=== PATIENT | female | born 2005 | race Hispanic/Latino ===

== ENCOUNTER 2024-10-02 15:42 | Inpatient (IN) | payer MEDICAID ==
[~2024-10-02] VITALS: Ht 129.5 cm; Wt 38.2 kg
[~2024-10-02 15:42] MED LIST: ATEN5POW3 MC; AUD IH; CARB15DR OP; CETI5TAB12 PO; DEXT1DRO OP; ESOM20CA51 PEG; FLUT12AE IH; IPRNEB IH; POLY17PO52 PO; [UNRECOGNIZED DRUG - CODE] IH; [UNRECOGNIZED DRUG - CODE] OD
--- NOTE | 2024-10-02 15:42 | NUR ---
VENT SETTINGS - SIMV, TV-250, PEEP-6, R- 22,
[2024-10-02] MEDS ORDERED: cefTRIAXone 1G VIAL 1 GM in 0.9%NACL 50ML 50 ML IV ONE (16:00)
[2024-10-02] MEDS: cefTRIAXone 1G VIAL IVPB ONE (16:30)
--- NOTE | 2024-10-02 17:35 | NUR ---
pt presents to er 1 WK AGO BLOODY DRAINAGE TO LEFT EAR HOWEVER PARENT REPORTS DATK COFFEE GROUNG RESIDUAL FROM PEG AND TARRY STOOLS STARTING ONE WEEK PT HAS 4.[address] AND VENTED PARENT REPORTS HX OFSPINAL MUSCULAR ATROPHY TYPE 1 VENT SETTINGS ARE RR-22, SIMV VOLUME CONTROL TIDLE VOL 250, PEEP 6, PRESSURE 4-10
[2024-10-02 17:42] LABS: BASOPHILS # (AUTO) 0.08 K/uL (0.00-0.20); BASOPHILS % (AUTO) 0.5 % (0.0-5.0); EOSINOPHILS # (AUTO) 0.21 K/uL (0.00-0.70); EOSINOPHILS % (AUTO) 1.2 % (0.0-8.0); IMMATURE GRANULOCYTE ABSOLUTE 0.07 K/uL (0-1); LYMPHOCYTES # (AUTO) 5.5 K/uL (1.0-4.8); LYMPHOCYTES % (AUTO) 31.4 % (21.0-51.0); MEAN CORPUSCULAR HGB CONC 32.4 g/dL (32.0-36.0); MEAN CORPUSCULAR VOLUME 92.4 fL (80-100); MONOCYTES # (AUTO) 0.8 K/uL (0.1-1.0); MONOCYTES % (AUTO) 4.7 % (3.0-13.0); NEUTROPHILS # (AUTO) 10.8 K/uL (1.8-7.7); NEUTROPHILS % (AUTO) 61.8 % (40.0-77.0); PLATELET COUNT (AUTO) 344 K/uL (130-400); RED BLOOD CELL COUNT(AUTO) 3.57 MIL/uL (4.00-5.50); RED CELL DISTRIBUTION WIDTH 16.6 % (11.0-15.5); WHITE BLOOD COUNT (AUTO) 17.5 K/uL (4.8-10.8)
--- NOTE | 2024-10-02 17:51 | NUR ---
PARENT REPORTD PT ON CONTINUIOUS FEEDING FROM 9AM TO 11 PM VITAL PEPTIDE 1.5 MOTHER TO PROVIDE RATE
[2024-10-02 17:54] LABS: INR 1.05 (0.85-1.15); PROTHROMBIN TIME 11.7 SEC (9.6-11.6)
[2024-10-02 17:56] LABS: PARTIAL THROMBOPLASTIN TIME 28.8 SEC (26.3-35.5)
[2024-10-02 18:16] LABS: CREATININE 0.2 mg/dL (0.5-1.0); POTASSIUM 3.5 mmol/L (3.5-5.1)
--- NOTE | 2024-10-02 18:20 | NUR ---
FEEDING 55 ML PER HR ON THE PUMP
[2024-10-02 18:21] LABS: BAND NEUTROPHILS % (MANUAL) 3 % (0-2); EOSINOPHILS % (MANUAL) 1 % (1-6); LYMPHOCYTES % (MANUAL) 25 % (22-44); MAN.DIFF COMMENT-IMPRESSION MANUAL DIFFERENTIAL; MONOCYTES % (MANUAL) 4 % (2-9); REACTIVE LYMPHOCYTES 9 % (0-0); SEGMENTED NEUTROPHILS % 58 % (40-70); TOTAL CELLS COUNTED 100
[2024-10-02 18:23] LABS: ALBUMIN 3.6 g/dL (3.5-5.0); BILIRUBIN,DIRECT 0.1 mg/dL (0.0-0.3); BILIRUBIN,TOTAL 0.3 mg/dL (0.2-1.0)
--- NOTE | 2024-10-02 18:30 | ERN ---
General Chief Complaint: Bloody Stool Stated Complaint: BLOOD IN STOOL, ABN LABS Time Seen by MD: 15:58 History of Present Illness Initial Comments 18-year-old female, history of spinal muscular dysplasia type 1, vent dependent on tracheostomy, GJ dependent, brought in by mother for elevated white blood cell count. One week ago patient had some drainage from the left ear. She went to the PCP was diagnosed with an ear infection. At that time she had a white blood cell count of 20.4 K. She took Augmentin for a week. Yesterday on re- evaluation at the prescription [facility] the patient had a white blood cell count of 24 four K. mother also reports that the residuals from the GJ tube looked coffee colored and she has had some dark stools. No fevers. No more cough than usual. No other real symptoms. Patient does not communicate. Allergies: Coded Allergies: vancomycin (Unverified Allergy, Unknown, 02/02/22) Home Meds Reported Medications Albuterol Sulfate (Ventolin Hfa) 90 Mcg Hfa.aer.ad, 2 PUFF IH BID for 30 Days, #18 GM 0 Refills 10/03/24 Amoxicillin/Potassium Clav (Augmentin 500-125 Tablet) 500 Mg-125 Mg Tablet, 1 TAB PO BID for 10 Days, #20 TAB 0 Refills 10/03/24 Midazolam (Nayzilam) 5 Mg/Dale (0.1 Ml) Dale, 5 MG NS AD PRN for OTHER [SEE ORDER COMMENTS], SPRAY 10/03/24 Midazolam (Nayzilam) 5 Mg/Dale (0.1 Ml) Dale, 5 MG NS BID PRN for CONSTIPATION, SPRAY 10/03/24 Acetaminophen (Acetaminophen) 160 Mg/5 Ml Liquid, 480 MG GT Q6HPRN PRN for PAIN/FEVER 10/03/24 Propranolol HCl (Propranolol HCl) 20 Mg Tablet, 1 TAB PO BID PRN for OTHER [SEE ORDER COMMENTS] for 30 Days, #60 TAB 0 Refills 10/03/24 Ergocalciferol (Vitamin D2) (Ergocalciferol) 200 Mcg/Ml (8000 Unit/Ml) Drops, 1 ML PO QWEEK for 28 Days, #20 ML 0 Refills 10/03/24 Sodium Chloride For Inhalation (Sodium Chloride) 7 % Vial.neb, 4 ML IH BID, INH 10/03/24 Polyethylene Glycol 3350 (Polyethylene Glycol 3350) 17 Gm Powd.pack, 17 GM PO QODAY 09/08/22 Dextran 70/Hypromellose (Artificial Tears) 1 Each Droperette, 1 EACH OP TID, DROP 09/08/22 Fluticasone/Salmeterol (Advair Hfa 45-21 Mcg Inhaler) 12 Gm Hfa.aer.ad, 2 INH IH BID, INHALER 09/08/22 Cetirizine HCl (Cetirizine HCl) 5 Mg Tablet, 5 MG PO HS, TAB 02/02/22 Albuterol Sulfate (Albuterol Sulfate) 2.5 Mg/0.5 Ml Vial.neb, 2.5 MG IH Q4HPRN PRN for BRONCHOSPASM, INH 02/02/22 Discontinued Reported Medications Albuterol Sulfate (Ventolin Hfa) 90 Mcg Hfa.aer.ad, 2 PUFF IH BID for 30 Days, #18 GM 0 Refills 10/03/24 Carboxymethylcellulose Sodium (Refresh Tears) 15 Ml Drops, 1 ML OP HS, DROP 09/08/22 Esomeprazole Magnesium (Esomeprazole Magnesium) 20 Mg Capsule.dr, 20 MG PEG DAILY, CAP 09/08/22 Sodium Chloride (Sodium Chloride 3% Neb Soln) 15 Ml Soln, 4 ML IH BID, ML 02/02/22 Petrolat,Wht/Min Oil/Sod Chl (Refresh P.m. Ointment P-F) 3.5 Gm Oint...g., 1 GM OD HS 02/02/22 Atenolol (Atenolol) 5 Gm Powder, 2 GM MC [id number] PRN for OTHER [SEE ORDER COMMENTS], APPL 02/02/22 Discontinued Scripts Ipratropium Willow (Atrovent Neb Soln) 0.5 Mg/2.5 Ml Soln, 0.5 MG IH [id number] for 15 Days, #60 AMP 1 Refill Prov:LAURA GAXIOLA Jr., MD 02/08/22 Past Medical History Past Medical History: Other Medical History Other: SMA-1 Past Surgical History: Other, Unknown Surgical History Other: TRACH, VENT, J TUBE Social History Social History: Lives with family ROS Dictation Patient does not communicate, unable to perform review of systems Physical Exam Physical Exam Dictation VITAL SIGNS: Reviewed. GENERAL APPEARANCE: No distress, baseline, does not respond, vent dependent HEAD AND FACE: Non-traumatic. EYES: Mild conjunctival injection bilateral EARS: Pinnas intact and no signs of trauma or erythema. Ear canals clear and no discharge. TMs no erythema. NOSE: No discharge, no bleeding. OROPHARYNX: Mouth normal, teeth no caries, tongue pink. Pharynx clear, no erythema. Tonsils no exudates, no abscesses noted. Mucous membrane moist. NECK: Supple, non-tender, no thyromegaly, no masses, no JVD, no bruits. CHEST: No tenderness, no crepitus, no paradoxical movement, no retractions. LUNGS: Mildly coarse lungs, vent dependent HEART: Regular rate, regular rhythm, no murmur, no gallops. VASCULAR: No peripheral edema. ABDOMEN: Soft, positive bowel sounds, nondistended, no guarding, nontender, no rebound, no masses no hepatomegaly, no splenomegaly, no Goetz's sign, no hernias. RECTAL: Deferred. GENITAL: Deferred. NEUROLOGICAL: At baseline MUSCULOSKELETAL: Baseline EXTREMITIES: Baseline SKIN: Color pink, dry, no turgor, no rash, no lacerations, no abrasions, no contusions. LYMPHATICS: Deferred. Results Laboratory and Microbiology Lab and Micro Result Labs Reviewed?: Yes EKG/XRAY/US/CT/MRI X-RAY Comment PATIENT: KYLE PATEL MR#: [id number] : 2005 SEX: F AGE: 18 LOCATION: [facility] ORDER 00 STATUS: [facility] REPORT#: [id number] SERVICE 1700 REASON: cough ORDERING PHYSICIAN: RUBIO CLOUD DO PROCEDURE: CXR1VW - CHEST 1VW PORTABLE CHEST RADIOGRAPH INDICATION: cough COMPARISON: 09/10/2022 FINDINGS: Heart size is normal. The pulmonary vascularity and jaya appear normal. Right lung is clear. Suspect left lower lung opacities. No significant pleural effusion noted. No pneumothorax detected. Significant scoliotic deformity of the thoracolumbar spine. IMPRESSION: Suspect left lower lung opacities. Follow-up chest radiograph is advised in order to ensure resolution. DICTATED BY: TEGAN LEMON MD DATE: 10/02/24 3448 ELECTRONICALLY SIGNED BY: TEGAN LEMON MD DATE: 10/02/24 185 MDM MDM: Differential diagnosis: Sepsis likely from pneumonia, GI bleed could be gastritis, peptic ulcer disease Rationale: Tests considered and ordered secondary to shared decision making include: labs, ECG and radiology Previous outside records reviewed: Old ER visits. Risk of complication and/or morbidity or mortality of patient management: None Medications-Per medication reconciliation Need for hospitalization: Patient does meet criteria for hospitalization. Need for emergency major/minor surgery: No There are no social concerns with this patient. Prescription drug management Prescriptions will include symptomatic care Patient's prior external medical records from other ER visits were reviewed by me as indicated. Prior testing and results from previous visits were reviewed. Prior tests were taken into account with medical decision making and resource utilization, independent historian/historians were used to obtain complete medical history. I independently interpreted the test that were performed, results were reviewed by me and considered findings on radiology if ordered. Medical management and examination interpretation discussions were had by me with other qualified healthcare professionals as indicated for the patient's care. ED Course 7:00 p.m. patient was signed out to me by a.m. physician. This is a 18-year-old chronically debilitated ill, chronic trach with ventilator dependence secondary to muscular dystrophy was recently seen by her PCP and thought to have otitis media. She was treated with Augmentin for a week and during follow up noted to have worsening leukocytosis and family also reported blood in the stool. They also informed about bloody J-tube secretions. Tachycardic at presentation with heart rates of 118 afebrile Labs reviewed CBC showed a white count of 17.5 hemoglobin 10.7-do not have baseline hemoglobin to compare. BNP 7 shows a sodium of 150 chloride 115 BUN and creatinine are 22 and 0.2 Chest x-ray shows a very rotated film with the opacification of the left lung base suggestive of a probable pneumonia. I have recommended admission to the hospital for treatment of pneumonia and pursue workup for GI bleed. Patient has received a dose of Rocephin and fluids as well as a PPI I updated patient's mother at bedside on available information test results and concern for sepsis likely related to lung and also a GI bleed. She is agreeable Patient accepted by [facility], mid-level provider for the hospitalist group to be admitted to Dr. Loki Faust Problem List Problem Lists: (1) Chronic respiratory failure requiring continuous mechanical ventilation through tracheostomy (2) Pneumonia involving left lung (3) Muscular dystrophy (4) Anemia (5) Leukocytosis (6) GI bleed DX & DISP Disposition: Inpatient Decision to Admit Time: 19:27 Departure Impression: Primary Impression: GI bleed Additional Impressions: Anemia, Leukocytosis, Pneumonia involving left lung, Chronic respiratory failure requiring continuous mechanical ventilation through tracheostomy, Muscular dystrophy Condition: Stable Additional Instructions: Patient was informed of all the diagnostic labs and procedures conducted in the emergency room today and demonstrated understanding of the results. I personally reviewed and interpreted all the diagnostic exams performed in the ER today. The patient will be admitted to the hospital for further treatment and evaluation. Disposition-admit to facility Condition-stable/guarded Course-uncertain at this time Pain status-decreased Assessment-exam unchanged Admission Certification- I certify that the patients status is appropriate and is based on my best clinical judgment and the patient's condition as documented in the medical records Referrals: SALMA RUTH (PCP) RUBIO CLOUD DO Oct 02, 2024 18:30 JOVITA OLIVO MD Oct 02, 2024 19:34
[2024-10-02] MEDS: PANTOPrazole 40 MG/VIAL IVP ONE (18:33)
[2024-10-02] MEDS: LACTATED RINGERS 1000ML 1,000 ML IV ONE (18:33)
--- NOTE | 2024-10-02 18:52 | HMCIMG ---
ABDOMEN SINGLE VIEW INDICATION: Pain COMPARISON: None FINDINGS: Supine view only No abnormal bowel dilation noted. Gastrojejunostomy or other enteric tube is in place. No abnormal calcifications identified. No gross free air detected. Significant deformity of the skeletal structures. IMPRESSION: No evidence for bowel obstruction.
--- NOTE | 2024-10-02 18:52 | HMCIMG ---
PORTABLE CHEST RADIOGRAPH INDICATION: cough COMPARISON: 09/10/2022 FINDINGS: Heart size is normal. The pulmonary vascularity and jaya appear normal. Right lung is clear. Suspect left lower lung opacities. No significant pleural effusion noted. No pneumothorax detected. Significant scoliotic deformity of the thoracolumbar spine. IMPRESSION: Suspect left lower lung opacities. Follow-up chest radiograph is advised in order to ensure resolution.
[2024-10-02] MEDS ORDERED: ondanSETRON 4MG INJ IV PRN (20:30)
[2024-10-02 20:57] LABS: APPEARANCE,URINE CLEAR (CLEAR); BILIRUBIN,URINE NEGATIVE (NEGATIVE); COLOR,URINE YELLOW (YELLOW); GLUCOSE, URINE (UA) NEGATIVE (NEGATIVE); KETONES,URINE NEGATIVE (NEGATIVE); LEUKOCYTE ESTERASE ,URINE NEGATIVE Leu/uL (NEGATIVE); NITRATE,URINE NEGATIVE (NEGATIVE); OCCULT BLOOD,URINE NEGATIVE (NEGATIVE); PROTEIN,URINE 20 mg/dL (NEGATIVE); UROBILINOGEN,URINE 0.2 mg/dL (0.2-1.0)
[2024-10-02] MEDS: DEXTROSE 5%-WATER 1,000 ML IV SCH (21:01)
[2024-10-02] MEDS: ZOSYN 3.375GM +NS 50ML IVPB SCH (21:01)
[2024-10-02 21:02] LABS: ADD UA MICROSCOPIC YES
[2024-10-02 21:03] LABS: MUCUS,URINE RARE LPF (None Seen)
--- NOTE | 2024-10-02 21:04 | HP ---
[facility] HISTORY AND PHYSICAL Date of Service: Oct 02, 2024 Time of Service: 20:11 PCP: Estrellita Ferrell HISTORY OF PRESENT ILLNESS: This is a 18-year-old female with past medical history of spinal muscular dystrophy, chronic respiratory failure vent dependent via trach, severe gastroesophageal reflux with PEG tube placement,severe thoracic scoliosis and functional quadriplegia who presents to the ED for elevated WBC.As per mother patient was having left ear infection with drainage 1 week ago and was started on Augmentin bid x 14days and today is day #7 and so far as per mother left ear drainage was resolved and yesterday patient went to her accessibility lift technician and a lab work was done and today as per mother she received a call from the clinic instructing her to bring patient to the ED due to elevated WBC. As per mother ,patient has coffee ground residuals from peg tube and has also been having dark watery stool everyday x 3 days.Patient had also dark stool last week daily x 3 days but had stopped and came back again since Monday this week.As per mother patient didnt have fever,chills,no abdominal pain reported. Latest vital signs temperature 98.2, heart rate 118, respiration 22, blood pressure 104/62, saturation 97% on vent FiO2 60%. Labs: WBC 17.5, hemoglobin 10.7, hematocrit 33, platelet count 344. Sodium 150, chloride 115, BUN 22, creatinine 0.2, total CK nine, total protein nine procalcitonin 0.09. Chest x-ray result revealed suspected left lower lung opacities. Follow-up chest radiograph is advised in order to ensure resolution. Chest x-ray result revealed no evidence for bowel obstruction. While in the ER patient received Rocephin 1 g IV, Protonix 40 mg IV, LR bolus 1 L. We will admit patient for further medical management. REVIEW OF SYSTEMS:Unable to perform patient is vented and lethargic PAST MEDICAL HISTORY: [ Severe thoracic scoliosis Spinal muscular atrophy, ventilator dependent chronic respiratory failure, severe gastroesophageal reflux at 4-month-old &functional quadriplegia ] PAST SURGICAL HISTORY: [ status post tracheostomy &s/p fundoplication surgery at 4-month-old PEG tube placement 09/2021] PAST SOCIAL HISTORY: [Patient lives with mother. ] FAMILY HISTORY: [ Noncontributory ] Coded Allergies: vancomycin (Unverified Allergy, Unknown, 02/02/22) PHYSICAL EXAM GENERAL APPEARANCE: The patient is lethargic but arousable.Patient appears comfortable NEUROLOGICAL: Patient is non verbal ,open eyes. HEENT: Face is symmetric. Pupils are equal and reactive. Extraocular movements are intact. NECK: Patient has vent via trache CHEST: Normal chest expansion. +Telemetry. LUNGS: scattered rhonchi on bilateral lower bases per auscultation CARDIOVASCULAR: Regular. S1 and S2 normal. No appreciable rubs, murmurs or gallops. ABDOMEN: + Pegtube-clamped Soft, nontender, and nondistended. There is no rebound, voluntary guarding, or rigidity. : Deferred. No Aleman. EXTREMITIES: + pedal pulses. Good capillary refill. SKIN: No skin breakdown. Vital Sign (Last 24 Hours) 10/02/24 10/02/24 17:17 18:09 Temp 98.2 Pulse 118 Resp 22 B/P (MAP) 104/62 Pulse Ox 97 O2 Delivery Room Air* Trach Collar+ O2 Flow Rate 0 FiO2 N/A LABS: Laboratory: Test 10/02/24 17:32 10/02/24 17:25 Range/Units White Blood Count 17.5 H 4.8-10.8 K/uL Red Blood Count 3.57 L 4.00-5.50 MIL/uL Hemoglobin 10.7 L 12.0-16.0 g/dL Hematocrit 33.0 L 36-48 % Mean Corpuscular Volume 92.4 80-100 fL Mean Corpuscular Hemoglobin 30.0 27.0-33.0 pg Mean Corpuscular Hemoglobin Concent 32.4 32.0-36.0 g/dL Red Cell Distribution Width 16.6 H 11.0-15.5 % Platelet Count 344 130-400 K/uL Mean Platelet Volume 10.9 H 7.5-10.5 fL Immature Granulocyte % (Auto) 0.4 0-1 % Neutrophils (%) (Auto) 61.8 40.0-77.0 % Lymphocytes (%) (Auto) 31.4 21.0-51.0 % Monocytes (%) (Auto) 4.7 3.0-13.0 % Eosinophils (%) (Auto) 1.2 0.0-8.0 % Basophils (%) (Auto) 0.5 0.0-5.0 % Neutrophils # (Auto) 10.8 H 1.8-7.7 K/uL Lymphocytes # (Auto) 5.5 H 1.0-4.8 K/uL Monocytes # (Auto) 0.8 0.1-1.0 K/uL Eosinophils # (Auto) 0.21 0.00-0.70 K/uL Basophils # (Auto) 0.08 0.00-0.20 K/uL Absolute Immature Granulocyte (auto 0.07 0-1 K/uL Segmented Neutrophils % 58 40-70 % Band Neutrophils % 3 H 0-2 % Lymphocytes % (Manual) 25 22-44 % Monocytes % (Manual) 4 2-9 % Eosinophils % (Manual) 1 1-6 % Nucleated Red Blood Cells 0.0 0.0-0.19 % Differential Comment MANUAL DIFFERENTIAL Reactive Lymphocytes 9 H 0-0 % White Cell Morphology Comment Platelet Morphology Comment Red Blood Cell Morphology See comments Prothrombin Time 11.7 H 9.6-11.6 SEC Prothromb Time International Ratio 1.05 0.85-1.15 Activated Partial Thromboplast Time 28.8 26.3-35.5 SEC Sodium Level 150 H 136-145 mmol/L Potassium Level 3.5 3.5-5.1 mmol/L Chloride Level 115 H 101-111 mmol/L Carbon Dioxide Level 23 21-32 mmol/L Blood Urea Nitrogen 22 H 7-18 mg/dL Creatinine 0.2 L 0.5-1.0 mg/dL Glomerular Filtration Rate Calc 172 >90 mL/min Random Glucose 95 70-105 mg/dL Lactic Acid Level 1.3 0.8-2.5 mmol/L Total Calcium 9.4 8.5-10.1 mg/dL Total Bilirubin 0.3 0.2-1.0 mg/dL Direct Bilirubin 0.1 0.0-0.3 mg/dL Aspartate Amino Transf (AST/SGOT) 26 10-37 U/L Alanine Aminotransferase (ALT/SGPT) 36 12-78 U/L Alkaline Phosphatase 117 50-136 U/L Total Creatine Kinase 9 L 21-232 U/L Troponin I High Sensitivity < 4 L 4-50 ng/L Total Protein 9.0 H 6.0-8.3 g/dL Albumin 3.6 3.5-5.0 g/dL Lipase 52 16-77 U/L Procalcitonin 0.09 0.05-0.5 ng/mL DIAGNOSTICS / RADIOLOGY: [ ] ASSESSMENT: Suspected Left lung pneumonia POA Suspected GI bleed POA Normocytic normochromic anemia POA Acute Leukocytosis POA Hypernatremia POA Chronic respiratory failure ventilator dependent POA Functional quadriplegia POA Peg tube status POA Recent Left ear infection POA Spinal Muscular dystrophy POA Severe thoracic scoliosis POA PLAN: We will admit patient in ICU We will keep patient nothing by mouth We will start D5 at 50 mL/hour We will start patient on Zosyn IV q.12 We will start on Protonix 40 mg IV daily We will replace electrolytes as needed per protocol We will add prn medication for fever,pain,cough ,nausea and vomiting We will reconcile home meds once medlist available We will follow up urinalysis result, we will cultures and fecal occult blood We will request labs in am We will request H&H p.r.n. bleeding We will seek critical Care consultation Further orders to follow depending on above results Case discussed with attending physician and came up with above treatment and plan of care. ADVANCED CARE PLANNING 1. Which of the following were discussed? Hospice Care - No Therapeutic options - Yes Advance Directives - No Other discussions - 2. Discussed with who? Mother 3. Voluntary nature of this service was explained to the patient? Yes 4. Amount of time spent - _29 5. Reviewed by Physician? (if this service was performed by NPP) Yes Patient seen and examined by me. Agree with note by LOG WASHER SEE ADDITIONAL ORDERS PER CHART DISCUSSED WITH NURSING STAFF GIO KELLY Oct 02, 2024 21:04
[2024-10-02 23:37] VITALS: PULSE 99; RESP 22; O2SAT 97
[2024-10-02 23:46] VITALS: PULSE 99; O2SAT 100
[2024-10-03] VITALS (41 sets, daily range): BP systolic 91–110; BP diastolic 51–76; PULSE 61–131; RESP 22; TEMP 97.4–98.6; O2SAT 98–100
[2024-10-03] MEDS: NOREPINEPHRIN 4MG/NS 250ML 250 ML IV PRN (04:55)
[2024-10-03 07:11] LABS: BASOPHILS # (AUTO) 0.04 K/uL (0.00-0.20); BASOPHILS % (AUTO) 0.3 % (0.0-5.0); EOSINOPHILS # (AUTO) 0.26 K/uL (0.00-0.70); EOSINOPHILS % (AUTO) 2.2 % (0.0-8.0); HEMATOCRIT 25.1 % (36-48); IMMATURE GRANULOCYTE ABSOLUTE 0.07 K/uL (0-1); LYMPHOCYTES # (AUTO) 5.7 K/uL (1.0-4.8); MEAN CORPUSCULAR HEMOGLOBIN 30.3 pg (27.0-33.0); MEAN CORPUSCULAR HGB CONC 31.5 g/dL (32.0-36.0); MEAN CORPUSCULAR VOLUME 96.2 fL (80-100); MONOCYTES # (AUTO) 0.7 K/uL (0.1-1.0); MONOCYTES % (AUTO) 5.4 % (3.0-13.0); NEUTROPHILS # (AUTO) 5.2 K/uL (1.8-7.7); NEUTROPHILS % (AUTO) 43.5 % (40.0-77.0); PLATELET COUNT (AUTO) 197 K/uL (130-400); RED BLOOD CELL COUNT(AUTO) 2.61 MIL/uL (4.00-5.50); RED CELL DISTRIBUTION WIDTH 16.9 % (11.0-15.5)
--- NOTE | 2024-10-03 07:20 | NUR ---
REPORT RECEIVED FROM CONNIE STEPHENS
--- NOTE | 2024-10-03 07:25 | NUR ---
ASSESSMENT: PT FOUND IN SUPINE POSITION. MOTHER AT BEDSIDE. PT IS ON A VENTILATOR VIA TRACH CARIO/PULMONARY: NO ACUTE RESPIRATORY DISTRESS AT THIS TIME. OXYGEN SATS >95% ON CURRENT VENTILATOR SETTINGS. NO CYANOSIS NOTED TO NAIL BEDS ON HANDS. NO USE OF ACCESSORY MUSCLES NOR STERNAL RETRACTIONS. PT HAS A SIZE 7 TRACH. LUNG SOUNDS DIMINISHED BILATERALLY TO BASES AND CLEAR TO UPPER LOBES. PT DOES HAVE THIN ORAL SECRETIONS. PULSE OXIMETER ON L FOOT/TOE. SR ON SYSTEM SOFTWARE PROGRAMMER. S1S2 AUSCULTATED APICALLY. CAP REFILL LESS THAN 3 SECONDS. 1+PULSES TO BILATERAL RADIAL/DORSALIS PEDAL SITES. PT HAS A 20G TO L POSTERIOR WRIST AND L THUMB 20G. PT HAS NOREPINEPHRINE 0.1MCG/KG/MIN ALONG W/D5W GI/: PER MOTHER, PT HAS HAD BLACK STOOLS THE LAST FEW DAYS. HOMER STEPHENS CHANGED PT AT 0700HRS W/BLACK/DARK MEZA STOOLS. PT IS STOOL AND URINE INCONTINENT AND USES BRIEFS. PT HAS A J TUBE BUT PT CURRENTLY NPO STATUS. MOTHER DENIES NAUSEA. +BS X 4 QUADRANTS.SOFT TO PALPATION. NEURO: PT EYES ARE OPEN, BUT IS NON VERBAL AND UNABLE TO COMMUNICATE W/HER HANDS. UNABLE TO COMPLETLY ASSESS NEUROLOGICAL STATUS. UNABLE TO FOLLOW COMMANDS. MUSCULOSKELETAL/INTEGUMENTARY: PT HAS DEFORMITIES TO HER UPPER AND LOWER EXTREMITIES. PT HAS BILATERAL FOOT DROP. PT UNABLE TO MOVE W/OUT ASSIST. NO SKIN BREAKDOWN NOTED AT THIS TIME. PER MOM, NO SKIN BREAKDOWN TO THE PHYLICIA AREA EITHER. VENT SETTINGS: SIMV MODE TV 250 PEEP 5 PS 10 FIO2 21%
[2024-10-03 07:39] LABS: % IRON SATURATION 15.6 % (22-44)
--- NOTE | 2024-10-03 07:45 | NUR ---
RUTH CALLED IN THAT THE STOOL WILL NOT BE RESULTED FOR C DIFF D/T IT NOT BEING LOOSE ENOUGH. MOTHER WAS INFORMED.
--- NOTE | 2024-10-03 07:54 | NUR ---
LAB WAS RECOLLECTED D/T QUESTION ON ITS RESULTED VALUE.
--- NOTE | 2024-10-03 08:16 | CONS ---
[facility] CONSULTATION NOTE Date Patient Seen: Oct 03, 2024 Time of Visit: 08:15 Supervising Physician: Peng Gomez MD Reason for Consultation: Critiical Care management. Primary Care Physician: Mariaelena Alvarez Outpatient Specialists: Inpatient Consults: BIS, PROBLEM LIST: Septic shock, POA requiring Levophed Acute on chronic hypoxic respiratory failure, POA Ventilator dependent since Tracheostomy size Left side pneumoniae, POA Compensated metabolic acidosis, POA Acute on chronic anemia from blood loss, POA (Melena) Leukocytosis, POA Hypernatremia POA Chronic respiratory failure ventilator dependent POA Functional quadriplegia POA Bernardo tube gastrostomy, POA Recent Left ear infection POA Hypokalemia Hx of seizures History of spinal muscular dysplasia hx of Severe thoracic scoliosis HPI: This is a chronically ill 18-year-old female with a past medical history of spinal muscular dysplasia, gastrostomy tube, functional quadriplegia, bed-bound, vent dependent breaths, tracheostomy, and aphasia who presented to the emergency department for evaluation of elevated white count from PCP. On arrival to the emergency department patient arrived with a temperature of 98.2 heart rate of 118 respiratory rate of 22 on her home ventilator SIMV mode, TV 250, RR 22, fio2 of 21% and peep 5, with pressure support of 10. Home vent settings as follows: SIMV mode, TV 250, RR 22, fio2 of 21% and peep 5, with pressure support of 10. She initially arrived with a white count of 17.5 H&H of 10.7/33 platelet count of 344 K with normal neutrophils. Chemistry patient has a sodium of 148, potassium is 3.3 chloride 114 carbon dioxide 20 creatinine of 0.2 GFR 172 CRP of 18 albumin is 3.1 TSH of 4.29. Abdominal x-ray showed no evidence of bowel obstruction. Chest x-ray shows suspected left lower lung opacities. Patient was admitted to the ICU on a Levophed drip by the catalyst team and we are consulted for critical care management. On assessment patient is awake aphasic vented via trach. Appears to be in no apparent distress, she is completely bed-bound and requires total care. Her primary caregivers for mother. As per mom patient had recently been diagnosed with left ear infection with drainage one week ago and was started on Augmentin twice a day for 14 days today is day 7. So she followed up with patient's outreach specialist and lab work was done with revealed elevated white count and one sent to the ED for further evaluation. Patient on Levophed at0.03mcg/kg/min. She has poor veins for peripheral IV access and PICC line was ordered. On behalf of [facility] thank you for given us the opportunity to participate in the care of this patient. PAST MEDICAL HX: Severe thoracic scoliosis Spinal muscular dysplasia Ventilator dependent Chronic hypoxic respiratory failure Severe GERD Functional Quadriplegia PAST SURGICAL HX: Tracheostomy Fundoplication surgery Bernardo gastrostomy tube SOCIAL HISTORY: No tobacco, ETOH, or illicit drug use Coded Allergies: vancomycin (Unverified Allergy, Unknown, 02/02/22) REVIEW OF SYSTEMS: Unable to perform due to patient's cognitive status. PHYSICAL EXAM: GENERAL: Patient is awake alert aphasic. HEENT: Sclera non icteric, moist mucosa NECK: Short no JVD, tracheostomy LUNGS: Clear breath sounds bilaterally. No wheezes HEART: Regular rate and rhythm. Normal S1 and S2, without murmurs ABD: Abdomen soft, nontender. Bowel sounds present EXT: No clubbing cyanosis or edema NEURO: Alert and oriented to person, follows commands Vital Signs (last 8hr) Date Time Temp Pulse Resp B/P (MAP) Pulse Ox O2 Delivery O2 Flow Rate FiO2 10/03/24 07:05 128 22 124/79 98 Room Air* 0 21 Trach Collar+ 10/03/24 06:55 131 21 10/03/24 05:40 77 22 98/61 99 Room Air* 0 21 Trach Collar+ 10/03/24 05:19 66 22 90/47 98 Room Air* 0 N/A Trach Collar+ 10/03/24 05:07 75 22 93/51 99 Nasal Cannula* 1 24 10/03/24 04:55 80/43 10/03/24 04:33 91 22 80/42 99 Room Air* 0 N/A Trach Collar+ 10/03/24 03:12 98.4 90 22 86/54 99 Room Air* 0 N/A Trach Collar+ 10/03/24 02:42 97 21 10/03/24 00:25 100 99 Trach Collar+ 15 40 LABS: Hematology Labs: Test 10/03/24 06:46 10/02/24 17:32 Range/Units White Blood Count 12.0 #H 4.8-10.8 K/uL Red Blood Count 2.61 #L 4.00-5.50 MIL/uL Hemoglobin 7.9 #L 12.0-16.0 g/dL Hematocrit 25.1 #L 36-48 % Mean Corpuscular Volume 96.2 80-100 fL Mean Corpuscular Hemoglobin 30.3 27.0-33.0 pg Mean Corpuscular Hemoglobin Concent 31.5 L 32.0-36.0 g/dL Red Cell Distribution Width 16.9 H 11.0-15.5 % Platelet Count 197 # 130-400 K/uL Mean Platelet Volume 11.5 H 7.5-10.5 fL Immature Granulocyte % (Auto) 0.6 0-1 % Neutrophils (%) (Auto) 43.5 40.0-77.0 % Lymphocytes (%) (Auto) 48.0 21.0-51.0 % Monocytes (%) (Auto) 5.4 3.0-13.0 % Eosinophils (%) (Auto) 2.2 0.0-8.0 % Basophils (%) (Auto) 0.3 0.0-5.0 % Neutrophils # (Auto) 5.2 1.8-7.7 K/uL Lymphocytes # (Auto) 5.7 H 1.0-4.8 K/uL Monocytes # (Auto) 0.7 0.1-1.0 K/uL Eosinophils # (Auto) 0.26 0.00-0.70 K/uL Basophils # (Auto) 0.04 0.00-0.20 K/uL Absolute Immature Granulocyte (auto 0.07 0-1 K/uL Nucleated Red Blood Cells 0.0 0.0-0.19 % Segmented Neutrophils % 58 40-70 % Band Neutrophils % 3 H 0-2 % Lymphocytes % (Manual) 25 22-44 % Monocytes % (Manual) 4 2-9 % Eosinophils % (Manual) 1 1-6 % Differential Comment MANUAL DIFFERENTIAL Reactive Lymphocytes 9 H 0-0 % Platelet Morphology Comment Red Blood Cell Morphology See comments Chemistry Labs: Test 10/03/24 06:46 10/02/24 17:25 Range/Units Iron Level 38 L 50-170 mcg/dL Total Iron Binding Capacity 243 L 250-450 mcg/dL Percent Iron Saturation 15.6 L 22-44 % Procalcitonin < 0.05 L 0.05-0.5 ng/mL Sodium Level 150 H 136-145 mmol/L Potassium Level 3.5 3.5-5.1 mmol/L Chloride Level 115 H 101-111 mmol/L Carbon Dioxide Level 23 21-32 mmol/L Blood Urea Nitrogen 22 H 7-18 mg/dL Creatinine 0.2 L 0.5-1.0 mg/dL Glomerular Filtration Rate Calc 172 >90 mL/min Random Glucose 95 70-105 mg/dL Lactic Acid Level 1.3 0.8-2.5 mmol/L Total Calcium 9.4 8.5-10.1 mg/dL Total Bilirubin 0.3 0.2-1.0 mg/dL Direct Bilirubin 0.1 0.0-0.3 mg/dL Aspartate Amino Transf (AST/SGOT) 26 10-37 U/L Alanine Aminotransferase (ALT/SGPT) 36 12-78 U/L Alkaline Phosphatase 117 50-136 U/L Total Creatine Kinase 9 L 21-232 U/L Troponin I High Sensitivity < 4 L 4-50 ng/L Total Protein 9.0 H 6.0-8.3 g/dL Albumin 3.6 3.5-5.0 g/dL Lipase 52 16-77 U/L Coagulation Labs: Test 10/02/24 17:25 Range/Units Prothrombin Time 11.7 H 9.6-11.6 SEC Prothromb Time International Ratio 1.05 0.85-1.15 Activated Partial Thromboplast Time 28.8 26.3-35.5 SEC DIAGNOSTICS / RADIOLOGY RESULTS: [ ] PLAN Follow for critical care management in the ICU Treat empirically for suspected Pseudomonas pneumoniae with Zosyn Empiric coverage for community-acquired pneumonia with doxycycline Atrovent q.4 hours Mucomyst q.[address] of the chest without contrast Monitor electrolytes and cover accordingly IV fluids with D5 LR with 20 mEq of potassium at 50 mL/hour Blood cultures, urine cultures, respiratory culture MRSA swab Levophed to maintain map above 65 and wean as possible Resume home medications as possible NEURO: Minimize central acting medications as possible. Fall Precautions. Well lighted room through the day and minimize interruptions through the night to prevent acute delirium. Seizure precautions Ativan PRN IV seizure Resume home seizure medication PULMONARY: Supplemental 02 as needed Titrate Fio2 to keep Spo2 > or = 90% DuoNebs and CPT as needed IS hourly while awake for pulmonary hygiene Out of bed to chair as tolerated VAP Bundle Vent/BIPAP Settings: SIMV mode, TV 250, RR 22, fio2 of 21% and peep 5, with pressure support of 10. CARDIOVASCULAR: Follow hemodynamics. Titrate vasopressor to keep MAP >65 or systolic blood pressure >95mmHg Drips: Levophed LINES: PIV PICC GI & NUTRITION: Continue nutritional support Aspirations precautions Prokinetic agents and laxatives as needed NPO for now KIDNEYS & ELECTROLYTES: Strict monitoring of intake and output Daily weights Avoid nephrotoxic agents Monitor electrolytes and replace as needed Goal urine output of 30mL/hr or 0.5mL/kg/hr Urine output: [ ] Fluid Balance: [ ] ENDOCRINE: Maintain blood glucose between 100-180 at all times. Insulin sliding scale for blood glucose management TSH INFECTIOUS DISEASE: Trend temperature. Herrera-culture if febrile. Micro: [ ] Blood culture Urine culture Respiratory culture Antibiotics: Zosyn and doxycycline HEMATOLOGY & COAGULATION: Monitor H&H. Keep Hgb > 7 Transfuse 1 unit of PRBC for Hgb < 7 Transfuse 1 pack of platelets of platelets < 20, 000 Watch for any signs and symptoms of bleeding SKIN: Pressure ulcer prevention per facility protocol Rehab: PT/OT Prophylaxis: GI: Protonix 40 mg IV push b.i.d. DVT: SCDs Code Status: Full Resuscitation Disposition: ICU Other: Total patient care time exceeds 35 minutes excluding all procedures. Case was discussed and seen with my supervising physician. The above plan was formulated and agreed upon. GATTIO MARTIN Oct 03, 2024 08:15
--- NOTE | 2024-10-03 08:25 | NUR ---
CRITICAL CARE CONSULT: ANA GANT AT BEDSIDE ASSESSING THE PT.
--- NOTE | 2024-10-03 08:40 | NUR ---
FLU/COVID/STREP/MRSA SWABS SENT TO LAB-LABELED
[2024-10-03 08:45] LABS: HEMATOCRIT 28.7 % (36-48)
[2024-10-03 08:51] LABS: ALBUMIN 3.1 g/dL (3.5-5.0); BILIRUBIN,TOTAL 0.3 mg/dL (0.2-1.0); CREATININE 0.2 mg/dL (0.5-1.0); POTASSIUM 3.3 mmol/L (3.5-5.1); THYROID STIMULATING HORMONE 4.29 uIU/mL (0.36-3.74); TOTAL PROTEIN, SERUM 7.6 g/dL (6.0-8.3)
--- NOTE | 2024-10-03 08:57 | NUR ---
CONSENT OBTAINED FOR PICC LINE
[2024-10-03] MEDS ORDERED: PANTOPrazole 40 MG/VIAL IVP SCH (09:00)
[2024-10-03 09:02] LABS: ABG OXYGEN SATURATION 92.7 % (94.0-98.0); BASE EXCESS,VENOUS BLOOD GAS -6.9 (-2.0-3.0); DEVICE COMMENT JESSE RN V; HCO3,VENOUS BLOOD GAS 16.2 (22.0-29.0); PCO2,VENOUS BLOOD GAS 25 (38-54); PH,VENOUS BLOOD GAS 7.423 (7.320-7.430); PO2,VENOUS BLOOD GAS 66.9 mmHg (23.0-48.0); VENT MODE, BG HOME VENT (ROOM AIR)
--- NOTE | 2024-10-03 09:21 | NUR ---
PT TAKEN TO CT SCAN W/VENT AND IVP W/LEVO
--- NOTE | 2024-10-03 09:31 | NUR ---
PT JUST RETURNED FROM CT SCAN
[2024-10-03] MEDS: DOXYCYCLINE 100MG+NS 250ML 250 ML IV SCH (09:37)
[2024-10-03] MEDS: PANTOPrazole 40 MG/VIAL IVP SCH (09:37)
[2024-10-03] MEDS: CHLORHEXIDINE GLUCONATE 15 ML MOUTHWASH MM SCH (09:37)
[2024-10-03] MEDS: ARTIFICAL TEARS SOL 15 ML OU SCH (09:37)
[2024-10-03] MEDS: IpraTROPium 0.5 MG/2.5 ML INH IH SCH (09:49)
[2024-10-03] MEDS: acetylCYSTeine 20% 200MG/ML 4ML VIAL IH SCH (09:49)
[2024-10-03 09:52] LABS: RAPID GROUP A STREP negative (NEGATIVE)
[2024-10-03 10:03] LABS: INFLUENZA TYPE A Negative For Type A (NEGATIVE); INFLUENZA TYPE B Negative For Type B (NEGATIVE)
[2024-10-03 10:04] LABS: COVID19 (SARS ANTIGEN RAPID) PRESUMPTIVE NEGATIVE (NEGATIVE)
--- NOTE | 2024-10-03 10:13 | HMCIMG ---
CT CHEST W/O CONTRAST HISTORY: Chronic respiratory failure COMPARISON: 02/02/2022 TECHNIQUE: Multiple sequential axial images of the chest were obtained from the thoracic inlet through upper abdomen. Patient was not given contrast through intravenous route. FINDINGS: There is scoliosis. There is left lung subsegmental atelectasis. Tracheostomy tube is seen. The study is limited due to patient's underlying status with deformity. Bilateral pulmonary infiltrates are seen. No pleural effusion or pericardial effusion is seen. There is no evidence of pneumothorax. There are normal size mediastinal and hilar lymph nodes. The heart is not enlarged. Degenerative changes of the thoracolumbar spine are present. There is no evidence of adrenal nodule. IMPRESSION: 1. Minimal bilateral pulmonary infiltrates with left lower lung subsegmental atelectasis and bronchiectasis. CT was performed with one or more following dose reduction techniques: automated exposure control, adjustment of the mA and kv according to patient's size, or use of a iterative reconstruction technique.
--- NOTE | 2024-10-03 10:23 | PN ---
[facility] PROGRESS NOTE Date of Service: Oct 03, 2024 Time of Service: 10:21 SUBJECTIVE: This is a 18-year-old female with past medical history of spinal muscular dystrophy, chronic respiratory failure vent dependent via trach, severe gastroesophageal reflux with PEG tube placement,severe thoracic scoliosis and functional quadriplegia who presents to the ED for elevated WBC.As per mother patient was having left ear infection with drainage 1 week ago and was started on Augmentin bid x 14days and today is day #7 and so far as per mother left ear drainage was resolved and yesterday patient went to her senior systems programmer and a lab work was done and today as per mother she received a call from the clinic instructing her to bring patient to the ED due to elevated WBC. As per mother ,patient has coffee ground residuals from peg tube and has also been having dark watery stool everyday x 3 days.Patient had also dark stool last week daily x 3 days but had stopped and came back again since Monday this week.As per mother patient didnt have fever,chills,no abdominal pain reported. Latest vital signs temperature 98.2, heart rate 118, respiration 22, blood pressure 104/62, saturation 97% on vent FiO2 60%. Labs: WBC 17.5, hemoglobin 10.7, hematocrit 33, platelet count 344. Sodium 150, chloride 115, BUN 22, creatinine 0.2, total CK nine, total protein nine procalcitonin 0.09. Chest x-ray result revealed dominique spected left lower lung opacities. Follow-up chest radiograph is advised in order to ensure resolution. Chest x-ray result revealed no evidence for bowel obstruction. While in the ER patient received Rocephin 1 g IV, Protonix 40 mg IV, LR bolus 1 L. We will admit patient for further medical management. 10/03/24 On bedside examination in the ER the patient was being ventilated via tracheostomy tube and she has PEG tube in place and she ask functional quadriplegia. Spoke to her mom she describes that this is her usual functional status. A WBC count remains elevated. She is currently on 7 days of Augmentin treatment for her left ear infection with drainage. Her fecal occult blood test is positive for blood her abdominal x-ray reveals no evidence of bowel obstruction. Recent chest x-ray revealed suspected left lower lung opacities and follow-up imaging is recommended. And a recent chest CT scan revealed minimal bilateral pulmonary infiltrates, left lower lung subsegmental atelectasis and bronchiectasis. While in the ER the patient received Rocephin1 g IV, Protonix 40 mg and lactated Ringer's 1 L bolus. Given the elevated WBC count, suspected left lung pneumonia and GI bleeding consent she is being admitted for further manage the her blood pressure is124 x 79 with a pulse of 90. Arterial blood oxygen saturation is 92.7, venous blood pCO2 is that is slow and venous blood PO2 is 66.9, venous blood HC03 is 16.2, bedside lactic acid blood gas is 0.85 high her hemoglobin is 9.2 low and hematocrit is 28.7 low and fibrinogen is381 high sodium level is148 high potassium level is 3.3 low her BUN level is 13 and creatinine level is 0.2 low C-reactive protein is elevated with18 and TSH is high which is 4.29 WBC count is elevated with 12.0 high. Her serum iron levels are low at 38 and TIBC is low at 243 and percentage saturation is 15.6 low and her urine protein is high with 20 and RBCs 2-5 high and WBCs 2-5 high. She is being currently admitted for further management of care REVIEW OF SYSTEMS:Unable to perform patient is vented and lethargic PHYSICAL EXAM GENERAL APPEARANCE: The patient is lethargic but arousable.Patient appears comfortable NEUROLOGICAL: Patient is non verbal ,open eyes. HEENT: Face is symmetric. Pupils are equal and reactive. Extraocular movements are intact. NECK: Patient has vent via trache CHEST: Normal chest expansion. +Telemetry. LUNGS: scattered rhonchi on bilateral lower bases per auscultation CARDIOVASCULAR: Regular. S1 and S2 normal. No appreciable rubs, murmurs or ga llops. ABDOMEN: + Pegtube-clamped Soft, nontender, and nondistended. There is no rebound, voluntary guarding, or rigidity. : Deferred. No Aleman. EXTREMITIES: + pedal pulses. Good capillary refill. SKIN: No skin breakdown. Vital Signs (last 8hr) Date Time Temp Pulse Resp B/P (MAP) Pulse Ox O2 Delivery O2 Flow Rate FiO2 10/03/24 09:54 80 21 10/03/24 09:52 90 22 10/03/24 07:05 128 22 124/79 98 Room Air* 0 21 Trach Collar+ 10/03/24 06:55 131 21 10/03/24 05:40 77 22 98/61 99 Room Air* 0 21 Trach Collar+ 10/03/24 05:19 66 22 90/47 98 Room Air* 0 N/A Trach Collar+ 10/03/24 05:07 75 22 93/51 99 Nasal Cannula* 1 24 10/03/24 04:55 80/43 10/03/24 04:33 91 22 80/42 99 Room Air* 0 N/A Trach Collar+ 10/03/24 03:12 98.4 90 22 86/54 99 Room Air* 0 N/A Trach Collar+ 10/03/24 02:42 97 21 LABS: Laboratory: Test 10/03/24 08:59 10/03/24 08:58 10/03/24 07:52 10/03/24 06:54 Range/Units Blood Gas Specimen Type Venous Arterial Blood Oxygen Saturation 92.7 L 94.0-98.0 % Venous Blood pH 7.423 7.320-7.430 Venous Blood pCO2 at Patient Temp 25 L 38-54 Venous Blood pO2 at Patient Temp 66.9 H 23.0-48.0 mmHg Venous Blood HCO3 16.2 L 22.0-29.0 Venous Blood Base Excess -6.9 L -2.0-3.0 Venous Blood Total Hemoglobin 10.5 L 12.0-16.0 Sodium (Blood Gas) 144 136-145 MMOL/L Bedside Potassium (Blood Gas) 3.4 3.4-4.5 MMOL/L Bedside Chloride (Blood Gas) 114 H 98-107 MMOL/L Bedside Glucose (Blood Gas) 117 H 65-95 MG/DL Bedside Ionized Calcium (Blood Gas) 1.20 1.15-1.33 MMOL/L Bedside Lactic Acid (Blood Gas) 0.85 H 0.36-0.75 MMOL/L Blood Gas Temperature 37.0 35.5-37.0 CELSIUS Blood Gas Respiration Rate 22.0 min. Blood Gas Vent Mode HOME VENT ROOM AIR FiO2 21.0 % Blood Gas Tidal Volume 250 ml Blood Gas PEEP 6 cm H2O Blood Gas Specimen Comment LUDIN RN V Lactic Acid Level 0.9 0.8-2.5 mmol/L Hemoglobin 9.2 L 12.0-16.0 g/dL Hematocrit 28.7 L 36-48 % Fibrinogen 381 H 180-350 mg/dL Sodium Level 148 H 136-145 mmol/L Potassium Level 3.3 L 3.5-5.1 mmol/L Chloride Level 114 H 101-111 mmol/L Carbon Dioxide Level 20 L 21-32 mmol/L Blood Urea Nitrogen 13 7-18 mg/dL Creatinine 0.2 L 0.5-1.0 mg/dL Glomerular Filtration Rate Calc 172 >90 mL/min Random Glucose 114 H 70-105 mg/dL Total Calcium 8.5 8.5-10.1 mg/dL Magnesium Level 2.00 1.80-2.40 mg/dL Total Bilirubin 0.3 0.2-1.0 mg/dL Aspartate Amino Transf (AST/SGOT) 19 10-37 U/L Alanine Aminotransferase (ALT/SGPT) 29 12-78 U/L Alkaline Phosphatase 99 50-136 U/L C-Reactive Protein, Quantitative 18.00 H 0.5-3.0 mg/L Total Protein 7.6 6.0-8.3 g/dL Albumin 3.1 L 3.5-5.0 g/dL Thyroid Stimulating Hormone (TSH) 4.29 #H 0.36-3.74 uIU/mL Stool Occult Blood POSITIVE H NEGATIVE Test 10/03/24 06:46 10/02/24 20:25 10/02/24 17:32 10/02/24 17:25 Range/Units White Blood Count 12.0 #H 4.8-10.8 K/uL Red Blood Count 2.61 #L 4.00-5.50 MIL/uL Mean Corpuscular Volume 96.2 80-100 fL Mean Corpuscular Hemoglobin 30.3 27.0-33.0 pg Mean Corpuscular Hemoglobin Concent 31.5 L 32.0-36.0 g/dL Red Cell Distribution Width 16.9 H 11.0-15.5 % Platelet Count 197 # 130-400 K/uL Mean Platelet Volume 11.5 H 7.5-10.5 fL Immature Granulocyte % (Auto) 0.6 0-1 % Neutrophils (%) (Auto) 43.5 40.0-77.0 % Lymphocytes (%) (Auto) 48.0 21.0-51.0 % Monocytes (%) (Auto) 5.4 3.0-13.0 % Eosinophils (%) (Auto) 2.2 0.0-8.0 % Basophils (%) (Auto) 0.3 0.0-5.0 % Neutrophils # (Auto) 5.2 1.8-7.7 K/uL Lymphocytes # (Auto) 5.7 H 1.0-4.8 K/uL Monocytes # (Auto) 0.7 0.1-1.0 K/uL Eosinophils # (Auto) 0.26 0.00-0.70 K/uL Basophils # (Auto) 0.04 0.00-0.20 K/uL Absolute Immature Granulocyte (auto 0.07 0-1 K/uL Nucleated Red Blood Cells 0.0 0.0-0.19 % White Cell Morphology Comment See comments Iron Level 38 L 50-170 mcg/dL Total Iron Binding Capacity 243 L 250-450 mcg/dL Percent Iron Saturation 15.6 L 22-44 % Procalcitonin < 0.05 L 0.05-0.5 ng/mL Urine Color YELLOW YELLOW Urine Appearance CLEAR CLEAR Urine pH 7.0 5.0-8.0 Urine Specific [place] 1.027 1.001-1.031 Urine Protein 20 H NEGATIVE mg/dL Urine Glucose (UA) NEGATIVE NEGATIVE mg/dL Urine Ketones NEGATIVE NEGATIVE mg/dL Urine Occult Blood NEGATIVE NEGATIVE Urine Nitrate NEGATIVE NEGATIVE Urine Bilirubin NEGATIVE NEGATIVE mg/dL Urine Urobilinogen 0.2 0.2-1.0 mg/dL Urine Leukocyte Esterase NEGATIVE NEGATIVE Janeth/uL Urine RBC 2-5 H 0-1 /HPF Urine WBC 2-5 H 0-1 /HPF Urine Bacteria None None Seen /HPF Segmented Neutrophils % 58 40-70 % Band Neutrophils % 3 H 0-2 % Lymphocytes % (Manual) 25 22-44 % Monocytes % (Manual) 4 2-9 % Eosinophils % (Manual) 1 1-6 % Differential Comment MANUAL DIFFERENTIAL Reactive Lymphocytes 9 H 0-0 % Platelet Morphology Comment Red Blood Cell Morphology See comments Prothrombin Time 11.7 H 9.6-11.6 SEC Prothromb Time International Ratio 1.05 0.85-1.15 Activated Partial Thromboplast Time 28.8 26.3-35.5 SEC Direct Bilirubin 0.1 0.0-0.3 mg/dL Total Creatine Kinase 9 L 21-232 U/L Troponin I High Sensitivity < 4 L 4-50 ng/L Lipase 52 16-77 U/L Current Medications Medications (Trade) Dose Ordered Sig/[place]ent[place] Route PRN Reason Start Time Stop Time Status Last Admin Dose Admin Acetylcysteine (MUComyst 20% 4ML) 400mg = 2ml [id number] 10/03/24 10:00 11/02/24 09:59 10/03/24 09:49 400 MG Artificial Tears (Artificial Tears) 1 DROP OR AD Q8H OU 10/03/24 08:30 11/02/24 08:29 10/03/24 09:37 2 DROP Chlorhexidine Gluconate (Peridex) 15 ml Q8H MM 10/03/24 08:30 10/17/24 08:29 10/03/24 09:37 15 ML Dextrose 1,000 ml @ 50 mls/hr Q20H IV 10/02/24 20:30 11/01/24 20:29 10/02/24 21:01 50 MLS/HR Doxycycline Hyclate 250 ml @ 125 mls/hr Q12H IV 10/03/24 08:30 10/13/24 08:29 10/03/24 09:37 125 MLS/HR Ipratropium [place] (AtrovENT UD) 0.5 MG [id number] 10/03/24 10:00 11/02/24 09:59 10/03/24 09:49 0.5 MG Norepinephrine 250 ml @ 14.288 mls/ hr PROTOCOL PRN IV HYPOTENSION MAP LESS THAN 65 10/03/24 04:00 11/02/24 03:59 10/03/24 04:55 14.288 MLS/HR Ondansetron HCl (zoFRAN 4MG INJ) 4 mg Q6H PRN IV NAUSEA/VOMITING 10/02/24 20:30 11/01/24 20:29 Pantoprazole Sodium (PROTonix 40MG INJ) 40 mg BID IVP 10/03/24 09:00 11/02/24 08:59 10/03/24 09:37 40 MG Pantoprazole Sodium (PROTonix 40MG INJ) 40 mg DAILY IVP 10/03/24 09:00 10/03/24 08:09 DC Piperacillin Sod/ Tazobactam Sod (Zosyn 3.375gm+NS 50ml) 3.375 gm Q12H IVPB 10/02/24 20:30 10/12/24 20:29 10/03/24 09:37 3.375 GM PATIENT: KYLE PATEL MR#: [id number] : 2005 SEX: F AGE: 18 LOCATION: [facility] ORDER 0814 STATUS: ADM IN REPORT#: [id number] SERVICE 0812 REASON: hypoxic resp failure acute on chronic ORDERING PHYSICIAN: GATITO MARTIN PROCEDURE: CHEST WO - CT CHEST W/O CONTRAST CT CHEST W/O CONTRAST HISTORY: Chronic respiratory failure COMPARISON: 02/02/2022 TECHNIQUE: Multiple sequential axial images of the chest were obtained from the thoracic inlet through upper abdomen. Patient was not given contrast through intravenous route. FINDINGS: There is scoliosis. There is left lung subsegmental atelectasis. Tracheostomy tube is seen. The study is limited due to patient's underlying status with deformity. Bilateral pulmonary infiltrates are seen. No pleural effusion or pericardial effusion is seen. There is no evidence of pneumothorax. There are normal size mediastinal and hilar lymph nodes. The heart is not enlarged. Degenerative changes of the thoracolumbar spine are present. There is no evidence of adrenal nodule. IMPRESSION: 1. Minimal bilateral pulmonary infiltrates with left lower lung subsegmental atelectasis and bronchiectasis. CT was performed with one or more following dose reduction techniques: automated exposure control, adjustment of the mA and kv according to patient's size, or use of a iterative reconstruction technique. PATIENT: KYLE PATEL MR#: [id number] : 2005 SEX: F AGE: 18 LOCATION: [facility] ORDER 170 STATUS: REG ER REPORT#: [id number] SERVICE 1700 REASON: cough ORDERING PHYSICIAN: RUBIO CLOUD DO PROCEDURE: CXR1VW - CHEST 1VW PORTABLE CHEST RADIOGRAPH INDICATION: cough COMPARISON: 09/10/2022 FINDINGS: Heart size is normal. The pulmonary vascularity and jaya appear normal. Right lung is clear. Suspect left lower lung opacities. No significant pleural effusion noted. No pneumothorax detected. Significant scoliotic deformity of the thoracolumbar spine. IMPRESSION: Suspect left lower lung opacities. Follow-up chest radiograph is advised in order to ensure resolution. DIAGNOSTICS / RADIOLOGY: [ ] PATIENT: KYLE PATEL MR#: [id number] : 2005 SEX: F AGE: 18 LOCATION: [facility] ORDER 00 STATUS: REG ER [facility] REPORT#: [id number] SERVICE 99 REASON: cough ORDERING PHYSICIAN: RUBIO CLOUD DO PROCEDURE: ABD 1VW - ABD 1VW ABDOMEN SINGLE VIEW INDICATION: Pain COMPARISON: None FINDINGS: Supine view only No abnormal bowel dilation noted. Gastrojejunostomy or other enteric tube is in place. No abnormal calcifications identified. No gross free air detected. Significant deformity of the skeletal structures. IMPRESSION: No evidence for bowel obstruction. ASSESSMENT: Suspected Left lung pneumonia POA Suspected GI bleed POA Normocytic normochromic anemia POA Acute Leukocytosis POA Hypernatremia POA Chronic respiratory failure ventilator dependent POA Functional quadriplegia POA Peg tube status POA Recent Left ear infection POA Spinal Muscular dystrophy POA Severe thoracic scoliosis POA PLAN: We will admit patient in ICU We will keep patient nothing by mouth We will start D5 at 50 mL/hour We will start patient on Zosyn IV q.12 We will start on Protonix 40 mg IV daily We will replace electrolytes as needed per protocol We will add prn medication for fever,pain,cough ,nausea and vomiting We will reconcile home meds once medlist available Respiratory consult has been placed and chest physiotherapy and suctioning has been ordered as needed. Maintain ventilator settings and monitor ABGs. Trinh function test has been ordered. Follow-up chest x-ray to monitor resolution. Oxygen support via ventilator as needed. Gastro consult has been placed and check hemoglobin every 8-12 hours. Her stool occult has been positive for blood. Continue IV Rocephin until culture results return. Monitor WBC trend, inflammatory markers CRP procalcitonin. Monitor hemoglobin and hematocrit trends. Iron replacement has been ordered. Blood transfusion if hemoglobin drops below 7. Speech therapy consult has been placed for aspiration risk. Repeating TSH T3-T4 for further evaluation of her elevated TSH. Electrolytes will be replaced according to the facility protocol. We will follow up urinalysis result, we will cultures and fecal occult blood We will request labs in am We will request H&H p.r.n. bleeding We will seek critical Care consultation Further orders to follow depending on above results Case discussed with attending physician and came up with above treatment and plan of care. ATTESTATION BY PHYSICIAN I have seen and examined the patient. I reviewed the documentation, medical decision making, and treatment plan as noted by the mid-level provider above. I agree with the findings and plan of care. Killian Caro MD, RAGHAVA R MD Oct 03, 2024 10:23
--- NOTE | 2024-10-03 12:00 | NUR ---
PICC LINE: [facility] PICC JOSR GANT JUST ARRIVED TO SET UP FOR PICC INSERTION.
--- NOTE | 2024-10-03 12:42 | NUR ---
SEIZURE ACTIVITY: PT HAD A WITNESSED FOCAL TYPE SEIZURE. MOTHER STATES SHE GETS THEM AGOUT ONCE A MONTH AND IS SEEN BY HER NEUROLOGIST IN [place] DR GREGG.
--- NOTE | 2024-10-03 13:24 | HMCIMG ---
CHEST 1VW HISTORY: Post PICC line insertion COMPARISON: None FINDINGS: A frontal projection of the chest was obtained. Bilateral pulmonary infiltrates are seen. There is scoliosis with wrist deformity. Evaluation for PICC line is limited due to patient's body habitus. Therefore clinical correlation is recommended. Distal tip may be at the level of the superior vena cava. The heart is borderline enlarged. All the lines and tubes are again seen in place. No evidence of aortic calcification is seen. IMPRESSION: 1. Findings as described above.
[2024-10-03 14:45] LABS: HEMATOCRIT 26.7 % (36-48)
[2024-10-03 15:01] LABS: POTASSIUM 3.3 mmol/L (3.5-5.1)
--- NOTE | 2024-10-03 15:20 | NUR ---
THE MOTHER JUST CHANGED PT BRIEF POST STOOL INCONTINENCE. IT IS DARK/BLACK/DARK MEZA IN COLOR. SHE ALSO STATES SHE HAS SOME BLOOD CLOT, BUT PT IS ON HER MENSTRUAL CYCLE CURRENTLY.
--- NOTE | 2024-10-03 15:21 | NUR ---
ANA GANT TO SPEAK W/DR MARIN IN REFERENCE TO PICC LINE AND IF WE ARE ABLE TO START USING IT AFTER THEY REVIEW THE CXR
--- NOTE | 2024-10-03 15:22 | NUR ---
DCP:HOME WITH CURRENT SERVICES Sw met with pt's mother Gabrielle Franz [phone], who is primary caregiver for pt who is bed bound and total care. Pt has nurse daily from 7 to 7 to assist with ADLS, feedings, vent care. Pt has hospital bed, vent, suction, heater, CPT, feed pump. PCP is Nakita Haro and uses [facility] for rx. [place] Addendum: 10/03/24 at 1526 by CHANNING ALVARADO SS Amended: Links added.
--- NOTE | 2024-10-03 15:27 | NUR ---
BED ASSIGNMENT: ICU BED 206 JUST ASSIGNED TO PT BY HARRISON GREGG RN
[2024-10-03 15:42] LABS: CREATININE 0.1 mg/dL (0.5-1.0)
[2024-10-03] MEDS ORDERED: MAGNESIUM 2GM PREMIX 50ML 50 ML IV PRN (16:30)
--- NOTE | 2024-10-03 16:30 | NUR ---
ADMISSION Received to room 206 from ER. Pt's mom at bedside. Pt assessment completed/recorded. Pt vent dependent - trach insitu. Pt remains nothing via GJ tube until evaluated by GI.
--- NOTE | 2024-10-03 17:00 | NUR ---
CONSULT Spoke to CHIQUITA Cook, via phone - made aware of consult.
[2024-10-03 18:08] LABS: BASOPHILS # (AUTO) 0.05 K/uL (0.00-0.20); BASOPHILS % (AUTO) 0.4 % (0.0-5.0); EOSINOPHILS # (AUTO) 0.13 K/uL (0.00-0.70); HEMATOCRIT 23.9 % (36-48); IMMATURE GRANULOCYTE ABSOLUTE 0.07 K/uL (0-1); LYMPHOCYTES # (AUTO) 5.2 K/uL (1.0-4.8); LYMPHOCYTES % (AUTO) 38.4 % (21.0-51.0); MEAN CORPUSCULAR HGB CONC 31.8 g/dL (32.0-36.0); MEAN CORPUSCULAR VOLUME 94.5 fL (80-100); MONOCYTES # (AUTO) 0.9 K/uL (0.1-1.0); MONOCYTES % (AUTO) 6.5 % (3.0-13.0); NEUTROPHILS # (AUTO) 7.3 K/uL (1.8-7.7); NEUTROPHILS % (AUTO) 53.2 % (40.0-77.0); PLATELET COUNT (AUTO) 300 K/uL (130-400); RED BLOOD CELL COUNT(AUTO) 2.53 MIL/uL (4.00-5.50); WHITE BLOOD COUNT (AUTO) 13.6 K/uL (4.8-10.8)
[2024-10-03 18:24] LABS: ALBUMIN 2.8 g/dL (3.5-5.0); BILIRUBIN,TOTAL 0.3 mg/dL (0.2-1.0); TOTAL PROTEIN, SERUM 6.8 g/dL (6.0-8.3)
[2024-10-03 18:36] LABS: T4 (THYROXINE) 9.4 ug/dL (4.7-13.3)
[2024-10-03 18:39] LABS: CREATININE 0.1 mg/dL (0.5-1.0)
--- NOTE | 2024-10-03 19:03 | CONS ---
GASTROENTEROLOGY CONSULTATION NOTE Date of Consultation: Oct 03, 2024 Time of Consultation: 19:02 History of Present Illness: This is a 18-year-old female who is familiar to services with past medical history of spinal muscular dystrophy, chronic respiratory failure who is vent dependent via trach, severe gastroesophageal reflux, gastrostomy status, severe thoracic scoliosis and functional quadriplegia who presented due to elevated WBC. Patient had a left ear infection with drainage 1 week ago for which she was started on antibiotic therapy by shear assembler. She received a call from PCP to report to the ER due to persistent leukocytosis. She also reported coffee-ground residuals from PEG tube and dark watery stools. Hemoglobin trended down to 7.6 with a platelet count of 300 FOBT was positive. She is in ICU on pressor support. Patient had EGD August 2022 which was normal. Review of Systems: CONSTITUTIONAL: No malaise or change in sensation of wellbeing. ENMT: No rhinorrhea, otorrhea, sinus pain, ear ache. CARDIOVASCULAR: No angina, palpitations, orthopnea or paroxysmal dyspnea. RESPIRATORY: No SOB. GASTROINTESTINAL: No abdominal pain, nausea, vomiting, diarrhea, hematemesis, melena or change in the patient's habitual bowel movements consistency/number. GENITOURINARY: No dysuria, hematuria or change in bladder continence. MUSCULOSKELETAL: No new muscle pain or decrease in muscular strength. No new joint swelling, redness or tenderness. SKIN: No new rash. Past Medical History: PAST MEDICAL HISTORY: [ Severe thoracic scoliosis Spinal muscular atrophy, ventilator dependent chronic respiratory failure, severe gastroesophageal reflux at 4-month-old &functional quadriplegia ] PAST SURGICAL HISTORY: [ status post tracheostomy &s/p fundoplication surgery at 4-month-old PEG tube placement 09/2021] PAST SOCIAL HISTORY: [Patient lives with mother. ] FAMILY HISTORY: [ Noncontributory ] Coded Allergies: vancomycin (Unverified Allergy, Unknown, 02/02/22) Coded Allergies: vancomycin (Unverified Allergy, Unknown, 02/02/22) Physical Exam: GEN: Awake, alert, oriented in person, time and place, and in no acute distress. HEENT: No sinus tenderness. Tympanic membranes were not examined. No rhinorrhea. Oral pharyngeal mucosa is pink, moist and within normal limits. Neck is supple with no cervical lymphadenopathy, thyromegaly or JVD. CHEST: Inspection, palpation and percussion of the chest were unremarkable. Lung auscultation revealed normal breath sounds bilaterally. CARDIAC: PMI is within normal limits. Heart sounds are regular. Normal S1, S2. No gallop or murmur. ABD: Soft, non-tender and not distended. No peritoneal signs on palpation. No organomegaly. Normal bowel sounds. EXT: No cyanosis or clubbing. No edema. SKIN: Intact. No rashes. JOINTS: No evidence of synovitis or acute arthritis. NEURO: Alert and oriented to name, place and person. Cranial nerve examination is unremarkable. No focal motor deficits. Normal speech. Gait is normal. Strength is normal. Vital Sign (Last 24 Hours) 10/03/24 10/03/24 15:00 15:03 Temp 97.5 Pulse 67 Resp 22 B/P (MAP) 106/68 Pulse Ox 99 O2 Delivery Ventilator+ Trach Collar+ O2 Flow Rate 0 FiO2 21 Laboratory: [ ] Laboratory: Test 10/03/24 17:59 10/03/24 08:59 10/03/24 08:58 10/03/24 08:14 Range/Units White Blood Count 13.6 H 4.8-10.8 K/uL Red Blood Count 2.53 L 4.00-5.50 MIL/uL Hemoglobin 7.6 L 12.0-16.0 g/dL Hematocrit 23.9 L 36-48 % Mean Corpuscular Volume 94.5 80-100 fL Mean Corpuscular Hemoglobin 30.0 27.0-33.0 pg Mean Corpuscular Hemoglobin Concent 31.8 L 32.0-36.0 g/dL Red Cell Distribution Width 16.0 H 11.0-15.5 % Platelet Count 300 # 130-400 K/uL Mean Platelet Volume 10.7 H 7.5-10.5 fL Immature Granulocyte % (Auto) 0.5 0-1 % Neutrophils (%) (Auto) 53.2 40.0-77.0 % Lymphocytes (%) (Auto) 38.4 21.0-51.0 % Monocytes (%) (Auto) 6.5 3.0-13.0 % Eosinophils (%) (Auto) 1.0 0.0-8.0 % Basophils (%) (Auto) 0.4 0.0-5.0 % Neutrophils # (Auto) 7.3 1.8-7.7 K/uL Lymphocytes # (Auto) 5.2 H 1.0-4.8 K/uL Monocytes # (Auto) 0.9 0.1-1.0 K/uL Eosinophils # (Auto) 0.13 0.00-0.70 K/uL Basophils # (Auto) 0.05 0.00-0.20 K/uL Absolute Immature Granulocyte (auto 0.07 0-1 K/uL Nucleated Red Blood Cells 0.0 0.0-0.19 % Sodium Level 147 H 136-145 mmol/L Potassium Level 3.0 *L 3.5-5.1 mmol/L Chloride Level 116 H 101-111 mmol/L Carbon Dioxide Level 20 L 21-32 mmol/L Blood Urea Nitrogen 8 7-18 mg/dL Creatinine 0.1 L 0.5-1.0 mg/dL Glomerular Filtration Rate Calc 203 >90 mL/min Random Glucose 114 H 70-105 mg/dL Total Calcium 8.1 L 8.5-10.1 mg/dL Total Bilirubin 0.3 0.2-1.0 mg/dL Aspartate Amino Transf (AST/SGOT) 20 10-37 U/L Alanine Aminotransferase (ALT/SGPT) 22 # 12-78 U/L Alkaline Phosphatase 92 50-136 U/L Total Protein 6.8 6.0-8.3 g/dL Albumin 2.8 L 3.5-5.0 g/dL Free Thyroxine (T4) Direct 1.29 0.78-1.34 ng/dL Thyroxine (T4) 9.4 4.7-13.3 ug/dL Free Triiodothyronine (T3) pg/mL 3.26 2.91-4.70 pg/mL Blood Gas Specimen Type Venous Arterial Blood Oxygen Saturation 92.7 L 94.0-98.0 % Venous Blood pH 7.423 7.320-7.430 Venous Blood pCO2 at Patient Temp 25 L 38-54 Venous Blood pO2 at Patient Temp 66.9 H 23.0-48.0 mmHg Venous Blood HCO3 16.2 L 22.0-29.0 Venous Blood Base Excess -6.9 L -2.0-3.0 Venous Blood Total Hemoglobin 10.5 L 12.0-16.0 Sodium (Blood Gas) 144 136-145 MMOL/L Bedside Potassium (Blood Gas) 3.4 3.4-4.5 MMOL/L Bedside Chloride (Blood Gas) 114 H 98-107 MMOL/L Bedside Glucose (Blood Gas) 117 H 65-95 MG/DL Bedside Ionized Calcium (Blood Gas) 1.20 1.15-1.33 MMOL/L Bedside Lactic Acid (Blood Gas) 0.85 H 0.36-0.75 MMOL/L Blood Gas Temperature 37.0 35.5-37.0 CELSIUS Blood Gas Respiration Rate 22.0 min. Blood Gas Vent Mode HOME VENT ROOM AIR FiO2 21.0 % Blood Gas Tidal Volume 250 ml Blood Gas PEEP 6 cm H2O Blood Gas Specimen Comment LUDIN RN V Lactic Acid Level 0.9 0.8-2.5 mmol/L Influenza Type A Antigen Negative For Type A NEGATIVE Influenza Type B Antigen Negative For Type B NEGATIVE SARS-CoV-2 Antigen (Rapid) PRESUMPTIVE NEGATIVE NEGATIVE Group A Streptococcus Rapid negative NEGATIVE Test 10/03/24 07:52 10/03/24 06:54 10/03/24 06:46 10/02/24 20:25 Range/Units Fibrinogen 381 H 180-350 mg/dL Magnesium Level 2.00 1.80-2.40 mg/dL C-Reactive Protein, Quantitative 18.00 H 0.5-3.0 mg/L Thyroid Stimulating Hormone (TSH) 4.29 #H 0.36-3.74 uIU/mL Stool Occult Blood POSITIVE H NEGATIVE White Cell Morphology Comment See comments Iron Level 38 L 50-170 mcg/dL Total Iron Binding Capacity 243 L 250-450 mcg/dL Percent Iron Saturation 15.6 L 22-44 % Procalcitonin < 0.05 L 0.05-0.5 ng/mL Urine Color YELLOW YELLOW Urine Appearance CLEAR CLEAR Urine pH 7.0 5.0-8.0 Urine Specific [place] 1.027 1.001-1.031 Urine Protein 20 H NEGATIVE mg/dL Urine Glucose (UA) NEGATIVE NEGATIVE mg/dL Urine Ketones NEGATIVE NEGATIVE mg/dL Urine Occult Blood NEGATIVE NEGATIVE Urine Nitrate NEGATIVE NEGATIVE Urine Bilirubin NEGATIVE NEGATIVE mg/dL Urine Urobilinogen 0.2 0.2-1.0 mg/dL Urine Leukocyte Esterase NEGATIVE NEGATIVE Janeth/uL Urine RBC 2-5 H 0-1 /HPF Urine WBC 2-5 H 0-1 /HPF Urine Bacteria None None Seen /HPF Test 10/02/24 17:32 10/02/24 17:25 Range/Units Segmented Neutrophils % 58 40-70 % Band Neutrophils % 3 H 0-2 % Lymphocytes % (Manual) 25 22-44 % Monocytes % (Manual) 4 2-9 % Eosinophils % (Manual) 1 1-6 % Differential Comment MANUAL DIFFERENTIAL Reactive Lymphocytes 9 H 0-0 % Platelet Morphology Comment Red Blood Cell Morphology See comments Prothrombin Time 11.7 H 9.6-11.6 SEC Prothromb Time International Ratio 1.05 0.85-1.15 Activated Partial Thromboplast Time 28.8 26.3-35.5 SEC Direct Bilirubin 0.1 0.0-0.3 mg/dL Total Creatine Kinase 9 L 21-232 U/L Troponin I High Sensitivity < 4 L 4-50 ng/L Lipase 52 16-77 U/L Current Medications Medications (Trade) Dose Ordered Sig/Valentina Route PRN Reason Start Time Stop Time Status Last Admin Dose Admin Acetylcysteine (MUComyst 20% 4ML) 400mg = 2ml [id number] IH 10/03/24 10:00 11/02/24 09:59 10/03/24 13:59 400 MG Artificial Tears (Artificial Tears) 1 DROP OR AD Q8H OU 10/03/24 08:30 11/02/24 08:29 10/03/24 09:37 2 DROP Chlorhexidine Gluconate (Peridex) 15 ml Q8H MM 10/03/24 08:30 10/17/24 08:29 10/03/24 09:37 15 ML Dextrose 1,000 ml @ 50 mls/hr Q20H IV 10/02/24 20:30 11/01/24 20:29 10/02/24 21:01 50 MLS/HR Doxycycline Hyclate 250 ml @ 125 mls/hr Q12H IV 10/03/24 08:30 10/13/24 08:29 10/03/24 09:37 125 MLS/HR Home Med (Home Medication) CLOBAZAM 20MG DAILY AT 1700... DAILY17 PO 10/03/24 17:00 11/02/24 16:59 Ipratropium Lamont (AtrovENT UD) 0.5 MG [id number] IH 10/03/24 10:00 11/02/24 09:59 10/03/24 13:59 0.5 MG Magnesium Sulfate 50 ml @ 0 mls/hr PROTOCOL PRN IV Electrolyte abnormality 10/03/24 16:30 11/02/24 16:29 Norepinephrine 250 ml @ 14.288 mls/ hr PROTOCOL PRN IV HYPOTENSION MAP LESS THAN 65 10/03/24 04:00 11/02/24 03:59 10/03/24 04:55 14.288 MLS/HR Ondansetron HCl (zoFRAN 4MG INJ) 4 mg Q6H PRN IV NAUSEA/VOMITING 10/02/24 20:30 11/01/24 20:29 Pantoprazole Sodium (PROTonix 40MG INJ) 40 mg BID IVP 10/03/24 09:00 11/02/24 08:59 10/03/24 09:37 40 MG Pantoprazole Sodium (PROTonix 40MG INJ) 40 mg DAILY IVP 10/03/24 09:00 10/03/24 08:09 DC Piperacillin Sod/ Tazobactam Sod (Zosyn 3.375gm+NS 50ml) 3.375 gm Q12H IVPB 10/02/24 20:30 10/12/24 20:29 10/03/24 09:37 3.375 GM Potassium Chloride 100 ml @ 50 mls/hr AD PRN IV POTASSIUM PROTOCOL 10/03/24 16:30 11/02/24 16:29 Diagnostics / Radiology: [COPY/PASTE HERE IF NO REPORTS PLEASE DELETE SECTION] Assessment: Upper GI bleed Acute blood loss anemia Gastrostomy status Respiratory failure Plan: Tentative plan for EGD in am pending hemodynamic stability Continue GI prophylaxis Avoid NSAIDs Antireflux measures Monitor H&H and transfuse as needed Call with questions, concerns or change in clinical status Patient to follow-up at clinic post discharge Thank you for this consult CHINEDU AMOR Oct 03, 2024 19:02
[2024-10-03] MEDS: PoTASSium chloRIDE 20MEQ/100ML 100 ML IV PRN (19:06)
[2024-10-03] MEDS: CLOBAZAM 20 MG PO SCH (19:06)
[2024-10-03] MEDS: IRON sUCROse COMPLEX 100 MG/5 ML VIAL IV ONE ×2 (19:44→20:04)
--- NOTE | 2024-10-03 20:08 | NUR ---
CANCEL SPEECH ORDER ORDERS TO EVALUATE PATIENT'S SWALLOWING RECEIVED WHEN PATIENT WAS IN ED. PATIENT ADMITTED TO ICU ROOM 206. SECURITIES CONSULTANT COORDINATED WITH NURSE BORIS Willis. SPEECH ORDER NOT WARRANTED AT THIS TIME PATIENT IS PEG TUBE DEPENDENT. RECOMMEND CANCEL SPEECH ORDER AND CONSULT MACHINE [facility] DEPARTMENT FOR TUBE FEEDING ORDERS. ALL QUESTIONS ANSWERED. Addendum: 10/03/[address] [facility] Amended: Links added.
[2024-10-03] MEDS: D5LR-20 MEQ KCL 1000ML BAG IV SCH (20:49)
[2024-10-03] MEDS ORDERED: LORazepam 2 MG/ML 1 ML VIAL IVP PRN (21:00)
[2024-10-03 22:00] LABS: BASOPHILS # (AUTO) 0.07 K/uL (0.00-0.20); BASOPHILS % (AUTO) 0.4 % (0.0-5.0); EOSINOPHILS # (AUTO) 0.17 K/uL (0.00-0.70); EOSINOPHILS % (AUTO) 0.9 % (0.0-8.0); HEMATOCRIT 23.8 % (36-48); IMMATURE GRANULOCYTE ABSOLUTE 0.08 K/uL (0-1); LYMPHOCYTES # (AUTO) 6.5 K/uL (1.0-4.8); LYMPHOCYTES % (AUTO) 35.5 % (21.0-51.0); MEAN CORPUSCULAR HEMOGLOBIN 29.8 pg (27.0-33.0); MEAN CORPUSCULAR HGB CONC 31.1 g/dL (32.0-36.0); MONOCYTES # (AUTO) 0.9 K/uL (0.1-1.0); MONOCYTES % (AUTO) 5.1 % (3.0-13.0); NEUTROPHILS # (AUTO) 10.5 K/uL (1.8-7.7); NEUTROPHILS % (AUTO) 57.7 % (40.0-77.0); PLATELET COUNT (AUTO) 276 K/uL (130-400); RED BLOOD CELL COUNT(AUTO) 2.48 MIL/uL (4.00-5.50); RED CELL DISTRIBUTION WIDTH 16.3 % (11.0-15.5); WHITE BLOOD COUNT (AUTO) 18.2 K/uL (4.8-10.8)
[2024-10-03] MEDS ORDERED: ACET160L45 GT (22:00)
[2024-10-03] MEDS ORDERED: ERGO800010 PO (22:00)
[2024-10-03] MEDS ORDERED: PROP20TA7 PO (22:00)
[2024-10-03] MEDS ORDERED: SODI4VIA33 IH (22:00)
[2024-10-03] MEDS ORDERED: MIDA5SPR NS ×2 (22:00)
[2024-10-03] MEDS ORDERED: ALBU18HF7 IH ×2 (22:04)
[2024-10-03] MEDS ORDERED: AMOX-426 PO (22:04)
[2024-10-03 22:15] LABS: ALBUMIN 2.6 g/dL (3.5-5.0); BILIRUBIN,TOTAL 0.5 mg/dL (0.2-1.0); POTASSIUM 4.5 mmol/L (3.5-5.1); TOTAL PROTEIN, SERUM 6.7 g/dL (6.0-8.3)
[2024-10-03 22:25] LABS: CREATININE 0.1 mg/dL (0.5-1.0)
[2024-10-03 22:50] LABS: BASOPHILS % (MANUAL) 1 % (0-2); EOSINOPHILS % (MANUAL) 1 % (1-6); LYMPHOCYTES % (MANUAL) 32 % (22-44); MAN.DIFF COMMENT-IMPRESSION MANUAL DIF; MONOCYTES % (MANUAL) 2 % (2-9); SEGMENTED NEUTROPHILS % 64 % (40-70); TOTAL CELLS COUNTED 100; WBC MORPHOLOGY NORMAL
[2024-10-03 22:51] LABS: PLATELET MORPHOLOGY COMMENT ADEQUATE
[2024-10-04] VITALS (102 sets, daily range): BP systolic 84–133; BP diastolic 41–83; PULSE 48–121; RESP 22–26; TEMP 97.9–99.5; O2SAT 99–100
[2024-10-04 04:16] LABS: BASOPHILS # (AUTO) 0.06 K/uL (0.00-0.20); BASOPHILS % (AUTO) 0.3 % (0.0-5.0); EOSINOPHILS # (AUTO) 0.22 K/uL (0.00-0.70); EOSINOPHILS % (AUTO) 1.2 % (0.0-8.0); HEMATOCRIT 23.9 % (36-48); LYMPHOCYTES # (AUTO) 5.4 K/uL (1.0-4.8); LYMPHOCYTES % (AUTO) 29.5 % (21.0-51.0); MEAN CORPUSCULAR HEMOGLOBIN 30.9 pg (27.0-33.0); MEAN CORPUSCULAR HGB CONC 31.4 g/dL (32.0-36.0); MEAN CORPUSCULAR VOLUME 98.4 fL (80-100); MONOCYTES # (AUTO) 1.3 K/uL (0.1-1.0); MONOCYTES % (AUTO) 6.9 % (3.0-13.0); NEUTROPHILS # (AUTO) 11.2 K/uL (1.8-7.7); NEUTROPHILS % (AUTO) 61.5 % (40.0-77.0); PLATELET COUNT (AUTO) 284 K/uL (130-400); RED BLOOD CELL COUNT(AUTO) 2.43 MIL/uL (4.00-5.50); RED CELL DISTRIBUTION WIDTH 16.6 % (11.0-15.5); WHITE BLOOD COUNT (AUTO) 18.1 K/uL (4.8-10.8)
[2024-10-04 04:44] LABS: ALBUMIN 2.7 g/dL (3.5-5.0); BILIRUBIN,TOTAL 0.4 mg/dL (0.2-1.0); CREATININE 0.1 mg/dL (0.5-1.0); POTASSIUM 3.5 mmol/L (3.5-5.1); TOTAL PROTEIN, SERUM 6.8 g/dL (6.0-8.3)
[2024-10-04 05:41] LABS: ERYTHROCYTE SEDIMENTATION RATE 54 MM/HR (0-20)
[2024-10-04 09:13] LABS: HEMATOCRIT 24.2 % (36-48)
[2024-10-04 09:48] LABS: ABG BASE EXCESS -7.1 mmol/L (-2.0-3.0); ABG HCO3 16.3 mmol/L (21.0-28.0); ABG OXYGEN SATURATION 97.3 % (94.0-98.0); ABG PCO2 28 mmHg (32-45); ABG PH 7.383 (7.350-7.450); PO2, ARTERIAL BG 94.8 mmHg (83.0-108.0); VENT MODE, BG SIMV PS 10 (ROOM AIR)
--- NOTE | 2024-10-04 10:11 | PN ---
[facility] PROGRESS NOTE Date Patient Seen: Oct 04, 2024 Time of Visit: 10:10 Supervising Physician: Zoraida Bautista MD Primary Care Physician: Mariaelena Alvarez Outpatient Specialists: Inpatient Consults: BIS, PROBLEM LIST: Septic shock, POA requiring Levophed Acute on chronic hypoxic respiratory failure, POA Ventilator dependent since Tracheostomy size Left side pneumoniae, POA Compensated metabolic acidosis, POA Acute on chronic anemia from blood loss, POA (Melena) s/p EGD 10/04/24 Leukocytosis, POA Hypernatremia POA Chronic respiratory failure ventilator dependent POA Functional quadriplegia POA Bernardo tube gastrostomy, POA Recent Left ear infection POA Hypokalemia Hx of seizures History of spinal muscular dysplasia hx of Severe thoracic scoliosis INTERVAL HISTORY: Patient is awake alert vent dependent. Continues on vasopressor support with Levophed at 0.02 micrograms/kilogram per minute. Blood pressure 113/73 with a heart rate in the 90s respiratory rate of 22 saturating 100% on ventilator with a T-max of 98.8 and a T low of 97.3. No accurate I&Os due to patient's urinary incontinence but we will order daily weights. On laboratory WBCs 18.1 trending down H&H of 7.5/23.9 plt 284 K. on laboratory sodium 144 potassium of 3.5 chloride 113 carbon dioxide 19 BUN of three creatinine of 0.1 GFR of 203. ABGs with the improvement a pH of 7.38 pCO2 of 28 PO2 of 94.8 and bicarb of 16.3 one amp of sodium bicarb given. Respiratory culture growing few Gram-positive cocci and 2+ Gram-negative rods. On chest x-ray mild bilateral pulmonary infiltrates with left more than right pneumoniae. Patient has EGD planned for this morning. REVIEW OF SYSTEMS: Unable to perform due to patient's cognitive status. PHYSICAL EXAM: GENERAL: Patient is awake alert aphasic. functional quadriplegia HEENT: Sclera non icteric, moist mucosa NECK: Short no JVD, tracheostomy LUNGS: ronchi breath sounds bilaterally. No wheezes HEART: Regular rate and rhythm. Normal S1 and S2, without murmurs ABD: Abdomen soft, nontender. Bowel sounds present EXT: No clubbing cyanosis or edema NEURO: functional quadriplegia, bed bound Vital Signs (last 8hr) Date Time Temp Pulse Resp B/P (MAP) Pulse Ox O2 Delivery O2 Flow Rate FiO2 10/04/24 07:22 86 22 10/04/24 07:21 89 22 10/04/24 07:18 87 21 10/04/24 06:00 84 22 133/78 (96) 100 21 10/04/24 05:45 72 22 105/80 (88) 100 10/04/24 05:30 49 22 105/62 (76) 100 10/04/24 05:15 50 23 100/59 (73) 100 10/04/24 05:00 49 22 100/60 (73) 100 21 10/04/24 04:45 58 22 91/57 (68) 100 10/04/24 04:30 50 22 105/64 (78) 100 10/04/24 04:26 100 Ventilator+ 21 10/04/24 04:15 51 22 94/59 (71) 100 10/04/24 04:00 98.1 54 22 102/65 (77) 100 21 10/04/24 04:00 21 10/04/24 03:45 48 23 100/60 (73) 100 10/04/24 03:30 48 23 101/60 (74) 100 10/04/24 03:15 54 22 90/52 (65) 99 10/04/24 03:00 60 22 86/45 (59) 99 10/04/24 02:53 62 22 10/04/24 02:45 64 22 93/49 (64) 99 10/04/24 02:40 61 21 10/04/24 02:40 63 22 10/04/24 02:30 67 22 95/45 (62) 100 10/04/24 02:15 70 22 91/54 (66) 99 LABS: Hematology Labs: Test 10/04/24 09:00 10/04/24 04:05 10/03/24 21:56 10/02/24 17:32 Range/Units Hemoglobin 7.7 L 12.0-16.0 g/dL Hematocrit 24.2 L 36-48 % White Blood Count 18.1 H 4.8-10.8 K/uL Red Blood Count 2.43 L 4.00-5.50 MIL/uL Mean Corpuscular Volume 98.4 80-100 fL Mean Corpuscular Hemoglobin 30.9 27.0-33.0 pg Mean Corpuscular Hemoglobin Concent 31.4 L 32.0-36.0 g/dL Red Cell Distribution Width 16.6 H 11.0-15.5 % Platelet Count 284 130-400 K/uL Mean Platelet Volume 10.6 H 7.5-10.5 fL Immature Granulocyte % (Auto) 0.6 0-1 % Neutrophils (%) (Auto) 61.5 40.0-77.0 % Lymphocytes (%) (Auto) 29.5 21.0-51.0 % Monocytes (%) (Auto) 6.9 3.0-13.0 % Eosinophils (%) (Auto) 1.2 0.0-8.0 % Basophils (%) (Auto) 0.3 0.0-5.0 % Neutrophils # (Auto) 11.2 H 1.8-7.7 K/uL Lymphocytes # (Auto) 5.4 H 1.0-4.8 K/uL Monocytes # (Auto) 1.3 H 0.1-1.0 K/uL Eosinophils # (Auto) 0.22 0.00-0.70 K/uL Basophils # (Auto) 0.06 0.00-0.20 K/uL Absolute Immature Granulocyte (auto 0.10 0-1 K/uL Nucleated Red Blood Cells 0.0 0.0-0.19 % White Cell Morphology Comment See comments Erythrocyte Sedimentation Rate 54 H 0-20 MM/HR Segmented Neutrophils % 64 40-70 % Lymphocytes % (Manual) 32 22-44 % Monocytes % (Manual) 2 2-9 % Eosinophils % (Manual) 1 1-6 % Basophils % (Manual) 1 0-2 % Differential Comment MANUAL DIF Platelet Morphology Comment ADEQUATE Red Blood Cell Morphology See comments Band Neutrophils % 3 H 0-2 % Reactive Lymphocytes 9 H 0-0 % Chemistry Labs: Test 10/04/24 04:05 10/03/24 17:59 10/03/24 08:58 10/03/24 07:52 Range/Units Sodium Level 144 136-145 mmol/L Potassium Level 3.5 3.5-5.1 mmol/L Chloride Level 113 H 101-111 mmol/L Carbon Dioxide Level 19 L 21-32 mmol/L Blood Urea Nitrogen 3 L 7-18 mg/dL Creatinine 0.1 L 0.5-1.0 mg/dL Glomerular Filtration Rate Calc 203 >90 mL/min Random Glucose 104 70-105 mg/dL Total Calcium 8.5 8.5-10.1 mg/dL Total Bilirubin 0.4 0.2-1.0 mg/dL Aspartate Amino Transf (AST/SGOT) 21 10-37 U/L Alanine Aminotransferase (ALT/SGPT) 22 12-78 U/L Alkaline Phosphatase 89 50-136 U/L C-Reactive Protein, Quantitative 11.50 H 0.5-3.0 mg/L Total Protein 6.8 6.0-8.3 g/dL Albumin 2.7 L 3.5-5.0 g/dL Free Thyroxine (T4) Direct 1.29 0.78-1.34 ng/dL Thyroxine (T4) 9.4 4.7-13.3 ug/dL Free Triiodothyronine (T3) pg/mL 3.26 2.91-4.70 pg/mL Lactic Acid Level 0.9 0.8-2.5 mmol/L Magnesium Level 2.00 1.80-2.40 mg/dL Thyroid Stimulating Hormone (TSH) 4.29 #H 0.36-3.74 uIU/mL Test 10/03/24 06:46 10/02/24 17:25 Range/Units Iron Level 38 L 50-170 mcg/dL Total Iron Binding Capacity 243 L 250-450 mcg/dL Percent Iron Saturation 15.6 L 22-44 % Procalcitonin < 0.05 L 0.05-0.5 ng/mL Direct Bilirubin 0.1 0.0-0.3 mg/dL Total Creatine Kinase 9 L 21-232 U/L Troponin I High Sensitivity < 4 L 4-50 ng/L Lipase 52 16-77 U/L Coagulation Labs: Test 10/03/24 07:52 10/02/24 17:25 Range/Units Fibrinogen 381 H 180-350 mg/dL Prothrombin Time 11.7 H 9.6-11.6 SEC Prothromb Time International Ratio 1.05 0.85-1.15 Activated Partial Thromboplast Time 28.8 26.3-35.5 SEC DIAGNOSTICS / RADIOLOGY RESULTS: [ ] Signed PATIENT: KYLE PATEL MR#: [id number] : 2005 SEX: F AGE: 18 LOCATION: [facility] ORDER 2300 STATUS: ADM IN REPORT#: [id number] SERVICE 0900 REASON: pneumonia ORDERING PHYSICIAN: NEGRA VALENTE MD PROCEDURE: CXR1VW - CHEST 1VW CHEST 1VW HISTORY: Pneumonia COMPARISON: 10/03/2024 FINDINGS: A frontal projection of the chest was obtained. Mild bilateral pulmonary infiltrates are seen with left more than right. The heart is borderline enlarged. All the lines and tubes are again seen in place. No evidence of aortic calcification is seen. IMPRESSION: 1. Mild bilateral pulmonary infiltrates with left more than right. DICTATED BY: ARMAAN VALENCIA MD DATE: 10/04/24 125 ELECTRONICALLY SIGNED BY: ARMAAN VALENCIA MD DATE: 10/04/24 125 PLAN Follow for critical care management in the ICU Treat empirically for suspected Pseudomonas pneumoniae with Zosyn Empiric coverage for community-acquired pneumonia with doxycycline Atrovent q.4 hours Mucomyst q.[address] of the chest without contrast Monitor electrolytes and cover accordingly hold IV fluids Blood cultures, urine cultures, respiratory culture MRSA swab Levophed to maintain map above 65 and wean as possible start midodrine Resume home medications as possible NEURO: Minimize central acting medications as possible. Fall Precautions. Well lighted room through the day and minimize interruptions through the night to prevent acute delirium. Seizure precautions Ativan PRN IV seizure Resume home seizure medication PULMONARY: Supplemental 02 as needed Titrate Fio2 to keep Spo2 > or = 90% DuoNebs and CPT as needed IS hourly while awake for pulmonary hygiene Out of bed to chair as tolerated VAP Bundle Vent/BIPAP Settings: SIMV mode, TV 250, RR 22, fio2 of 21% and peep 5, with pressure support of 10. CARDIOVASCULAR: Follow hemodynamics. Titrate vasopressor to keep MAP >65 or systolic blood pressure >95mmHg Drips: Levophed LINES: PIV PICC GI & NUTRITION: Continue nutritional support Aspirations precautions Prokinetic agents and laxatives as needed NPO for now KIDNEYS & ELECTROLYTES: Strict monitoring of intake and output Daily weights Avoid nephrotoxic agents Monitor electrolytes and replace as needed Goal urine output of 30mL/hr or 0.5mL/kg/hr Urine output: [ ] Fluid Balance: [ ] ENDOCRINE: Maintain blood glucose between 100-180 at all times. Insulin sliding scale for blood glucose management TSH INFECTIOUS DISEASE: Trend temperature. Herrera-culture if febrile. Micro: [ ] Blood culture Urine culture Respiratory culture Antibiotics: Zosyn and doxycycline HEMATOLOGY & COAGULATION: Monitor H&H. Keep Hgb > 7 Transfuse 1 unit of PRBC for Hgb < 7 Transfuse 1 pack of platelets of platelets < 20, 000 Watch for any signs and symptoms of bleeding SKIN: Pressure ulcer prevention per facility protocol Rehab: PT/OT Prophylaxis: GI: Protonix 40 mg IV push b.i.d. DVT: SCDs Code Status: Full Resuscitation Disposition: ICU Other: Total patient care time exceeds 35 minutes excluding all procedures. Case was discussed and seen with my supervising physician. The above plan was formulated and agreed upon. GATITO MARTIN Oct 04, 2024 10:11
[2024-10-04] MEDS ORDERED: ketaMINE 50MG/ML SYRINGE 50 MG/ML DISP.SYRIN ONE (10:17)
[2024-10-04] MEDS: SODIUM BICARB 50MEQ 50ML VIAL IV ONE (10:17)
--- NOTE | 2024-10-04 10:28 | NUR ---
PT CARE EGD in progress at bedside. performing.
[2024-10-04 10:29] LABS: CREATININE 0.1 mg/dL (0.5-1.0); MAGNESIUM 1.9 mg/dL (1.80-2.40); POTASSIUM 4.5 mmol/L (3.5-5.1)
[2024-10-04] MEDS: miDODRine HCL 5 MG TABLET PO SCH (12:11)
--- NOTE | 2024-10-04 12:55 | HMCIMG ---
CHEST 1VW HISTORY: Pneumonia COMPARISON: 10/03/2024 FINDINGS: A frontal projection of the chest was obtained. Mild bilateral pulmonary infiltrates are seen with left more than right. The heart is borderline enlarged. All the lines and tubes are again seen in place. No evidence of aortic calcification is seen. IMPRESSION: 1. Mild bilateral pulmonary infiltrates with left more than right.
[2024-10-04] MEDS ORDERED: ALBUTEROL 0.083% 2.5 MG/3 ML INH IH PRN (15:00)
[2024-10-04] MEDS ORDERED: MIDAZOLAM 5 MG NASAL PRN (15:00)
[2024-10-04] MEDS ORDERED: COMPOUND PO NARCOTIC 1 EACH PO SCH (15:30)
[2024-10-04 17:28] LABS: CREATININE 0.1 mg/dL (0.5-1.0); POTASSIUM 3.1 mmol/L (3.5-5.1)
[2024-10-04] MEDS: ARTIFICAL TEARS SOL 15 ML OP SCH (18:30)
[2024-10-04] MEDS: furoSEMIDE 20MG VIAL IV ONE (18:30)
[2024-10-04] MEDS: LANSOPRAZOLE 15 MG SOLU TAB PEG SCH (20:16)
[2024-10-04] MEDS: SODIUM BICARBONATE 650 MG TAB GT SCH (20:16)
[2024-10-04] MEDS ORDERED: LANSOPRAZOLE 15 MG SOLU TAB PEG SCH (21:00)
[2024-10-04] MEDS: FLUTICASONE PROPIONATE IH SCH (21:00)
[2024-10-04] MEDS: ALBUTEROL INHALER 90MCG/INH IH SCH (21:00)
[2024-10-04] MEDS: SALMETEROL IH SCH (21:00)
--- NOTE | 2024-10-04 22:38 | PN ---
[facility] PROGRESS NOTE Date of Service: Oct 04, 2024 Time of Service: 22:38 SUBJECTIVE: This is a 18-year-old female with past medical history of spinal muscular dystrophy, chronic respiratory failure vent dependent via trach, severe gastroesophageal reflux with PEG tube placement,severe thoracic scoliosis and functional quadriplegia who presents to the ED for elevated WBC.As per mother patient was having left ear infection with drainage 1 week ago and was started on Augmentin bid x 14days and today is day #7 and so far as per mother left ear drainage was resolved and yesterday patient went to her farm equipment technician and a lab work was done and today as per mother she received a call from the clinic instructing her to bring patient to the ED due to elevated WBC. As per mother ,patient has coffee ground residuals from peg tube and has also been having dark watery stool everyday x 3 days.Patient had also dark stool last week daily x 3 days but had stopped and came back again since Monday this week.As per mother patient didnt have fever,chills,no abdominal pain reported. Latest vital signs temperature 98.2, heart rate 118, respiration 22, blood pressure 104/62, saturation 97% on vent FiO2 60%. Labs: WBC 17.5, hemoglobin 10.7, hematocrit 33, platelet count 344. Sodium 150, chloride 115, BUN 22, creatinine 0.2, total CK nine, total protein nine procalcitonin 0.09. Chest x-ray result revealed dominique spected left lower lung opacities. Follow-up chest radiograph is advised in order to ensure resolution. Chest x-ray result revealed no evidence for bowel obstruction. While in the ER patient received Rocephin 1 g IV, Protonix 40 mg IV, LR bolus 1 L. We will admit patient for further medical management. 10/03/24 On bedside examination in the ER the patient was being ventilated via tracheostomy tube and she has PEG tube in place and she ask functional quadriplegia. Spoke to her mom she describes that this is her usual functional status. A WBC count remains elevated. She is currently on 7 days of Augmentin treatment for her left ear infection with drainage. Her fecal occult blood test is positive for blood her abdominal x-ray reveals no evidence of bowel obstruction. Recent chest x-ray revealed suspected left lower lung opacities and follow-up imaging is recommended. And a recent chest CT scan revealed minimal bilateral pulmonary infiltrates, left lower lung subsegmental atelectasis and bronchiectasis. While in the ER the patient received Rocephin1 g IV, Protonix 40 mg and lactated Ringer's 1 L bolus. Given the elevated WBC count, suspected left lung pneumonia and GI bleeding consent she is being admitted for further manage the her blood pressure is124 x 79 with a pulse of 90. Arterial blood oxygen saturation is 92.7, venous blood pCO2 is that is slow and venous blood PO2 is 66.9, venous blood HC03 is 16.2, bedside lactic acid blood gas is 0.85 high her hemoglobin is 9.2 low and hematocrit is 28.7 low and fibrinogen is381 high sodium level is148 high potassium level is 3.3 low her BUN level is 13 and creatinine level is 0.2 low C-reactive protein is elevated with18 and TSH is high which is 4.29 WBC count is elevated with 12.0 high. Her serum iron levels are low at 38 and TIBC is low at 243 and percentage saturation is 15.6 low and her urine protein is high with 20 and RBCs 2-5 high and WBCs 2-5 high. She is being currently admitted for further management of care 10/04/2024 this patient was previously evaluated in the ED yesterday for elevated WBC 13.6 and which has worsened to 18.1 today, worsening anemia hemoglobin level of 7.7, hypernatremia sodium 152, hypokalemia 3.1 and ABG 7.3 pCO2 28, HC03 of 16.3 and base excess of -7.1. GI and Pulmonary consults have been placed, and an EGD and colonoscopy are planned once patient is hemodynamically stable. The Infectious Disease team is involved due to concerns for sepsis, given her elevated ESR and leukocytosis, high fibrinogen blood, positive urine proteins, hematuria, increased WBC in urine. Fluids have been adjusted to correct hypernatremia and hypokalemia, and a stricter ICU monitoring is in place.A pulse of 1 not 8, respiratory rate 22, blood pressure is stable oxygen saturation adequate on vent ilation. COVID-19 influenza group a strep tests are negative. REVIEW OF SYSTEMS:Unable to perform patient is vented and lethargic PHYSICAL EXAM GENERAL APPEARANCE: The patient is lethargic but arousable.Patient appears comfortable NEUROLOGICAL: Patient is non verbal ,open eyes. HEENT: Face is symmetric. Pupils are equal and reactive. Extraocular movements are intact. NECK: Patient has vent via trache CHEST: Normal chest expansion. +Telemetry. LUNGS: scattered rhonchi on bilateral lower bases per auscultation CARDIOVASCULAR: Regular. S1 and S2 normal. No appreciable rubs, murmurs or gallops. ABDOMEN: + Pegtube-clamped Soft, nontender, and nondistended. There is no rebound, voluntary guarding, or rigidity. : Deferred. No Aleman. EXTREMITIES: + pedal pulses. Good capillary refill. SKIN: No skin breakdown. Vital Signs (last 8hr) Date Time Temp Pulse Resp B/P (MAP) Pulse Ox O2 Delivery O2 Flow Rate FiO2 10/04/24 21:47 108 22 10/04/24 21:45 91 21 10/04/24 21:39 21 10/04/24 20:00 99.5 Ventilator 21 10/04/24 19:27 117 22 10/04/24 19:25 121 21 10/04/24 19:00 118 22 119/72 (88) 97 21 10/04/24 18:00 108 22 96/57 (70) 99 21 10/04/24 17:45 113 22 104/65 (78) 99 10/04/24 17:30 110 22 98/58 (71) 100 10/04/24 17:15 93 22 108/67 (81) 100 10/04/24 17:00 81 22 84/41 (55) 99 21 10/04/24 17:00 81 22 84/41 (55) 99 10/04/24 16:00 102 22 89/46 (60) 97 21 10/04/24 15:58 99 22 91/47 (62) 97 10/04/24 15:23 100 Ventilator+ 21 10/04/24 15:21 98.8 10/04/24 15:00 105 22 98/55 (69) 100 21 10/04/24 14:51 110 21 10/04/24 14:47 104 22 10/04/24 14:45 107 22 98/51 (67) 100 LABS: Laboratory: Test 10/04/24 17:00 10/04/24 09:46 10/04/24 09:00 10/04/24 04:05 Range/Units Sodium Level 152 H 136-145 mmol/L Potassium Level 3.1 L 3.5-5.1 mmol/L Chloride Level 117 H 101-111 mmol/L Carbon Dioxide Level 26 21-32 mmol/L Blood Urea Nitrogen 3 L 7-18 mg/dL Creatinine 0.1 L 0.5-1.0 mg/dL Glomerular Filtration Rate Calc 203 >90 mL/min Random Glucose 107 H 70-105 mg/dL Total Calcium 8.1 L 8.5-10.1 mg/dL Blood Gas Specimen Type Arterial Arterial Blood pH 7.383 7.350-7.450 Arterial Blood Partial Pressure CO2 28 L 32-45 mmHg Arterial Blood Partial Pressure O2 94.8 83.0-108.0 mmHg Arterial Blood HCO3 16.3 L 21.0-28.0 mmol/L Arterial Blood Oxygen Saturation 97.3 94.0-98.0 % Arterial Blood Base Excess -7.1 L -2.0-3.0 mmol/L Blood Gas Temperature 37.0 35.5-37.0 CELSIUS Blood Gas Respiration Rate 22.0 min. Blood Gas Vent Mode SIMV PS 10 ROOM AIR FiO2 21.0 % Blood Gas Tidal Volume 250 ml Blood Gas PEEP 5 cm H2O Blood Gas Specimen Comment LR BORIS, RN Hemoglobin 7.7 L 12.0-16.0 g/dL Hematocrit 24.2 L 36-48 % Magnesium Level 1.90 1.80-2.40 mg/dL White Blood Count 18.1 H 4.8-10.8 K/uL Red Blood Count 2.43 L 4.00-5.50 MIL/uL Mean Corpuscular Volume 98.4 80-100 fL Mean Corpuscular Hemoglobin 30.9 27.0-33.0 pg Mean Corpuscular Hemoglobin Concent 31.4 L 32.0-36.0 g/dL Red Cell Distribution Width 16.6 H 11.0-15.5 % Platelet Count 284 130-400 K/uL Mean Platelet Volume 10.6 H 7.5-10.5 fL Immature Granulocyte % (Auto) 0.6 0-1 % Neutrophils (%) (Auto) 61.5 40.0-77.0 % Lymphocytes (%) (Auto) 29.5 21.0-51.0 % Monocytes (%) (Auto) 6.9 3.0-13.0 % Eosinophils (%) (Auto) 1.2 0.0-8.0 % Basophils (%) (Auto) 0.3 0.0-5.0 % Neutrophils # (Auto) 11.2 H 1.8-7.7 K/uL Lymphocytes # (Auto) 5.4 H 1.0-4.8 K/uL Monocytes # (Auto) 1.3 H 0.1-1.0 K/uL Eosinophils # (Auto) 0.22 0.00-0.70 K/uL Basophils # (Auto) 0.06 0.00-0.20 K/uL Absolute Immature Granulocyte (auto 0.10 0-1 K/uL Nucleated Red Blood Cells 0.0 0.0-0.19 % White Cell Morphology Comment See comments Erythrocyte Sedimentation Rate 54 H 0-20 MM/HR Total Bilirubin 0.4 0.2-1.0 mg/dL Aspartate Amino Transf (AST/SGOT) 21 10-37 U/L Alanine Aminotransferase (ALT/SGPT) 22 12-78 U/L Alkaline Phosphatase 89 50-136 U/L C-Reactive Protein, Quantitative 11.50 H 0.5-3.0 mg/L Total Protein 6.8 6.0-8.3 g/dL Albumin 2.7 L 3.5-5.0 g/dL Test 10/03/24 21:56 10/03/24 17:59 10/03/24 08:59 10/03/24 08:58 Range/Units Segmented Neutrophils % 64 40-70 % Lymphocytes % (Manual) 32 22-44 % Monocytes % (Manual) 2 2-9 % Eosinophils % (Manual) 1 1-6 % Basophils % (Manual) 1 0-2 % Differential Comment MANUAL DIF Platelet Morphology Comment ADEQUATE Red Blood Cell Morphology See comments Free Thyroxine (T4) Direct 1.29 0.78-1.34 ng/dL Thyroxine (T4) 9.4 4.7-13.3 ug/dL Free Triiodothyronine (T3) pg/mL 3.26 2.91-4.70 pg/mL Venous Blood pH 7.423 7.320-7.430 Venous Blood pCO2 at Patient Temp 25 L 38-54 Venous Blood pO2 at Patient Temp 66.9 H 23.0-48.0 mmHg Venous Blood HCO3 16.2 L 22.0-29.0 Venous Blood Base Excess -6.9 L -2.0-3.0 Venous Blood Total Hemoglobin 10.5 L 12.0-16.0 Sodium (Blood Gas) 144 136-145 MMOL/L Bedside Potassium (Blood Gas) 3.4 3.4-4.5 MMOL/L Bedside Chloride (Blood Gas) 114 H 98-107 MMOL/L Bedside Glucose (Blood Gas) 117 H 65-95 MG/DL Bedside Ionized Calcium (Blood Gas) 1.20 1.15-1.33 MMOL/L Bedside Lactic Acid (Blood Gas) 0.85 H 0.36-0.75 MMOL/L Lactic Acid Level 0.9 0.8-2.5 mmol/L Test 10/03/24 08:14 10/03/24 07:52 10/03/24 06:54 10/03/24 06:46 Range/Units Influenza Type A Antigen Negative For Type A NEGATIVE Influenza Type B Antigen Negative For Type B NEGATIVE SARS-CoV-2 Antigen (Rapid) PRESUMPTIVE NEGATIVE NEGATIVE Group A Streptococcus Rapid negative NEGATIVE Fibrinogen 381 H 180-350 mg/dL Thyroid Stimulating Hormone (TSH) 4.29 #H 0.36-3.74 uIU/mL Stool Occult Blood POSITIVE H NEGATIVE Iron Level 38 L 50-170 mcg/dL Total Iron Binding Capacity 243 L 250-450 mcg/dL Percent Iron Saturation 15.6 L 22-44 % Procalcitonin < 0.05 L 0.05-0.5 ng/mL Current Medications Medications (Trade) Dose Ordered Sig/Valentina Route PRN Reason Start Time Stop Time Status Last Admin Dose Admin Acetylcysteine (MUComyst 20% 4ML) 400mg = 2ml [id number] IH 10/03/24 10:00 11/02/24 09:59 10/04/24 21:47 800 MG Albuterol Sulfate (Proventil 0.083% 2.5mg/3ml) 2.5 mg Q4HPRN PRN IH BRONCHOSPASM 10/04/24 15:00 11/03/24 14:59 Albuterol Sulfate (Ventolin Hfa) 2 inh BID IH 10/04/24 21:00 11/03/24 20:59 Artificial Tears (Artificial Tears) 1 DROP OR AD Q8H OU 10/03/24 08:30 11/02/24 08:29 10/04/24 08:20 2 DROP Artificial Tears (Artificial Tears) 1 drop TID OP 10/04/24 21:00 11/03/24 20:59 10/04/24 18:30 1 DROP Chlorhexidine Gluconate (Peridex) 15 ml Q8H MM 10/03/24 08:30 10/17/24 08:29 10/04/24 18:36 15 ML Dextrose 1,000 ml @ 50 mls/hr Q20H IV 10/02/24 20:30 10/03/24 20:38 DC 10/03/24 19:06 50 MLS/HR Doxycycline Hyclate 250 ml @ 125 mls/hr Q12H IV 10/03/24 08:30 10/13/24 08:29 10/04/24 20:16 125 MLS/HR Home Med (Compound Po Narcotic) UD AD PO 10/04/24 15:30 11/03/24 15:29 Home Med (Home Medication) (Ergocalciferol (Vitamin D2) (Ergocalcifer... QWEEK PO 10/11/24 09:00 11/10/24 08:59 Home Med (Home Medication) (Midazolam (Nayzilam) 5 MG) BID PRN NASAL CONSTIPATION 10/04/24 15:00 11/03/24 14:59 Home Med (Home Medication) 2 PUFFS (Advair Hfa 45... BID IH 10/04/24 21:00 11/03/24 20:59 Home Med (Home Medication) CLOBAZAM 20MG DAILY AT 1700... DAILY17 PO 10/03/24 17:00 11/02/24 16:59 10/04/24 19:35 1 EACH Ipratropium [place] (AtrovENT UD) 0.5 MG [id number] IH 10/03/24 10:00 11/02/24 09:59 10/04/24 21:47 0.5 MG Lansoprazole (Prevacid Solu Tab) 15 mg BID PEG 10/04/24 21:00 10/04/24 11:47 DC Lansoprazole (Prevacid Solu Tab) 30 mg BID PEG 10/04/24 21:00 11/03/24 20:59 10/04/24 20:16 30 MG Lorazepam (AtiVAN) 1 mg AD PRN IVP SEIZURES 10/03/24 21:00 11/02/24 20:59 Magnesium Sulfate 50 ml @ 0 mls/hr PROTOCOL PRN IV Electrolyte abnormality 10/03/24 16:30 11/02/24 16:29 Midodrine (PROAMatine 5 MG TABLET) 5 mg TID PO 10/04/24 11:30 11/03/24 11:29 10/04/24 20:16 5 MG Norepinephrine 250 ml @ 14.288 mls/ hr PROTOCOL PRN IV HYPOTENSION MAP LESS THAN 65 10/03/24 04:00 11/02/24 03:59 10/03/24 22:07 5.715 MLS/HR Ondansetron HCl (zoFRAN 4MG INJ) 4 mg Q6H PRN IV NAUSEA/VOMITING 10/02/24 20:30 11/01/24 20:29 Pantoprazole Sodium (PROTonix 40MG INJ) 40 mg BID IVP 10/03/24 09:00 10/04/24 11:08 DC 10/04/24 08:19 40 MG Pantoprazole Sodium (PROTonix 40MG INJ) 40 mg DAILY IVP 10/03/24 09:00 10/03/24 08:09 DC Piperacillin Sod/ Tazobactam Sod (Zosyn 3.375gm+NS 50ml) 3.375 gm Q12H IVPB 10/02/24 20:30 10/12/24 20:29 10/04/24 20:16 3.375 GM Potassium Chloride 100 ml @ 50 mls/hr AD PRN IV POTASSIUM PROTOCOL 10/03/24 16:30 11/02/24 16:29 10/04/24 05:36 50 MLS/HR Potassium Cl/ Dextrose/Lact Ringer's (L7vc-34 Meq KCl 1000 ml) 20 meq AD IV 10/03/24 21:00 10/05/24 20:59 10/03/24 20:49 20 MEQ Propranolol HCl (Inderal) 20 mg BID PRN PO PRN FOR ELEVATED HR 10/04/24 15:00 11/03/24 14:59 Sodium Bicarbonate (Sodium Bicarbonate) 650 mg BID GT 10/04/24 21:00 10/04/24 21:16 DC 10/04/24 20:16 650 MG DIAGNOSTICS / RADIOLOGY: [ ] PATIENT: KYLE PATEL MR#: [id number] : 2005 SEX: F AGE: 18 LOCATION: 2BH ORDER 2300 STATUS: ADM IN REPORT#: [id number] SERVICE 0900 REASON: pneumonia ORDERING PHYSICIAN: NEGRA VALENTE MD PROCEDURE: CXR1VW - CHEST 1VW CHEST 1VW HISTORY: Pneumonia COMPARISON: 10/03/2024 FINDINGS: A frontal projection of the chest was obtained. Mild bilateral pulmonary infiltrates are seen with left more than right. The heart is borderline enlarged. All the lines and tubes are again seen in place. No evidence of aortic calcification is seen. IMPRESSION: 1. Mild bilateral pulmonary infiltrates with left more than right. ASSESSMENT: Suspected Left lung pneumonia POA Suspected GI bleed POA Normocytic normochromic anemia POA Acute Leukocytosis POA Hypernatremia POA Hypokalemia POA Chronic respiratory failure ventilator dependent POA Functional quadriplegia POA GERD with PEG tube placement. POA Peg tube status POA Recent Left ear infection POA Spinal Muscular dystrophy POA Severe thoracic scoliosis POA PLAN: We will admit patient in ICU We will keep patient nothing by mouth We will start D5 at 75 mL/hour We will start patient on Zosyn IV q.12 We will start on Protonix 40 mg IV daily We will replace electrolytes as needed per protocol We will add prn medication for fever,pain,cough ,nausea and vomiting We will reconcile home meds once medlist available Respiratory consult has been placed and chest physiotherapy and suctioning has been ordered as needed. Maintain ventilator settings and monitor ABGs. continue ventilator support and adjust as per respiratory consult. EGD and colonoscopy once hemodynamically stabilized. Hypernatremia correction with D5W IV to 75 mL/hour. Monitor serum sodium every 4 hours. Hypokalemia protocol as per facility. Magnesium supplementation as per protocol of the facility. Adjust PEG tube feeds per dietary recommendation. pulmonary function test has been ordered. Follow-up chest x-ray to monitor resolution. Oxygen support via ventilator as needed. Gastro consult has been placed and check hemoglobin every 8-12 hours. Her stool occult has been positive for blood. Continue IV Rocephin until culture results return. Monitor WBC trend, inflammatory markers CRP procalcitonin. Monitor hemoglobin and hematocrit trends. Iron replacement has been ordered. Blood transfusion if hemoglobin drops below 7. Speech therapy consult has been placed for aspiration risk. Repeating TSH T3-T4 for further evaluation of her elevated TSH. Electrolytes will be replaced according to the facility protocol. We will follow up urinalysis result, we will cultures and fecal occult blood We will request labs in am We will request H&H p.r.n. bleeding We will seek critical Care consultation Further orders to follow depending on above results Case discussed with attending physician and came up with above treatment and plan of care. ATTESTATION BY PHYSICIAN I have seen and examined the patient. I reviewed the documentation, medical decision making, and treatment plan as noted by the mid-level provider above. I agree with the findings and plan of care. Killian Caro MD, RAGHAVA R MD Oct 04, 2024 22:38
[2024-10-04] MEDS ORDERED: GLUCAGON 1MG KIT 1 MG ML IM PRN (23:30)
[2024-10-04] MEDS ORDERED: PoTASSium chloRIDE 20MEQ/100ML 100 ML IV PRN (23:30)
[2024-10-04] MEDS ORDERED: DEXTROSE 50%-WATER 50 ML DISP.SYRIN IV PRN (23:30)
[2024-10-04] MEDS ORDERED: MAGNESIUM 2GM PREMIX 50ML 50 ML IV PRN (23:30)
[2024-10-05] VITALS (109 sets, daily range): BP systolic 71–166; BP diastolic 37–110; PULSE 48–128; RESP 20–38; TEMP 97.9–98.7; O2SAT 97–100
[2024-10-05] MEDS: INSULIN humuLIN R 100 UNIT/ML 3ML SQ SCH
[2024-10-05 00:22] LABS: CREATININE 0.2 mg/dL (0.5-1.0); POTASSIUM 3.1 mmol/L (3.5-5.1)
[2024-10-05 04:16] LABS: BASOPHILS # (AUTO) 0.06 K/uL (0.00-0.20); BASOPHILS % (AUTO) 0.4 % (0.0-5.0); EOSINOPHILS # (AUTO) 0.29 K/uL (0.00-0.70); EOSINOPHILS % (AUTO) 1.7 % (0.0-8.0); HEMATOCRIT 27.4 % (36-48); IMMATURE GRANULOCYTE ABSOLUTE 0.07 K/uL (0-1); LYMPHOCYTES # (AUTO) 5.8 K/uL (1.0-4.8); LYMPHOCYTES % (AUTO) 34.2 % (21.0-51.0); MEAN CORPUSCULAR HEMOGLOBIN 30.5 pg (27.0-33.0); MEAN CORPUSCULAR HGB CONC 31.8 g/dL (32.0-36.0); MEAN CORPUSCULAR VOLUME 96.1 fL (80-100); MONOCYTES # (AUTO) 0.9 K/uL (0.1-1.0); MONOCYTES % (AUTO) 5.2 % (3.0-13.0); NEUTROPHILS # (AUTO) 9.7 K/uL (1.8-7.7); NEUTROPHILS % (AUTO) 58.1 % (40.0-77.0); PLATELET COUNT (AUTO) 318 K/uL (130-400); RED BLOOD CELL COUNT(AUTO) 2.85 MIL/uL (4.00-5.50); RED CELL DISTRIBUTION WIDTH 17.5 % (11.0-15.5); WHITE BLOOD COUNT (AUTO) 16.8 K/uL (4.8-10.8)
[2024-10-05 04:50] LABS: EOSINOPHILS % (MANUAL) 5 % (1-6); LYMPHOCYTES % (MANUAL) 25 % (22-44); MAN.DIFF COMMENT-IMPRESSION MANUAL DIFFERENTIAL; MONOCYTES % (MANUAL) 6 % (2-9); SEGMENTED NEUTROPHILS % 64 % (40-70); TOTAL CELLS COUNTED 100
[2024-10-05 04:52] LABS: PLATELET MORPHOLOGY COMMENT ADEQUATE; WBC MORPHOLOGY NORMAL
[2024-10-05 04:54] LABS: CARBON DIOXIDE 23 mmol/L (21-32); CHLORIDE 114 mmol/L (101-111); GLUCOSE,RANDOM 86 mg/dL (70-105); POTASSIUM 5.7 mmol/L (3.5-5.1); SODIUM SERUM 147 mmol/L (136-145); UREA NITROGEN, BLOOD 7 mg/dL (7-18)
[2024-10-05 05:06] LABS: CREATININE < 0.2 mg/dL (0.5-1.0); GLOMERULAR FILTR. RATE CALC 172 mL/min (>90)
[2024-10-05 07:13] LABS: C DIFFICILE TOXIN A/B Not Detected (Not Detected); ENTEROAGGREGATIVE ECOLI Not Detected (Not Detected); GIARDIA LAMBLIA Not Detected (Not Detected); PLESIOMONAS SHIGELOIDES Not Detected (Not Detected); SAPOVIRUS Not Detected (Not Detected); SHIGELLA/ENTEROINVASIVE E COLI Not Detected (Not Detected); VIBRIO Not Detected (Not Detected); VIBRIO CHOLERAE Not Detected (Not Detected)
[2024-10-05] MEDS: ARTIFICAL TEARS SOL 15 ML OP SCH (09:11)
--- NOTE | 2024-10-05 10:03 | PN ---
[facility] PROGRESS NOTE Date Patient Seen: Oct 05, 2024 Time of Visit: 10:03 Supervising Physician: Dr. John Bautista Primary Care Physician: Mariaelena Alvarez Outpatient Specialists: Inpatient Consults: BIS, PROBLEM LIST: Septic shock, POA requiring Levophed Acute on chronic hypoxic respiratory failure, POA Ventilator dependent since Tracheostomy size Left side pneumoniae, POA Compensated metabolic acidosis, POA Acute on chronic anemia from blood loss, POA (Melena) s/p EGD 10/04/24 Leukocytosis, POA Hypernatremia POA Chronic respiratory failure ventilator dependent POA Functional quadriplegia POA Bernardo tube gastrostomy, POA Recent Left ear infection POA Hypokalemia resolved Hx of seizures History of spinal muscular dysplasia Hx of Severe thoracic scoliosis INTERVAL HISTORY: Patient is awake alert vent dependent. Continues on vasopressor support with Levophed at 0.02 micrograms/kilogram per minute. Blood pressure 113/73 with a heart rate in the 90s respiratory rate of 22 saturating 100% on ventilator with a T-max of 98.8 and a T low of 97.3. No accurate I&Os due to patient's urinary incontinence but we will order daily weights. On laboratory WBCs 18.1 trending down H&H of 7.5/23.9 plt 284 K. on laboratory sodium 144 potassium of 3.5 chloride 113 carbon dioxide 19 BUN of three creatinine of 0.1 GFR of 203. ABGs with the improvement a pH of 7.38 pCO2 of 28 PO2 of 94.8 and bicarb of 16.3 one amp of sodium bicarb given. Respiratory culture growing few Gram-positive cocci and 2+ Gram-negative rods. On chest x-ray mild bilateral pulmonary infiltrates with left more than right pneumoniae. Patient has EGD planned for this morning. 10/05/2024: At the time of my evaluation, the patient was lying in bed. She is spontaneously open and closes her eyes, but is not verbally interactive due to her underlying condition. The staff nurse reports no acute events overnight. The patient remains connected to her home vent with SIMV mode , SpO2 100%. Chest x-ray today showed opacification of the left chest with possible pleural effusion. The patient continues on Levophed drip at 0.07 with systolic blood pressure in the 80s, map of 64. She remains on tube feeding with Vital peptide at 55 mL/hour. Chemistry panel showed a sodium of 147, potassium of 4.2, chloride of 114, CO2 of 23, BUN 7, creatinine of less than 0.2. Due to incontinent voids, I's and O's would be an accurate. The patient continues on IV fluids with D5 LR plus K at 75 cc/hour. No bleeding reported. CBC showed a WBC of 16.8, hemoglobin of 8.7, hematocrit of 27.4 and a platelet count of 318. There was no coagulation panel drawn today. The patient continues on antibiotic therapy with IV Zosyn and doxy, sputum culture positive for Proteus mirabilis and Serratia marcescens, blood and urine cultures were negative. No other complaint. REVIEW OF SYSTEMS: Unable to perform due to patient's cognitive status. PHYSICAL EXAM: GENERAL: Patient is awake alert aphasic. functional quadriplegia HEENT: Sclera non icteric, moist mucosa NECK: Short no JVD, tracheostomy LUNGS: ronchi breath sounds bilaterally. No wheezes HEART: Regular rate and rhythm. Normal S1 and S2, without murmurs ABD: Abdomen soft, nontender. Bowel sounds present EXT: No clubbing cyanosis or edema NEURO: functional quadriplegia, bed bound Vital Signs (last 8hr) Date Time Temp Pulse Resp B/P (MAP) Pulse Ox O2 Delivery O2 Flow Rate FiO2 10/05/24 09:34 65 10/05/24 07:35 69 22 10/05/24 07:33 69 10/05/24 07:33 69 10/05/24 07:00 62 22 89/52 (64) 100 10/05/24 06:45 75 22 75/38 (50) 100 10/05/24 06:30 68 22 77/42 (54) 99 10/05/24 06:15 84 22 85/49 (61) 94 10/05/24 06:00 87 22 90/60 (70) 99 10/05/24 05:45 88 22 99/47 (64) 100 10/05/24 05:30 98 97 10/05/24 05:15 94 23 92/58 (69) 98 10/05/24 05:00 21 10/05/24 05:00 81 22 98/81 (87) 99 10/05/24 04:45 74 22 95/54 (68) 99 21 10/05/24 04:30 112 22 148/101 (117) 99 21 10/05/24 04:15 85 22 117/86 (96) 98 21 10/05/24 04:00 98.2 Ventilator 21 10/05/24 04:00 100 Ventilator+ 21 10/05/24 04:00 98.2 117 22 159/110 (126) 98 21 10/05/24 03:45 111 22 154/109 (124) 98 21 10/05/24 03:30 89 22 166/92 (116) 100 21 10/05/24 03:30 93 22 10/05/24 03:15 92 22 141/97 (112) 98 21 10/05/24 03:00 82 22 109/64 (79) 98 21 10/05/24 02:45 80 22 106/61 (76) 100 21 10/05/24 02:30 85 22 93/61 (72) 99 21 10/05/24 02:15 85 22 101/59 (73) 99 21 LABS: Hematology Labs: Test 10/05/24 03:46 10/04/24 04:05 10/03/24 21:56 Range/Units White Blood Count 16.8 H 4.8-10.8 K/uL Red Blood Count 2.85 L 4.00-5.50 MIL/uL Hemoglobin 8.7 L 12.0-16.0 g/dL Hematocrit 27.4 L 36-48 % Mean Corpuscular Volume 96.1 80-100 fL Mean Corpuscular Hemoglobin 30.5 27.0-33.0 pg Mean Corpuscular Hemoglobin Concent 31.8 L 32.0-36.0 g/dL Red Cell Distribution Width 17.5 H 11.0-15.5 % Platelet Count 318 130-400 K/uL Mean Platelet Volume 10.8 H 7.5-10.5 fL Immature Granulocyte % (Auto) 0.4 0-1 % Neutrophils (%) (Auto) 58.1 40.0-77.0 % Lymphocytes (%) (Auto) 34.2 21.0-51.0 % Monocytes (%) (Auto) 5.2 3.0-13.0 % Eosinophils (%) (Auto) 1.7 0.0-8.0 % Basophils (%) (Auto) 0.4 0.0-5.0 % Neutrophils # (Auto) 9.7 H 1.8-7.7 K/uL Lymphocytes # (Auto) 5.8 H 1.0-4.8 K/uL Monocytes # (Auto) 0.9 0.1-1.0 K/uL Eosinophils # (Auto) 0.29 0.00-0.70 K/uL Basophils # (Auto) 0.06 0.00-0.20 K/uL Absolute Immature Granulocyte (auto 0.07 0-1 K/uL Segmented Neutrophils % 64 40-70 % Lymphocytes % (Manual) 25 22-44 % Monocytes % (Manual) 6 2-9 % Eosinophils % (Manual) 5 1-6 % Nucleated Red Blood Cells 0.0 0.0-0.19 % Differential Comment MANUAL DIFFERENTIAL White Cell Morphology Comment NORMAL Platelet Morphology Comment ADEQUATE Red Blood Cell Morphology See comments Erythrocyte Sedimentation Rate 54 H 0-20 MM/HR Basophils % (Manual) 1 0-2 % Chemistry Labs: Test 10/05/24 07:30 10/05/24 03:46 10/05/24 00:09 10/04/24 09:00 Range/Units Potassium Level 4.2 3.5-5.1 mmol/L Sodium Level 147 H 136-145 mmol/L Chloride Level 114 H 101-111 mmol/L Carbon Dioxide Level 23 21-32 mmol/L Blood Urea Nitrogen 7 7-18 mg/dL Creatinine < 0.2 L 0.5-1.0 mg/dL Glomerular Filtration Rate Calc 172 >90 mL/min Random Glucose 86 70-105 mg/dL Total Calcium 8.5 8.5-10.1 mg/dL Whole Blood Glucose 86 70-110 MG/DL Magnesium Level 1.90 1.80-2.40 mg/dL Test 10/04/24 04:05 10/03/24 17:59 Range/Units Total Bilirubin 0.4 0.2-1.0 mg/dL Aspartate Amino Transf (AST/SGOT) 21 10-37 U/L Alanine Aminotransferase (ALT/SGPT) 22 12-78 U/L Alkaline Phosphatase 89 50-136 U/L C-Reactive Protein, Quantitative 11.50 H 0.5-3.0 mg/L Total Protein 6.8 6.0-8.3 g/dL Albumin 2.7 L 3.5-5.0 g/dL Free Thyroxine (T4) Direct 1.29 0.78-1.34 ng/dL Thyroxine (T4) 9.4 4.7-13.3 ug/dL Free Triiodothyronine (T3) pg/mL 3.26 2.91-4.70 pg/mL Total Triiodothyronine 158 71-180 ng/dL DIAGNOSTICS / RADIOLOGY RESULTS: [ ] PLAN Follow for critical care management in the ICU Treat empirically for suspected Pseudomonas pneumoniae with Zosyn Empiric coverage for community-acquired pneumonia with doxycycline Atrovent q.4 hours Mucomyst q.[address] of the chest without contrast Monitor electrolytes and cover accordingly hold IV fluids Blood cultures, urine cultures, respiratory culture MRSA swab Levophed to maintain map above 65 and wean as possible start midodrine Resume home medications as possible 10/05/2024: For now, going to continue current management for the patient. Her mental status remains at baseline. She will remain on vent support as she is dependent on this, SIMV mode. We will adjust as necessary. Currently the patient will remain on the Levophed drip and we will continue trying to wean the patient off. She currently continues on midodrine, I am going to increase to 10 t.i.d. in efforts of weaning off the Levophed. I am going to discontinue the IV fluids as the patient is receiving feedings with water flushes through the M ickey tube with Vital peptide at 55 cc/hour. Patient is voiding but with incontinent voids. She is status post EGD with findings of a bleed and clipping. We will monitor the H and H trend with subsequent labs. We will monitor the WBC trend. The patient will continue on Zosyn and doxy as ordered. Appreciate the input of the treating specialist. We will continue to provide general supportive care, GI and DVT prophylaxis. Further orders per attending MD and hospital course. NEURO: Minimize central acting medications as possible. Fall Precautions. Well lighted room through the day and minimize interruptions through the night to prevent acute delirium. Seizure precautions Ativan PRN IV seizure Resume home seizure medication PULMONARY: Supplemental 02 as needed Titrate Fio2 to keep Spo2 > or = 90% DuoNebs and CPT as needed IS hourly while awake for pulmonary hygiene Out of bed to chair as tolerated VAP Bundle Vent/BIPAP Settings: SIMV mode, TV 250, RR 22, fio2 of 21% and peep 5, with pressure support of 10. CARDIOVASCULAR: Follow hemodynamics. Titrate vasopressor to keep MAP >65 or systolic blood pressure >95mmHg Drips: Levophed LINES: PIV PICC GI & NUTRITION: Continue nutritional support Aspirations precautions Prokinetic agents and laxatives as needed NPO for now KIDNEYS & ELECTROLYTES: Strict monitoring of intake and output Daily weights Avoid nephrotoxic agents Monitor electrolytes and replace as needed Goal urine output of 30mL/hr or 0.5mL/kg/hr Urine output: [ ] Fluid Balance: [ ] ENDOCRINE: Maintain blood glucose between 100-180 at all times. Insulin sliding scale for blood glucose management INFECTIOUS DISEASE: Trend temperature. Herrera-culture if febrile. Micro: [ ] Blood culture Urine culture Respiratory culture Antibiotics: Zosyn and doxycycline HEMATOLOGY & COAGULATION: Monitor H&H. Keep Hgb > 7 Transfuse 1 unit of PRBC for Hgb < 7 Transfuse 1 pack of platelets of platelets < 20, 000 Watch for any signs and symptoms of bleeding SKIN: Pressure ulcer prevention per facility protocol Rehab: PT/OT Prophylaxis: GI: Protonix 40 mg IV push b.i.d. DVT: SCDs Code Status: Full Resuscitation Disposition: ICU Other: Total patient care time exceeds 35 minutes excluding all procedures. Case was discussed and seen with my supervising physician. The above plan was formulated and agreed upon. LORAINE DIEZ NP Oct 05, 2024 10:03
--- NOTE | 2024-10-05 10:16 | HMCIMG ---
Exam Type: CHEST 1VW Clinical Information: pneumonia Comparison: None Findings: Pulmonary pattern is as before. No worrisome interval changes have taken place. Impression: Stable exam.
[2024-10-05] MEDS ORDERED: PHARMACY COMMUNICATION MISC SCH (14:00)
[2024-10-05] MEDS: MEROPENEM 1GM 1 GM VIAL IV SCH (15:06)
--- NOTE | 2024-10-05 15:47 | PN ---
[facility] PROGRESS NOTE Date of Service: Oct 05, 2024 Time of Service: 15:45 SUBJECTIVE: This is a 18-year-old female with past medical history of spinal muscular dystrophy, chronic respiratory failure vent dependent via trach, severe gastroesophageal reflux with PEG tube placement,severe thoracic scoliosis and functional quadriplegia who presents to the ED for elevated WBC.As per mother patient was having left ear infection with drainage 1 week ago and was started on Augmentin bid x 14days and today is day #7 and so far as per mother left ear drainage was resolved and yesterday patient went to her clinical trial assistant and a lab work was done and today as per mother she received a call from the clinic instructing her to bring patient to the ED due to elevated WBC. As per mother ,patient has coffee ground residuals from peg tube and has also been having dark watery stool everyday x 3 days.Patient had also dark stool last week daily x 3 days but had stopped and came back again since Monday this week.As per mother patient didnt have fever,chills,no abdominal pain reported. Latest vital signs temperature 98.2, heart rate 118, respiration 22, blood pressure 104/62, saturation 97% on vent FiO2 60%. Labs: WBC 17.5, hemoglobin 10.7, hematocrit 33, platelet count 344. Sodium 150, chloride 115, BUN 22, creatinine 0.2, total CK nine, total protein nine procalcitonin 0.09. Chest x-ray result revealed dominique spected left lower lung opacities. Follow-up chest radiograph is advised in order to ensure resolution. Chest x-ray result revealed no evidence for bowel obstruction. While in the ER patient received Rocephin 1 g IV, Protonix 40 mg IV, LR bolus 1 L. We will admit patient for further medical management. 10/03/24 On bedside examination in the ER the patient was being ventilated via tracheostomy tube and she has PEG tube in place and she ask functional quadriplegia. Spoke to her mom she describes that this is her usual functional status. A WBC count remains elevated. She is currently on 7 days of Augmentin treatment for her left ear infection with drainage. Her fecal occult blood test is positive for blood her abdominal x-ray reveals no evidence of bowel obstruction. Recent chest x-ray revealed suspected left lower lung opacities and follow-up imaging is recommended. And a recent chest CT scan revealed minimal bilateral pulmonary infiltrates, left lower lung subsegmental atelectasis and bronchiectasis. While in the ER the patient received Rocephin1 g IV, Protonix 40 mg and lactated Ringer's 1 L bolus. Given the elevated WBC count, suspected left lung pneumonia and GI bleeding consent she is being admitted for further manage the her blood pressure is124 x 79 with a pulse of 90. Arterial blood oxygen saturation is 92.7, venous blood pCO2 is that is slow and venous blood PO2 is 66.9, venous blood HC03 is 16.2, bedside lactic acid blood gas is 0.85 high her hemoglobin is 9.2 low and hematocrit is 28.7 low and fibrinogen is381 high sodium level is148 high potassium level is 3.3 low her BUN level is 13 and creatinine level is 0.2 low C-reactive protein is elevated with18 and TSH is high which is 4.29 WBC count is elevated with 12.0 high. Her serum iron levels are low at 38 and TIBC is low at 243 and percentage saturation is 15.6 low and her urine protein is high with 20 and RBCs 2-5 high and WBCs 2-5 high. She is being currently admitted for further management of care 10/04/2024 this patient was previously evaluated in the ED yesterday for elevated WBC 13.6 and which has worsened to 18.1 today, worsening anemia hemoglobin level of 7.7, hypernatremia sodium 152, hypokalemia 3.1 and ABG 7.3 pCO2 28, HC03 of 16.3 and base excess of -7.1. GI and Pulmonary consults have been placed, and an EGD and colonoscopy are planned once patient is hemodynamically stable. The Infectious Disease team is involved due to concerns for sepsis, given her elevated ESR and leukocytosis, high fibrinogen blood, positive urine proteins, hematuria, increased WBC in urine. Fluids have been adjusted to correct hypernatremia and hypokalemia, and a stricter ICU monitoring is in place.A pulse of 1 not 8, respiratory rate 22, blood pressure is stable oxygen saturation adequate on vent ilation. COVID-19 influenza group a strep tests are negative. 10/05/24 patient was seen and examined case discussed with RN. Appreciate GI and pulmonology evaluation. Continue broad-spectrum antibiotics. Monitor labs REVIEW OF SYSTEMS:Unable to perform patient is vented and lethargic PHYSICAL EXAM GENERAL APPEARANCE: The patient is lethargic but arousable.Patient appears comfortable NEUROLOGICAL: Patient is non verbal ,open eyes. HEENT: Face is symmetric. Pupils are equal and reactive. Extraocular movements are intact. NECK: Patient has vent via trache CHEST: Normal chest expansion. +Telemetry. LUNGS: scattered rhonchi on bilateral lower bases per auscultation CARDIOVASCULAR: Regular. S1 and S2 normal. No appreciable rubs, murmurs or gallops. ABDOMEN: + Pegtube-clamped Soft, nontender, and nondistended. There is no r ebound, voluntary guarding, or rigidity. : Deferred. No Aleman. EXTREMITIES: + pedal pulses. Good capillary refill. SKIN: No skin breakdown. Vital Signs (last 8hr) Date Time Temp Pulse Resp B/P (MAP) Pulse Ox O2 Delivery O2 Flow Rate FiO2 10/05/24 15:23 73 21 10/05/24 14:31 62 22 10/05/24 14:14 21 10/05/24 14:00 71 22 106/70 (82) 99 10/05/24 13:45 54 22 134/81 (98) 99 10/05/24 13:30 51 22 111/72 (85) 99 10/05/24 13:15 64 22 97/72 (80) 99 10/05/24 13:00 55 22 94/53 (67) 99 10/05/24 12:45 54 22 96/62 (73) 99 10/05/24 12:30 51 22 92/52 (65) 100 10/05/24 12:21 98.2 Ventilator 21 10/05/24 12:19 69 21 10/05/24 12:15 53 22 91/55 (67) 100 10/05/24 12:00 98.2 49 23 88/55 (66) 100 10/05/24 12:00 100 Ventilator+ 21 10/05/24 11:45 48 22 87/52 (64) 100 10/05/24 11:36 63 22 10/05/24 11:30 51 26 86/47 (60) 100 10/05/24 11:15 58 22 77/42 (54) 99 10/05/24 11:00 73 22 80/40 (53) 99 10/05/24 10:45 82 22 83/39 (54) 100 10/05/24 10:30 101 22 115/64 (81) 100 10/05/24 10:19 21 10/05/24 10:15 105 22 115/67 (83) 99 10/05/24 10:00 85 22 133/88 (103) 99 10/05/24 09:45 63 22 145/77 (99) 100 10/05/24 09:34 65 21 10/05/24 09:30 59 22 122/72 (89) 100 10/05/24 09:15 55 23 81/43 (56) 100 10/05/24 09:00 51 22 83/47 (59) 100 10/05/24 08:45 64 22 79/39 (52) 99 10/05/24 08:30 76 22 71/37 (48) 100 10/05/24 08:15 56 23 79/44 (56) 100 10/05/24 08:00 100 Ventilator+ 21 10/05/24 08:00 98.8 60 22 77/48 (58) 100 10/05/24 08:00 98.1 Ventilator 21 LABS: Laboratory: Test 10/05/24 10:44 10/05/24 07:30 10/05/24 03:46 10/04/24 09:46 Range/Units Whole Blood Glucose 122 H 70-110 MG/DL Potassium Level 4.2 3.5-5.1 mmol/L White Blood Count 16.8 H 4.8-10.8 K/uL Red Blood Count 2.85 L 4.00-5.50 MIL/uL Hemoglobin 8.7 L 12.0-16.0 g/dL Hematocrit 27.4 L 36-48 % Mean Corpuscular Volume 96.1 80-100 fL Mean Corpuscular Hemoglobin 30.5 27.0-33.0 pg Mean Corpuscular Hemoglobin Concent 31.8 L 32.0-36.0 g/dL Red Cell Distribution Width 17.5 H 11.0-15.5 % Platelet Count 318 130-400 K/uL Mean Platelet Volume 10.8 H 7.5-10.5 fL Immature Granulocyte % (Auto) 0.4 0-1 % Neutrophils (%) (Auto) 58.1 40.0-77.0 % Lymphocytes (%) (Auto) 34.2 21.0-51.0 % Monocytes (%) (Auto) 5.2 3.0-13.0 % Eosinophils (%) (Auto) 1.7 0.0-8.0 % Basophils (%) (Auto) 0.4 0.0-5.0 % Neutrophils # (Auto) 9.7 H 1.8-7.7 K/uL Lymphocytes # (Auto) 5.8 H 1.0-4.8 K/uL Monocytes # (Auto) 0.9 0.1-1.0 K/uL Eosinophils # (Auto) 0.29 0.00-0.70 K/uL Basophils # (Auto) 0.06 0.00-0.20 K/uL Absolute Immature Granulocyte (auto 0.07 0-1 K/uL Segmented Neutrophils % 64 40-70 % Lymphocytes % (Manual) 25 22-44 % Monocytes % (Manual) 6 2-9 % Eosinophils % (Manual) 5 1-6 % Nucleated Red Blood Cells 0.0 0.0-0.19 % Differential Comment MANUAL DIFFERENTIAL White Cell Morphology Comment NORMAL Platelet Morphology Comment ADEQUATE Red Blood Cell Morphology See comments Sodium Level 147 H 136-145 mmol/L Chloride Level 114 H 101-111 mmol/L Carbon Dioxide Level 23 21-32 mmol/L Blood Urea Nitrogen 7 7-18 mg/dL Creatinine < 0.2 L 0.5-1.0 mg/dL Glomerular Filtration Rate Calc 172 >90 mL/min Random Glucose 86 70-105 mg/dL Total Calcium 8.5 8.5-10.1 mg/dL Blood Gas Specimen Type Arterial Arterial Blood pH 7.383 7.350-7.450 Arterial Blood Partial Pressure CO2 28 L 32-45 mmHg Arterial Blood Partial Pressure O2 94.8 83.0-108.0 mmHg Arterial Blood HCO3 16.3 L 21.0-28.0 mmol/L Arterial Blood Oxygen Saturation 97.3 94.0-98.0 % Arterial Blood Base Excess -7.1 L -2.0-3.0 mmol/L Blood Gas Temperature 37.0 35.5-37.0 CELSIUS Blood Gas Respiration Rate 22.0 min. Blood Gas Vent Mode SIMV PS 10 ROOM AIR FiO2 21.0 % Blood Gas Tidal Volume 250 ml Blood Gas PEEP 5 cm H2O Blood Gas Specimen Comment DHEERAJ ESCALANTE RN Test 10/04/24 09:00 10/04/24 04:05 10/03/24 21:56 10/03/24 17:59 Range/Units Magnesium Level 1.90 1.80-2.40 mg/dL Erythrocyte Sedimentation Rate 54 H 0-20 MM/HR Total Bilirubin 0.4 0.2-1.0 mg/dL Aspartate Amino Transf (AST/SGOT) 21 10-37 U/L Alanine Aminotransferase (ALT/SGPT) 22 12-78 U/L Alkaline Phosphatase 89 50-136 U/L C-Reactive Protein, Quantitative 11.50 H 0.5-3.0 mg/L Total Protein 6.8 6.0-8.3 g/dL Albumin 2.7 L 3.5-5.0 g/dL Basophils % (Manual) 1 0-2 % Free Thyroxine (T4) Direct 1.29 0.78-1.34 ng/dL Thyroxine (T4) 9.4 4.7-13.3 ug/dL Free Triiodothyronine (T3) pg/mL 3.26 2.91-4.70 pg/mL Total Triiodothyronine 158 71-180 ng/dL Current Medications Medications (Trade) Dose Ordered Sig/Valentina Route PRN Reason Start Time Stop Time Status Last Admin Dose Admin Acetylcysteine (MUComyst 20% 4ML) 400mg = 2ml [id number] IH 10/03/24 10:00 11/02/24 09:59 10/05/24 14:31 800 MG Albuterol Sulfate (Proventil 0.083% 2.5mg/3ml) 2.5 mg Q4HPRN PRN IH BRONCHOSPASM 10/04/24 15:00 11/03/24 14:59 Albuterol Sulfate (Ventolin Hfa) 2 inh BID IH 10/04/24 21:00 11/03/24 20:59 Artificial Tears (Artificial Tears) 1 DROP OP TID TID OP 10/05/24 09:00 11/03/24 20:59 10/05/24 13:30 1 DROP Artificial Tears (Artificial Tears) 1 DROP OR AD Q8H OU 10/03/24 08:30 10/05/24 08:27 DC 10/05/24 00:31 1 DROP Artificial Tears (Artificial Tears) 1 drop TID OP 10/04/24 21:00 10/05/24 08:29 DC 10/04/24 18:30 1 DROP Chlorhexidine Gluconate (Peridex) 15 ml Q8H MM 10/03/24 08:30 10/17/24 08:29 10/05/24 09:08 15 ML Dextrose 1,000 ml @ 50 mls/hr Q20H IV 10/02/24 20:30 10/03/24 20:38 DC 10/03/24 19:06 50 MLS/HR Dextrose (D50w) 50 ml AD PRN IV HYPOGLYCEMIA PROTOCOL 10/04/24 23:30 11/03/24 23:29 Doxycycline Hyclate 250 ml @ 125 mls/hr Q12H IV 10/03/24 08:30 10/05/24 10:04 DC 10/05/24 09:00 125 MLS/HR Glucagon (Glucagon 1mg Kit) 1 mg AD PRN IM HYPOGLYCEMIA PROTOCOL 10/04/24 23:30 11/03/24 23:29 Home Med (Compound Po Narcotic) UD AD PO 10/04/24 15:30 11/03/24 15:29 Home Med (Home Medication) (Ergocalciferol (Vitamin D2) (Ergocalcifer... QWEEK PO 10/11/24 09:00 11/10/24 08:59 Home Med (Home Medication) (Midazolam (Nayzilam) 5 MG) BID PRN NASAL CONSTIPATION 10/04/24 15:00 11/03/24 14:59 Home Med (Home Medication) 2 PUFFS (Advair Hfa 45... BID IH 10/04/24 21:00 11/03/24 20:59 Home Med (Home Medication) CLOBAZAM 20MG DAILY AT 1700... DAILY17 PO 10/03/24 17:00 11/02/24 16:59 10/04/24 19:35 1 EACH Insulin Human Regular (humuLIN R 100 UNIT/ML 3ML) INSULIN SLIDING SCAL... Q6H6 SQ 10/05/24 00:00 11/04/24 00:00 Ipratropium [place] (AtrovENT UD) 0.5 MG O2AZBBP IH 10/03/24 10:00 11/02/24 09:59 10/05/24 14:31 0.5 MG Lansoprazole (Prevacid Solu Tab) 15 mg BID PEG 10/04/24 21:00 10/04/24 11:47 DC Lansoprazole (Prevacid Solu Tab) 30 mg BID PEG 10/04/24 21:00 11/03/24 20:59 10/05/24 09:09 30 MG Lorazepam (AtiVAN) 1 mg AD PRN IVP SEIZURES 10/03/24 21:00 11/02/24 20:59 Magnesium Sulfate 50 ml @ 0 mls/hr PROTOCOL PRN IV Electrolyte abnormality 10/03/24 16:30 11/02/24 16:29 Magnesium Sulfate 50 ml @ 0 mls/hr PROTOCOL PRN IV DEHYDRATION 10/04/24 23:30 10/04/24 23:40 DC Meropenem (Merrem 1gm) 1 gm Q8H IV 10/05/24 14:00 10/15/24 13:59 10/05/24 15:06 1 GM Midodrine (PROAMatine 5 MG TABLET) 5 mg TID PO 10/04/24 11:30 11/03/24 11:29 10/05/24 13:30 5 MG Norepinephrine 250 ml @ 14.288 mls/ hr PROTOCOL PRN IV HYPOTENSION MAP LESS THAN 65 10/03/24 04:00 11/02/24 03:59 10/03/24 22:07 5.715 MLS/HR Ondansetron HCl (zoFRAN 4MG INJ) 4 mg Q6H PRN IV NAUSEA/VOMITING 10/02/24 20:30 11/01/24 20:29 Pantoprazole Sodium (PROTonix 40MG INJ) 40 mg BID IVP 10/03/24 09:00 10/04/24 11:08 DC 10/04/24 08:19 40 MG Pantoprazole Sodium (PROTonix 40MG INJ) 40 mg DAILY IVP 10/03/24 09:00 10/03/24 08:09 DC Pharmacy Profile Note (Pharmacy Communication) Q8H Q8H MISC 10/05/24 14:00 10/05/24 13:51 DC Piperacillin Sod/ Tazobactam Sod (Zosyn 3.375gm+NS 50ml) 3.375 gm Q12H IVPB 10/02/24 20:30 10/05/24 10:04 DC 10/05/24 09:08 3.375 GM Potassium Chloride 100 ml @ 50 mls/hr AD PRN IV POTASSIUM PROTOCOL 10/03/24 16:30 11/02/24 16:29 10/05/24 03:01 50 MLS/HR Potassium Chloride 100 ml @ 50 mls/hr AD PRN IV POTASSIUM PROTOCOL 10/04/24 23:30 10/04/24 23:40 DC Potassium Cl/ Dextrose/Lact Ringer's (R2ew-36 Meq KCl 1000 ml) 20 meq AD IV 10/03/24 21:00 10/05/24 20:59 10/05/24 00:00 20 MEQ Propranolol HCl (Inderal) 20 mg BID PRN PO PRN FOR ELEVATED HR 10/04/24 15:00 11/03/24 14:59 Sodium Bicarbonate (Sodium Bicarbonate) 650 mg BID GT 10/04/24 21:00 10/04/24 21:16 DC 10/04/24 20:16 650 MG DIAGNOSTICS / RADIOLOGY: [ ] ASSESSMENT: Suspected Left lung pneumonia POA Suspected GI bleed POA Normocytic normochromic anemia POA Acute Leukocytosis POA Hypernatremia POA Hypokalemia POA Chronic respiratory failure ventilator dependent POA Functional quadriplegia POA GERD with PEG tube placement. POA Peg tube status POA Recent Left ear infection POA Spinal Muscular dystrophy POA Severe thoracic scoliosis POA PLAN: We will admit patient in ICU We will keep patient nothing by mouth We will start D5 at 75 mL/hour We will start patient on Zosyn IV q.12 We will start on Protonix 40 mg IV daily We will replace electrolytes as needed per protocol We will add prn medication for fever,pain,cough ,nausea and vomiting We will reconcile home meds once medlist available Respiratory consult has been placed and chest physiotherapy and suctioning has been ordered as needed. Maintain ventilator settings and monitor ABGs. continue ventilator support and adjust as per respiratory consult. EGD and colonoscopy once hemodynamically stabilized. Hypernatremia correction with D5W IV to 75 mL/hour. Monitor serum sodium every 4 hours. Hypokalemia protocol as per facility. Magnesium supplementation as per protocol of the facility. Adjust PEG tube feeds per dietary recommendation. pulmonary function test has been ordered. Follow-up chest x-ray to monitor resolution. Oxygen support via ventilator as needed. Gastro consult has been placed and check hemoglobin every 8-12 hours. Her stool occult has been positive for blood. Continue IV Rocephin until culture results return. Monitor WBC trend, inflammatory markers CRP procalcitonin. Monitor hemoglobin and hematocrit trends. Iron replacement has been ordered. Blood transfusion if hemoglobin drops below 7. Speech therapy consult has been placed for aspiration risk. Repeating TSH T3-T4 for further evaluation of her elevated TSH. Electrolytes will be replaced according to the facility protocol. We will follow up urinalysis result, we will cultures and fecal occult blood We will request labs in am We will request H&H p.r.n. bleeding We will seek critical Care consultation Further orders to follow depending on above results Case discussed with attending physician and came up with above treatment and plan of care. MARIA LUISA CHOU MD Oct 05, 2024 15:47
[2024-10-05] MEDS: D5 NS WITH 20 mEq KCl 1000ML IV SCH (22:09)
[2024-10-05 23:54] LABS: CREATININE 0.2 mg/dL (0.5-1.0)
[2024-10-06] VITALS (108 sets, daily range): BP systolic 84–145; BP diastolic 40–100; PULSE 48–118; RESP 12–23; TEMP 97.8–98.8; O2SAT 96–100
[2024-10-06 04:48] LABS: BASOPHILS # (AUTO) 0.08 K/uL (0.00-0.20); BASOPHILS % (AUTO) 0.4 % (0.0-5.0); EOSINOPHILS # (AUTO) 0.54 K/uL (0.00-0.70); EOSINOPHILS % (AUTO) 2.9 % (0.0-8.0); HEMATOCRIT 26.2 % (36-48); IMMATURE GRANULOCYTE ABSOLUTE 0.11 K/uL (0-1); LYMPHOCYTES # (AUTO) 6.4 K/uL (1.0-4.8); LYMPHOCYTES % (AUTO) 34.1 % (21.0-51.0); MEAN CORPUSCULAR HEMOGLOBIN 30.6 pg (27.0-33.0); MEAN CORPUSCULAR HGB CONC 31.3 g/dL (32.0-36.0); MEAN CORPUSCULAR VOLUME 97.8 fL (80-100); MONOCYTES # (AUTO) 0.9 K/uL (0.1-1.0); NEUTROPHILS # (AUTO) 10.6 K/uL (1.8-7.7); PLATELET COUNT (AUTO) 330 K/uL (130-400); RED BLOOD CELL COUNT(AUTO) 2.68 MIL/uL (4.00-5.50); RED CELL DISTRIBUTION WIDTH 17.5 % (11.0-15.5); WHITE BLOOD COUNT (AUTO) 18.7 K/uL (4.8-10.8)
[2024-10-06 05:05] LABS: CREATININE 0.2 mg/dL (0.5-1.0); POTASSIUM 4.3 mmol/L (3.5-5.1)
[2024-10-06 05:38] LABS: EOSINOPHILS % (MANUAL) 3 % (1-6); LYMPHOCYTES % (MANUAL) 45 % (22-44); MAN.DIFF COMMENT-IMPRESSION MANUAL DIFFERENTIAL; MONOCYTES % (MANUAL) 2 % (2-9); OTHER CELLS,MANUAL % 1 (0-0); REACTIVE LYMPHOCYTES 2 % (0-0); SEGMENTED NEUTROPHILS % 47 % (40-70); TOTAL CELLS COUNTED 100
[2024-10-06 05:39] LABS: WBC MORPHOLOGY SMUDGE CELLS 1+
--- NOTE | 2024-10-06 08:44 | PN ---
INFECTIOUS DISEASE PROGRESS NOTE Date of Service: Oct 06, 2024 SUBJECTIVE: This is a 18-year-old female patient who was seen and examined at bedside in the ICU room 206. Patient is tracheostomy dependent. Crackles to bilateral lobes on auscultation. The final sputum culture results came back positive for Proteus mirabilis and Serratia marcescens and patient has been started on Meropenem IV. WBC remains elevated at 18.7. No fever, temperature is 97.9. We will continue to monitor patient's care. PHYSICAL EXAM EYES: Anicteric. Pupils equal and reactive. HENT: No oral thrush seen, moist Oral mucosa. NECK: Supple, no JVD or thyromegaly. LUNGS: Good air entry. Rales bilaterally. Chronic respiratory failure on ventilator dependent. CARDIOVASCULAR: S1, S2 regular. No murmur heard. ABDOMEN: Soft, non tender, bowel sounds present, no organomegaly. PEG tube. CENTRAL NERVOUS SYSTEM: Tracheostomy status. SKIN: No rashes, no swelling. LYMPHATICS: No peripheral lymphadenopathy. MUSCULOSKELETAL: No joint swelling, erythema or tenderness. EXTREMITIES: No cyanosis or clubbing BACK: No deformity, no pressure ulcer. GENITOURINARY: No dysuria or hematuria. Incontinence. Vital Sign (Last 12 Hours) 10/05/24 10/05/24 10/05/24 10/05/24 20:45 21:00 21:15 21:30 Pulse 54 53 48 64 Resp 22 23 22 22 B/P (MAP) 126/82 (97) 116/68 (84) 119/77 (91) 98/61 (73) Pulse Ox 99 98 98 98 FiO2 21 10/05/24 10/05/24 10/05/24 10/05/24 21:42 21:45 22:00 22:06 Pulse 68 81 51 68 Resp 22 22 20 B/P (MAP) 90/46 (61) 102/69 (80) Pulse Ox 97 100 FiO2 21 21 10/05/24 10/05/24 10/05/24 10/05/24 22:15 22:30 22:45 23:00 Pulse 55 59 72 63 Resp 22 22 22 22 B/P (MAP) 103/61 (75) 98/55 (69) 101/49 (66) 93/50 (64) Pulse Ox 100 98 97 97 FiO2 21 2/10/05/24 10/05/24 10/06/24 23:15 23:30 23:45 00:00 Temp 98.4 Pulse 59 69 59 62 Resp 22 22 22 22 B/P (MAP) 89/55 (66) 110/81 (91) 107/64 (78) 100/67 (78) Pulse Ox 98 99 99 99 FiO2 21 10/06/24 10/06/24 10/06/24 10/06/24 00:00 00:00 00:15 00:30 Pulse 57 57 Resp 22 22 B/P (MAP) 96/59 (71) 99/58 (72) Pulse Ox 99 99 100 O2 Delivery Ventilator+ FiO2 21 10/06/24 10/06/24 10/06/24 10/06/24 00:34 00:45 01:00 01:15 Pulse 59 55 54 53 Resp 22 23 B/P (MAP) 95/56 (69) 97/58 (71) 97/63 (74) Pulse Ox 99 100 99 FiO2 21 10/06/24 10/06/24 10/06/24 10/06/24 01:30 01:45 02:00 02:15 Pulse 48 67 75 69 Resp 22 B/P (MAP) 118/74 (89) 134/92 (106) 116/71 (86) Pulse Ox 100 100 100 100 FiO2 21 10/06/24 10/06/24 10/06/24 10/06/24 02:30 02:45 03:00 03:15 Pulse 65 66 68 71 Resp 22 B/P (MAP) 106/60 (75) 103/67 (79) 110/62 (78) 131/70 (90) Pulse Ox 100 99 100 100 FiO2 21 10/06/24 10/06/24 10/06/24 10/06/24 03:29 03:30 03:30 03:45 Pulse 60 58 68 63 Resp 20 22 22 B/P (MAP) 122/69 (86) 118/76 (90) Pulse Ox 99 99 FiO2 21 10/06/24 10/06/24 10/06/24 10/06/24 04:00 04:00 04:00 04:15 Temp 97.9 Pulse 63 63 Resp 22 22 B/P (MAP) 101/60 (74) 105/65 (78) Pulse Ox 99 99 99 O2 Delivery Ventilator+ FiO2 21 21 21 10/06/24 10/06/24 10/06/24 10/06/24 04:30 04:45 05:00 05:15 Pulse 62 69 66 65 Resp 22 B/P (MAP) 113/67 (82) 116/70 (85) 111/72 (85) 104/68 (80) Pulse Ox 98 99 99 98 FiO2 21 10/06/24 10/06/24 10/06/24 10/06/24 05:30 05:45 06:00 06:15 Pulse 67 64 65 60 Resp 22 B/P (MAP) 113/76 (88) 109/61 (77) 104/62 (76) 106/71 (83) Pulse Ox 100 99 100 99 FiO2 21 10/06/24 10/06/24 10/06/24 10/06/24 06:30 06:47 06:51 07:31 Pulse 56 59 66 Resp B/P (MAP) 105/73 (84) Pulse Ox 100 100 O2 Delivery Ventilator+ FiO2 21 Intake & Output (last 24hrs) 10/05/24 10/05/24 10/06/24 15:00 23:00 07:00 Intake Total 1515.7 ml 1534.3 ml 1025.1 ml Output Total 350 ml Balance 1165.7 ml 1534.3 ml 1025.1 ml LABS: Laboratory: Test 10/06/24 04:27 10/05/24 23:43 10/04/24 09:46 10/04/24 09:00 Range/Units White Blood Count 18.7 H 4.8-10.8 K/uL Red Blood Count 2.68 L 4.00-5.50 MIL/uL Hemoglobin 8.2 L 12.0-16.0 g/dL Hematocrit 26.2 L 36-48 % Mean Corpuscular Volume 97.8 80-100 fL Mean Corpuscular Hemoglobin 30.6 27.0-33.0 pg Mean Corpuscular Hemoglobin Concent 31.3 L 32.0-36.0 g/dL Red Cell Distribution Width 17.5 H 11.0-15.5 % Platelet Count 330 130-400 K/uL Mean Platelet Volume 10.6 H 7.5-10.5 fL Immature Granulocyte % (Auto) 0.6 0-1 % Neutrophils (%) (Auto) 57.0 40.0-77.0 % Lymphocytes (%) (Auto) 34.1 21.0-51.0 % Monocytes (%) (Auto) 5.0 3.0-13.0 % Eosinophils (%) (Auto) 2.9 0.0-8.0 % Basophils (%) (Auto) 0.4 0.0-5.0 % Neutrophils # (Auto) 10.6 H 1.8-7.7 K/uL Lymphocytes # (Auto) 6.4 H 1.0-4.8 K/uL Monocytes # (Auto) 0.9 0.1-1.0 K/uL Eosinophils # (Auto) 0.54 0.00-0.70 K/uL Basophils # (Auto) 0.08 0.00-0.20 K/uL Absolute Immature Granulocyte (auto 0.11 0-1 K/uL Segmented Neutrophils % 47 40-70 % Lymphocytes % (Manual) 45 H 22-44 % Monocytes % (Manual) 2 2-9 % Eosinophils % (Manual) 3 1-6 % Other Cells % 1 H 0-0 Nucleated Red Blood Cells 0.0 0.0-0.19 % Differential Comment MANUAL DIFFERENTIAL Reactive Lymphocytes 2 H 0-0 % White Cell Morphology Comment SMUDGE CELLS 1+ Platelet Morphology Comment See comments Red Blood Cell Morphology See comments Sodium Level 142 136-145 mmol/L Potassium Level 4.3 3.5-5.1 mmol/L Chloride Level 111 101-111 mmol/L Carbon Dioxide Level 21 21-32 mmol/L Blood Urea Nitrogen 4 L 7-18 mg/dL Creatinine 0.2 L 0.5-1.0 mg/dL Glomerular Filtration Rate Calc 172 >90 mL/min Random Glucose 103 70-105 mg/dL Total Calcium 7.9 L 8.5-10.1 mg/dL Whole Blood Glucose 109 70-110 MG/DL Blood Gas Specimen Type Arterial Arterial Blood pH 7.383 7.350-7.450 Arterial Blood Partial Pressure CO2 28 L 32-45 mmHg Arterial Blood Partial Pressure O2 94.8 83.0-108.0 mmHg Arterial Blood HCO3 16.3 L 21.0-28.0 mmol/L Arterial Blood Oxygen Saturation 97.3 94.0-98.0 % Arterial Blood Base Excess -7.1 L -2.0-3.0 mmol/L Blood Gas Temperature 37.0 35.5-37.0 CELSIUS Blood Gas Respiration Rate 22.0 min. Blood Gas Vent Mode SIMV PS 10 ROOM AIR FiO2 21.0 % Blood Gas Tidal Volume 250 ml Blood Gas PEEP 5 cm H2O Blood Gas Specimen Comment DHEERAJ ESCALANTE RN Magnesium Level 1.90 1.80-2.40 mg/dL DIAGNOSTICS / RADIOLOGY: PATIENT: KYLE PATEL ACCT: [id number] LOC: [facility] U: [id number] AGE/SX: 18/F ROOM: 206 RE10/02/[address]: MAXIMO EDOUARD MD : 2005 BED: 1 DIS: STATUS: ADM IN TLOC: SPEC: [id number] TADEO: 10/03/24 STATUS: COMP REQ: [id number] RECD: 10/03/[address] [facility] [address]: GATITO MARTIN SOURCE: SPUTUM ENTR: 10/03/24 [facility] DR: MAXIMO EDOUARD MD SPDESC: SALMA JOHNS JAIRO P MD ORDERED: RESP CULTURE Procedure Result Taylor Date-Time ----- ------- GRAM STAIN Final 10/03/24-2032 [facility] GRAM STAIN RESULT: FAIR SPECIMEN [ <10 SEC's/LPF AND 10-25 PMN's/LPF ] FEW GRAM POSITIVE COCCI RESPIRATORY CULTURE Final 10/05/24-105 [facility] COLONY DESCRIPTION: REPORT 1: 2+ GRAM NEGATIVE RODS IDENTIFICATION AND SENSITIVITY TO FOLLOW REPORT 2: NO FURTHER WORK-UP DONE PROTEUS MIRABILIS SERRATIA MARCESCENS PMIRABILIS SER MARCES M.I.C. RX M.I.C. RX --------- ---- --------- ---- AMPICILLIN >16 R AZTREONAM <=4 S >16 R CEFAZOLIN 4 I CEFTAZIDIME 8 I CEFTAZIDIME/AVIBACTAM <=8 S <=8 S CEFTRIAXONE <=1 S CIPROFLOXACIN >2 R GENTAMICIN >8 R <=2 S LEVOFLOXACIN 4 R <=0.5 S TOBRAMYCIN >8 R AMPICILLIN/SULBACTAM <=8/4 S MEROPENEM <=1 S <=1 S PIPERACILLIN/TAZOBACTAM <=8 S 64 R TRIMETHOPRIM/SUFLAMETHOXAZOLE >2/38 R <=2/38 S SERRATIA MARCESCENS: NEGATIVE/URINE COMBO 62 Lab Alert - ESBL (Extended-Spectrum Beta-Lactamase movie producer) ASSESSMENT: Acute on chronic respiratory failure, tracheostomy dependent. Bacterial Pneumonia. Leukocytosis. Spinal muscular Atrophy. Oropharyngeal dysphagia, Peg tube status. PLAN: Continue Meropenem IV. Continue critical care support. Continue ventilatory support. Continue bronchodilators. Continue nutritional support. Aspiration precautions. Will monitor electrolytes. This case was reviewed and discussed with my supervising physician and the above assessment and plan was formulated and agreed upon. ATTESTATION BY PHYSICIAN I have seen and examined the patient. I reviewed the documentation, medical decision making, and treatment plan as noted by the mid-level provider above. I agree with the findings and plan of care. FREDDIE HARRELL MD, [employer] L [employer] Oct 06, 2024 08:44
--- NOTE | 2024-10-06 11:14 | HMCIMG ---
INDICATION: pneumonia TECHNIQUE: CHEST 1VW COMPARISON: 10/05/2024 FINDINGS AND IMPRESSION: Bilateral airspace consolidation suggesting vascular congestion/edema versus pneumonia. Cardiomegaly is seen Stable osseous structures. Stable tubes and lines.. The visualized upper abdomen appears unremarkable.
[2024-10-06] MEDS: miDODRine HCL 5 MG TABLET PO SCH (13:45)
--- NOTE | 2024-10-06 16:48 | PN ---
[facility] PROGRESS NOTE Date of Service: Oct 06, 2024 Time of Service: 16:48 SUBJECTIVE: This is a 18-year-old female with past medical history of spinal muscular dystrophy, chronic respiratory failure vent dependent via trach, severe gastroesophageal reflux with PEG tube placement,severe thoracic scoliosis and functional quadriplegia who presents to the ED for elevated WBC.As per mother patient was having left ear infection with drainage 1 week ago and was started on Augmentin bid x 14days and today is day #7 and so far as per mother left ear drainage was resolved and yesterday patient went to her [facility] and a lab work was done and today as per mother she received a call from the clinic instructing her to bring patient to the ED due to elevated WBC. As per mother ,patient has coffee ground residuals from peg tube and has also been having dark watery stool everyday x 3 days.Patient had also dark stool last week daily x 3 days but had stopped and came back again since Monday this week.As per mother patient didnt have fever,chills,no abdominal pain reported. Latest vital signs temperature 98.2, heart rate 118, respiration 22, blood pressure 104/62, saturation 97% on vent FiO2 60%. Labs: WBC 17.5, hemoglobin 10.7, hematocrit 33, platelet count 344. Sodium 150, chloride 115, BUN 22, creatinine 0.2, total CK nine, total protein nine procalcitonin 0.09. Chest x-ray result revealed dominique spected left lower lung opacities. Follow-up chest radiograph is advised in order to ensure resolution. Chest x-ray result revealed no evidence for bowel obstruction. While in the ER patient received Rocephin 1 g IV, Protonix 40 mg IV, LR bolus 1 L. We will admit patient for further medical management. 10/03/24 On bedside examination in the ER the patient was being ventilated via tracheostomy tube and she has PEG tube in place and she ask functional quadriplegia. Spoke to her mom she describes that this is her usual functional status. A WBC count remains elevated. She is currently on 7 days of Augmentin treatment for her left ear infection with drainage. Her fecal occult blood test is positive for blood her abdominal x-ray reveals no evidence of bowel obstruction. Recent chest x-ray revealed suspected left lower lung opacities and follow-up imaging is recommended. And a recent chest CT scan revealed minimal bilateral pulmonary infiltrates, left lower lung subsegmental atelectasis and bronchiectasis. While in the ER the patient received Rocephin1 g IV, Protonix 40 mg and lactated Ringer's 1 L bolus. Given the elevated WBC count, suspected left lung pneumonia and GI bleeding consent she is being admitted for further manage the her blood pressure is124 x 79 with a pulse of 90. Arterial blood oxygen saturation is 92.7, venous blood pCO2 is that is slow and venous blood PO2 is 66.9, venous blood HC03 is 16.2, bedside lactic acid blood gas is 0.85 high her hemoglobin is 9.2 low and hematocrit is 28.7 low and fibrinogen is381 high sodium level is148 high potassium level is 3.3 low her BUN level is 13 and creatinine level is 0.2 low C-reactive protein is elevated with18 and TSH is high which is 4.29 WBC count is elevated with 12.0 high. Her serum iron levels are low at 38 and TIBC is low at 243 and percentage saturation is 15.6 low and her urine protein is high with 20 and RBCs 2-5 high and WBCs 2-5 high. She is being currently admitted for further management of care 10/04/2024 this patient was previously evaluated in the ED yesterday for elevated WBC 13.6 and which has worsened to 18.1 today, worsening anemia hemoglobin level of 7.7, hypernatremia sodium 152, hypokalemia 3.1 and ABG 7.3 pCO2 28, HC03 of 16.3 and base excess of -7.1. GI and Pulmonary consults have been placed, and an EGD and colonoscopy are planned once patient is hemodynamically stable. The Infectious Disease team is involved due to concerns for sepsis, given her elevated ESR and leukocytosis, high fibrinogen blood, positive urine proteins, hematuria, increased WBC in urine. Fluids have been adjusted to correct hypernatremia and hypokalemia, and a stricter ICU monitoring is in place.A pulse of 1 not 8, respiratory rate 22, blood pressure is stable oxygen saturation adequate on vent ilation. COVID-19 influenza group a strep tests are negative. 10/05/24 patient was seen and examined case discussed with RN. Appreciate GI and pulmonology evaluation. Continue broad-spectrum antibiotics. Monitor labs 10/06/24 patient was seen and examined get discussed with that and patient pretty shaky and pulmonology evaluation patient is hemodynamically stable continued [facility] REVIEW OF SYSTEMS:Unable to perform patient is vented and lethargic PHYSICAL EXAM GENERAL APPEARANCE: The patient is lethargic but arousable.Patient appears comfortable NEUROLOGICAL: Patient is non verbal ,open eyes. HEENT: Face is symmetric. Pupils are equal and reactive. Extraocular movements are intact. NECK: Patient has vent via trache CHEST: Normal chest expansion. +Telemetry. LUNGS: scattered rhonchi on bilateral lower bases per auscultation CARDIOVASCULAR: Regular. S1 and S2 normal. No appreciable rubs, murmurs or gallops. ABDOMEN: + Pegtube-clamped Soft, nontender, and nondistended. There is no rebound, voluntary guarding, or rigidity. : Deferred. No Aleman. EXTREMITIES: + pedal pulses. Good capillary refill. SKIN: No skin breakdown. Vital Signs (last 8hr) Date Time Temp Pulse Resp B/P (MAP) Pulse Ox O2 Delivery O2 Flow Rate FiO2 10/06/24 15:53 98.2 Ventilator 21 10/06/24 15:52 96 Ventilator+ 21 10/06/24 15:30 70 22 92/49 (63) 95 10/06/24 15:15 76 22 96/54 (68) 96 10/06/24 15:00 69 22 101/57 (72) 95 10/06/24 14:45 76 22 105/59 (74) 95 10/06/24 14:30 75 22 106/60 (75) 95 10/06/24 14:15 59 22 115/70 (85) 97 10/06/24 14:00 56 22 126/85 (99) 99 10/06/24 13:54 21 10/06/24 13:51 88 21 10/06/24 13:45 61 22 108/77 (87) 100 10/06/24 13:30 86 22 92/51 (65) 98 10/06/24 13:15 84 22 98/60 (73) 98 10/06/24 13:02 72 21 10/06/24 13:00 82 22 98/61 (73) 99 10/06/24 12:45 76 22 103/57 (72) 99 10/06/24 12:30 67 22 93/47 (62) 100 10/06/24 12:15 98.2 77 22 97/51 (66) 100 10/06/24 12:00 100 Ventilator+ 21 10/06/24 12:00 69 22 84/50 (61) 100 10/06/24 12:00 98.2 Ventilator 21 10/06/24 11:45 74 22 87/44 (58) 100 10/06/24 11:30 88 22 95/54 (68) 99 10/06/24 11:15 98 22 96/61 (73) 97 10/06/24 11:00 81 22 94/49 (64) 100 10/06/24 10:45 80 22 103/61 (75) 100 10/06/24 10:30 75 22 100/59 (73) 98 10/06/24 10:22 68 21 10/06/24 10:19 59 21 10/06/24 10:15 118 22 127/89 (102) 98 10/06/24 10:06 21 10/06/24 10:00 83 22 100/56 (71) 98 10/06/24 09:45 85 22 97/58 (71) 99 10/06/24 09:30 94 22 106/60 (75) 99 10/06/24 09:15 98 22 102/62 (75) 99 10/06/24 09:00 84 22 93/54 (67) 99 LABS: Laboratory: Test 10/06/24 11:27 10/06/24 04:27 Range/Units Whole Blood Glucose 122 H 70-110 MG/DL White Blood Count 18.7 H 4.8-10.8 K/uL Red Blood Count 2.68 L 4.00-5.50 MIL/uL Hemoglobin 8.2 L 12.0-16.0 g/dL Hematocrit 26.2 L 36-48 % Mean Corpuscular Volume 97.8 80-100 fL Mean Corpuscular Hemoglobin 30.6 27.0-33.0 pg Mean Corpuscular Hemoglobin Concent 31.3 L 32.0-36.0 g/dL Red Cell Distribution Width 17.5 H 11.0-15.5 % Platelet Count 330 130-400 K/uL Mean Platelet Volume 10.6 H 7.5-10.5 fL Immature Granulocyte % (Auto) 0.6 0-1 % Neutrophils (%) (Auto) 57.0 40.0-77.0 % Lymphocytes (%) (Auto) 34.1 21.0-51.0 % Monocytes (%) (Auto) 5.0 3.0-13.0 % Eosinophils (%) (Auto) 2.9 0.0-8.0 % Basophils (%) (Auto) 0.4 0.0-5.0 % Neutrophils # (Auto) 10.6 H 1.8-7.7 K/uL Lymphocytes # (Auto) 6.4 H 1.0-4.8 K/uL Monocytes # (Auto) 0.9 0.1-1.0 K/uL Eosinophils # (Auto) 0.54 0.00-0.70 K/uL Basophils # (Auto) 0.08 0.00-0.20 K/uL Absolute Immature Granulocyte (auto 0.11 0-1 K/uL Segmented Neutrophils % 47 40-70 % Lymphocytes % (Manual) 45 H 22-44 % Monocytes % (Manual) 2 2-9 % Eosinophils % (Manual) 3 1-6 % Other Cells % 1 H 0-0 Nucleated Red Blood Cells 0.0 0.0-0.19 % Differential Comment MANUAL DIFFERENTIAL Reactive Lymphocytes 2 H 0-0 % White Cell Morphology Comment SMUDGE CELLS 1+ Platelet Morphology Comment See comments Red Blood Cell Morphology See comments Sodium Level 142 136-145 mmol/L Potassium Level 4.3 3.5-5.1 mmol/L Chloride Level 111 101-111 mmol/L Carbon Dioxide Level 21 21-32 mmol/L Blood Urea Nitrogen 4 L 7-18 mg/dL Creatinine 0.2 L 0.5-1.0 mg/dL Glomerular Filtration Rate Calc 172 >90 mL/min Random Glucose 103 70-105 mg/dL Total Calcium 7.9 L 8.5-10.1 mg/dL Current Medications Medications (Trade) Dose Ordered Sig/Valentina Route PRN Reason Start Time Stop Time Status Last Admin Dose Admin Acetylcysteine (MUComyst 20% 4ML) 400mg = 2ml [id number] IH 10/03/24 10:00 10/06/24 13:17 DC 10/06/24 10:17 800 MG Albuterol Sulfate (Proventil 0.083% 2.5mg/3ml) 2.5 mg Q4HPRN PRN IH BRONCHOSPASM 10/04/24 15:00 11/03/24 14:59 Albuterol Sulfate (Ventolin Hfa) 2 inh BID IH 10/04/24 21:00 11/03/24 20:59 Artificial Tears (Artificial Tears) 1 DROP OP TID TID OP 10/05/24 09:00 11/03/24 20:59 10/06/24 13:44 1 DROP Artificial Tears (Artificial Tears) 1 DROP OR AD Q8H OU 10/03/24 08:30 10/05/24 08:27 DC 10/05/24 00:31 1 DROP Artificial Tears (Artificial Tears) 1 drop TID OP 10/04/24 21:00 10/05/24 08:29 DC 10/04/24 18:30 1 DROP Chlorhexidine Gluconate (Peridex) 15 ml Q8H MM 10/03/24 08:30 10/17/24 08:29 10/06/24 08:21 15 ML Dextrose 1,000 ml @ 50 mls/hr Q20H IV 10/02/24 20:30 10/03/24 20:38 DC 10/03/24 19:06 50 MLS/HR Dextrose (D50w) 50 ml AD PRN IV HYPOGLYCEMIA PROTOCOL 10/04/24 23:30 11/03/24 23:29 Doxycycline Hyclate 250 ml @ 125 mls/hr Q12H IV 10/03/24 08:30 10/05/24 10:04 DC 10/05/24 09:00 125 MLS/HR Glucagon (Glucagon 1mg Kit) 1 mg AD PRN IM HYPOGLYCEMIA PROTOCOL 10/04/24 23:30 11/03/24 23:29 Home Med (Compound Po Narcotic) UD AD PO 10/04/24 15:30 10/05/24 16:51 DC Home Med (Home Medication) (Ergocalciferol (Vitamin D2) (Ergocalcifer... QWEEK PO 10/11/24 09:00 11/10/24 08:59 Home Med (Home Medication) (Midazolam (Nayzilam) 5 MG) BID PRN NASAL CONSTIPATION 10/04/24 15:00 11/03/24 14:59 Home Med (Home Medication) 2 PUFFS (Advair Hfa 45... BID IH 10/04/24 21:00 11/03/24 20:59 Home Med (Home Medication) CLOBAZAM 20MG DAILY AT 1700... DAILY17 PO 10/03/24 17:00 11/02/24 16:59 10/05/24 17:51 1 EACH Insulin Human Regular (humuLIN R 100 UNIT/ML 3ML) INSULIN SLIDING SCAL... Q6H6 SQ 10/05/24 00:00 11/04/24 00:00 Ipratropium [place] (AtrovENT UD) 0.5 MG [id number] IH 10/03/24 10:00 11/02/24 09:59 10/06/24 13:51 0.5 MG Lansoprazole (Prevacid Solu Tab) 15 mg BID PEG 10/04/24 21:00 10/04/24 11:47 DC Lansoprazole (Prevacid Solu Tab) 30 mg BID PEG 10/04/24 21:00 11/03/24 20:59 10/06/24 08:22 30 MG Lorazepam (AtiVAN) 1 mg AD PRN IVP SEIZURES 10/03/24 21:00 11/02/24 20:59 Magnesium Sulfate 50 ml @ 0 mls/hr PROTOCOL PRN IV Electrolyte abnormality 10/03/24 16:30 11/02/24 16:29 Magnesium Sulfate 50 ml @ 0 mls/hr PROTOCOL PRN IV DEHYDRATION 10/04/24 23:30 10/04/24 23:40 DC Meropenem (Merrem 1gm) 1 gm Q8H IV 10/05/24 14:00 10/15/24 13:59 10/06/24 13:44 1 GM Midodrine (PROAMatine 5 MG TABLET) 5 mg TID PO 10/04/24 11:30 10/06/24 13:21 DC 10/06/24 08:22 5 MG Midodrine (PROAMatine 5 MG TABLET) 10 mg TID PO 10/06/24 14:00 11/05/24 13:59 10/06/24 13:45 10 MG Norepinephrine 250 ml @ 14.288 mls/ hr PROTOCOL PRN IV HYPOTENSION MAP LESS THAN 65 10/03/24 04:00 11/02/24 03:59 10/05/24 22:09 14.288 MLS/HR Ondansetron HCl (zoFRAN 4MG INJ) 4 mg Q6H PRN IV NAUSEA/VOMITING 10/02/24 20:30 11/01/24 20:29 Pantoprazole Sodium (PROTonix 40MG INJ) 40 mg BID IVP 10/03/24 09:00 10/04/24 11:08 DC 10/04/24 08:19 40 MG Pantoprazole Sodium (PROTonix 40MG INJ) 40 mg DAILY IVP 10/03/24 09:00 10/03/24 08:09 DC Pharmacy Profile Note (Pharmacy Communication) Q8H Q8H MISC 10/05/24 14:00 10/05/24 13:51 DC Piperacillin Sod/ Tazobactam Sod (Zosyn 3.375gm+NS 50ml) 3.375 gm Q12H IVPB 10/02/24 20:30 10/05/24 10:04 DC 10/05/24 09:08 3.375 GM Potassium Chloride/Dextrose/ Sod Cl (Dextrose NS 20 Meq KCl 1000ml) 20 meq AD IV 10/05/24 18:30 11/04/24 18:29 10/06/24 12:13 20 MEQ Potassium Chloride 100 ml @ 50 mls/hr AD PRN IV POTASSIUM PROTOCOL 10/03/24 16:30 11/02/24 16:29 10/05/24 03:01 50 MLS/HR Potassium Chloride 100 ml @ 50 mls/hr AD PRN IV POTASSIUM PROTOCOL 10/04/24 23:30 10/04/24 23:40 DC Potassium Cl/ Dextrose/Lact Ringer's (E5gu-87 Meq KCl 1000 ml) 20 meq AD IV 10/03/24 21:00 10/05/24 17:36 DC 10/05/24 00:00 20 MEQ Propranolol HCl (Inderal) 20 mg BID PRN PO PRN FOR ELEVATED HR 10/04/24 15:00 11/03/24 14:59 Sodium Bicarbonate (Sodium Bicarbonate) 650 mg BID GT 10/04/24 21:00 10/04/24 21:16 DC 10/04/24 20:16 650 MG DIAGNOSTICS / RADIOLOGY: [ ] ASSESSMENT: Suspected Left lung pneumonia POA Suspected GI bleed POA Normocytic normochromic anemia POA Acute Leukocytosis POA Hypernatremia POA Hypokalemia POA Chronic respiratory failure ventilator dependent POA Functional quadriplegia POA GERD with PEG tube placement. POA Peg tube status POA Recent Left ear infection POA Spinal Muscular dystrophy POA Severe thoracic scoliosis POA PLAN: We will admit patient in ICU We will keep patient nothing by mouth We will start D5 at 75 mL/hour We will start patient on Zosyn IV q.12 We will start on Protonix 40 mg IV daily We will replace electrolytes as needed per protocol We will add prn medication for fever,pain,cough ,nausea and vomiting We will reconcile home meds once medlist available Respiratory consult has been placed and chest physiotherapy and suctioning has been ordered as needed. Maintain ventilator settings and monitor ABGs. continue ventilator support and adjust as per respiratory consult. EGD and colonoscopy once hemodynamically stabilized. Hypernatremia correction with D5W IV to 75 mL/hour. Monitor serum sodium every 4 hours. Hypokalemia protocol as per facility. Magnesium supplementation as per protocol of the facility. Adjust PEG tube feeds per dietary recommendation. pulmonary function test has been ordered. Follow-up chest x-ray to monitor resolution. Oxygen support via ventilator as needed. Gastro consult has been placed and check hemoglobin every 8-12 hours. Her stool occult has been positive for blood. Continue IV Rocephin until culture results return. Monitor WBC trend, inflammatory markers CRP procalcitonin. Monitor hemoglobin and hematocrit trends. Iron replacement has been ordered. Blood transfusion if hemoglobin drops below 7. Speech therapy consult has been placed for aspiration risk. Repeating TSH T3-T4 for further evaluation of her elevated TSH. Electrolytes will be replaced according to the facility protocol. We will follow up urinalysis result, we will cultures and fecal occult blood We will request labs in am We will request H&H p.r.n. bleeding We will seek critical Care consultation Further orders to follow depending on above results Case discussed with attending physician and came up with above treatment and plan of care. MARIA LUISA CHOU MD Oct 06, 2024 16:48
--- NOTE | 2024-10-06 22:13 | PN ---
[facility] PROGRESS NOTE Date Patient Seen: Oct 06, 2024 Time of Visit: 11:30 Supervising Physician: Jabari Bautista MD Primary Care Physician: Mariaelena Alvarez Outpatient Specialists: Inpatient Consults: BIS, PROBLEM LIST: Septic shock, POA requiring Levophed Acute on chronic hypoxic respiratory failure, POA Ventilator dependent since Tracheostomy size Left side pneumoniae, POA Compensated metabolic acidosis, POA Acute on chronic anemia from blood loss, POA (Melena) s/p EGD 10/04/24 w/ findings of bleed and clipping Leukocytosis, POA Hypernatremia POA Chronic respiratory failure ventilator dependent POA Functional quadriplegia POA Bernardo tube gastrostomy, POA Recent Left ear infection POA Hypokalemia resolved Hx of seizures History of spinal muscular dysplasia Hx of Severe thoracic scoliosis INTERVAL HISTORY: Patient is awake and alert, eyes spontaneously open. No major overnight events as per RN. No visitors at the bedside at this time. She continues with her home vent with home settings. Patient continues with Levophed at 0.05 micrograms/kilogram per minute blood pressure 94/49 heart rate in the 60s respiratory rate of 22 saturating 100% on home vent. We will increase midodrine to 50 mg 3 times a day today and continue to wean Levophed drip. Patient is up 2 kg from yesterday. We will continue to lightly diurese. WBCs 18.7 H&H 8.2/26.2 platelet count of 330 K. chemistry creatinine 0.2 GFR of 172. Patient continues with meropenem 1 g q.8 hours IV sputum cultures of Proteus mirabilis and serratia Marcescens. we will increase midodrine to 50 mg 3 times a day p.o. continue to wean Levophed off. REVIEW OF SYSTEMS: Unable to perform due to patient's cognitive status. PHYSICAL EXAM: GENERAL: Patient is awake alert aphasic. functional quadriplegia HEENT: Sclera non icteric, moist mucosa NECK: Short no JVD, tracheostomy LUNGS: ronchi breath sounds bilaterally. No wheezes HEART: Regular rate and rhythm. Normal S1 and S2, without murmurs ABD: Abdomen soft, nontender. Bowel sounds present EXT: No clubbing cyanosis or edema NEURO: functional quadriplegia, bed bound Vital Signs (last 8hr) Date Time Temp Pulse Resp B/P (MAP) Pulse Ox O2 Delivery O2 Flow Rate FiO2 10/06/24 20:30 77 22 145/100 (115) 100 10/06/24 20:15 84 22 112/75 (87) 99 10/06/24 20:00 21 10/06/24 20:00 98.8 89 135/76 (95) 98 21 10/06/24 20:00 100 Ventilator+ 21 10/06/24 19:45 91 22 104/69 (81) 99 10/06/24 19:30 76 22 90/47 (61) 99 10/06/24 19:15 72 22 99/56 (70) 99 10/06/24 19:00 74 22 90/45 (60) 99 21 10/06/24 18:45 77 22 91/45 (60) 99 10/06/24 18:32 64 21 10/06/24 18:31 65 22 10/06/24 18:00 66 22 84/40 (55) 99 10/06/24 17:58 21 10/06/24 17:45 65 22 93/45 (61) 99 10/06/24 17:30 58 22 102/70 (81) 100 10/06/24 17:15 68 22 86/49 (61) 98 10/06/24 17:00 68 22 86/49 (61) 97 10/06/24 16:45 65 22 88/52 (64) 97 10/06/24 16:30 72 22 90/50 (63) 97 10/06/24 16:15 66 22 91/52 (65) 96 10/06/24 16:00 98.2 70 22 92/53 (66) 96 10/06/24 15:53 98.2 Ventilator 21 10/06/24 15:52 96 Ventilator+ 21 10/06/24 15:45 68 22 89/43 (58) 95 10/06/24 15:30 70 22 92/49 (63) 95 10/06/24 15:15 76 22 96/54 (68) 96 10/06/24 15:00 69 22 101/57 (72) 95 10/06/24 14:45 76 22 105/59 (74) 95 10/06/24 14:30 75 22 106/60 (75) 95 10/06/24 14:15 59 22 115/70 (85) 97 10/06/24 14:00 56 22 126/85 (99) 99 10/06/24 13:54 21 10/06/24 13:51 88 21 10/06/24 13:45 61 22 108/77 (87) 100 LABS: Hematology Labs: Test 10/06/24 04:27 Range/Units White Blood Count 18.7 H 4.8-10.8 K/uL Red Blood Count 2.68 L 4.00-5.50 MIL/uL Hemoglobin 8.2 L 12.0-16.0 g/dL Hematocrit 26.2 L 36-48 % Mean Corpuscular Volume 97.8 80-100 fL Mean Corpuscular Hemoglobin 30.6 27.0-33.0 pg Mean Corpuscular Hemoglobin Concent 31.3 L 32.0-36.0 g/dL Red Cell Distribution Width 17.5 H 11.0-15.5 % Platelet Count 330 130-400 K/uL Mean Platelet Volume 10.6 H 7.5-10.5 fL Immature Granulocyte % (Auto) 0.6 0-1 % Neutrophils (%) (Auto) 57.0 40.0-77.0 % Lymphocytes (%) (Auto) 34.1 21.0-51.0 % Monocytes (%) (Auto) 5.0 3.0-13.0 % Eosinophils (%) (Auto) 2.9 0.0-8.0 % Basophils (%) (Auto) 0.4 0.0-5.0 % Neutrophils # (Auto) 10.6 H 1.8-7.7 K/uL Lymphocytes # (Auto) 6.4 H 1.0-4.8 K/uL Monocytes # (Auto) 0.9 0.1-1.0 K/uL Eosinophils # (Auto) 0.54 0.00-0.70 K/uL Basophils # (Auto) 0.08 0.00-0.20 K/uL Absolute Immature Granulocyte (auto 0.11 0-1 K/uL Segmented Neutrophils % 47 40-70 % Lymphocytes % (Manual) 45 H 22-44 % Monocytes % (Manual) 2 2-9 % Eosinophils % (Manual) 3 1-6 % Other Cells % 1 H 0-0 Nucleated Red Blood Cells 0.0 0.0-0.19 % Differential Comment MANUAL DIFFERENTIAL Reactive Lymphocytes 2 H 0-0 % White Cell Morphology Comment SMUDGE CELLS 1+ Platelet Morphology Comment See comments Red Blood Cell Morphology See comments Chemistry Labs: Test 10/06/24 17:38 10/06/24 04:27 Range/Units Whole Blood Glucose 120 H 70-110 MG/DL Sodium Level 142 136-145 mmol/L Potassium Level 4.3 3.5-5.1 mmol/L Chloride Level 111 101-111 mmol/L Carbon Dioxide Level 21 21-32 mmol/L Blood Urea Nitrogen 4 L 7-18 mg/dL Creatinine 0.2 L 0.5-1.0 mg/dL Glomerular Filtration Rate Calc 172 >90 mL/min Random Glucose 103 70-105 mg/dL Total Calcium 7.9 L 8.5-10.1 mg/dL DIAGNOSTICS / RADIOLOGY RESULTS: [ ] Signed PATIENT: KYLE PATEL MR#: [id number] : 2005 SEX: F AGE: 18 LOCATION: [facility] ORDER 2300 STATUS: ADM IN REPORT#: [id number] SERVICE 0900 REASON: pneumonia ORDERING PHYSICIAN: NEGRA VALENTE MD PROCEDURE: CXR1VW - CHEST 1VW INDICATION: pneumonia TECHNIQUE: CHEST 1VW COMPARISON: 10/05/2024 FINDINGS AND IMPRESSION: Bilateral airspace consolidation suggesting vascular congestion/edema versus pneumonia. Cardiomegaly is seen Stable osseous structures. Stable tubes and lines.. The visualized upper abdomen appears unremarkable. DICTATED BY: LUIS CARLOS BROOKS MD DATE: 10/06/24 1112 ELECTRONICALLY SIGNED BY: LUIS CARLOS BROOKS MD DATE: 10/06/24 1114 PLAN Follow for critical care management in the ICU continue Meropenem ABX orPer ID Atrovent q.4 hours PICC line Monitor electrolytes and cover accordingly hold IV fluids follow Blood cultures, urine cultures, respiratory culture MRSA swab negative Levophed to maintain map above 65 and wean as possible increase midodrine 15mg tid via gtube NEURO: Minimize central acting medications as possible. Fall Precautions. Well lighted room through the day and minimize interruptions through the night to prevent acute delirium. Seizure precautions Ativan PRN IV seizure Resume home seizure medication PULMONARY: Supplemental 02 as needed Titrate Fio2 to keep Spo2 > or = 90% DuoNebs and CPT as needed IS hourly while awake for pulmonary hygiene Out of bed to chair as tolerated VAP Bundle Vent/BIPAP Settings: SIMV mode, TV 250, RR 22, fio2 of 21% and peep 5, with pressure support of 10. CARDIOVASCULAR: Follow hemodynamics. Titrate vasopressor to keep MAP >65 or systolic blood pressure >95mmHg Drips: Levophed LINES: PIV PICC GI & NUTRITION: Continue nutritional support Aspirations precautions Prokinetic agents and laxatives as needed NPO for now KIDNEYS & ELECTROLYTES: Strict monitoring of intake and output Daily weights Avoid nephrotoxic agents Monitor electrolytes and replace as needed Goal urine output of 30mL/hr or 0.5mL/kg/hr Urine output: [ ] Fluid Balance: [ ] ENDOCRINE: Maintain blood glucose between 100-180 at all times. Insulin sliding scale for blood glucose management INFECTIOUS DISEASE: Trend temperature. Herrera-culture if febrile. Micro: [ ] Blood culture Urine culture Respiratory culture+ proteus mirabilis and + for serratia Marcescens Antibiotics: meropenem HEMATOLOGY & COAGULATION: Monitor H&H. Keep Hgb > 7 Transfuse 1 unit of PRBC for Hgb < 7 Transfuse 1 pack of platelets of platelets < 20, 000 Watch for any signs and symptoms of bleeding SKIN: Pressure ulcer prevention per facility protocol Rehab: PT/OT Prophylaxis: GI: Protonix 40 mg IV push b.i.d. DVT: SCDs Code Status: Full Resuscitation Disposition: ICU Other: Total patient care time exceeds 35 minutes excluding all procedures. Case was discussed and seen with my supervising physician. The above plan was formulated and agreed upon. GATITO MARTIN Oct 06, 2024 22:13
[2024-10-06] MEDS: furoSEMIDE 20MG VIAL IV SCH (22:35)
[2024-10-07] VITALS (58 sets, daily range): BP systolic 71–144; BP diastolic 36–102; PULSE 46–121; RESP 22; TEMP 98.4–99.1; O2SAT 97–100
[2024-10-07] MEDS: PROPRANOLOL HCL 20 MG TAB PO PRN (01:37)
[2024-10-07 04:37] LABS: BASOPHILS # (AUTO) 0.07 K/uL (0.00-0.20); BASOPHILS % (AUTO) 0.4 % (0.0-5.0); EOSINOPHILS # (AUTO) 0.48 K/uL (0.00-0.70); EOSINOPHILS % (AUTO) 2.6 % (0.0-8.0); HEMATOCRIT 28.7 % (36-48); IMMATURE GRANULOCYTE ABSOLUTE 0.08 K/uL (0-1); LYMPHOCYTES # (AUTO) 6.7 K/uL (1.0-4.8); LYMPHOCYTES % (AUTO) 36.3 % (21.0-51.0); MEAN CORPUSCULAR HEMOGLOBIN 30.4 pg (27.0-33.0); MEAN CORPUSCULAR HGB CONC 32.1 g/dL (32.0-36.0); MEAN CORPUSCULAR VOLUME 94.7 fL (80-100); MONOCYTES # (AUTO) 0.8 K/uL (0.1-1.0); MONOCYTES % (AUTO) 4.2 % (3.0-13.0); NEUTROPHILS # (AUTO) 10.3 K/uL (1.8-7.7); NEUTROPHILS % (AUTO) 56.1 % (40.0-77.0); PLATELET COUNT (AUTO) 340 K/uL (130-400); RED BLOOD CELL COUNT(AUTO) 3.03 MIL/uL (4.00-5.50); RED CELL DISTRIBUTION WIDTH 17.7 % (11.0-15.5); WHITE BLOOD COUNT (AUTO) 18.4 K/uL (4.8-10.8)
[2024-10-07 04:53] LABS: CREATININE 0.2 mg/dL (0.5-1.0); POTASSIUM 3.9 mmol/L (3.5-5.1)
[2024-10-07] MEDS ORDERED: ALBUTEROL INHALER 90MCG/INH IH SCH (09:00)
--- NOTE | 2024-10-07 09:06 | PN ---
GASTROENTEROLOGY PROGRESS NOTE Date of Visit: Oct 07, 2024 Time of Visit: 09:06 Events / Notes: No acute events overnight. Patient had EGD which revealed bleeding antral ulcer s/p clip with hemostasis. J tube was found right on ulcer. She is being downgraded today. Hgb improving. Review of Systems: CONSTITUTIONAL: No malaise or change in sensation of wellbeing. ENMT: No rhinorrhea, otorrhea, sinus pain, ear ache. CARDIOVASCULAR: No angina, palpitations, orthopnea or paroxysmal dyspnea. RESPIRATORY: No SOB. GASTROINTESTINAL: No abdominal pain, nausea, vomiting, diarrhea, hematemesis, melena or change in the patient's habitual bowel movements consistency/number. GENITOURINARY: No dysuria, hematuria or change in bladder continence. MUSCULOSKELETAL: No new muscle pain or decrease in muscular strength. No new joint swelling, redness or tenderness. SKIN: No new rash. Physical Exam: GEN: Awake, alert, oriented in person, time and place, and in no acute distress. HEENT: No sinus tenderness. Tympanic membranes were not examined. No rhinorrhea. Oral pharyngeal mucosa is pink, moist and within normal limits. Neck is supple with no cervical lymphadenopathy, thyromegaly or JVD. CHEST: Inspection, palpation and percussion of the chest were unremarkable. Lung auscultation revealed normal breath sounds bilaterally. CARDIAC: PMI is within normal limits. Heart sounds are regular. Normal S1, S2. No gallop or murmur. ABD: Soft, non-tender and not distended. No peritoneal signs on palpation. No organomegaly. Normal bowel sounds. EXT: No cyanosis or clubbing. No edema. SKIN: Intact. No rashes. JOINTS: No evidence of synovitis or acute arthritis. NEURO: Alert and oriented to name, place and person. Cranial nerve examination is unremarkable. No focal motor deficits. Normal speech. Gait is normal. Strength is normal. Vital Signs (last 8hr) Date Time Temp Pulse Resp B/P (MAP) Pulse Ox O2 Delivery O2 Flow Rate FiO2 10/07/24 08:00 97 Ventilator+ 21 10/07/24 08:00 98.6 71 22 115/69 98 Ventilator 21 10/07/24 07:00 80 22 133/84 100 Ventilator 21 10/07/24 06:51 73 21 10/07/24 06:50 69 22 10/07/24 06:15 76 22 114/83 (93) 97 10/07/24 06:00 73 22 102/58 (73) 97 21 10/07/24 05:45 78 22 126/74 (91) 98 10/07/24 05:30 82 22 113/72 (86) 97 10/07/24 05:15 83 22 115/96 (102) 98 10/07/24 05:00 79 22 119/68 (85) 98 21 10/07/24 04:45 83 22 126/84 (98) 98 10/07/24 04:30 80 22 114/90 (98) 98 10/07/24 04:15 83 22 119/102 (108) 98 10/07/24 04:00 21 10/07/24 04:00 98 Ventilator+ 21 10/07/24 04:00 98.8 69 22 109/68 (82) 98 21 10/07/24 03:45 79 22 115/87 (96) 97 10/07/24 03:40 62 21 10/07/24 03:30 77 22 102/63 (76) 97 10/07/24 03:15 78 22 115/83 (94) 98 10/07/24 03:00 75 22 135/76 (95) 97 21 10/07/24 02:45 73 22 142/76 (98) 99 10/07/24 02:41 65 22 10/07/24 02:30 78 22 126/76 (93) 99 10/07/24 02:15 83 22 133/84 (100) 99 10/07/24 02:00 89 22 124/85 (98) 99 21 10/07/24 01:45 87 22 139/82 (101) 99 10/07/24 01:30 121 22 137/86 (103) 98 10/07/24 01:15 92 22 138/59 (85) 98 Laboratory: [ ] Laboratory: Test 10/07/24 04:16 10/06/24 17:38 10/06/24 04:27 Range/Units White Blood Count 18.4 H 4.8-10.8 K/uL Red Blood Count 3.03 L 4.00-5.50 MIL/uL Hemoglobin 9.2 L 12.0-16.0 g/dL Hematocrit 28.7 L 36-48 % Mean Corpuscular Volume 94.7 80-100 fL Mean Corpuscular Hemoglobin 30.4 27.0-33.0 pg Mean Corpuscular Hemoglobin Concent 32.1 32.0-36.0 g/dL Red Cell Distribution Width 17.7 H 11.0-15.5 % Platelet Count 340 130-400 K/uL Mean Platelet Volume 10.6 H 7.5-10.5 fL Immature Granulocyte % (Auto) 0.4 0-1 % Neutrophils (%) (Auto) 56.1 40.0-77.0 % Lymphocytes (%) (Auto) 36.3 21.0-51.0 % Monocytes (%) (Auto) 4.2 3.0-13.0 % Eosinophils (%) (Auto) 2.6 0.0-8.0 % Basophils (%) (Auto) 0.4 0.0-5.0 % Neutrophils # (Auto) 10.3 H 1.8-7.7 K/uL Lymphocytes # (Auto) 6.7 H 1.0-4.8 K/uL Monocytes # (Auto) 0.8 0.1-1.0 K/uL Eosinophils # (Auto) 0.48 0.00-0.70 K/uL Basophils # (Auto) 0.07 0.00-0.20 K/uL Absolute Immature Granulocyte (auto 0.08 0-1 K/uL Nucleated Red Blood Cells 0.0 0.0-0.19 % White Cell Morphology Comment See comments Sodium Level 140 136-145 mmol/L Potassium Level 3.9 3.5-5.1 mmol/L Chloride Level 109 101-111 mmol/L Carbon Dioxide Level 22 21-32 mmol/L Blood Urea Nitrogen 2 L 7-18 mg/dL Creatinine 0.2 L 0.5-1.0 mg/dL Glomerular Filtration Rate Calc 172 >90 mL/min Random Glucose 88 70-105 mg/dL Total Calcium 8.2 L 8.5-10.1 mg/dL Whole Blood Glucose 120 H 70-110 MG/DL Segmented Neutrophils % 47 40-70 % Lymphocytes % (Manual) 45 H 22-44 % Monocytes % (Manual) 2 2-9 % Eosinophils % (Manual) 3 1-6 % Other Cells % 1 H 0-0 Differential Comment MANUAL DIFFERENTIAL Reactive Lymphocytes 2 H 0-0 % Platelet Morphology Comment See comments Red Blood Cell Morphology See comments Current Medications Medications (Trade) Dose Ordered Sig/[place] Route PRN Reason Start Time Stop Time Status Last Admin Dose Admin Acetylcysteine (MUComyst 20% 4ML) 400mg = 2ml [id number] IH 10/03/24 10:00 10/06/24 13:17 DC 10/06/24 10:17 800 MG Albuterol Sulfate (Proventil 0.083% 2.5mg/3ml) 2.5 mg Q4HPRN PRN IH BRONCHOSPASM 10/04/24 15:00 11/03/24 14:59 Albuterol Sulfate (Ventolin Hfa) 2 INHALATIONS BID IH 10/07/24 09:00 10/07/24 07:09 DC Albuterol Sulfate (Ventolin Hfa) 2 inh BID IH 10/04/24 21:00 10/07/24 07:08 DC Artificial Tears (Artificial Tears) 1 DROP OP TID TID OP 10/05/24 09:00 11/03/24 20:59 10/07/24 08:06 1 DROP Artificial Tears (Artificial Tears) 1 DROP OR AD Q8H OU 10/03/24 08:30 10/05/24 08:27 DC 10/05/24 00:31 1 DROP Artificial Tears (Artificial Tears) 1 drop TID OP 10/04/24 21:00 10/05/24 08:29 DC 10/04/24 18:30 1 DROP Cetirizine HCl (ZYRtec 5 MG TABLET) 5 mg HS PO 10/07/24 21:00 11/06/24 20:59 Chlorhexidine Gluconate (Peridex) 15 ml Q8H MM 10/03/24 08:30 10/17/24 08:29 10/07/24 08:05 15 ML Dextrose 1,000 ml @ 50 mls/hr Q20H IV 10/02/24 20:30 10/03/24 20:38 DC 10/03/24 19:06 50 MLS/HR Dextrose (D50w) 50 ml AD PRN IV HYPOGLYCEMIA PROTOCOL 10/04/24 23:30 11/03/24 23:29 Doxycycline Hyclate 250 ml @ 125 mls/hr Q12H IV 10/03/24 08:30 10/05/24 10:04 DC 10/05/24 09:00 125 MLS/HR Furosemide (LASix 20MG VIAL) 20 mg Q12H IV 10/06/24 22:00 11/05/24 21:59 10/06/24 22:35 20 MG Glucagon (Glucagon 1mg Kit) 1 mg AD PRN IM HYPOGLYCEMIA PROTOCOL 10/04/24 23:30 11/03/24 23:29 Home Med (Compound Po Narcotic) UD AD PO 10/04/24 15:30 10/05/24 16:51 DC Home Med (Home Medication) (Ergocalciferol (Vitamin D2) (Ergocalcifer... QWEEK PO 10/11/24 09:00 11/10/24 08:59 Home Med (Home Medication) (Midazolam (Nayzilam) 5 MG) BID PRN NASAL CONSTIPATION 10/04/24 15:00 11/03/24 14:59 Home Med (Home Medication) 2 PUFFS (Advair Hfa 45... BID IH 10/04/24 21:00 11/03/24 20:59 Home Med (Home Medication) CLOBAZAM 20MG DAILY AT 1700... DAILY17 PO 10/03/24 17:00 11/02/24 16:59 10/06/24 17:30 1 EACH Insulin Human Regular (humuLIN R 100 UNIT/ML 3ML) INSULIN SLIDING SCAL... Q6H6 SQ 10/05/24 00:00 11/04/24 00:00 Ipratropium [place] (AtrovENT UD) 0.5 MG [id number] IH 10/03/24 10:00 11/02/24 09:59 10/07/24 06:54 0.5 MG Lansoprazole (Prevacid Solu Tab) 15 mg BID PEG 10/04/24 21:00 10/04/24 11:47 DC Lansoprazole (Prevacid Solu Tab) 30 mg BID PEG 10/04/24 21:00 11/03/24 20:59 10/07/24 08:06 30 MG Lorazepam (AtiVAN) 1 mg AD PRN IVP SEIZURES 10/03/24 21:00 11/02/24 20:59 Magnesium Sulfate 50 ml @ 0 mls/hr PROTOCOL PRN IV Electrolyte abnormality 10/03/24 16:30 11/02/24 16:29 Magnesium Sulfate 50 ml @ 0 mls/hr PROTOCOL PRN IV DEHYDRATION 10/04/24 23:30 10/04/24 23:40 DC Meropenem (Merrem 1gm) 1 gm Q8H IV 10/05/24 14:00 10/15/24 13:59 10/07/24 05:03 1 GM Midodrine (PROAMatine 5 MG TABLET) 5 mg TID PO 10/04/24 11:30 10/06/24 13:21 DC 10/06/24 08:22 5 MG Midodrine (PROAMatine 5 MG TABLET) 10 mg TID PO 10/06/24 14:00 11/05/24 13:59 10/07/24 08:17 10 MG Norepinephrine 250 ml @ 14.288 mls/ hr PROTOCOL PRN IV HYPOTENSION MAP LESS THAN 65 10/03/24 04:00 11/02/24 03:59 10/05/24 22:09 14.288 MLS/HR Ondansetron HCl (zoFRAN 4MG INJ) 4 mg Q6H PRN IV NAUSEA/VOMITING 10/02/24 20:30 11/01/24 20:29 Pantoprazole Sodium (PROTonix 40MG INJ) 40 mg BID IVP 10/03/24 09:00 10/04/24 11:08 DC 10/04/24 08:19 40 MG Pantoprazole Sodium (PROTonix 40MG INJ) 40 mg DAILY IVP 10/03/24 09:00 10/03/24 08:09 DC Pharmacy Profile Note (Pharmacy Communication) Q8H Q8H MISC 10/05/24 14:00 10/05/24 13:51 DC Piperacillin Sod/ Tazobactam Sod (Zosyn 3.375gm+NS 50ml) 3.375 gm Q12H IVPB 10/02/24 20:30 10/05/24 10:04 DC 10/05/24 09:08 3.375 GM Polyethylene Glycol (MIRalax 3350 17 GM POWD.PACK) 17 gm QODAY PO 10/08/24 09:00 11/07/24 08:59 Potassium Chloride/Dextrose/ Sod Cl (Dextrose NS 20 Meq KCl 1000ml) 20 meq AD IV 10/05/24 18:30 10/06/24 22:11 DC 10/06/24 12:13 20 MEQ Potassium Chloride 100 ml @ 50 mls/hr AD PRN IV POTASSIUM PROTOCOL 10/03/24 16:30 11/02/24 16:29 10/05/24 03:01 50 MLS/HR Potassium Chloride 100 ml @ 50 mls/hr AD PRN IV POTASSIUM PROTOCOL 10/04/24 23:30 10/04/24 23:40 DC Potassium Cl/ Dextrose/Lact Ringer's (J4qr-16 Meq KCl 1000 ml) 20 meq AD IV 10/03/24 21:00 10/05/24 17:36 DC 10/05/24 00:00 20 MEQ Propranolol HCl (Inderal) 20 mg BID PRN PO PRN FOR ELEVATED HR 10/04/24 15:00 10/07/24 07:10 DC 10/07/24 01:37 20 MG Sodium Bicarbonate (Sodium Bicarbonate) 650 mg BID GT 10/04/24 21:00 10/04/24 21:16 DC 10/04/24 20:16 650 MG Diagnostics / Radiology: [COPY/PASTE HERE IF NO REPORTS PLEASE DELETE SECTION] Assessment: Gastric ulcer Acute blood loss anemia Gastrostomy status Respiratory failure Plan: If ulcer/bleeding recurs then patient may require removal of feeding tube or placement of a surgical J tube PPI BID Continue GI prophylaxis Avoid NSAIDs Antireflux measures Monitor H&H and transfuse as needed Call with questions, concerns or change in clinical status Patient to follow-up at clinic post discharge Thank you for this consult CHINEDU AMOR Oct 07, 2024 09:06
--- NOTE | 2024-10-07 10:19 | CONS ---
INFECTIOUS DISEASE CONSULTATION NOTE DATE OF SERVICE: 10/05/2024 REQUESTING PHYSICIAN: Killian Caro MD REASON FOR CONSULTATION: Pneumonia. HISTORY OF PRESENT ILLNESS: An unfortunate 18-year-old female with history of spinal muscular dystrophy, chronic respiratory failure, tracheostomy status and GERD, who was brought in from home with increasing coffee-ground emesis. The patient also found with leukocytosis and was sent to the Emergency Room by primary care physician. The patient was found with positive occult blood. The patient remained on ventilatory support, admitted to ICU. Sputum culture came back positive for Proteus mirabilis and Serratia marcescens. The patient is at present on Zosyn and doxycycline. No documented rashes or itchiness. The patient was also found with hypernatremia. PAST MEDICAL HISTORY: * Spinal muscular dystrophy. * Chronic respiratory failure. * GERD. * Quadriplegia. PAST SURGICAL HISTORY: * Tracheostomy. * PEG placement. * Fundoplication as a child. ALLERGIES: VANCOMYCIN. CURRENT MEDICATIONS: Include: * Vancomycin. * Zosyn. * DuoNeb. * Tylenol. * Zofran. SOCIAL HISTORY: Lives with parents. No alcohol, tobacco, or illicit drug use. FAMILY HISTORY: Noncontributory. REVIEW OF SYSTEMS: Greater than 10 systems were reviewed, negative except as documented above. The patient is nonverbal, history obtained from medical record. PHYSICAL EXAMINATION: GENERAL: Young female. VITAL SIGNS: Temperature 98.6, pulse 69, respiratory rate 20, BP 89/52. EYES: No icterus. Pupils are equal and reactive. HENT: No oral thrush seen. Moist oral mucosa. NECK: Supple. Tracheostomy in the midline, on ventilatory support. LUNGS: Crackles bilaterally. CARDIOVASCULAR: S1, S2 regular. No murmur heard. ABDOMEN: Full. Bowel sound is present. PEG site looks clean. CENTRAL NERVOUS SYSTEM: The patient is awake, nonverbal, bedbound, quadriplegia. SKIN: No rashes. No itchiness. BACK: There is severe scoliosis. LABORATORY DATA: Sodium 147, potassium 5.7, BUN 7, creatinine 0.2. WBC 16.8, hemoglobin 8.7, platelet 318. Stool occult blood positive. Stool PCR negative. Sputum culture growing: * Proteus mirabilis. * Serratia marcescens. Blood culture, no growth for three days. RADIOLOGY: CT chest reported as bilateral infiltrate. ASSESSMENT: A 18-year-old female presenting with elevated WBC and . CURRENT PROBLEMS: Include: * Septic shock. * Gram-negative pneumonia. * Hypoxic respiratory failure, on ventilatory support. * Hypernatremia. * Hyperkalemia. * Anemia. * Functional quadriplegia. * History of muscular dystrophy. PLAN: * Continue critical care support. * Continue ventilatory support. * Discontinue Zosyn. * Start the patient on meropenem. * Continue PEG feeding. * Monitor hemoglobin and hematocrit. * Continue GI prophylaxis. * The patient will be followed up closely. TID: [id number] RECEIPT: [id number]
--- NOTE | 2024-10-07 15:02 | NUR ---
[facility] Consult: Patient assessed by wound healing team. Patient with low delores score with no wounds noted. Assessment and recommendations provided to primary nurse. Education provided. Addendum: 10/08/24 at 1115 by LINDSEY COTA RN RN/ Amended: Links added.
--- NOTE | 2024-10-07 16:21 | NUR ---
Nutritional Note: Pt currently receiving TF formula brought from home Pediasure Vital as per EMR. Nutritional concerns: at high risk of malnutrition, GI bleed, increased energy needs and possible delayed gastric emptying or intolerance. Recommend: -Continue current TF from home. -consider adult formula Pivot 1.5 goal rate 35ml/hr - Electrolyte replacements per protocol -Monitor feeding tolerance, %, wt, and labs -Check folate, iron, vit b12, and Vit D levels to rule out deficiencies. -If No BM >3days consider bowel stimulant. - Notify RD if additional nutrition concerns arise. SEE RD Nutritional Assessment for additional assessment information. Addendum: 10/07/24 at [address] Amended: Links added.
--- NOTE | 2024-10-07 19:24 | PN ---
FOLLOWUP NOTE DATE OF SERVICE: 10/07/2024 SUBJECTIVE: The patient is seen and examined at bedside today. The patient has no fever, no chills. Nonverbal. Remained in the ICU, still on vasopressor. Tolerating antibiotic. No family at bedside today. No documented diarrhea. Tolerating PEG feeding. PHYSICAL EXAMINATION: VITAL SIGNS: Temperature 98.2. EYES: No icterus. Pupils equal and reactive. HENT: No oral thrush seen. Moist oral mucosa. NECK: Supple, no JVD. Trachea is in midline. On ventilatory support. LUNGS: Crackles bilaterally. CARDIOVASCULAR: S1, S2 regular. No murmur heard. ABDOMEN: Soft. Bowel sound is present. No drainage from PEG site. CENTRAL NERVOUS SYSTEM: The patient is awake, nonverbal, bedbound, ____. SKIN: No rashes, no itchiness. BACK: There is scoliosis. No pressure ulcer. ASSESSMENT: A 18-year-old female with multiple problems include: * Septic shock. * Pneumonia. * Multidrug resistant organism. * Chronic respiratory failure, tracheostomy status. * Hyponatremia. * Hyperkalemia. * Functional quadriplegia. * Muscular dystrophy. PLAN: * Continue meropenem. * Continue critical care support. * Continue PEG feeding. * Monitor electrolytes. * Continue GI prophylaxis. * Continue DVT prophylaxis. * The patient will follow up closely. TID: [id number] RECEIPT: [id number]
--- NOTE | 2024-10-07 19:42 | PN ---
[facility] PROGRESS NOTE Date of Service: Oct 07, 2024 Time of Service: 19:40 SUBJECTIVE: This is a 18-year-old female with past medical history of spinal muscular dystrophy, chronic respiratory failure vent dependent via trach, severe gastroesophageal reflux with PEG tube placement,severe thoracic scoliosis and functional quadriplegia who presents to the ED for elevated WBC.As per mother patient was having left ear infection with drainage 1 week ago and was started on Augmentin bid x 14days and today is day #7 and so far as per mother left ear drainage was resolved and yesterday patient went to her photographer portrait and a lab work was done and today as per mother she received a call from the clinic instructing her to bring patient to the ED due to elevated WBC. As per mother ,patient has coffee ground residuals from peg tube and has also been having dark watery stool everyday x 3 days.Patient had also dark stool last week daily x 3 days but had stopped and came back again since Monday this week.As per mother patient didnt have fever,chills,no abdominal pain reported. Latest vital signs temperature 98.2, heart rate 118, respiration 22, blood pressure 104/62, saturation 97% on vent FiO2 60%. Labs: WBC 17.5, hemoglobin 10.7, hematocrit 33, platelet count 344. Sodium 150, chloride 115, BUN 22, creatinine 0.2, total CK nine, total protein nine procalcitonin 0.09. Chest x-ray result revealed dominique spected left lower lung opacities. Follow-up chest radiograph is advised in order to ensure resolution. Chest x-ray result revealed no evidence for bowel obstruction. While in the ER patient received Rocephin 1 g IV, Protonix 40 mg IV, LR bolus 1 L. We will admit patient for further medical management. 10/03/24 On bedside examination in the ER the patient was being ventilated via tracheostomy tube and she has PEG tube in place and she ask functional quadriplegia. Spoke to her mom she describes that this is her usual functional status. A WBC count remains elevated. She is currently on 7 days of Augmentin treatment for her left ear infection with drainage. Her fecal occult blood test is positive for blood her abdominal x-ray reveals no evidence of bowel obstruction. Recent chest x-ray revealed suspected left lower lung opacities and follow-up imaging is recommended. And a recent chest CT scan revealed minimal bilateral pulmonary infiltrates, left lower lung subsegmental atelectasis and bronchiectasis. While in the ER the patient received Rocephin1 g IV, Protonix 40 mg and lactated Ringer's 1 L bolus. Given the elevated WBC count, suspected left lung pneumonia and GI bleeding consent she is being admitted for further manage the her blood pressure is124 x 79 with a pulse of 90. Arterial blood oxygen saturation is 92.7, venous blood pCO2 is that is slow and venous blood PO2 is 66.9, venous blood HC03 is 16.2, bedside lactic acid blood gas is 0.85 high her hemoglobin is 9.2 low and hematocrit is 28.7 low and fibrinogen is381 high sodium level is148 high potassium level is 3.3 low her BUN level is 13 and creatinine level is 0.2 low C-reactive protein is elevated with18 and TSH is high which is 4.29 WBC count is elevated with 12.0 high. Her serum iron levels are low at 38 and TIBC is low at 243 and percentage saturation is 15.6 low and her urine protein is high with 20 and RBCs 2-5 high and WBCs 2-5 high. She is being currently admitted for further management of care 10/04/2024 this patient was previously evaluated in the ED yesterday for elevated WBC 13.6 and which has worsened to 18.1 today, worsening anemia hemoglobin level of 7.7, hypernatremia sodium 152, hypokalemia 3.1 and ABG 7.3 pCO2 28, HC03 of 16.3 and base excess of -7.1. GI and Pulmonary consults have been placed, and an EGD and colonoscopy are planned once patient is hemodynamically stable. The Infectious Disease team is involved due to concerns for sepsis, given her elevated ESR and leukocytosis, high fibrinogen blood, positive urine proteins, hematuria, increased WBC in urine. Fluids have been adjusted to correct hypernatremia and hypokalemia, and a stricter ICU monitoring is in place.A pulse of 1 not 8, respiratory rate 22, blood pressure is stable oxygen saturation adequate on vent ilation. COVID-19 influenza group a strep tests are negative. 10/05/24 patient was seen and examined case discussed with RN. Appreciate GI and pulmonology evaluation. Continue broad-spectrum antibiotics. Monitor labs 10/06/24 patient was seen and examined patient is hemodynamically stable continued current care 10/07/24 patient was seen and examined patient is hemodynamically stable continued current care/discussed with mother by the bed side/off levophed REVIEW OF SYSTEMS:Unable to perform patient is vented and lethargic PHYSICAL EXAM GENERAL APPEARANCE: The patient is lethargic but arousable.Patient appears comfortable NEUROLOGICAL: Patient is non verbal ,open eyes. HEENT: Face is symmetric. Pupils are equal and reactive. Extraocular movements are intact. NECK: Patient has vent via trache CHEST: Normal chest expansion. +Telemetry. LUNGS: scattered rhonchi on bilateral lower bases per auscultation CARDIOVASCULAR: Regular. S1 and S2 normal. No appreciable rubs, murmurs or gallops. ABDOMEN: + Pegtube-clamped Soft, nontender, and nondistended. There is no rebound, voluntary guarding, or rigidity. : Deferred. No Aleman. EXTREMITIES: + pedal pulses. Good capillary refill. SKIN: No skin breakdown. Vital Signs (last 8hr) Date Time Temp Pulse Resp B/P (MAP) Pulse Ox O2 Delivery O2 Flow Rate FiO2 10/07/24 19:20 96 22 10/07/24 19:18 79 21 10/07/24 18:00 21 10/07/24 18:00 84 22 108/75 99 Ventilator 21 10/07/24 17:00 85 22 94/62 98 Ventilator 21 10/07/24 16:00 98.4 59 22 91/49 100 Ventilator 10/07/24 15:17 68 21 10/07/24 15:09 47 22 10/07/24 15:00 53 22 97/47 100 Ventilator 21 10/07/24 14:05 21 10/07/24 14:00 85 22 106/57 100 Ventilator 21 10/07/24 13:00 77 22 91/47 100 Ventilator 21 10/07/24 12:30 79 21 10/07/24 12:00 100 Ventilator+ 21 10/07/24 12:00 98.4 56 22 96/58 100 Ventilator 21 LABS: Laboratory: Test 10/07/24 17:08 10/07/24 04:16 10/06/24 04:27 Range/Units Whole Blood Glucose 112 H 70-110 MG/DL White Blood Count 18.4 H 4.8-10.8 K/uL Red Blood Count 3.03 L 4.00-5.50 MIL/uL Hemoglobin 9.2 L 12.0-16.0 g/dL Hematocrit 28.7 L 36-48 % Mean Corpuscular Volume 94.7 80-100 fL Mean Corpuscular Hemoglobin 30.4 27.0-33.0 pg Mean Corpuscular Hemoglobin Concent 32.1 32.0-36.0 g/dL Red Cell Distribution Width 17.7 H 11.0-15.5 % Platelet Count 340 130-400 K/uL Mean Platelet Volume 10.6 H 7.5-10.5 fL Immature Granulocyte % (Auto) 0.4 0-1 % Neutrophils (%) (Auto) 56.1 40.0-77.0 % Lymphocytes (%) (Auto) 36.3 21.0-51.0 % Monocytes (%) (Auto) 4.2 3.0-13.0 % Eosinophils (%) (Auto) 2.6 0.0-8.0 % Basophils (%) (Auto) 0.4 0.0-5.0 % Neutrophils # (Auto) 10.3 H 1.8-7.7 K/uL Lymphocytes # (Auto) 6.7 H 1.0-4.8 K/uL Monocytes # (Auto) 0.8 0.1-1.0 K/uL Eosinophils # (Auto) 0.48 0.00-0.70 K/uL Basophils # (Auto) 0.07 0.00-0.20 K/uL Absolute Immature Granulocyte (auto 0.08 0-1 K/uL Nucleated Red Blood Cells 0.0 0.0-0.19 % White Cell Morphology Comment See comments Sodium Level 140 136-145 mmol/L Potassium Level 3.9 3.5-5.1 mmol/L Chloride Level 109 101-111 mmol/L Carbon Dioxide Level 22 21-32 mmol/L Blood Urea Nitrogen 2 L 7-18 mg/dL Creatinine 0.2 L 0.5-1.0 mg/dL Glomerular Filtration Rate Calc 172 >90 mL/min Random Glucose 88 70-105 mg/dL Total Calcium 8.2 L 8.5-10.1 mg/dL Segmented Neutrophils % 47 40-70 % Lymphocytes % (Manual) 45 H 22-44 % Monocytes % (Manual) 2 2-9 % Eosinophils % (Manual) 3 1-6 % Other Cells % 1 H 0-0 Differential Comment MANUAL DIFFERENTIAL Reactive Lymphocytes 2 H 0-0 % Platelet Morphology Comment See comments Red Blood Cell Morphology See comments Current Medications Medications (Trade) Dose Ordered Sig/Valentina Route PRN Reason Start Time Stop Time Status Last Admin Dose Admin Acetylcysteine (MUComyst 20% 4ML) 400mg = 2ml [id number] IH 10/03/24 10:00 10/06/24 13:17 DC 10/06/24 10:17 800 MG Albuterol Sulfate (Proventil 0.083% 2.5mg/3ml) 2.5 mg Q4HPRN PRN IH BRONCHOSPASM 10/04/24 15:00 11/03/24 14:59 Albuterol Sulfate (Ventolin Hfa) 2 INHALATIONS BID IH 10/07/24 09:00 10/07/24 07:09 DC Albuterol Sulfate (Ventolin Hfa) 2 inh BID IH 10/04/24 21:00 10/07/24 07:08 DC Artificial Tears (Artificial Tears) 1 DROP OP TID TID OP 10/05/24 09:00 11/03/24 20:59 10/07/24 14:22 1 DROP Artificial Tears (Artificial Tears) 1 DROP OR AD Q8H OU 10/03/24 08:30 10/05/24 08:27 DC 10/05/24 00:31 1 DROP Artificial Tears (Artificial Tears) 1 drop TID OP 10/04/24 21:00 10/05/24 08:29 DC 10/04/24 18:30 1 DROP Cetirizine HCl (ZYRtec 5 MG TABLET) 5 mg HS PO 10/07/24 21:00 11/06/24 20:59 Chlorhexidine Gluconate (Peridex) 15 ml Q8H MM 10/03/24 08:30 10/17/24 08:29 10/07/24 16:20 15 ML Dextrose 1,000 ml @ 50 mls/hr Q20H IV 10/02/24 20:30 10/03/24 20:38 DC 10/03/24 19:06 50 MLS/HR Dextrose (D50w) 50 ml AD PRN IV HYPOGLYCEMIA PROTOCOL 10/04/24 23:30 11/03/24 23:29 Doxycycline Hyclate 250 ml @ 125 mls/hr Q12H IV 10/03/24 08:30 10/05/24 10:04 DC 10/05/24 09:00 125 MLS/HR Furosemide (LASix 20MG VIAL) 20 mg Q12H IV 10/06/24 22:00 10/07/24 09:13 DC 10/06/24 22:35 20 MG Glucagon (Glucagon 1mg Kit) 1 mg AD PRN IM HYPOGLYCEMIA PROTOCOL 10/04/24 23:30 11/03/24 23:29 Home Med (Compound Po Narcotic) UD AD PO 10/04/24 15:30 10/05/24 16:51 DC Home Med (Home Medication) (Ergocalciferol (Vitamin D2) (Ergocalcifer... QWEEK PO 10/11/24 09:00 11/10/24 08:59 Home Med (Home Medication) (Midazolam (Nayzilam) 5 MG) BID PRN NASAL CONSTIPATION 10/04/24 15:00 11/03/24 14:59 Home Med (Home Medication) 2 PUFFS (Advair Hfa 45... BID IH 10/04/24 21:00 11/03/24 20:59 Home Med (Home Medication) CLOBAZAM 20MG DAILY AT 1700... DAILY17 PO 10/03/24 17:00 11/02/24 16:59 10/07/24 17:00 1 EACH Insulin Human Regular (humuLIN R 100 UNIT/ML 3ML) INSULIN SLIDING SCAL... Q6H6 SQ 10/05/24 00:00 11/04/24 00:00 Ipratropium [place] Varina (AtrovENT UD) 0.5 MG [id number] IH 10/03/24 10:00 11/02/24 09:59 10/07/24 19:19 0.5 MG Lansoprazole (Prevacid Solu Tab) 15 mg BID PEG 10/04/24 21:00 10/04/24 11:47 DC Lansoprazole (Prevacid Solu Tab) 30 mg BID PEG 10/04/24 21:00 11/03/24 20:59 10/07/24 08:06 30 MG Lorazepam (AtiVAN) 1 mg AD PRN IVP SEIZURES 10/03/24 21:00 11/02/24 20:59 Magnesium Sulfate 50 ml @ 0 mls/hr PROTOCOL PRN IV Electrolyte abnormality 10/03/24 16:30 3/15/25 16:29 Magnesium Sulfate 50 ml @ 0 mls/hr PROTOCOL PRN IV DEHYDRATION 10/04/24 23:30 10/04/24 23:40 DC Meropenem (Merrem 1gm) 1 gm Q8H IV 10/05/24 14:00 10/15/24 13:59 10/07/24 14:21 1 GM Midodrine (PROAMatine 5 MG TABLET) 5 mg TID PO 10/04/24 11:30 10/06/24 13:21 DC 10/06/24 08:22 5 MG Midodrine (PROAMatine 5 MG TABLET) 10 mg TID PO 10/06/24 14:00 11/05/24 13:59 10/07/24 14:21 10 MG Norepinephrine 250 ml @ 14.288 mls/ hr PROTOCOL PRN IV HYPOTENSION MAP LESS THAN 65 10/03/24 04:00 11/02/24 03:59 10/05/24 22:09 14.288 MLS/HR Ondansetron HCl (zoFRAN 4MG INJ) 4 mg Q6H PRN IV NAUSEA/VOMITING 10/02/24 20:30 11/01/24 20:29 Pantoprazole Sodium (PROTonix 40MG INJ) 40 mg BID IVP 10/03/24 09:00 10/04/24 11:08 DC 10/04/24 08:19 40 MG Pantoprazole Sodium (PROTonix 40MG INJ) 40 mg DAILY IVP 10/03/24 09:00 10/03/24 08:09 DC Pharmacy Profile Note (Pharmacy Communication) Q8H Q8H MISC 10/05/24 14:00 10/05/24 13:51 DC Piperacillin Sod/ Tazobactam Sod (Zosyn 3.375gm+NS 50ml) 3.375 gm Q12H IVPB 10/02/24 20:30 10/05/24 10:04 DC 10/05/24 09:08 3.375 GM Polyethylene Glycol (MIRalax 3350 17 GM POWD.PACK) 17 gm QODAY PO 10/08/24 09:00 11/07/24 08:59 Potassium Chloride/Dextrose/ Sod Cl (Dextrose NS 20 Meq KCl 1000ml) 20 meq AD IV 10/05/24 18:30 10/06/24 22:11 DC 10/06/24 12:13 20 MEQ Potassium Chloride 100 ml @ 50 mls/hr AD PRN IV POTASSIUM PROTOCOL 10/03/24 16:30 11/02/24 16:29 10/05/24 03:01 50 MLS/HR Potassium Chloride 100 ml @ 50 mls/hr AD PRN IV POTASSIUM PROTOCOL 10/04/24 23:30 10/04/24 23:40 DC Potassium Cl/ Dextrose/Lact Ringer's (X9ak-71 Meq KCl 1000 ml) 20 meq AD IV 10/03/24 21:00 10/05/24 17:36 DC 10/05/24 00:00 20 MEQ Propranolol HCl (Inderal) 20 mg BID PRN PO PRN FOR ELEVATED HR 10/04/24 15:00 10/07/24 07:10 DC 10/07/24 01:37 20 MG Sodium Bicarbonate (Sodium Bicarbonate) 650 mg BID GT 10/04/24 21:00 10/04/24 21:16 DC 10/04/24 20:16 650 MG DIAGNOSTICS / RADIOLOGY: [ ] ASSESSMENT: Suspected Left lung pneumonia POA Suspected GI bleed POA Normocytic normochromic anemia POA Acute Leukocytosis POA Hypernatremia POA Hypokalemia POA Chronic respiratory failure ventilator dependent POA Functional quadriplegia POA GERD with PEG tube placement. POA Peg tube status POA Recent Left ear infection POA Spinal Muscular dystrophy POA Severe thoracic scoliosis POA PLAN: We will admit patient in ICU We will keep patient nothing by mouth We will start D5 at 75 mL/hour We will start patient on Zosyn IV q.12 We will start on Protonix 40 mg IV daily We will replace electrolytes as needed per protocol We will add prn medication for fever,pain,cough ,nausea and vomiting We will reconcile home meds once medlist available Respiratory consult has been placed and chest physiotherapy and suctioning has been ordered as needed. Maintain ventilator settings and monitor ABGs. continue ventilator support and adjust as per respiratory consult. EGD and colonoscopy once hemodynamically stabilized. Hypernatremia correction with D5W IV to 75 mL/hour. Monitor serum sodium every 4 hours. Hypokalemia protocol as per facility. Magnesium supplementation as per protocol of the facility. Adjust PEG tube feeds per dietary recommendation. pulmonary function test has been ordered. Follow-up chest x-ray to monitor resolution. Oxygen support via ventilator as needed. Gastro consult has been placed and check hemoglobin every 8-12 hours. Her stool occult has been positive for blood. Continue IV Rocephin until culture results return. Monitor WBC trend, inflammatory markers CRP procalcitonin. Monitor hemoglobin and hematocrit trends. Iron replacement has been ordered. Blood transfusion if hemoglobin drops below 7. Speech therapy consult has been placed for aspiration risk. Repeating TSH T3-T4 for further evaluation of her elevated TSH. Electrolytes will be replaced according to the facility protocol. We will follow up urinalysis result, we will cultures and fecal occult blood We will request labs in am We will request H&H p.r.n. bleeding We will seek critical Care consultation Further orders to follow depending on above results Case discussed with attending physician and came up with above treatment and plan of care. MARIA LUISA CHOU MD Oct 07, 2024 19:42
--- NOTE | 2024-10-07 20:37 | PN ---
[facility] PROGRESS NOTE Date Patient Seen: Oct 07, 2024 Time of Visit: 09:28 Supervising Physician: Otilio Huston MD Primary Care Physician: Mariaelena Alvarez Outpatient Specialists: Inpatient Consults: BIS, PROBLEM LIST: Bilateral Bacterial pneumonia L>R POA + for Proteus Mirabilis, and serratia Marcescens Septic shock, POA requiring Levophed, resolved Acute on chronic hypoxic respiratory failure, POA resolved back to baseline fio2 21% Ventilator dependent since Tracheostomy size Compensated metabolic acidosis, POA Acute on chronic anemia from blood loss, POA (Melena) s/p EGD 10/04/24 w/ findings of bleed and clipping Leukocytosis, POA Hypernatremia POA Chronic respiratory failure ventilator dependent POA Functional quadriplegia POA Bernardo tube gastrostomy, POA Recent Left ear infection POA Hypokalemia resolved Hx of seizures History of spinal muscular dysplasia Hx of Severe thoracic scoliosis INTERVAL HISTORY: Patient is awake and alert eyes spontaneously open. No major overnight event. She has been weaned off Levophed and hemodynamically stable. She continues with midodrine 50 mg 3 times a day. Blood pressure this morning 144/94 heart rate in the 70s respiratory rate of 22 saturating 98% on the ventilator with a FiO2 of 21%. Continues with home ventilator with home settings of SIMV volume control tidal volume of 250 respiratory rate of 22 FiO2 of 21% and PEEP of 6, pressure support of 10. Patient has good urine output as per RN and has had a bowel movement today. Patient tolerating tube feedings. WBCs trended down slightly 18.4 today H&H is stable 9.2/28.7 seems to have improved from yesterday neutrophil count is normal. Chemistry unremarkable. Patient is stable to downgrade to PCCU. We will continue to follow. REVIEW OF SYSTEMS: Unable to perform due to patient's cognitive status. PHYSICAL EXAM: GENERAL: Patient is awake alert aphasic. functional quadriplegia HEENT: Sclera non icteric, moist mucosa NECK: Short no JVD, tracheostomy LUNGS: ronchi breath sounds bilaterally. No wheezes HEART: Regular rate and rhythm. Normal S1 and S2, without murmurs ABD: Abdomen soft, nontender. Bowel sounds present EXT: No clubbing cyanosis or edema NEURO: functional quadriplegia, bed bound Vital Signs (last 8hr) Date Time Temp Pulse Resp B/P (MAP) Pulse Ox O2 Delivery O2 Flow Rate FiO2 10/07/24 19:20 96 22 10/07/24 19:18 79 21 10/07/24 18:00 21 10/07/24 18:00 84 22 108/75 99 Ventilator 21 10/07/24 17:00 85 22 94/62 98 Ventilator 21 10/07/24 16:00 98.4 59 22 91/49 100 Ventilator 21 10/07/24 15:17 68 21 10/07/24 15:09 47 22 10/07/24 15:00 53 22 97/47 100 Ventilator 21 10/07/24 14:05 21 10/07/24 14:00 85 22 106/57 100 Ventilator 21 10/07/24 13:00 77 22 91/47 100 Ventilator 21 10/07/24 12:30 79 21 LABS: Hematology Labs: Test 10/07/24 04:16 10/06/24 04:27 Range/Units White Blood Count 18.4 H 4.8-10.8 K/uL Red Blood Count 3.03 L 4.00-5.50 MIL/uL Hemoglobin 9.2 L 12.0-16.0 g/dL Hematocrit 28.7 L 36-48 % Mean Corpuscular Volume 94.7 80-100 fL Mean Corpuscular Hemoglobin 30.4 27.0-33.0 pg Mean Corpuscular Hemoglobin Concent 32.1 32.0-36.0 g/dL Red Cell Distribution Width 17.7 H 11.0-15.5 % Platelet Count 340 130-400 K/uL Mean Platelet Volume 10.6 H 7.5-10.5 fL Immature Granulocyte % (Auto) 0.4 0-1 % Neutrophils (%) (Auto) 56.1 40.0-77.0 % Lymphocytes (%) (Auto) 36.3 21.0-51.0 % Monocytes (%) (Auto) 4.2 3.0-13.0 % Eosinophils (%) (Auto) 2.6 0.0-8.0 % Basophils (%) (Auto) 0.4 0.0-5.0 % Neutrophils # (Auto) 10.3 H 1.8-7.7 K/uL Lymphocytes # (Auto) 6.7 H 1.0-4.8 K/uL Monocytes # (Auto) 0.8 0.1-1.0 K/uL Eosinophils # (Auto) 0.48 0.00-0.70 K/uL Basophils # (Auto) 0.07 0.00-0.20 K/uL Absolute Immature Granulocyte (auto 0.08 0-1 K/uL Nucleated Red Blood Cells 0.0 0.0-0.19 % White Cell Morphology Comment See comments Segmented Neutrophils % 47 40-70 % Lymphocytes % (Manual) 45 H 22-44 % Monocytes % (Manual) 2 2-9 % Eosinophils % (Manual) 3 1-6 % Other Cells % 1 H 0-0 Differential Comment MANUAL DIFFERENTIAL Reactive Lymphocytes 2 H 0-0 % Platelet Morphology Comment See comments Red Blood Cell Morphology See comments Chemistry Labs: Test 10/07/24 17:08 10/07/24 04:16 Range/Units Whole Blood Glucose 112 H 70-110 MG/DL Sodium Level 140 136-145 mmol/L Potassium Level 3.9 3.5-5.1 mmol/L Chloride Level 109 101-111 mmol/L Carbon Dioxide Level 22 21-32 mmol/L Blood Urea Nitrogen 2 L 7-18 mg/dL Creatinine 0.2 L 0.5-1.0 mg/dL Glomerular Filtration Rate Calc 172 >90 mL/min Random Glucose 88 70-105 mg/dL Total Calcium 8.2 L 8.5-10.1 mg/dL DIAGNOSTICS / RADIOLOGY RESULTS: [ ] PLAN Follow for critical care management in the ICU continue Meropenem ABX orPer ID Atrovent q.4 hours PRN PICC line in place Monitor electrolytes and cover accordingly male continue tube feedings. increase midodrine 15mg tid via gtube Seizure precautions Ativan PRN IV seizure Resume home seizure medication Supplemental 02 as needed Titrate Fio2 to keep Spo2 > or = 90% DuoNebs and CPT as needed VAP Bundle Vent/BIPAP Settings: SIMV mode, TV 250, RR 22, fio2 of 21% and peep 6, with pressure support of 10. PICC NPO tube feedings per Gtube Daily weights Avoid nephrotoxic agents Monitor electrolytes and replace as needed Respiratory culture+ proteus mirabilis and + for serratia Marcescens Monitor H&H. Keep Hgb > 7 Transfuse 1 unit of PRBC for Hgb < 7 Transfuse 1 pack of platelets of platelets < 20, 000 Watch for any signs and symptoms of bleeding Pressure ulcer prevention per facility protocol specialty bed Rehab: PT/OT Prophylaxis: GI: Protonix 40 mg IV push b.i.d. DVT: SCDs no AC due to acute anemia from blood looss Code Status: Full Resuscitation Disposition: PCCU do not downgrade further than that Total patient care time exceeds 35 minutes excluding all procedures. Case was discussed and seen with my supervising physician. The above plan was formulated and agreed upon. GATITO MARTIN [facility] Oct 07, 2024 20:37
[2024-10-07] MEDS: ceTIRIzine HCL 5 MG TABLET PO SCH (20:39)
[2024-10-08] VITALS (78 sets, daily range): BP systolic 73–167; BP diastolic 27–119; PULSE 57–132; RESP 20–23; O2SAT 96–100
[2024-10-08 04:38] LABS: BASOPHILS # (AUTO) 0.07 K/uL (0.00-0.20); BASOPHILS % (AUTO) 0.5 % (0.0-5.0); EOSINOPHILS % (AUTO) 4.5 % (0.0-8.0); IMMATURE GRANULOCYTE ABSOLUTE 0.08 K/uL (0-1); LYMPHOCYTES # (AUTO) 6.6 K/uL (1.0-4.8); LYMPHOCYTES % (AUTO) 48.8 % (21.0-51.0); MEAN CORPUSCULAR HEMOGLOBIN 30.1 pg (27.0-33.0); MEAN CORPUSCULAR HGB CONC 30.4 g/dL (32.0-36.0); MEAN CORPUSCULAR VOLUME 99.3 fL (80-100); MONOCYTES # (AUTO) 0.9 K/uL (0.1-1.0); MONOCYTES % (AUTO) 6.5 % (3.0-13.0); NEUTROPHILS # (AUTO) 5.3 K/uL (1.8-7.7); NEUTROPHILS % (AUTO) 39.1 % (40.0-77.0); PLATELET COUNT (AUTO) 386 K/uL (130-400); RED BLOOD CELL COUNT(AUTO) 2.72 MIL/uL (4.00-5.50); WHITE BLOOD COUNT (AUTO) 13.4 K/uL (4.8-10.8)
[2024-10-08 04:49] LABS: CARBON DIOXIDE 22 mmol/L (21-32); CHLORIDE 114 mmol/L (101-111); GLUCOSE,RANDOM 112 mg/dL (70-105); PHOSPHORUS 3.6 mg/dL (2.5-4.9); POTASSIUM 3.9 mmol/L (3.5-5.1); SODIUM SERUM 144 mmol/L (136-145); UREA NITROGEN, BLOOD 2 mg/dL (7-18)
[2024-10-08 05:03] LABS: CREATININE < 0.2 mg/dL (0.5-1.0); GLOMERULAR FILTR. RATE CALC 172 mL/min (>90)
[2024-10-08 05:29] LABS: LYMPHOCYTES % (MANUAL) 60 % (22-44); MONOCYTES % (MANUAL) 7 % (2-9); OTHER CELLS,MANUAL % 1 (0-0); SEGMENTED NEUTROPHILS % 32 % (40-70); TOTAL CELLS COUNTED 100
[2024-10-08 05:31] LABS: MAN.DIFF COMMENT-IMPRESSION MANUAL DIFFERENTIAL
[2024-10-08 05:32] LABS: WBC MORPHOLOGY SMUDGE CELLS 1+
--- NOTE | 2024-10-08 09:00 | PN ---
[facility] PROGRESS NOTE Date Patient Seen: Oct 08, 2024 Time of Visit: 09:00 Supervising Physician: Dr. SEAY Primary Care Physician: Mariaelena Alvarez Outpatient Specialists: Inpatient Consults: BIS, PROBLEM LIST: Bilateral Bacterial pneumonia L>R POA + for Proteus Mirabilis, and serratia Marcescens Septic shock, POA requiring Levophed, resolved Acute on chronic hypoxic respiratory failure, POA resolved back to baseline fio2 21% Ventilator dependent since Tracheostomy size Compensated metabolic acidosis, POA Acute on chronic anemia from blood loss, POA (Melena) s/p EGD 10/04/24 w/ findings of bleed and clipping Leukocytosis, POA Hypernatremia POA Chronic respiratory failure ventilator dependent POA Functional quadriplegia POA Bernardo tube gastrostomy, POA Recent Left ear infection POA Hypokalemia resolved Hx of seizures History of spinal muscular dysplasia Hx of Severe thoracic scoliosis INTERVAL HISTORY: Patient is awake and alert eyes spontaneously open. No major overnight event. She has been weaned off Levophed and hemodynamically stable. She continues with midodrine 50 mg 3 times a day. Blood pressure this morning 144/94 heart rate in the 70s respiratory rate of 22 saturating 98% on the ventilator with a FiO2 of 21%. Continues with home ventilator with home settings of SIMV volume control tidal volume of 250 respiratory rate of 22 FiO2 of 21% and PEEP of 6, pressure support of 10. Patient has good urine output as per RN and has had a bowel movement today. Patient tolerating tube feedings. WBCs trended down slightly 18.4 today H&H is stable 9.2/28.7 seems to have improved from yesterday neutrophil count is normal. Chemistry unremarkable. Patient is stable to downgrade to PCCU. We will continue to follow. 10/08/2024: At the time of my evaluation, the patient was lying in bed. She is awake, alert but not verbally interactive. The patient is dependent on mechanical ventilator support SIMV mode and on home ventilator volume control tidal volume of 250 respiratory rate of 22 FiO2 of 21% and PEEP of 6, pressure support of 10. On the monitor, the patient is hemodynamically stable. Was taken off Levophed this a.m. and continues on midodrine 10 t.i.d. the patient continues feeding through the Bernardo tube, chemistry panel today showed a sodium of 144, potassium 3.9, chloride 114, CO2 of 22, BUN of two, creatinine of less than 0.2 and a random glucose of 112. Patient has incontinent voids for which I&Os we will not be accurate. Hematologic panel shows a WBC of 13.4, hemoglobin of 8.2, hematocrit of 27.0 and a platelet count of 386. Sputum culture positive for Proteus mirabilis and Serratia marcescens. The patient continues on Merrem 1 g q.8 hours. No other complaint. REVIEW OF SYSTEMS: Unable to perform due to patient's cognitive status. PHYSICAL EXAM: GENERAL: Patient is awake alert aphasic. functional quadriplegia HEENT: Sclera non icteric, moist mucosa NECK: Short no JVD, tracheostomy LUNGS: Ronchi breath sounds bilaterally. No wheezes HEART: Regular rate and rhythm. Normal S1 and S2, without murmurs ABD: Abdomen soft, nontender. Bowel sounds present EXT: No clubbing cyanosis or edema NEURO: Functional quadriplegia, bed bound Vital Signs (last 8hr) Date Time Temp Pulse Resp B/P (MAP) Pulse Ox O2 Delivery O2 Flow Rate FiO2 10/08/24 07:00 57 22 113/67 (82) 100 10/08/24 06:59 63 21 10/08/24 06:58 67 22 10/08/24 06:45 65 22 96/59 (71) 98 10/08/24 06:30 64 22 94/44 (61) 97 10/08/24 06:00 61 22 93/48 (63) 97 10/08/24 05:30 61 22 96/52 (67) 97 10/08/24 05:00 64 22 90/59 (69) 97 10/08/24 04:45 63 22 91/56 (68) 97 10/08/24 04:30 65 22 97/50 (66) 97 10/08/24 04:09 66 21 10/08/24 04:00 21 10/08/24 04:00 97 Ventilator+ 21 10/08/24 04:00 60 22 94/56 (69) 99 10/08/24 03:34 77/45 10/08/24 03:30 67 22 157/93 (114) 100 10/08/24 03:15 82 22 77/47 (57) 100 10/08/24 03:00 72 22 77/42 (54) 100 10/08/24 02:43 80 22 10/08/24 02:30 67 22 76/40 (52) 98 10/08/24 02:00 72 22 73/27 (42) 98 10/08/24 01:36 80 21 LABS: Hematology Labs: Test 10/08/24 03:51 Range/Units White Blood Count 13.4 #H 4.8-10.8 K/uL Red Blood Count 2.72 L 4.00-5.50 MIL/uL Hemoglobin 8.2 L 12.0-16.0 g/dL Hematocrit 27.0 L 36-48 % Mean Corpuscular Volume 99.3 80-100 fL Mean Corpuscular Hemoglobin 30.1 27.0-33.0 pg Mean Corpuscular Hemoglobin Concent 30.4 L 32.0-36.0 g/dL Red Cell Distribution Width 18.0 H 11.0-15.5 % Platelet Count 386 130-400 K/uL Mean Platelet Volume 10.7 H 7.5-10.5 fL Immature Granulocyte % (Auto) 0.6 0-1 % Neutrophils (%) (Auto) 39.1 L 40.0-77.0 % Lymphocytes (%) (Auto) 48.8 21.0-51.0 % Monocytes (%) (Auto) 6.5 3.0-13.0 % Eosinophils (%) (Auto) 4.5 0.0-8.0 % Basophils (%) (Auto) 0.5 0.0-5.0 % Neutrophils # (Auto) 5.3 1.8-7.7 K/uL Lymphocytes # (Auto) 6.6 H 1.0-4.8 K/uL Monocytes # (Auto) 0.9 0.1-1.0 K/uL Eosinophils # (Auto) 0.60 0.00-0.70 K/uL Basophils # (Auto) 0.07 0.00-0.20 K/uL Absolute Immature Granulocyte (auto 0.08 0-1 K/uL Segmented Neutrophils % 32 L 40-70 % Lymphocytes % (Manual) 60 H 22-44 % Monocytes % (Manual) 7 2-9 % Other Cells % 1 H 0-0 Nucleated Red Blood Cells 0.0 0.0-0.19 % Differential Comment MANUAL DIFFERENTIAL White Cell Morphology Comment SMUDGE CELLS 1+ Platelet Morphology Comment See comments Red Blood Cell Morphology See comments Chemistry Labs: Test 10/08/24 06:52 10/08/24 03:51 Range/Units Whole Blood Glucose 109 70-110 MG/DL Sodium Level 144 136-145 mmol/L Potassium Level 3.9 3.5-5.1 mmol/L Chloride Level 114 H 101-111 mmol/L Carbon Dioxide Level 22 21-32 mmol/L Blood Urea Nitrogen 2 L 7-18 mg/dL Creatinine < 0.2 L 0.5-1.0 mg/dL Glomerular Filtration Rate Calc 172 >90 mL/min Random Glucose 112 H 70-105 mg/dL Total Calcium 7.9 L 8.5-10.1 mg/dL Phosphorus Level 3.6 2.5-4.9 mg/dL Magnesium Level 2.20 1.80-2.40 mg/dL DIAGNOSTICS / RADIOLOGY RESULTS: [ ] PLAN 10/08/2024: For now, we are going to continue current management for the patient. She is going to continue on ventilator support and we will continue providing pulmonary toileting. We will continue monitor the patient off of the Levophed drip and on midodrine which I am going to increase to 15 mg t.i.d.. She is going to continue on IV Merrem for management of the pneumonia. WBC is improving and we will continue to follow the trend. We will monitor the patient's progress and response to management. We will continue to provide general supportive care, GI and DVT prophylaxis. Further orders per attending MD and hospital course. NEURO: Minimize central acting medications as possible. Maintain fall precautions, adequate lighting during the day PULMONARY: Supplemental 02 as needed. Maintain aspiration precautions at all times CARDIOVASCULAR: Follow hemodynamics. Vital signs per facility protocol GI & NUTRITION: Continue with nutritional support. Continue stool softeners and laxatives as needed. KIDNEYS & ELECTROLYTES: Strict monitoring of intake, output and overall fluid balance. Avoid nephrotoxic medications to the extent possible. Medications to be dosed according to renal function. Monitor electrolytes and replace as needed ENDOCRINE: Maintain blood glucose between 100-180 at all times. Hypoglycemia protocol in place INFECTIOUS DISEASE: Trend temperature, WBC and procalcitonin level Follow cultures, deescalate antibiotics as soon as possible. Panculture if new onset fever ONCOLOGY/HEMATOLOGY/COAGULATION: Monitor for s/s of bleeding Monitor hemoglobin, coagulation studies as needed SKIN: Pressure ulcer prevention per facility protocol Specialty mattress ORTHO/REHAB: Continue PT/OT Prophylaxis: Continue GI and DVT prophylaxis Code Status: Full Resuscitation Disposition: TBD Other: Total patient care time exceeds 35 minutes excluding all procedures. LORAINE DIEZ NP Oct 08, 2024 09:00
--- NOTE | 2024-10-08 09:08 | PN ---
GASTROENTEROLOGY PROGRESS NOTE Date of Visit: Oct 08, 2024 Time of Visit: 09:08 Events / Notes: No acute events overnight. Patient had EGD which revealed bleeding antral ulcer s/p clip with hemostasis. J tube was found right on ulcer. She is being downgraded today. Hgb improving. Review of Systems: CONSTITUTIONAL: No malaise or change in sensation of wellbeing. ENMT: No rhinorrhea, otorrhea, sinus pain, ear ache. CARDIOVASCULAR: No angina, palpitations, orthopnea or paroxysmal dyspnea. RESPIRATORY: No SOB. GASTROINTESTINAL: No abdominal pain, nausea, vomiting, diarrhea, hematemesis, melena or change in the patient's habitual bowel movements consistency/number. GENITOURINARY: No dysuria, hematuria or change in bladder continence. MUSCULOSKELETAL: No new muscle pain or decrease in muscular strength. No new joint swelling, redness or tenderness. SKIN: No new rash. Physical Exam: GEN: Awake, alert, oriented in person, time and place, and in no acute distress. HEENT: No sinus tenderness. Tympanic membranes were not examined. No rhinorrhea. Oral pharyngeal mucosa is pink, moist and within normal limits. Neck is supple with no cervical lymphadenopathy, thyromegaly or JVD. CHEST: Inspection, palpation and percussion of the chest were unremarkable. Lung auscultation revealed normal breath sounds bilaterally. CARDIAC: PMI is within normal limits. Heart sounds are regular. Normal S1, S2. No gallop or murmur. ABD: Soft, non-tender and not distended. No peritoneal signs on palpation. No organomegaly. Normal bowel sounds. EXT: No cyanosis or clubbing. No edema. SKIN: Intact. No rashes. JOINTS: No evidence of synovitis or acute arthritis. NEURO: Alert and oriented to name, place and person. Cranial nerve examination is unremarkable. No focal motor deficits. Normal speech. Gait is normal. Strength is normal. Vital Signs (last 8hr) Date Time Temp Pulse Resp B/P (MAP) Pulse Ox O2 Delivery O2 Flow Rate FiO2 10/08/24 07:00 57 22 113/67 (82) 100 10/08/24 06:59 63 21 10/08/24 06:58 67 22 10/08/24 06:45 65 22 96/59 (71) 98 10/08/24 06:30 64 22 94/44 (61) 97 10/08/24 06:00 61 22 93/48 (63) 97 10/08/24 05:30 61 22 96/52 (67) 97 10/08/24 05:00 64 22 90/59 (69) 97 10/08/24 04:45 63 22 91/56 (68) 97 10/08/24 04:30 65 22 97/50 (66) 97 10/08/24 04:09 66 21 10/08/24 04:00 21 10/08/24 04:00 97 Ventilator+ 21 10/08/24 04:00 60 22 94/56 (69) 99 10/08/24 03:34 77/45 10/08/24 03:30 67 22 157/93 (114) 100 10/08/24 03:15 82 22 77/47 (57) 100 10/08/24 03:00 72 22 77/42 (54) 100 10/08/24 02:43 80 22 10/08/24 02:30 67 22 76/40 (52) 98 10/08/24 02:00 72 22 73/27 (42) 98 10/08/24 01:36 80 21 Laboratory: [ ] Laboratory: Test 10/08/24 06:52 10/08/24 03:51 Range/Units Whole Blood Glucose 109 70-110 MG/DL White Blood Count 13.4 #H 4.8-10.8 K/uL Red Blood Count 2.72 L 4.00-5.50 MIL/uL Hemoglobin 8.2 L 12.0-16.0 g/dL Hematocrit 27.0 L 36-48 % Mean Corpuscular Volume 99.3 80-100 fL Mean Corpuscular Hemoglobin 30.1 27.0-33.0 pg Mean Corpuscular Hemoglobin Concent 30.4 L 32.0-36.0 g/dL Red Cell Distribution Width 18.0 H 11.0-15.5 % Platelet Count 386 130-400 K/uL Mean Platelet Volume 10.7 H 7.5-10.5 fL Immature Granulocyte % (Auto) 0.6 0-1 % Neutrophils (%) (Auto) 39.1 L 40.0-77.0 % Lymphocytes (%) (Auto) 48.8 21.0-51.0 % Monocytes (%) (Auto) 6.5 3.0-13.0 % Eosinophils (%) (Auto) 4.5 0.0-8.0 % Basophils (%) (Auto) 0.5 0.0-5.0 % Neutrophils # (Auto) 5.3 1.8-7.7 K/uL Lymphocytes # (Auto) 6.6 H 1.0-4.8 K/uL Monocytes # (Auto) 0.9 0.1-1.0 K/uL Eosinophils # (Auto) 0.60 0.00-0.70 K/uL Basophils # (Auto) 0.07 0.00-0.20 K/uL Absolute Immature Granulocyte (auto 0.08 0-1 K/uL Segmented Neutrophils % 32 L 40-70 % Lymphocytes % (Manual) 60 H 22-44 % Monocytes % (Manual) 7 2-9 % Other Cells % 1 H 0-0 Nucleated Red Blood Cells 0.0 0.0-0.19 % Differential Comment MANUAL DIFFERENTIAL White Cell Morphology Comment SMUDGE CELLS 1+ Platelet Morphology Comment See comments Red Blood Cell Morphology See comments Sodium Level 144 136-145 mmol/L Potassium Level 3.9 3.5-5.1 mmol/L Chloride Level 114 H 101-111 mmol/L Carbon Dioxide Level 22 21-32 mmol/L Blood Urea Nitrogen 2 L 7-18 mg/dL Creatinine < 0.2 L 0.5-1.0 mg/dL Glomerular Filtration Rate Calc 172 >90 mL/min Random Glucose 112 H 70-105 mg/dL Total Calcium 7.9 L 8.5-10.1 mg/dL Phosphorus Level 3.6 2.5-4.9 mg/dL Magnesium Level 2.20 1.80-2.40 mg/dL Current Medications Medications (Trade) Dose Ordered Sig/Valentina Route PRN Reason Start Time Stop Time Status Last Admin Dose Admin Acetylcysteine (MUComyst 20% 4ML) 400mg = 2ml [id number] IH 10/03/24 10:00 10/06/24 13:17 DC 10/06/24 10:17 800 MG Albuterol Sulfate (Proventil 0.083% 2.5mg/3ml) 2.5 mg Q4HPRN PRN IH BRONCHOSPASM 10/04/24 15:00 11/03/24 14:59 Albuterol Sulfate (Ventolin Hfa) 2 INHALATIONS BID IH 10/07/24 09:00 10/07/24 07:09 DC Albuterol Sulfate (Ventolin Hfa) 2 inh BID IH 10/04/24 21:00 10/07/24 07:08 DC Artificial Tears (Artificial Tears) 1 DROP OP TID TID OP 10/05/24 09:00 11/03/24 20:59 10/07/24 20:42 1 DROP Artificial Tears (Artificial Tears) 1 DROP OR AD Q8H OU 10/03/24 08:30 10/05/24 08:27 DC 10/05/24 00:31 1 DROP Artificial Tears (Artificial Tears) 1 drop TID OP 10/04/24 21:00 10/05/24 08:29 DC 10/04/24 18:30 1 DROP Cetirizine HCl (ZYRtec 5 MG TABLET) 5 mg HS PO 10/07/24 21:00 11/06/24 20:59 10/07/24 20:39 5 MG Chlorhexidine Gluconate (Peridex) 15 ml Q8H MM 10/03/24 08:30 10/17/24 08:29 10/08/24 00:18 15 ML Dextrose 1,000 ml @ 50 mls/hr Q20H IV 10/02/24 20:30 10/03/24 20:38 DC 10/03/24 19:06 50 MLS/HR Dextrose (D50w) 50 ml AD PRN IV HYPOGLYCEMIA PROTOCOL 10/04/24 23:30 11/03/24 23:29 Doxycycline Hyclate 250 ml @ 125 mls/hr Q12H IV 10/03/24 08:30 10/05/24 10:04 DC 10/05/24 09:00 125 MLS/HR Furosemide (LASix 20MG VIAL) 20 mg Q12H IV 10/06/24 22:00 10/07/24 09:13 DC 10/06/24 22:35 20 MG Glucagon (Glucagon 1mg Kit) 1 mg AD PRN IM HYPOGLYCEMIA PROTOCOL 10/04/24 23:30 11/03/24 23:29 Home Med (Compound Po Narcotic) UD AD PO 10/04/24 15:30 10/05/24 16:51 DC Home Med (Home Medication) (Ergocalciferol (Vitamin D2) (Ergocalcifer... QWEEK PO 10/11/24 09:00 11/10/24 08:59 Home Med (Home Medication) (Midazolam (Nayzilam) 5 MG) BID PRN NASAL CONSTIPATION 10/04/24 15:00 11/03/24 14:59 Home Med (Home Medication) 2 PUFFS (Advair Hfa 45... BID IH 10/04/24 21:00 11/03/24 20:59 Home Med (Home Medication) CLOBAZAM 20MG DAILY AT 1700... DAILY17 PO 10/03/24 17:00 11/02/24 16:59 10/07/24 17:00 1 EACH Insulin Human Regular (humuLIN R 100 UNIT/ML 3ML) INSULIN SLIDING SCAL... Q6H6 SQ 10/05/24 00:00 11/04/24 00:00 Ipratropium Villanueva (AtrovENT UD) 0.5 MG [id number] IH 10/03/24 10:00 11/02/24 09:59 10/08/24 06:58 0.5 MG Lansoprazole (Prevacid Solu Tab) 15 mg BID PEG 10/04/24 21:00 10/04/24 11:47 DC Lansoprazole (Prevacid Solu Tab) 30 mg BID PEG 10/04/24 21:00 11/03/24 20:59 10/07/24 20:39 30 MG Lorazepam (AtiVAN) 1 mg AD PRN IVP SEIZURES 10/03/24 21:00 11/02/24 20:59 Magnesium Sulfate 50 ml @ 0 mls/hr PROTOCOL PRN IV Electrolyte abnormality 10/03/24 16:30 11/02/24 16:29 Magnesium Sulfate 50 ml @ 0 mls/hr PROTOCOL PRN IV DEHYDRATION 10/04/24 23:30 10/04/24 23:40 DC Meropenem (Merrem 1gm) 1 gm Q8H IV 10/05/24 14:00 10/15/24 13:59 10/08/24 06:49 1 GM Midodrine (PROAMatine 5 MG TABLET) 5 mg TID PO 10/04/24 11:30 10/06/24 13:21 DC 10/06/24 08:22 5 MG Midodrine (PROAMatine 5 MG TABLET) 10 mg TID PO 10/06/24 14:00 11/05/24 13:59 10/07/24 20:39 10 MG Norepinephrine 250 ml @ 14.288 mls/ hr PROTOCOL PRN IV HYPOTENSION MAP LESS THAN 65 10/03/24 04:00 11/02/24 03:59 10/08/24 03:34 14.288 MLS/HR Ondansetron HCl (zoFRAN 4MG INJ) 4 mg Q6H PRN IV NAUSEA/VOMITING 10/02/24 20:30 11/01/24 20:29 Pantoprazole Sodium (PROTonix 40MG INJ) 40 mg BID IVP 10/03/24 09:00 10/04/24 11:08 DC 10/04/24 08:19 40 MG Pantoprazole Sodium (PROTonix 40MG INJ) 40 mg DAILY IVP 10/03/24 09:00 10/03/24 08:09 DC Pharmacy Profile Note (Pharmacy Communication) Q8H Q8H MISC 10/05/24 14:00 10/05/24 13:51 DC Piperacillin Sod/ Tazobactam Sod (Zosyn 3.375gm+NS 50ml) 3.375 gm Q12H IVPB 10/02/24 20:30 10/05/24 10:04 DC 10/05/24 09:08 3.375 GM Polyethylene Glycol (MIRalax 3350 17 GM POWD.PACK) 17 gm QODAY PO 10/08/24 09:00 11/07/24 08:59 Potassium Chloride/Dextrose/ Sod Cl (Dextrose NS 20 Meq KCl 1000ml) 20 meq AD IV 10/05/24 18:30 10/06/24 22:11 DC 10/06/24 12:13 20 MEQ Potassium Chloride 100 ml @ 50 mls/hr AD PRN IV POTASSIUM PROTOCOL 10/03/24 16:30 11/02/24 16:29 10/05/24 03:01 50 MLS/HR Potassium Chloride 100 ml @ 50 mls/hr AD PRN IV POTASSIUM PROTOCOL 10/04/24 23:30 10/04/24 23:40 DC Potassium Cl/ Dextrose/Lact Ringer's (S1nw-70 Meq KCl 1000 ml) 20 meq AD IV 10/03/24 21:00 10/05/24 17:36 DC 10/05/24 00:00 20 MEQ Propranolol HCl (Inderal) 20 mg BID PRN PO PRN FOR ELEVATED HR 10/04/24 15:00 10/07/24 07:10 DC 10/07/24 01:37 20 MG Sodium Bicarbonate (Sodium Bicarbonate) 650 mg BID GT 10/04/24 21:00 10/04/24 21:16 DC 10/04/24 20:16 650 MG Diagnostics / Radiology: [COPY/PASTE HERE IF NO REPORTS PLEASE DELETE SECTION] Assessment: Gastric ulcer Acute blood loss anemia Gastrostomy status Respiratory failure Plan: If ulcer/bleeding recurs then patient may require removal of feeding tube or placement of a surgical J tube PPI BID Continue GI prophylaxis Avoid NSAIDs Antireflux measures Monitor H&H and transfuse as needed Call with questions, concerns or change in clinical status Patient to follow-up at clinic post discharge Thank you for this consult CHINEDU AMOR Oct 08, 2024 09:08
[2024-10-08] MEDS: polyETHYLene GLYCol 3350 17 GM POWD.PACK PO SCH (09:58)
--- NOTE | 2024-10-08 12:57 | HMCIMG ---
CHEST 1VW REASON: Pneumonia COMPARISON: 10/06/2024 FINDINGS: There is severe scoliosis. There is infiltrate in the left lung along with volume loss. Right lung appears clear. Tracheostomy and left subclavian central line remain in position. IMPRESSION: 1. Extensive infiltrate left lung unchanged.
--- NOTE | 2024-10-08 17:53 | PN ---
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 As per mother ,patient has coffee ground residuals from peg tube and has also been having dark watery stool everyday x 3 days.Patient had also dark stool last week daily x 3 days but had stopped and came back again since Monday this week.As per mother patient didnt have fever,chills,no abdominal pain reported. Latest vital signs temperature 98.2, heart rate 118, respiration 22, blood pressure 104/62, saturation 97% on vent FiO2 60%. Labs: WBC 17.5, hemoglobin 10.7, hematocrit 33, platelet count 344. Sodium 150, chloride 115, BUN 22, creatinine 0.2, total CK nine, total protein nine procalcitonin 0.09. Chest x-ray result revealed dominique spected left lower lung opacities. Follow-up chest radiograph is advised in order to ensure resolution. Chest x-ray result revealed no evidence for bowel obstruction. While in the ER patient received Rocephin 1 g IV, Protonix 40 mg IV, LR bolus 1 L. We will admit patient for further medical management. 10/03/24 On bedside examination in the ER the patient was being ventilated via tracheostomy tube and she has PEG tube in place and she ask functional quadriplegia. Spoke to her mom she describes that this is her usual functional status. A WBC count remains elevated. She is currently on 7 days of Augmentin treatment for her left ear infection with drainage. Her fecal occult blood test is positive for blood her abdominal x-ray reveals no evidence of bowel obstruction. Recent chest x-ray revealed suspected left lower lung opacities and follow-up imaging is recommended. And a recent chest CT scan revealed minimal bilateral pulmonary infiltrates, left lower lung subsegmental atelectasis and bronchiectasis. While in the ER the patient received Rocephin1 g IV, Protonix 40 mg and lactated Ringer's 1 L bolus. Given the elevated WBC count, suspected left lung pneumonia and GI bleeding consent she is being admitted for further manage the her blood pressure is124 x 79 with a pulse of 90. Arterial blood oxygen saturation is 92.7, venous blood pCO2 is that is slow and venous blood PO2 is 66.9, venous blood HC03 is 16.2, bedside lactic acid blood gas is 0.85 high her hemoglobin is 9.2 low and hematocrit is 28.7 low and fibrinogen is381 high sodium level is148 high potassium level is 3.3 low her BUN level is 13 and creatinine level is 0.2 low C-reactive protein is elevated with18 and TSH is high which is 4.29 WBC count is elevated with 12.0 high. Her serum iron levels are low at 38 and TIBC is low at 243 and percentage saturation is 15.6 low and her urine protein is high with 20 and RBCs 2-5 high and WBCs 2-5 high. She is being currently admitted for further management of care 10/04/2024 this patient was previously evaluated in the ED yesterday for elevated WBC 13.6 and which has worsened to 18.1 today, worsening anemia hemoglobin level of 7.7, hypernatremia sodium 152, hypokalemia 3.1 and ABG 7.3 pCO2 28, HC03 of 16.3 and base excess of -7.1. GI and Pulmonary consults have been placed, and an EGD and colonoscopy are planned once patient is hemodynamically stable. The Infectious Disease team is involved due to concerns for sepsis, given her elevated ESR and leukocytosis, high fibrinogen blood, positive urine proteins, hematuria, increased WBC in urine. Fluids have been adjusted to correct hypernatremia and hypokalemia, and a stricter ICU monitoring is in place.A pulse of 1 not 8, respiratory rate 22, blood pressure is stable oxygen saturation adequate on vent ilation. COVID-19 influenza group a strep tests are negative. 10/05/24 patient was seen and examined case discussed with RN. Appreciate GI and pulmonology evaluation. Continue broad-spectrum antibiotics. Monitor labs 10/06/24 patient was seen and examined patient is hemodynamically stable continued current care 10/07/24 patient was seen and examined patient is hemodynamically stable continued current care/discussed with mother by the bed side/off levophed 10/08/2024 This patient is a 18-year-old female with past medical history of spinal muscular atrophy, chronic respiratory failure ventilator dependent via tracheostomy, severe GERD with PEG tube placement, severe thoracic scoliosis and functional quadriplegia who was admitted to ICU for sepsis, suspected pneumonia and acute leukocytosis, GI bleeding and electrolyte abnormalities. She has been receiving meropenem IV for Proteus mirabilis and Serratia pneumonia, fluid and electrolyte correction and respiratory support and close monitoring. Gastroente rology update reveals that patient underwent EGD which revealed an active bleeding antral ulcer. Successful hemostasis achieved with a clip. J-tube was noted to be pushing directly on the ulcer contributing to the bleeding. Discussions ongoing regarding removal of current J-tube were possible placement of surgical J-tube. Hemoglobin improving continue BP therapy and GI prophyla xis. Given her Coumadin clinical improvement she is being downgraded to ice from ICU to PCC day WBC count has decreased to 13.4 today. Hemoglobin and hematocrit are at 8.2 and 27.4. And BUN and creatinine are at 2 and 0.2. Chest x-ray finding revealed extensive left lung infiltrates remain unchanged. No worsening consolidation or pneumothorax or effusion. REVIEW OF SYSTEMS:Unable to perform patient is vented and lethargic PHYSICAL EXAM GENERAL APPEARANCE: The patient is lethargic but arousable.Patient appears comfortable NEUROLOGICAL: Patient is non verbal ,open eyes. HEENT: Face is symmetric. Pupils are equal and reactive. Extraocular movements are intact. NECK: Patient has vent via trache CHEST: Normal chest expansion. +Telemetry. LUNGS: scattered rhonchi on bilateral lower bases per auscultation CARDIOVASCULAR: Regular. S1 and S2 normal. No appreciable rubs, murmurs or gallops. ABDOMEN: + Pegtube-clamped Soft, nontender, and nondistended. There is no rebound, voluntary guarding, or rigidity. : Deferred. No Aleman. EXTREMITIES: + pedal pulses. Good capillary refill. SKIN: No skin breakdown. Vital Signs (last 8hr) Date Time Temp Pulse Resp B/P (MAP) Pulse Ox O2 Delivery O2 Flow Rate FiO2 10/08/24 16:15 121 22 110/84 (93) 99 10/08/24 16:00 99 Ventilator+ 21 10/08/24 16:00 21 10/08/24 16:00 91 22 84/39 (54) 99 10/08/24 15:45 82 23 87/46 (60) 100 10/08/24 15:30 90 22 99/57 (71) 100 10/08/24 15:15 89 20 167/119 (135) 99 10/08/24 15:00 107 22 160/105 (123) 99 10/08/24 14:54 101 21 10/08/24 14:45 107 22 144/99 (114) 99 10/08/24 14:41 104 22 10/08/24 14:30 93 22 121/81 (94) 100 10/08/24 14:15 80 22 116/67 (83) 98 10/08/24 14:00 86 22 96/54 (68) 98 10/08/24 13:45 80 22 96/56 (69) 98 10/08/24 13:30 72 22 109/80 (90) 99 10/08/24 13:15 86 22 100/51 (67) 98 10/08/24 13:00 82 22 100/61 (74) 99 10/08/24 12:45 74 22 106/59 (75) 99 10/08/24 12:30 108 22 126/98 (107) 98 10/08/24 12:25 76 21 10/08/24 12:15 84 22 118/93 (101) 98 10/08/24 12:00 98 Ventilator+ 21 10/08/24 12:00 21 10/08/24 12:00 87 22 96/61 (73) 98 10/08/24 11:45 86 22 93/50 (64) 97 10/08/24 11:30 94 22 101/50 (67) 97 10/08/24 11:15 104 22 115/54 (74) 97 10/08/24 11:00 119 22 117/45 (69) 97 10/08/24 10:45 130 22 139/63 (88) 93 10/08/24 10:30 124 22 126/76 (93) 91 10/08/24 10:15 106 22 121/67 (85) 95 10/08/24 10:00 106 22 116/72 (87) 94 10/08/24 09:54 93 21 LABS: Laboratory: Test 10/08/24 17:29 10/08/24 03:51 Range/Units Whole Blood Glucose 88 70-110 MG/DL White Blood Count 13.4 #H 4.8-10.8 K/uL Red Blood Count 2.72 L 4.00-5.50 MIL/uL Hemoglobin 8.2 L 12.0-16.0 g/dL Hematocrit 27.0 L 36-48 % Mean Corpuscular Volume 99.3 80-100 fL Mean Corpuscular Hemoglobin 30.1 27.0-33.0 pg Mean Corpuscular Hemoglobin Concent 30.4 L 32.0-36.0 g/dL Red Cell Distribution Width 18.0 H 11.0-15.5 % Platelet Count 386 130-400 K/uL Mean Platelet Volume 10.7 H 7.5-10.5 fL Immature Granulocyte % (Auto) 0.6 0-1 % Neutrophils (%) (Auto) 39.1 L 40.0-77.0 % Lymphocytes (%) (Auto) 48.8 21.0-51.0 % Monocytes (%) (Auto) 6.5 3.0-13.0 % Eosinophils (%) (Auto) 4.5 0.0-8.0 % Basophils (%) (Auto) 0.5 0.0-5.0 % Neutrophils # (Auto) 5.3 1.8-7.7 K/uL Lymphocytes # (Auto) 6.6 H 1.0-4.8 K/uL Monocytes # (Auto) 0.9 0.1-1.0 K/uL Eosinophils # (Auto) 0.60 0.00-0.70 K/uL Basophils # (Auto) 0.07 0.00-0.20 K/uL Absolute Immature Granulocyte (auto 0.08 0-1 K/uL Segmented Neutrophils % 32 L 40-70 % Lymphocytes % (Manual) 60 H 22-44 % Monocytes % (Manual) 7 2-9 % Other Cells % 1 H 0-0 Nucleated Red Blood Cells 0.0 0.0-0.19 % Differential Comment MANUAL DIFFERENTIAL White Cell Morphology Comment SMUDGE CELLS 1+ Platelet Morphology Comment See comments Red Blood Cell Morphology See comments Sodium Level 144 136-145 mmol/L Potassium Level 3.9 3.5-5.1 mmol/L Chloride Level 114 H 101-111 mmol/L Carbon Dioxide Level 22 21-32 mmol/L Blood Urea Nitrogen 2 L 7-18 mg/dL Creatinine < 0.2 L 0.5-1.0 mg/dL Glomerular Filtration Rate Calc 172 >90 mL/min Random Glucose 112 H 70-105 mg/dL Total Calcium 7.9 L 8.5-10.1 mg/dL Phosphorus Level 3.6 2.5-4.9 mg/dL Magnesium Level 2.20 1.80-2.40 mg/dL Current Medications Medications (Trade) Dose Ordered Sig/Valentina Route PRN Reason Start Time Stop Time Status Last Admin Dose Admin Acetylcysteine (MUComyst 20% 4ML) 400mg = 2ml [id number] IH 10/03/24 10:00 10/06/24 13:17 DC 10/06/24 10:17 800 MG Albuterol Sulfate (Proventil 0.083% 2.5mg/3ml) 2.5 mg Q4HPRN PRN IH BRONCHOSPASM 10/04/24 15:00 11/03/24 14:59 Albuterol Sulfate (Ventolin Hfa) 2 INHALATIONS BID IH 10/07/24 09:00 10/07/24 07:09 DC Albuterol Sulfate (Ventolin Hfa) 2 inh BID IH 10/04/24 21:00 10/07/24 07:08 DC Artificial Tears (Artificial Tears) 1 DROP OP TID TID OP 10/05/24 09:00 11/03/24 20:59 10/08/24 14:53 1 DROP Artificial Tears (Artificial Tears) 1 DROP OR AD Q8H OU 10/03/24 08:30 10/05/24 08:27 DC 10/05/24 00:31 1 DROP Artificial Tears (Artificial Tears) 1 drop TID OP 10/04/24 21:00 10/05/24 08:29 DC 10/04/24 18:30 1 DROP Cetirizine HCl (ZYRtec 5 MG TABLET) 5 mg HS PO 10/07/24 21:00 11/06/24 20:59 10/07/24 20:39 5 MG Chlorhexidine Gluconate (Peridex) 15 ml Q8H MM 10/03/24 08:30 10/17/24 08:29 10/08/24 17:16 15 ML Dextrose 1,000 ml @ 50 mls/hr Q20H IV 10/02/24 20:30 10/03/24 20:38 DC 10/03/24 19:06 50 MLS/HR Dextrose (D50w) 50 ml AD PRN IV HYPOGLYCEMIA PROTOCOL 10/04/24 23:30 11/03/24 23:29 Doxycycline Hyclate 250 ml @ 125 mls/hr Q12H IV 10/03/24 08:30 10/05/24 10:04 DC 10/05/24 09:00 125 MLS/HR Furosemide (LASix 20MG VIAL) 20 mg Q12H IV 10/06/24 22:00 10/07/24 09:13 DC 10/06/24 22:35 20 MG Glucagon (Glucagon 1mg Kit) 1 mg AD PRN IM HYPOGLYCEMIA PROTOCOL 10/04/24 23:30 11/03/24 23:29 Home Med (Compound Po Narcotic) UD AD PO 10/04/24 15:30 10/05/24 16:51 DC Home Med (Home Medication) (Ergocalciferol (Vitamin D2) (Ergocalcifer... QWEEK PO 10/11/24 09:00 11/10/24 08:59 Home Med (Home Medication) (Midazolam (Nayzilam) 5 MG) BID PRN NASAL CONSTIPATION 10/04/24 15:00 11/03/24 14:59 Home Med (Home Medication) 2 PUFFS (Advair Hfa 45... BID IH 10/04/24 21:00 11/03/24 20:59 Home Med (Home Medication) CLOBAZAM 20MG DAILY AT 1700... DAILY17 PO 10/03/24 17:00 11/02/24 16:59 10/07/24 17:00 1 EACH Insulin Human Regular (humuLIN R 100 UNIT/ML 3ML) INSULIN SLIDING SCAL... Q6H6 SQ 10/05/24 00:00 11/04/24 00:00 Ipratropium [place] (AtrovENT UD) 0.5 MG [id number] IH 10/03/24 10:00 11/02/24 09:59 10/08/24 14:39 0.5 MG Lansoprazole (Prevacid Solu Tab) 15 mg BID PEG 10/04/24 21:00 10/04/24 11:47 DC Lansoprazole (Prevacid Solu Tab) 30 mg BID PEG 10/04/24 21:00 11/03/24 20:59 10/08/24 09:58 30 MG Lorazepam (AtiVAN) 1 mg AD PRN IVP SEIZURES 10/03/24 21:00 11/02/24 20:59 Magnesium Sulfate 50 ml @ 0 mls/hr PROTOCOL PRN IV Electrolyte abnormality 10/03/24 16:30 11/02/24 16:29 Magnesium Sulfate 50 ml @ 0 mls/hr PROTOCOL PRN IV DEHYDRATION 10/04/24 23:30 10/04/24 23:40 DC Meropenem (Merrem 1gm) 1 gm Q8H IV 10/05/24 14:00 10/15/24 13:59 10/08/24 14:51 1 GM Midodrine (PROAMatine 5 MG TABLET) 5 mg TID PO 10/04/24 11:30 10/06/24 13:21 DC 10/06/24 08:22 5 MG Midodrine (PROAMatine 5 MG TABLET) 10 mg TID PO 10/06/24 14:00 10/08/24 14:52 DC 10/08/24 14:51 10 MG Midodrine (PROAMatine 5 MG TABLET) 15 mg TID PO 10/08/24 21:00 11/07/24 20:59 Norepinephrine 250 ml @ 14.288 mls/ hr PROTOCOL PRN IV HYPOTENSION MAP LESS THAN 65 10/03/24 04:00 10/08/24 17:17 DC 10/08/24 03:34 14.288 MLS/HR Ondansetron HCl (zoFRAN 4MG INJ) 4 mg Q6H PRN IV NAUSEA/VOMITING 10/02/24 20:30 11/01/24 20:29 Pantoprazole Sodium (PROTonix 40MG INJ) 40 mg BID IVP 10/03/24 09:00 10/04/24 11:08 DC 10/04/24 08:19 40 MG Pantoprazole Sodium (PROTonix 40MG INJ) 40 mg DAILY IVP 10/03/24 09:00 10/03/24 08:09 DC Pharmacy Profile Note (Pharmacy Communication) Q8H Q8H MISC 10/05/24 14:00 10/05/24 13:51 DC Piperacillin Sod/ Tazobactam Sod (Zosyn 3.375gm+NS 50ml) 3.375 gm Q12H IVPB 10/02/24 20:30 10/05/24 10:04 DC 10/05/24 09:08 3.375 GM Polyethylene Glycol (MIRalax 3350 17 GM POWD.PACK) 17 gm QODAY PO 10/08/24 09:00 11/07/24 08:59 10/08/24 09:58 17 GM Potassium Chloride/Dextrose/ Sod Cl (Dextrose NS 20 Meq KCl 1000ml) 20 meq AD IV 10/05/24 18:30 10/06/24 22:11 DC 10/06/24 12:13 20 MEQ Potassium Chloride 100 ml @ 50 mls/hr AD PRN IV POTASSIUM PROTOCOL 10/03/24 16:30 11/02/24 16:29 10/05/24 03:01 50 MLS/HR Potassium Chloride 100 ml @ 50 mls/hr AD PRN IV POTASSIUM PROTOCOL 10/04/24 23:30 10/04/24 23:40 DC Potassium Cl/ Dextrose/Lact Ringer's (C8xs-77 Meq KCl 1000 ml) 20 meq AD IV 10/03/24 21:00 10/05/24 17:36 DC 10/05/24 00:00 20 MEQ Propranolol HCl (Inderal) 20 mg BID PRN PO PRN FOR ELEVATED HR 10/04/24 15:00 10/07/24 07:10 DC 10/07/24 01:37 20 MG Sodium Bicarbonate (Sodium Bicarbonate) 650 mg BID GT 10/04/24 21:00 10/04/24 21:16 DC 10/04/24 20:16 650 MG DIAGNOSTICS / RADIOLOGY: [ ]PATIENT: KYLE PATEL MR#: [id number] : 2005 SEX: F AGE: 18 LOCATION: 2BH ORDER 1011 STATUS: ADM IN REPORT#: [id number] SERVICE 1007 REASON: Pneumonia ORDERING PHYSICIAN: NEGRA VALENTE MD PROCEDURE: CXR1VW - CHEST 1VW CHEST 1VW REASON: Pneumonia COMPARISON: 10/06/2024 FINDINGS: There is severe scoliosis. There is infiltrate in the left lung along with volume loss. Right lung appears clear. Tracheostomy and left subclavian central line remain in position. IMPRESSION: 1. Extensive infiltrate left lung unchanged. DICTATED BY: ASH HICKMAN MD DATE: 10/08/24 1252 ELECTRONICALLY SIGNED BY: ASH HICKMAN MD DATE: 10/08/24 1257 ASSESSMENT: Suspected Left lung pneumonia POA Suspected GI bleed POA Normocytic normochromic anemia POA Acute Leukocytosis POA Hypernatremia POA Hypokalemia POA Chronic respiratory failure ventilator dependent POA Functional quadriplegia POA GERD with PEG tube placement. POA Peg tube status POA Recent Left ear infection POA Spinal Muscular dystrophy POA Severe thoracic scoliosis POA PLAN: We will start D5 at 75 mL/hour We will start on Protonix 40 mg IV daily We will replace electrolytes as needed per protocol We will add prn medication for fever,pain,cough ,nausea and vomiting Respiratory consult has been placed and chest physiotherapy and suctioning has been ordered as needed. Maintain ventilator settings and monitor ABGs. continue ventilator support and adjust as per respiratory consult. EGD and colonoscopy once hemodynamically stabilized. Hypernatremia correction with D5W IV to 75 mL/hour. Monitor serum sodium every 4 hours. Hypokalemia protocol as per facility. Magnesium supplementation as per protocol of the facility. Adjust PEG tube feeds per dietary recommendation. pulmonary function test has been ordered. Follow-up chest x-ray to monitor resolution. Oxygen support via ventilator as needed. Gastro consult has been placed and check hemoglobin every 8-12 hours. Her stool occult has been positive for blood. Continue current antibiotic therapy with meropenem1 g IV q.8h. Monitor WBC trend, inflammatory markers CRP procalcitonin. Monitor hemoglobin and hematocrit trends. Iron replacement has been ordered. Blood transfusion if hemoglobin drops below 7. Follow up on GI recommendations for J-tube removed versus surgical J-tube placement for Schedule outpatient GI following post discharge follow-up. Patient has been downgraded to PCCU. Continue close monitoring with step-down care. Speech therapy consult has been placed for aspiration risk. Repeating TSH T3-T4 for further evaluation of her elevated TSH. Electrolytes will be replaced according to the facility protocol. We will follow up urinalysis result, we will cultures and fecal occult blood We will request labs in am We will request H&H p.r.n. bleeding We will seek critical Care consultation Further orders to follow depending on above results Case discussed with attending physician and came up with above treatment and plan of care. ATTESTATION BY PHYSICIAN I have seen and examined the patient. I reviewed the documentation, medical decision making, and treatment plan as noted by the mid-level provider above. I agree with the findings and plan of care. Killian Caro MD, RAGHAVA R MD Oct 08, 2024 17:53
[2024-10-08] MEDS: miDODRine HCL 5 MG TABLET PO SCH (22:16)
[2024-10-09] VITALS (32 sets, daily range): BP systolic 75–124; BP diastolic 28–71; PULSE 52–116; RESP 22–25; TEMP 97.2–97.7; O2SAT 97–100
--- NOTE | 2024-10-09 02:59 | PN ---
INFECTIOUS DISEASE FOLLOWUP NOTE DATE OF SERVICE: 10/08/2024 SUBJECTIVE: The patient is seen and examined at bedside today. The patient has no fever, no chills. No bleeding tendency. No vomiting. The patient is nonverbal. No neck swelling. PHYSICAL EXAMINATION: VITAL SIGNS: Temperature 98.7. EYES: No icterus. Pupils equal and reactive. HENT: No oral thrush seen. Moist oral mucosa. NECK: Supple. Trachea is midline. Ventilatory support. LUNGS: Crackles bilaterally. CARDIOVASCULAR: S1, S2, regular. No murmur heard. ABDOMEN: Full, soft. Bowel sound is present. PEG site looks clean. CENTRAL NERVOUS SYSTEM: The patient is awake, nonverbal, bedbound, . SKIN: No rashes, no itchiness. LYMPHATIC: No peripheral lymphadenopathy. BACK: There is scoliosis. GENITOURINARY: Aleman catheter in place. No hematuria. ASSESSMENT: A 18-year-old female with multiple problems include: * Septic shock. * Pneumonia. * Chronic respiratory failure, on ventilatory support. * Hyponatremia. * Hyperkalemia. * Quadriplegia. * Spinal muscular dystrophy. * Infection with multidrug resistant organism. PLAN: * Continue vasopressor as needed. * Continue critical care support. * Continue ventilatory support. * Continue meropenem. * Continue PEG feeding. * Continue bronchodilators. * Monitor electrolytes. * The patient will be followed up closely. TID: [id number] RECEIPT: [id number]
[2024-10-09 04:22] LABS: BASOPHILS # (AUTO) 0.04 K/uL (0.00-0.20); BASOPHILS % (AUTO) 0.2 % (0.0-5.0); EOSINOPHILS # (AUTO) 0.38 K/uL (0.00-0.70); EOSINOPHILS % (AUTO) 2.3 % (0.0-8.0); HEMATOCRIT 25.6 % (36-48); IMMATURE GRANULOCYTE ABSOLUTE 0.08 K/uL (0-1); LYMPHOCYTES # (AUTO) 6.5 K/uL (1.0-4.8); LYMPHOCYTES % (AUTO) 38.8 % (21.0-51.0); MEAN CORPUSCULAR HEMOGLOBIN 30.1 pg (27.0-33.0); MEAN CORPUSCULAR HGB CONC 30.5 g/dL (32.0-36.0); MEAN CORPUSCULAR VOLUME 98.8 fL (80-100); MONOCYTES # (AUTO) 0.9 K/uL (0.1-1.0); MONOCYTES % (AUTO) 5.2 % (3.0-13.0); NEUTROPHILS # (AUTO) 8.8 K/uL (1.8-7.7); PLATELET COUNT (AUTO) 365 K/uL (130-400); RED BLOOD CELL COUNT(AUTO) 2.59 MIL/uL (4.00-5.50); RED CELL DISTRIBUTION WIDTH 17.5 % (11.0-15.5); WHITE BLOOD COUNT (AUTO) 16.7 K/uL (4.8-10.8)
[2024-10-09 04:28] LABS: ALANINE AMINOTRANSFERASE 15 U/L (12-78); ALBUMIN 2.3 g/dL (3.5-5.0); ASPARTATE AMINOTRANSFERASE 15 U/L (10-37); BILIRUBIN,TOTAL 0.2 mg/dL (0.2-1.0); CARBON DIOXIDE 25 mmol/L (21-32); CHLORIDE 108 mmol/L (101-111); GLUCOSE,RANDOM 101 mg/dL (70-105); POTASSIUM 4.1 mmol/L (3.5-5.1); SODIUM SERUM 139 mmol/L (136-145); TOTAL PROTEIN, SERUM 6.3 g/dL (6.0-8.3); UREA NITROGEN, BLOOD 5 mg/dL (7-18)
[2024-10-09 04:36] LABS: CREATININE < 0.2 mg/dL (0.5-1.0); GLOMERULAR FILTR. RATE CALC 172 mL/min (>90)
[2024-10-09] MEDS: CLOBAZAM 20 MG PO SCH (08:44)
--- NOTE | 2024-10-09 09:05 | PN ---
GASTROENTEROLOGY PROGRESS NOTE Date of Visit: Oct 09, 2024 Time of Visit: 09:04 Events / Notes: No acute events overnight. Patient had EGD which revealed bleeding antral ulcer s/p clip with hemostasis. J tube was found right on ulcer. Hgb stable. WBC fluctuating. No reports of fever, chills, abdominal pain, N/V, hematemesis, bloating, constipation, diarrhea, melena or hematochezia. Review of Systems: CONSTITUTIONAL: No malaise or change in sensation of wellbeing. ENMT: No rhinorrhea, otorrhea, sinus pain, ear ache. CARDIOVASCULAR: No angina, palpitations, orthopnea or paroxysmal dyspnea. RESPIRATORY: No SOB. GASTROINTESTINAL: No abdominal pain, nausea, vomiting, diarrhea, hematemesis, melena or change in the patient's habitual bowel movements consistency/number. GENITOURINARY: No dysuria, hematuria or change in bladder continence. MUSCULOSKELETAL: No new muscle pain or decrease in muscular strength. No new joint swelling, redness or tenderness. SKIN: No new rash. Physical Exam: GEN: Awake, alert, oriented in person, time and place, and in no acute distress. HEENT: No sinus tenderness. Tympanic membranes were not examined. No rhinorrhea. Oral pharyngeal mucosa is pink, moist and within normal limits. Neck is supple with no cervical lymphadenopathy, thyromegaly or JVD. CHEST: Inspection, palpation and percussion of the chest were unremarkable. Lung auscultation revealed normal breath sounds bilaterally. CARDIAC: PMI is within normal limits. Heart sounds are regular. Normal S1, S2. No gallop or murmur. ABD: Soft, non-tender and not distended. No peritoneal signs on palpation. No organomegaly. Normal bowel sounds. EXT: No cyanosis or clubbing. No edema. SKIN: Intact. No rashes. JOINTS: No evidence of synovitis or acute arthritis. NEURO: Alert and oriented to name, place and person. Cranial nerve examination is unremarkable. No focal motor deficits. Normal speech. Gait is normal. Strength is normal. Vital Signs (last 8hr) Date Time Temp Pulse Resp B/P (MAP) Pulse Ox O2 Delivery O2 Flow Rate FiO2 10/09/24 07:18 79 22 10/09/24 07:16 79 21 10/09/24 07:12 77 22 2/19/25 04:55 64 21 10/09/24 04:00 21 10/09/24 04:00 64 22 92/52 99 Ventilator 21 10/09/24 02:39 92 22 10/09/24 02:38 77 21 Laboratory: [ ] Laboratory: Test 10/09/24 07:09 10/09/24 03:45 10/08/24 03:51 Range/Units Whole Blood Glucose 89 70-110 MG/DL White Blood Count 16.7 H 4.8-10.8 K/uL Red Blood Count 2.59 L 4.00-5.50 MIL/uL Hemoglobin 7.8 L 12.0-16.0 g/dL Hematocrit 25.6 L 36-48 % Mean Corpuscular Volume 98.8 80-100 fL Mean Corpuscular Hemoglobin 30.1 27.0-33.0 pg Mean Corpuscular Hemoglobin Concent 30.5 L 32.0-36.0 g/dL Red Cell Distribution Width 17.5 H 11.0-15.5 % Platelet Count 365 130-400 K/uL Mean Platelet Volume 10.3 7.5-10.5 fL Immature Granulocyte % (Auto) 0.5 0-1 % Neutrophils (%) (Auto) 53.0 40.0-77.0 % Lymphocytes (%) (Auto) 38.8 21.0-51.0 % Monocytes (%) (Auto) 5.2 3.0-13.0 % Eosinophils (%) (Auto) 2.3 0.0-8.0 % Basophils (%) (Auto) 0.2 0.0-5.0 % Neutrophils # (Auto) 8.8 H 1.8-7.7 K/uL Lymphocytes # (Auto) 6.5 H 1.0-4.8 K/uL Monocytes # (Auto) 0.9 0.1-1.0 K/uL Eosinophils # (Auto) 0.38 0.00-0.70 K/uL Basophils # (Auto) 0.04 0.00-0.20 K/uL Absolute Immature Granulocyte (auto 0.08 0-1 K/uL Nucleated Red Blood Cells 0.0 0.0-0.19 % Sodium Level 139 136-145 mmol/L Potassium Level 4.1 3.5-5.1 mmol/L Chloride Level 108 101-111 mmol/L Carbon Dioxide Level 25 21-32 mmol/L Blood Urea Nitrogen 5 L 7-18 mg/dL Creatinine < 0.2 L 0.5-1.0 mg/dL Glomerular Filtration Rate Calc 172 >90 mL/min Random Glucose 101 70-105 mg/dL Total Calcium 8.0 L 8.5-10.1 mg/dL Total Bilirubin 0.2 0.2-1.0 mg/dL Aspartate Amino Transf (AST/SGOT) 15 10-37 U/L Alanine Aminotransferase (ALT/SGPT) 15 12-78 U/L Alkaline Phosphatase 109 50-136 U/L Total Protein 6.3 6.0-8.3 g/dL Albumin 2.3 L 3.5-5.0 g/dL Segmented Neutrophils % 32 L 40-70 % Lymphocytes % (Manual) 60 H 22-44 % Monocytes % (Manual) 7 2-9 % Other Cells % 1 H 0-0 Differential Comment MANUAL DIFFERENTIAL White Cell Morphology Comment SMUDGE CELLS 1+ Platelet Morphology Comment See comments Red Blood Cell Morphology See comments Phosphorus Level 3.6 2.5-4.9 mg/dL Magnesium Level 2.20 1.80-2.40 mg/dL Current Medications Medications (Trade) Dose Ordered Sig/Valentina Route PRN Reason Start Time Stop Time Status Last Admin Dose Admin Acetylcysteine (MUComyst 20% 4ML) 400mg = 2ml [id number] IH 10/03/24 10:00 10/06/24 13:17 DC 10/06/24 10:17 800 MG Albuterol Sulfate (Proventil 0.083% 2.5mg/3ml) 2.5 mg Q4HPRN PRN IH BRONCHOSPASM 10/04/24 15:00 11/03/24 14:59 Albuterol Sulfate (Ventolin Hfa) 2 INHALATIONS BID IH 10/07/24 09:00 10/07/24 07:09 DC Albuterol Sulfate (Ventolin Hfa) 2 inh BID IH 10/04/24 21:00 10/07/24 07:08 DC Artificial Tears (Artificial Tears) 1 DROP OP TID TID OP 10/05/24 09:00 11/03/24 20:59 10/09/24 08:31 1 DROP Artificial Tears (Artificial Tears) 1 DROP OR AD Q8H OU 10/03/24 08:30 10/05/24 08:27 DC 10/05/24 00:31 1 DROP Artificial Tears (Artificial Tears) 1 drop TID OP 10/04/24 21:00 10/05/24 08:29 DC 10/04/24 18:30 1 DROP Cetirizine HCl (ZYRtec 5 MG TABLET) 5 mg HS PO 10/07/24 21:00 11/06/24 20:59 10/08/24 22:16 5 MG Chlorhexidine Gluconate (Peridex) 15 ml Q8H MM 10/03/24 08:30 10/17/24 08:29 10/09/24 08:30 15 ML Dextrose 1,000 ml @ 50 mls/hr Q20H IV 10/02/24 20:30 10/03/24 20:38 DC 10/03/24 19:06 50 MLS/HR Dextrose (D50w) 50 ml AD PRN IV HYPOGLYCEMIA PROTOCOL 10/04/24 23:30 11/03/24 23:29 Doxycycline Hyclate 250 ml @ 125 mls/hr Q12H IV 10/03/24 08:30 10/05/24 10:04 DC 10/05/24 09:00 125 MLS/HR Furosemide (LASix 20MG VIAL) 20 mg Q12H IV 10/06/24 22:00 10/07/24 09:13 DC 10/06/24 22:35 20 MG Glucagon (Glucagon 1mg Kit) 1 mg AD PRN IM HYPOGLYCEMIA PROTOCOL 10/04/24 23:30 11/03/24 23:29 Home Med (Compound Po Narcotic) UD AD PO 10/04/24 15:30 10/05/24 16:51 DC Home Med (Home Medication) (Ergocalciferol (Vitamin D2) (Ergocalcifer... QWEEK PO 10/11/24 09:00 11/10/24 08:59 Home Med (Home Medication) (Midazolam (Nayzilam) 5 MG) BID PRN NASAL CONSTIPATION 10/04/24 15:00 11/03/24 14:59 Home Med (Home Medication) 2 PUFFS (Advair Hfa 45... BID IH 10/04/24 21:00 11/03/24 20:59 Home Med (Home Medication) CLOBAZAM 20MG DAILY AT 1700... DAILY PO 10/09/24 09:00 11/08/24 08:59 10/09/24 08:44 1 EACH Home Med (Home Medication) CLOBAZAM 20MG DAILY AT 1700... DAILY17 PO 10/03/24 17:00 10/09/24 08:37 DC 10/07/24 17:00 1 EACH Insulin Human Regular (humuLIN R 100 UNIT/ML 3ML) INSULIN SLIDING SCAL... Q6H6 SQ 10/05/24 00:00 11/04/24 00:00 Ipratropium Crestline (AtrovENT UD) 0.5 MG [id number] IH 10/03/24 10:00 11/02/24 09:59 10/09/24 07:11 0.5 MG Lansoprazole (Prevacid Solu Tab) 15 mg BID PEG 10/04/24 21:00 10/04/24 11:47 DC Lansoprazole (Prevacid Solu Tab) 30 mg BID PEG 10/04/24 21:00 11/03/24 20:59 10/09/24 08:30 30 MG Lorazepam (AtiVAN) 1 mg AD PRN IVP SEIZURES 10/03/24 21:00 11/02/24 20:59 Magnesium Sulfate 50 ml @ 0 mls/hr PROTOCOL PRN IV Electrolyte abnormality 10/03/24 16:30 11/02/24 16:29 Magnesium Sulfate 50 ml @ 0 mls/hr PROTOCOL PRN IV DEHYDRATION 10/04/24 23:30 10/04/24 23:40 DC Meropenem (Merrem 1gm) 1 gm Q8H IV 10/05/24 14:00 10/15/24 13:59 10/09/24 07:10 1 GM Midodrine (PROAMatine 5 MG TABLET) 5 mg TID PO 10/04/24 11:30 10/06/24 13:21 DC 10/06/24 08:22 5 MG Midodrine (PROAMatine 5 MG TABLET) 10 mg TID PO 10/06/24 14:00 10/08/24 14:52 DC 10/08/24 14:51 10 MG Midodrine (PROAMatine 5 MG TABLET) 15 mg TID PO 10/08/24 21:00 11/07/24 20:59 10/09/24 08:31 15 MG Norepinephrine 250 ml @ 14.288 mls/ hr PROTOCOL PRN IV HYPOTENSION MAP LESS THAN 65 10/03/24 04:00 10/08/24 17:17 DC 10/08/24 03:34 14.288 MLS/HR Ondansetron HCl (zoFRAN 4MG INJ) 4 mg Q6H PRN IV NAUSEA/VOMITING 10/02/24 20:30 11/01/24 20:29 Pantoprazole Sodium (PROTonix 40MG INJ) 40 mg BID IVP 10/03/24 09:00 10/04/24 11:08 DC 10/04/24 08:19 40 MG Pantoprazole Sodium (PROTonix 40MG INJ) 40 mg DAILY IVP 10/03/24 09:00 10/03/24 08:09 DC Pharmacy Profile Note (Pharmacy Communication) Q8H Q8H MISC 10/05/24 14:00 10/05/24 13:51 DC Piperacillin Sod/ Tazobactam Sod (Zosyn 3.375gm+NS 50ml) 3.375 gm Q12H IVPB 10/02/24 20:30 10/05/24 10:04 DC 10/05/24 09:08 3.375 GM Polyethylene Glycol (MIRalax 3350 17 GM POWD.PACK) 17 gm QODAY PO 10/08/24 09:00 11/07/24 08:59 10/08/24 09:58 17 GM Potassium Chloride/Dextrose/ Sod Cl (Dextrose NS 20 Meq KCl 1000ml) 20 meq AD IV 10/05/24 18:30 10/06/24 22:11 DC 10/06/24 12:13 20 MEQ Potassium Chloride 100 ml @ 50 mls/hr AD PRN IV POTASSIUM PROTOCOL 10/03/24 16:30 11/02/24 16:29 10/05/24 03:01 50 MLS/HR Potassium Chloride 100 ml @ 50 mls/hr AD PRN IV POTASSIUM PROTOCOL 10/04/24 23:30 10/04/24 23:40 DC Potassium Cl/ Dextrose/Lact Ringer's (D5np-21 Meq KCl 1000 ml) 20 meq AD IV 10/03/24 21:00 10/05/24 17:36 DC 10/05/24 00:00 20 MEQ Propranolol HCl (Inderal) 20 mg BID PRN PO PRN FOR ELEVATED HR 10/04/24 15:00 10/07/24 07:10 DC 10/07/24 01:37 20 MG Sodium Bicarbonate (Sodium Bicarbonate) 650 mg BID GT 10/04/24 21:00 10/04/24 21:16 DC 10/04/24 20:16 650 MG Diagnostics / Radiology: [COPY/PASTE HERE IF NO REPORTS PLEASE DELETE SECTION] Assessment: Gastric ulcer Acute blood loss anemia Gastrostomy status Respiratory failure Plan: If ulcer/bleeding recurs then patient may require removal of feeding tube or placement of a surgical J tube PPI BID Continue GI prophylaxis Avoid NSAIDs Antireflux measures Monitor H&H and transfuse as needed Call with questions, concerns or change in clinical status Patient to follow-up at clinic post discharge Thank you for this consult CHINEDU AMOR Oct 09, 2024 09:05
--- NOTE | 2024-10-09 09:30 | PN ---
[facility] PROGRESS NOTE Date Patient Seen: Oct 09, 2024 Time of Visit: 10:30 Supervising Physician: Cm Prince MD Primary Care Physician: Mariaelena Alvarez Outpatient Specialists: Inpatient Consults: BIS, PROBLEM LIST: Bilateral Bacterial pneumonia L>R POA + for Proteus Mirabilis, and serratia Marcescens Septic shock, POA requiring Levophed, resolved Acute on chronic hypoxic respiratory failure, POA resolved back to baseline fio2 21% Ventilator dependent since Tracheostomy size Compensated metabolic acidosis, POA Acute on chronic anemia from blood loss, POA (Melena) s/p EGD 10/04/24 w/ findings of bleed and clipping Leukocytosis, POA Hypernatremia POA Chronic respiratory failure ventilator dependent POA Functional quadriplegia POA Bernardo tube gastrostomy, POA Recent Left ear infection POA Hypokalemia resolved Hx of seizures History of spinal muscular dysplasia Hx of Severe thoracic scoliosis INTERVAL HISTORY: Bruce assessed in room 206. Mental status at baseline. Vent dependent, alert, functional quadriplegic. Mother at the bedside informed her of current findings and answered her questions. She has been hemodynamically stable and afebrile and as per RN no major overnight events. Patient continues with home vent and home settings with FiO2 of 21% saturating 99-100 %. H&H decreased from yesterday which was 8.2 now 7.8/25.6 platelet count 365 K. per GI recommendation if patient shows signs of rebleeding she may need a surgical G-tube placement. Gi team was notified of slight drop in HH. Patient continues on antibiotics per ID. Due to patient being high-risk for decompensation and high acuity we will go ahead have pt in ICU status. Chest x-ray with diffuse infiltrates in left lung unchanged. We will continue to follow GI recommendations. For now we will trend H&H and transfuse if hemoglobin drops less than 7. Repeat sputum culture pending. REVIEW OF SYSTEMS: Unable to perform due to patient's cognitive status. PHYSICAL EXAM: GENERAL: Patient is awake alert aphasic. functional quadriplegia HEENT: Sclera non icteric, moist mucosa NECK: Short no JVD, tracheostomy LUNGS: diminished breath sounds bilaterally. No wheezes HEART: Regular rate and rhythm. Normal S1 and S2, without murmurs ABD: Abdomen soft, nontender. Bowel sounds present EXT: No clubbing cyanosis or edema NEURO: Functional quadriplegia, bed bound Vital Signs (last 8hr) Date Time Temp Pulse Resp B/P (MAP) Pulse Ox O2 Delivery O2 Flow Rate FiO2 10/09/24 09:28 59 21 10/09/24 07:18 79 22 10/09/24 07:16 79 21 10/09/24 07:12 77 22 10/09/24 04:55 64 21 10/09/24 04:00 21 10/09/24 04:00 64 22 92/52 99 Ventilator 21 10/09/24 02:39 92 22 10/09/24 02:38 77 21 LABS: Hematology Labs: Test 10/09/24 03:45 10/08/24 03:51 Range/Units White Blood Count 16.7 H 4.8-10.8 K/uL Red Blood Count 2.59 L 4.00-5.50 MIL/uL Hemoglobin 7.8 L 12.0-16.0 g/dL Hematocrit 25.6 L 36-48 % Mean Corpuscular Volume 98.8 80-100 fL Mean Corpuscular Hemoglobin 30.1 27.0-33.0 pg Mean Corpuscular Hemoglobin Concent 30.5 L 32.0-36.0 g/dL Red Cell Distribution Width 17.5 H 11.0-15.5 % Platelet Count 365 130-400 K/uL Mean Platelet Volume 10.3 7.5-10.5 fL Immature Granulocyte % (Auto) 0.5 0-1 % Neutrophils (%) (Auto) 53.0 40.0-77.0 % Lymphocytes (%) (Auto) 38.8 21.0-51.0 % Monocytes (%) (Auto) 5.2 3.0-13.0 % Eosinophils (%) (Auto) 2.3 0.0-8.0 % Basophils (%) (Auto) 0.2 0.0-5.0 % Neutrophils # (Auto) 8.8 H 1.8-7.7 K/uL Lymphocytes # (Auto) 6.5 H 1.0-4.8 K/uL Monocytes # (Auto) 0.9 0.1-1.0 K/uL Eosinophils # (Auto) 0.38 0.00-0.70 K/uL Basophils # (Auto) 0.04 0.00-0.20 K/uL Absolute Immature Granulocyte (auto 0.08 0-1 K/uL Nucleated Red Blood Cells 0.0 0.0-0.19 % Segmented Neutrophils % 32 L 40-70 % Lymphocytes % (Manual) 60 H 22-44 % Monocytes % (Manual) 7 2-9 % Other Cells % 1 H 0-0 Differential Comment MANUAL DIFFERENTIAL White Cell Morphology Comment SMUDGE CELLS 1+ Platelet Morphology Comment See comments Red Blood Cell Morphology See comments Chemistry Labs: Test 10/09/24 07:09 10/09/24 03:45 10/08/24 03:51 Range/Units Whole Blood Glucose 89 70-110 MG/DL Sodium Level 139 136-145 mmol/L Potassium Level 4.1 3.5-5.1 mmol/L Chloride Level 108 101-111 mmol/L Carbon Dioxide Level 25 21-32 mmol/L Blood Urea Nitrogen 5 L 7-18 mg/dL Creatinine < 0.2 L 0.5-1.0 mg/dL Glomerular Filtration Rate Calc 172 >90 mL/min Random Glucose 101 70-105 mg/dL Total Calcium 8.0 L 8.5-10.1 mg/dL Total Bilirubin 0.2 0.2-1.0 mg/dL Aspartate Amino Transf (AST/SGOT) 15 10-37 U/L Alanine Aminotransferase (ALT/SGPT) 15 12-78 U/L Alkaline Phosphatase 109 50-136 U/L Total Protein 6.3 6.0-8.3 g/dL Albumin 2.3 L 3.5-5.0 g/dL Phosphorus Level 3.6 2.5-4.9 mg/dL Magnesium Level 2.20 1.80-2.40 mg/dL DIAGNOSTICS / RADIOLOGY RESULTS: [ ] IMAGING REPORT Signed PATIENT: KYLE PATEL MR#: [id number] : 2005 SEX: F AGE: 18 LOCATION: 2BH ORDER STATUS: ADM IN REPORT#: [id number] SERVICE [id number] REASON: Pneumonia ORDERING PHYSICIAN: NEGRA VALENTE MD PROCEDURE: CXR1VW - CHEST 1VW CHEST 1VW REASON: Pneumonia COMPARISON: 10/08/2024 FINDINGS: There is diffuse haziness in the left lung consistent with infiltrate, unchanged. Right lung is clear. There is stable cardiomegaly without vascular congestion. IMPRESSION: 1. Diffuse infiltrate left lung unchanged. DICTATED BY: ASH HICKMAN MD DATE: 10/09/241220 ELECTRONICALLY SIGNED BY: ASH HICKMAN MD DATE: 10/09/241223 PLAN Keep in ICU continue Meropenem ABX orPer ID Atrovent q.4 hours PRN PICC line in place Monitor electrolytes and cover accordingly male continue tube feedings. midodrine 15mg tid via gtube Seizure precautions Ativan PRN IV seizure home seizure medication Supplemental 02 as needed, currently on home vent settings at 21% DuoNebs and CPT as needed VAP Bundle Vent/BIPAP Settings: SIMV mode, TV 250, RR 22, fio2 of 21% and peep 6, with pressure support of 10. tube feedings per Gtube Follow GI recommendations Daily weights Avoid nephrotoxic agents Monitor electrolytes and replace as needed Respiratory culture+ proteus mirabilis and + for serratia Marcescens serial H&H. Keep Hgb > 7 Transfuse 1 unit of PRBC for Hgb < 7 Transfuse 1 pack of platelets of platelets < 20, 000 Watch for any signs and symptoms of bleeding Pressure ulcer prevention per facility protocol specialty bed Prophylaxis: GI: Protonix 40 mg IV push b.i.d. DVT: SCDs no AC due to acute anemia from blood looss Code Status: Full Resuscitation Disposition per primary PLAN NEURO: Minimize central acting medications as possible. Fall Precautions. Well lighted room through the day and minimize interruptions through the night to prevent acute delirium. PULMONARY: Supplemental 02 as needed Titrate Fio2 to keep Spo2 > or = 90% DuoNebs and CPT as needed IS hourly while awake for pulmonary hygiene Out of bed to chair as tolerated VAP Bundle CARDIOVASCULAR: Follow hemodynamics. Titrate vasopressor to keep MAP >65 or systolic blood pressure >95mmHg DRIP: none[ ] LINES: picc GI & NUTRITION: Continue nutritional support Aspirations precautions Prokinetic agents and laxatives as needed KIDNEYS & ELECTROLYTES: Strict monitoring of intake and output Daily weights Avoid nephrotoxic agents Monitor electrolytes and replace as needed Goal urine output of 30mL/hr or 0.5mL/kg/hr Urine output: [ ] Fluid Balance: [ ] ENDOCRINE: Maintain blood glucose between 100-180 at all times. Insulin sliding scale for blood glucose management INFECTIOUS DISEASE: Trend temperature. Herrera-culture if febrile. Micro: [ ] Antibiotics: [ ] meropenem HEMATOLOGY & COAGULATION: Monitor H&H. Keep Hgb > 7 Transfuse 1 unit of PRBC for Hgb < 7 Transfuse 1 pack of platelets of platelets < 20, 000 Watch for any signs and symptoms of bleeding SKIN: Pressure ulcer prevention per facility protocol Rehab: PT/OT Prophylaxis: GI: protonix DVT: scd Code Status: Full Resuscitation Disposition:per primary Other: Total patient care time exceeds 35 minutes excluding all procedures. Case was discussed and seen with my supervising physician. The above plan was formulated and agreed upon. Total patient care time exceeds 35 minutes excluding all procedures. Case was discussed and seen with my supervising physician. The above plan was formulated and agreed upon. GATITO MARTIN Oct 09, 2024 09:30
--- NOTE | 2024-10-09 12:24 | HMCIMG ---
CHEST 1VW REASON: Pneumonia COMPARISON: 10/08/2024 FINDINGS: There is diffuse haziness in the left lung consistent with infiltrate, unchanged. Right lung is clear. There is stable cardiomegaly without vascular congestion. IMPRESSION: 1. Diffuse infiltrate left lung unchanged.
[2024-10-09 14:14] LABS: HEMATOCRIT 25.5 % (36-48); MEAN CORPUSCULAR HEMOGLOBIN 30.4 pg (27.0-33.0); MEAN CORPUSCULAR HGB CONC 30.6 g/dL (32.0-36.0); MEAN CORPUSCULAR VOLUME 99.2 fL (80-100); RED BLOOD CELL COUNT(AUTO) 2.57 MIL/uL (4.00-5.50); RED CELL DISTRIBUTION WIDTH 17.2 % (11.0-15.5); WHITE BLOOD COUNT (AUTO) 10.4 K/uL (4.8-10.8)
--- NOTE | 2024-10-09 18:18 | PN ---
[facility] PROGRESS NOTE Date of Service: Oct 09, 2024 Time of Service: 18:18 SUBJECTIVE: This is a 18-year-old female with past medical history of spinal muscular dystrophy, chronic respiratory failure vent dependent via trach, severe gastroesophageal reflux with PEG tube placement,severe thoracic scoliosis and functional quadriplegia who presents to the ED for elevated WBC.As per mother patient was having left ear infection with drainage 1 week ago and was started on Augmentin bid x 14days and today is day #7 and so far as per mother left ear drainage was resolved and yesterday patient went to her real estate development manager and a lab work was done and today as per mother she received a call from the clinic instructing her to bring patient to the ED due to elevated WBC. As per mother ,patient has coffee ground residuals from peg tube and has also been having dark watery stool everyday x 3 days.Patient had also dark stool last week daily x 3 days but had stopped and came back again since Monday this week.As per mother patient didnt have fever,chills,no abdominal pain reported. Latest vital signs temperature 98.2, heart rate 118, respiration 22, blood pressure 104/62, saturation 97% on vent FiO2 60%. Labs: WBC 17.5, hemoglobin 10.7, hematocrit 33, platelet count 344. Sodium 150, chloride 115, BUN 22, creatinine 0.2, total CK nine, total protein nine procalcitonin 0.09. Chest x-ray result revealed dominique spected left lower lung opacities. Follow-up chest radiograph is advised in order to ensure resolution. Chest x-ray result revealed no evidence for bowel obstruction. While in the ER patient received Rocephin 1 g IV, Protonix 40 mg IV, LR bolus 1 L. We will admit patient for further medical management. 10/03/24 On bedside examination in the ER the patient was being ventilated via tracheostomy tube and she has PEG tube in place and she ask functional quadriplegia. Spoke to her mom she describes that this is her usual functional status. A WBC count remains elevated. She is currently on 7 days of Augmentin treatment for her left ear infection with drainage. Her fecal occult blood test is positive for blood her abdominal x-ray reveals no evidence of bowel obstruction. Recent chest x-ray revealed suspected left lower lung opacities and follow-up imaging is recommended. And a recent chest CT scan revealed minimal bilateral pulmonary infiltrates, left lower lung subsegmental atelectasis and bronchiectasis. While in the ER the patient received Rocephin1 g IV, Protonix 40 mg and lactated Ringer's 1 L bolus. Given the elevated WBC count, suspected left lung pneumonia and GI bleeding consent she is being admitted for further manage the her blood pressure is124 x 79 with a pulse of 90. Arterial blood oxygen saturation is 92.7, venous blood pCO2 is that is slow and venous blood PO2 is 66.9, venous blood HC03 is 16.2, bedside lactic acid blood gas is 0.85 high her hemoglobin is 9.2 low and hematocrit is 28.7 low and fibrinogen is381 high sodium level is148 high potassium level is 3.3 low her BUN level is 13 and creatinine level is 0.2 low C-reactive protein is elevated with18 and TSH is high which is 4.29 WBC count is elevated with 12.0 high. Her serum iron levels are low at 38 and TIBC is low at 243 and percentage saturation is 15.6 low and her urine protein is high with 20 and RBCs 2-5 high and WBCs 2-5 high. She is being currently admitted for further management of care 10/04/2024 this patient was previously evaluated in the ED yesterday for elevated WBC 13.6 and which has worsened to 18.1 today, worsening anemia hemoglobin level of 7.7, hypernatremia sodium 152, hypokalemia 3.1 and ABG 7.3 pCO2 28, HC03 of 16.3 and base excess of -7.1. GI and Pulmonary consults have been placed, and an EGD and colonoscopy are planned once patient is hemodynamically stable. The Infectious Disease team is involved due to concerns for sepsis, given her elevated ESR and leukocytosis, high fibrinogen blood, positive urine proteins, hematuria, increased WBC in urine. Fluids have been adjusted to correct hypernatremia and hypokalemia, and a stricter ICU monitoring is in place.A pulse of 1 not 8, respiratory rate 22, blood pressure is stable oxygen saturation adequate on vent ilation. COVID-19 influenza group a strep tests are negative. 10/05/24 patient was seen and examined case discussed with RN. Appreciate GI and pulmonology evaluation. Continue broad-spectrum antibiotics. Monitor labs 10/06/24 patient was seen and examined patient is hemodynamically stable continued current care 10/07/24 patient was seen and examined patient is hemodynamically stable continued current care/discussed with mother by the bed side/off levophed 10/08/2024 This patient is a 18-year-old female with past medical history of spinal muscular atrophy, chronic respiratory failure ventilator dependent via tracheostomy, severe GERD with PEG tube placement, severe thoracic scoliosis and functional quadriplegia who was admitted to ICU for sepsis, suspected pneumonia and acute leukocytosis, GI bleeding and electrolyte abnormalities. She has been receiving meropenem IV for Proteus mirabilis and Serratia pneumonia, fluid and electrolyte correction and respiratory support and close monitoring. Gastroente rology update reveals that patient underwent EGD which revealed an active bleeding antral ulcer. Successful hemostasis achieved with a clip. J-tube was noted to be pushing directly on the ulcer contributing to the bleeding. Discussions ongoing regarding removal of current J-tube were possible placement of surgical J-tube. Hemoglobin improving continue BP therapy and GI prophyla xis. Given her Coumadin clinical improvement she is being downgraded to ice from ICU to PCC day WBC count has decreased to 13.4 today. Hemoglobin and hematocrit are at 8.2 and 27.4. And BUN and creatinine are at 2 and 0.2. Chest x-ray finding revealed extensive left lung infiltrates remain unchanged. No worsening consolidation or pneumothorax or effusion. 10/09/2024 The patient has been downgraded from ICU to PCCU. she is off Levophed and hemodynamically stable. No overnight events reported. The patient was examined at bedside and appears clinically stable. Her mother was updated on her condition and agreed with the ongoing plan of care. Coordinating care with Infectious Disease and critical Care teams. She has been receiving meropenem IV, electrolyte correction respiratory support and close monitoring. Diffuse infiltrates in left lung which remains unchanged. No worsening consolidation or pneumothorax or effusion. REVIEW OF SYSTEMS:Unable to perform patient is vented and lethargic PHYSICAL EXAM GENERAL APPEARANCE: The patient is lethargic but arousable.Patient appears comfortable NEUROLOGICAL: Patient is non verbal ,open eyes. HEENT: Face is symmetric. Pupils are equal and reactive. Extraocular movements are intact. NECK: Patient has vent via trache CHEST: Normal chest expansion. +Telemetry. LUNGS: scattered rhonchi on bilateral lower bases per auscultation CARDIOVASCULAR: Regular. S1 and S2 normal. No appreciable rubs, murmurs or gallops. ABDOMEN: + Pegtube-clamped Soft, nontender, and nondistended. There is no rebound, voluntary guarding, or rigidity. : Deferred. No Aleman. EXTREMITIES: + pedal pulses. Good capillary refill. SKIN: No skin breakdown. Vital Signs (last 8hr) Date Time Temp Pulse Resp B/P (MAP) Pulse Ox O2 Delivery O2 Flow Rate FiO2 10/09/24 16:00 99 Ventilator+ 21 10/09/24 16:00 97.5 62 22 96/39 99 Ventilator 21 10/09/24 16:00 21 10/09/24 14:54 56 21 10/09/24 14:30 52 22 10/09/24 13:00 61 22 93/39 100 Ventilator 21 10/09/24 12:00 21 10/09/24 12:00 97.7 61 22 77/32 100 Ventilator 21 10/09/24 12:00 100 Ventilator+ 21 10/09/24 11:38 55 21 10/09/24 11:00 52 23 75/32 100 Ventilator 21 10/09/24 10:49 56 25 LABS: Laboratory: Test 10/09/24 17:16 10/09/24 13:50 10/09/24 03:45 10/08/24 03:51 Range/Units Whole Blood Glucose 87 70-110 MG/DL White Blood Count 10.4 # 4.8-10.8 K/uL Red Blood Count 2.57 L 4.00-5.50 MIL/uL Hemoglobin 7.8 L 12.0-16.0 g/dL Hematocrit 25.5 L 36-48 % Mean Corpuscular Volume 99.2 80-100 fL Mean Corpuscular Hemoglobin 30.4 27.0-33.0 pg Mean Corpuscular Hemoglobin Concent 30.6 L 32.0-36.0 g/dL Red Cell Distribution Width 17.2 H 11.0-15.5 % Platelet Count 315 130-400 K/uL Mean Platelet Volume 10.1 7.5-10.5 fL Nucleated Red Blood Cells 0.0 0.0-0.19 % Immature Granulocyte % (Auto) 0.5 0-1 % Neutrophils (%) (Auto) 53.0 40.0-77.0 % Lymphocytes (%) (Auto) 38.8 21.0-51.0 % Monocytes (%) (Auto) 5.2 3.0-13.0 % Eosinophils (%) (Auto) 2.3 0.0-8.0 % Basophils (%) (Auto) 0.2 0.0-5.0 % Neutrophils # (Auto) 8.8 H 1.8-7.7 K/uL Lymphocytes # (Auto) 6.5 H 1.0-4.8 K/uL Monocytes # (Auto) 0.9 0.1-1.0 K/uL Eosinophils # (Auto) 0.38 0.00-0.70 K/uL Basophils # (Auto) 0.04 0.00-0.20 K/uL Absolute Immature Granulocyte (auto 0.08 0-1 K/uL Sodium Level 139 136-145 mmol/L Potassium Level 4.1 3.5-5.1 mmol/L Chloride Level 108 101-111 mmol/L Carbon Dioxide Level 25 21-32 mmol/L Blood Urea Nitrogen 5 L 7-18 mg/dL Creatinine < 0.2 L 0.5-1.0 mg/dL Glomerular Filtration Rate Calc 172 >90 mL/min Random Glucose 101 70-105 mg/dL Total Calcium 8.0 L 8.5-10.1 mg/dL Total Bilirubin 0.2 0.2-1.0 mg/dL Aspartate Amino Transf (AST/SGOT) 15 10-37 U/L Alanine Aminotransferase (ALT/SGPT) 15 12-78 U/L Alkaline Phosphatase 109 50-136 U/L Total Protein 6.3 6.0-8.3 g/dL Albumin 2.3 L 3.5-5.0 g/dL Segmented Neutrophils % 32 L 40-70 % Lymphocytes % (Manual) 60 H 22-44 % Monocytes % (Manual) 7 2-9 % Other Cells % 1 H 0-0 Differential Comment MANUAL DIFFERENTIAL White Cell Morphology Comment SMUDGE CELLS 1+ Platelet Morphology Comment See comments Red Blood Cell Morphology See comments Phosphorus Level 3.6 2.5-4.9 mg/dL Magnesium Level 2.20 1.80-2.40 mg/dL Current Medications Medications (Trade) Dose Ordered Sig/Valentina Route PRN Reason Start Time Stop Time Status Last Admin Dose Admin Acetylcysteine (MUComyst 20% 4ML) 400mg = 2ml [id number] 10/03/24 10:00 10/06/24 13:17 DC 10/06/24 10:17 800 MG Albuterol Sulfate (Proventil 0.083% 2.5mg/3ml) 2.5 mg Q4HPRN PRN IH BRONCHOSPASM 10/04/24 15:00 11/03/24 14:59 Albuterol Sulfate (Ventolin Hfa) 2 INHALATIONS BID IH 10/07/24 09:00 10/07/24 07:09 DC Albuterol Sulfate (Ventolin Hfa) 2 inh BID IH 10/04/24 21:00 10/07/24 07:08 DC Artificial Tears (Artificial Tears) 1 DROP OP TID TID OP 10/05/24 09:00 11/03/24 20:59 10/09/24 13:44 1 DROP Artificial Tears (Artificial Tears) 1 DROP OR AD Q8H OU 10/03/24 08:30 10/05/24 08:27 DC 10/05/24 00:31 1 DROP Artificial Tears (Artificial Tears) 1 drop TID OP 10/04/24 21:00 10/05/24 08:29 DC 10/04/24 18:30 1 DROP Cetirizine HCl (ZYRtec 5 MG TABLET) 5 mg HS PO 10/07/24 21:00 11/06/24 20:59 10/08/24 22:16 5 MG Chlorhexidine Gluconate (Peridex) 15 ml Q8H MM 10/03/24 08:30 10/17/24 08:29 10/09/24 17:19 15 ML Dextrose 1,000 ml @ 50 mls/hr Q20H IV 10/02/24 20:30 10/03/24 20:38 DC 10/03/24 19:06 50 MLS/HR Dextrose (D50w) 50 ml AD PRN IV HYPOGLYCEMIA PROTOCOL 10/04/24 23:30 11/03/24 23:29 Doxycycline Hyclate 250 ml @ 125 mls/hr Q12H IV 10/03/24 08:30 10/05/24 10:04 DC 10/05/24 09:00 125 MLS/HR Furosemide (LASix 20MG VIAL) 20 mg Q12H IV 10/06/24 22:00 10/07/24 09:13 DC 10/06/24 22:35 20 MG Glucagon (Glucagon 1mg Kit) 1 mg AD PRN IM HYPOGLYCEMIA PROTOCOL 10/04/24 23:30 11/03/24 23:29 Home Med (Compound Po Narcotic) UD AD PO 10/04/24 15:30 10/05/24 16:51 DC Home Med (Home Medication) (Ergocalciferol (Vitamin D2) (Ergocalcifer... QWEEK PO 10/11/24 09:00 11/10/24 08:59 Home Med (Home Medication) (Midazolam (Nayzilam) 5 MG) BID PRN NASAL CONSTIPATION 10/04/24 15:00 11/03/24 14:59 Home Med (Home Medication) 2 PUFFS (Advair Hfa 45... BID IH 10/04/24 21:00 11/03/24 20:59 Home Med (Home Medication) CLOBAZAM 20MG DAILY AT 1700... DAILY PO 10/09/24 09:00 11/08/24 08:59 10/09/24 08:44 1 EACH Home Med (Home Medication) CLOBAZAM 20MG DAILY AT 1700... DAILY17 PO 10/03/24 17:00 10/09/24 08:37 DC 10/07/24 17:00 1 EACH Insulin Human Regular (humuLIN R 100 UNIT/ML 3ML) INSULIN SLIDING SCAL... Q6H6 SQ 10/05/24 00:00 11/04/24 00:00 Ipratropium [place] (AtrovENT UD) 0.5 MG [id number] IH 10/03/24 10:00 11/02/24 09:59 10/09/24 14:28 0.5 MG Lansoprazole (Prevacid Solu Tab) 15 mg BID PEG 10/04/24 21:00 10/04/24 11:47 DC Lansoprazole (Prevacid Solu Tab) 30 mg BID PEG 10/04/24 21:00 11/03/24 20:59 10/09/24 08:30 30 MG Lorazepam (AtiVAN) 1 mg AD PRN IVP SEIZURES 10/03/24 21:00 11/02/24 20:59 Magnesium Sulfate 50 ml @ 0 mls/hr PROTOCOL PRN IV Electrolyte abnormality 10/03/24 16:30 11/02/24 16:29 Magnesium Sulfate 50 ml @ 0 mls/hr PROTOCOL PRN IV DEHYDRATION 10/04/24 23:30 10/04/24 23:40 DC Meropenem (Merrem 1gm) 1 gm Q8H IV 10/05/24 14:00 10/15/24 13:59 10/09/24 13:43 1 GM Midodrine (PROAMatine 5 MG TABLET) 5 mg TID PO 10/04/24 11:30 10/06/24 13:21 DC 10/06/24 08:22 5 MG Midodrine (PROAMatine 5 MG TABLET) 10 mg TID PO 10/06/24 14:00 10/08/24 14:52 DC 10/08/24 14:51 10 MG Midodrine (PROAMatine 5 MG TABLET) 15 mg TID PO 10/08/24 21:00 11/07/24 20:59 10/09/24 13:43 15 MG Norepinephrine 250 ml @ 14.288 mls/ hr PROTOCOL PRN IV HYPOTENSION MAP LESS THAN 65 10/03/24 04:00 10/08/24 17:17 DC 10/08/24 03:34 14.288 MLS/HR Ondansetron HCl (zoFRAN 4MG INJ) 4 mg Q6H PRN IV NAUSEA/VOMITING 10/02/24 20:30 11/01/24 20:29 Pantoprazole Sodium (PROTonix 40MG INJ) 40 mg BID IVP 10/03/24 09:00 10/04/24 11:08 DC 10/04/24 08:19 40 MG Pantoprazole Sodium (PROTonix 40MG INJ) 40 mg DAILY IVP 10/03/24 09:00 10/03/24 08:09 DC Pharmacy Profile Note (Pharmacy Communication) Q8H Q8H MISC 10/05/24 14:00 10/05/24 13:51 DC Piperacillin Sod/ Tazobactam Sod (Zosyn 3.375gm+NS 50ml) 3.375 gm Q12H IVPB 10/02/24 20:30 10/05/24 10:04 DC 10/05/24 09:08 3.375 GM Polyethylene Glycol (MIRalax 3350 17 GM POWD.PACK) 17 gm QODAY PO 10/08/24 09:00 11/07/24 08:59 10/08/24 09:58 17 GM Potassium Chloride/Dextrose/ Sod Cl (Dextrose NS 20 Meq KCl 1000ml) 20 meq AD IV 10/05/24 18:30 10/06/24 22:11 DC 10/06/24 12:13 20 MEQ Potassium Chloride 100 ml @ 50 mls/hr AD PRN IV POTASSIUM PROTOCOL 10/03/24 16:30 11/02/24 16:29 10/05/24 03:01 50 MLS/HR Potassium Chloride 100 ml @ 50 mls/hr AD PRN IV POTASSIUM PROTOCOL 10/04/24 23:30 10/04/24 23:40 DC Potassium Cl/ Dextrose/Lact Ringer's (E4mx-46 Meq KCl 1000 ml) 20 meq AD IV 10/03/24 21:00 10/05/24 17:36 DC 10/05/24 00:00 20 MEQ Propranolol HCl (Inderal) 20 mg BID PRN PO PRN FOR ELEVATED HR 10/04/24 15:00 10/07/24 07:10 DC 10/07/24 01:37 20 MG Sodium Bicarbonate (Sodium Bicarbonate) 650 mg BID GT 10/04/24 21:00 10/04/24 21:16 DC 10/04/24 20:16 650 MG DIAGNOSTICS / RADIOLOGY: PATIENT: KYLE PATEL MR#: [id number] : 2005 SEX: F AGE: 18 LOCATION: 2BH ORDER 2300 STATUS: ADM IN REPORT#: [id number] SERVICE [id number] REASON: Pneumonia ORDERING PHYSICIAN: NEGRA VALENTE MD PROCEDURE: CXR1VW - CHEST 1VW CHEST 1VW REASON: Pneumonia COMPARISON: 10/08/2024 FINDINGS: There is diffuse haziness in the left lung consistent with infiltrate, unchanged. Right lung is clear. There is stable cardiomegaly without vascular congestion. IMPRESSION: 1. Diffuse infiltrate left lung unchanged. ASSESSMENT: Left lung pneumonia POA GI bleed POA Normocytic normochromic anemia POA Acute Leukocytosis POA Hypernatremia POA Hypokalemia POA Chronic respiratory failure ventilator dependent POA Functional quadriplegia POA GERD with PEG tube placement. POA Peg tube status POA Recent Left ear infection POA Spinal Muscular dystrophy POA Severe thoracic scoliosis POA PLAN: Continue D5 at 75 mL/hour We will replace electrolytes as needed per protocol We will add prn medication for fever,pain,cough ,nausea and vomiting Hypernatremia correction with D5W IV to 75 mL/hour. Monitor serum sodium every 4 hours. Hypokalemia protocol as per facility. Magnesium supplementation as per protocol of the facility. Adjust PEG tube feeds per dietary recommendation. Monitor for hypotension and adjust fluids as needed. Consider midodrine 5 mg t.i.d. p.r.n. if persistent hypotension. Continue antiseizure medication as prescribed. Seizure precautions in place. Pulmonary consult ongoing for ventilator management. Continue suctioning and chest physiotherapy to prevent mucus plugging. Follow-up chest x-ray to monitor resolution. Oxygen support via ventilator as needed. Following up with a GI consult to evaluate the necessity for J-tube repositioning or surgical J-tube replacement if rebleeding occurs. Continue Protonix 40 mg IV b.i.d. for GI prophylaxis. Her stool occult has been positive for blood. Monitor H and H due to ongoing anemia risk. Transfuse PRBC if hemoglobin less than 7.0. Continue current antibiotic therapy with meropenem1 g IV q.8h. Monitor WBC trend, inflammatory markers CRP procalcitonin. Monitor hemoglobin and hematocrit trends. Iron replacement has been ordered. Blood transfusion if hemoglobin drops below 7. Follow up on GI recommendations for J-tube removed versus surgical J-tube placement for Schedule outpatient GI following post discharge follow-up. Patient has been downgraded to PCCU. Continue close monitoring with step-down care. Speech therapy consult has been placed for aspiration risk. Repeating TSH T3-T4 for further evaluation of her elevated TSH. Electrolytes will be replaced according to the facility protocol. We will follow up urinalysis result, we will cultures and fecal occult blood We will request labs in am We will request H&H p.r.n. bleeding We will seek critical Care consultation Further orders to follow depending on above results Case discussed with attending physician and came up with above treatment and plan of care. ATTESTATION BY PHYSICIAN I have seen and examined the patient. I reviewed the documentation, medical decision making, and treatment plan as noted by the resident above. I agree with the findings and plan of care. Killian Caro MD, RAGHAVA R MD Oct 09, 2024 18:18
[2024-10-10] VITALS (38 sets, daily range): BP systolic 80–151; BP diastolic 34–99; PULSE 67–137; RESP 22–23; TEMP 97.2–99.2; O2SAT 97–100
[2024-10-10 01:20] LABS: HEMATOCRIT 28.4 % (36-48); MEAN CORPUSCULAR HEMOGLOBIN 29.8 pg (27.0-33.0); MEAN CORPUSCULAR HGB CONC 30.3 g/dL (32.0-36.0); MEAN CORPUSCULAR VOLUME 98.3 fL (80-100); RED BLOOD CELL COUNT(AUTO) 2.89 MIL/uL (4.00-5.50); RED CELL DISTRIBUTION WIDTH 17.2 % (11.0-15.5); WHITE BLOOD COUNT (AUTO) 14.5 K/uL (4.8-10.8)
[2024-10-10 01:29] LABS: CREATININE 0.2 mg/dL (0.5-1.0); POTASSIUM 3.9 mmol/L (3.5-5.1)
--- NOTE | 2024-10-10 03:47 | PN ---
INFECTIOUS DISEASE FOLLOWUP NOTE DATE OF SERVICE: 10/09/2024 SUBJECTIVE: The patient is seen and examined at bedside today. The patient has no fever, no chills. Nonverbal, bedbound, total care dependent. The patient is now off vasopressor. Tolerating PEG feeding. No diarrhea. PHYSICAL EXAMINATION: VITAL SIGNS: Temperature 98.3. EYES: No icterus. Pupils equal and reactive. HENT: No oral thrush seen. Moist oral mucosa. NECK: Supple. Trachea is midline with ventilatory support. LUNGS: Crackles bilaterally. CARDIOVASCULAR: S1, S2 regular. No murmur heard. ABDOMEN: Full, soft. Bowel sounds present. PEG site looks clean. CENTRAL NERVOUS SYSTEM: The patient is awake, bedbound, . SKIN: No rashes, no itchiness. BACK: There is severe scoliosis. MUSCULOSKELETAL: . ASSESSMENT: A 18-year-old female with multiple problems, which include: * Septic shock. * Pneumonia. * Polymicrobic infection. * Chronic respiratory failure, on ventilatory support. * Functional quadriplegia. * Spinal muscular sclerosis. PLAN: * Continue meropenem. * Continue critical care support. * Continue . * Monitor electrolytes. * Continue . * Continue DVT prophylaxis. TID: [id number] RECEIPT: [id number]
--- NOTE | 2024-10-10 08:28 | PN ---
GASTROENTEROLOGY PROGRESS NOTE Date of Visit: Oct 10, 2024 Time of Visit: 08:28 Events / Notes: No acute events overnight. Patient had EGD which revealed bleeding antral ulcer s/p clip with hemostasis. J tube was found right on ulcer. Hgb stable. WBC fluctuating. No reports of fever, chills, abdominal pain, N/V, hematemesis, bloating, constipation, diarrhea, melena or hematochezia. Review of Systems: CONSTITUTIONAL: No malaise or change in sensation of wellbeing. ENMT: No rhinorrhea, otorrhea, sinus pain, ear ache. CARDIOVASCULAR: No angina, palpitations, orthopnea or paroxysmal dyspnea. RESPIRATORY: No SOB. GASTROINTESTINAL: No abdominal pain, nausea, vomiting, diarrhea, hematemesis, melena or change in the patient's habitual bowel movements consistency/number. GENITOURINARY: No dysuria, hematuria or change in bladder continence. MUSCULOSKELETAL: No new muscle pain or decrease in muscular strength. No new joint swelling, redness or tenderness. SKIN: No new rash. Physical Exam: GEN: Awake, alert, oriented in person, time and place, and in no acute distress. HEENT: No sinus tenderness. Tympanic membranes were not examined. No rhinorrhea. Oral pharyngeal mucosa is pink, moist and within normal limits. Neck is supple with no cervical lymphadenopathy, thyromegaly or JVD. CHEST: Inspection, palpation and percussion of the chest were unremarkable. Lung auscultation revealed normal breath sounds bilaterally. CARDIAC: PMI is within normal limits. Heart sounds are regular. Normal S1, S2. No gallop or murmur. ABD: Soft, non-tender and not distended. No peritoneal signs on palpation. No organomegaly. Normal bowel sounds. EXT: No cyanosis or clubbing. No edema. SKIN: Intact. No rashes. JOINTS: No evidence of synovitis or acute arthritis. NEURO: Alert and oriented to name, place and person. Cranial nerve examination is unremarkable. No focal motor deficits. Normal speech. Gait is normal. Strength is normal. Vital Signs (last 8hr) Date Time Temp Pulse Resp B/P (MAP) Pulse Ox O2 Delivery O2 Flow Rate FiO2 10/10/24 07:21 70 22 10/10/24 07:15 77 22 10/10/24 07:15 72 21 10/10/24 07:00 78 22 91/41 100 Ventilator 21 10/10/24 06:00 81 22 106/56 97 Ventilator 21 10/10/24 05:00 82 22 80/43 98 Ventilator 21 10/10/24 04:00 73 22 85/40 98 Ventilator 21 10/10/24 04:00 21 10/10/24 04:00 99 Ventilator+ 21 10/10/24 03:13 87 21 10/10/24 03:03 101 22 10/10/24 03:00 95 22 90/41 99 Ventilator 21 10/10/24 02:00 137 23 129/62 98 Ventilator 21 10/10/24 01:00 88 22 107/42 100 Ventilator 21 10/10/24 00:49 87 21 Laboratory: [ ] Laboratory: Test 10/10/24 06:51 10/10/24 01:11 10/09/24 03:45 Range/Units Whole Blood Glucose 91 70-110 MG/DL White Blood Count 14.5 #H 4.8-10.8 K/uL Red Blood Count 2.89 L 4.00-5.50 MIL/uL Hemoglobin 8.6 L 12.0-16.0 g/dL Hematocrit 28.4 L 36-48 % Mean Corpuscular Volume 98.3 80-100 fL Mean Corpuscular Hemoglobin 29.8 27.0-33.0 pg Mean Corpuscular Hemoglobin Concent 30.3 L 32.0-36.0 g/dL Red Cell Distribution Width 17.2 H 11.0-15.5 % Platelet Count 362 130-400 K/uL Mean Platelet Volume 9.9 7.5-10.5 fL Nucleated Red Blood Cells 0.0 0.0-0.19 % Sodium Level 140 136-145 mmol/L Potassium Level 3.9 3.5-5.1 mmol/L Chloride Level 106 101-111 mmol/L Carbon Dioxide Level 26 21-32 mmol/L Blood Urea Nitrogen 7 7-18 mg/dL Creatinine 0.2 L 0.5-1.0 mg/dL Glomerular Filtration Rate Calc 172 >90 mL/min Random Glucose 86 70-105 mg/dL Total Calcium 8.2 L 8.5-10.1 mg/dL Immature Granulocyte % (Auto) 0.5 0-1 % Neutrophils (%) (Auto) 53.0 40.0-77.0 % Lymphocytes (%) (Auto) 38.8 21.0-51.0 % Monocytes (%) (Auto) 5.2 3.0-13.0 % Eosinophils (%) (Auto) 2.3 0.0-8.0 % Basophils (%) (Auto) 0.2 0.0-5.0 % Neutrophils # (Auto) 8.8 H 1.8-7.7 K/uL Lymphocytes # (Auto) 6.5 H 1.0-4.8 K/uL Monocytes # (Auto) 0.9 0.1-1.0 K/uL Eosinophils # (Auto) 0.38 0.00-0.70 K/uL Basophils # (Auto) 0.04 0.00-0.20 K/uL Absolute Immature Granulocyte (auto 0.08 0-1 K/uL Total Bilirubin 0.2 0.2-1.0 mg/dL Aspartate Amino Transf (AST/SGOT) 15 10-37 U/L Alanine Aminotransferase (ALT/SGPT) 15 12-78 U/L Alkaline Phosphatase 109 50-136 U/L Total Protein 6.3 6.0-8.3 g/dL Albumin 2.3 L 3.5-5.0 g/dL Current Medications Medications (Trade) Dose Ordered Sig/Valentina Route PRN Reason Start Time Stop Time Status Last Admin Dose Admin Acetylcysteine (MUComyst 20% 4ML) 400mg = 2ml [id number] IH 10/03/24 10:00 10/06/24 13:17 DC 10/06/24 10:17 800 MG Albuterol Sulfate (Proventil 0.083% 2.5mg/3ml) 2.5 mg Q4HPRN PRN IH BRONCHOSPASM 10/04/24 15:00 11/03/24 14:59 Albuterol Sulfate (Ventolin Hfa) 2 INHALATIONS BID IH 10/07/24 09:00 10/07/24 07:09 DC Albuterol Sulfate (Ventolin Hfa) 2 inh BID IH 10/04/24 21:00 10/07/24 07:08 DC Artificial Tears (Artificial Tears) 1 DROP OP TID TID OP 10/05/24 09:00 11/03/24 20:59 10/09/24 22:42 1 DROP Artificial Tears (Artificial Tears) 1 DROP OR AD Q8H OU 10/03/24 08:30 10/05/24 08:27 DC 10/05/24 00:31 1 DROP Artificial Tears (Artificial Tears) 1 drop TID OP 10/04/24 21:00 10/05/24 08:29 DC 10/04/24 18:30 1 DROP Cetirizine HCl (ZYRtec 5 MG TABLET) 5 mg HS PO 10/07/24 21:00 11/06/24 20:59 10/09/24 22:41 5 MG Chlorhexidine Gluconate (Peridex) 15 ml Q8H MM 10/03/24 08:30 10/17/24 08:29 10/10/24 01:22 15 ML Dextrose 1,000 ml @ 50 mls/hr Q20H IV 10/02/24 20:30 10/03/24 20:38 DC 10/03/24 19:06 50 MLS/HR Dextrose (D50w) 50 ml AD PRN IV HYPOGLYCEMIA PROTOCOL 10/04/24 23:30 11/03/24 23:29 Doxycycline Hyclate 250 ml @ 125 mls/hr Q12H IV 10/03/24 08:30 10/05/24 10:04 DC 10/05/24 09:00 125 MLS/HR Furosemide (LASix 20MG VIAL) 20 mg Q12H IV 10/06/24 22:00 10/07/24 09:13 DC 10/06/24 22:35 20 MG Glucagon (Glucagon 1mg Kit) 1 mg AD PRN IM HYPOGLYCEMIA PROTOCOL 10/04/24 23:30 11/03/24 23:29 Home Med (Compound Po Narcotic) UD AD PO 10/04/24 15:30 10/05/24 16:51 DC Home Med (Home Medication) (Ergocalciferol (Vitamin D2) (Ergocalcifer... QWEEK PO 10/11/24 09:00 11/10/24 08:59 Home Med (Home Medication) (Midazolam (Nayzilam) 5 MG) BID PRN NASAL CONSTIPATION 10/04/24 15:00 11/03/24 14:59 Home Med (Home Medication) 2 PUFFS (Advair Hfa 45... BID IH 10/04/24 21:00 11/03/24 20:59 Home Med (Home Medication) CLOBAZAM 20MG DAILY AT 1700... DAILY PO 10/09/24 09:00 11/08/24 08:59 10/09/24 08:44 1 EACH Home Med (Home Medication) CLOBAZAM 20MG DAILY AT 1700... DAILY17 PO 10/03/24 17:00 10/09/24 08:37 DC 10/07/24 17:00 1 EACH Insulin Human Regular (humuLIN R 100 UNIT/ML 3ML) INSULIN SLIDING SCAL... Q6H6 SQ 10/05/24 00:00 11/04/24 00:00 Ipratropium [place] (AtrovENT UD) 0.5 MG [id number] IH 10/03/24 10:00 11/02/24 09:59 10/10/24 07:13 0.5 MG Lansoprazole (Prevacid Solu Tab) 15 mg BID PEG 10/04/24 21:00 10/04/24 11:47 DC Lansoprazole (Prevacid Solu Tab) 30 mg BID PEG 10/04/24 21:00 11/03/24 20:59 10/09/24 22:41 30 MG Lorazepam (AtiVAN) 1 mg AD PRN IVP SEIZURES 10/03/24 21:00 11/02/24 20:59 Magnesium Sulfate 50 ml @ 0 mls/hr PROTOCOL PRN IV Electrolyte abnormality 10/03/24 16:30 11/02/24 16:29 Magnesium Sulfate 50 ml @ 0 mls/hr PROTOCOL PRN IV DEHYDRATION 10/04/24 23:30 10/04/24 23:40 DC Meropenem (Merrem 1gm) 1 gm Q8H IV 10/05/24 14:00 10/15/24 13:59 10/10/24 07:32 1 GM Midodrine (PROAMatine 5 MG TABLET) 5 mg TID PO 10/04/24 11:30 10/06/24 13:21 DC 10/06/24 08:22 5 MG Midodrine (PROAMatine 5 MG TABLET) 10 mg TID PO 10/06/24 14:00 10/08/24 14:52 DC 10/08/24 14:51 10 MG Midodrine (PROAMatine 5 MG TABLET) 15 mg TID PO 10/08/24 21:00 11/07/24 20:59 10/09/24 22:41 15 MG Norepinephrine 250 ml @ 14.288 mls/ hr PROTOCOL PRN IV HYPOTENSION MAP LESS THAN 65 10/03/24 04:00 10/08/24 17:17 DC 10/08/24 03:34 14.288 MLS/HR Ondansetron HCl (zoFRAN 4MG INJ) 4 mg Q6H PRN IV NAUSEA/VOMITING 10/02/24 20:30 11/01/24 20:29 Pantoprazole Sodium (PROTonix 40MG INJ) 40 mg BID IVP 10/03/24 09:00 10/04/24 11:08 DC 10/04/24 08:19 40 MG Pantoprazole Sodium (PROTonix 40MG INJ) 40 mg DAILY IVP 10/03/24 09:00 10/03/24 08:09 DC Pharmacy Profile Note (Pharmacy Communication) Q8H Q8H MISC 10/05/24 14:00 10/05/24 13:51 DC Piperacillin Sod/ Tazobactam Sod (Zosyn 3.375gm+NS 50ml) 3.375 gm Q12H IVPB 10/02/24 20:30 10/05/24 10:04 DC 10/05/24 09:08 3.375 GM Polyethylene Glycol (MIRalax 3350 17 GM POWD.PACK) 17 gm QODAY PO 10/08/24 09:00 11/07/24 08:59 10/08/24 09:58 17 GM Potassium Chloride/Dextrose/ Sod Cl (Dextrose NS 20 Meq KCl 1000ml) 20 meq AD IV 10/05/24 18:30 10/06/24 22:11 DC 10/06/24 12:13 20 MEQ Potassium Chloride 100 ml @ 50 mls/hr AD PRN IV POTASSIUM PROTOCOL 10/03/24 16:30 11/02/24 16:29 10/05/24 03:01 50 MLS/HR Potassium Chloride 100 ml @ 50 mls/hr AD PRN IV POTASSIUM PROTOCOL 10/04/24 23:30 10/04/24 23:40 DC Potassium Cl/ Dextrose/Lact Ringer's ([id number] Meq KCl 1000 ml) 20 meq AD IV 10/03/24 21:00 10/05/24 17:36 DC 10/05/24 00:00 20 MEQ Propranolol HCl (Inderal) 20 mg BID PRN PO PRN FOR ELEVATED HR 10/04/24 15:00 10/07/24 07:10 DC 10/07/24 01:37 20 MG Sodium Bicarbonate (Sodium Bicarbonate) 650 mg BID GT 10/04/24 21:00 10/04/24 21:16 DC 10/04/24 20:16 650 MG Diagnostics / Radiology: [COPY/PASTE HERE IF NO REPORTS PLEASE DELETE SECTION] Assessment: Gastric ulcer Acute blood loss anemia Gastrostomy status Respiratory failure Plan: If ulcer/bleeding recurs then patient may require removal of feeding tube or placement of a surgical J tube PPI BID Continue GI prophylaxis Avoid NSAIDs Antireflux measures Monitor H&H and transfuse as needed Call with questions, concerns or change in clinical status Patient to follow-up at clinic post discharge Thank you for this consult CHINEDU AMOR Oct 10, 2024 08:28
--- NOTE | 2024-10-10 10:47 | HMCIMG ---
CHEST 1VW REASON: Pneumonia COMPARISON: 10/09/2024 FINDINGS: Severe scoliosis is again noted. Right lung is clear. There is haziness on the left consistent with diffuse infiltrate or effusion, unchanged. Tracheostomy tube remains in place. IMPRESSION: 1. No change.
[2024-10-10 15:33] LABS: HEMATOCRIT 28.3 % (36-48); MEAN CORPUSCULAR HEMOGLOBIN 30.2 pg (27.0-33.0); MEAN CORPUSCULAR HGB CONC 30.7 g/dL (32.0-36.0); MEAN CORPUSCULAR VOLUME 98.3 fL (80-100); RED BLOOD CELL COUNT(AUTO) 2.88 MIL/uL (4.00-5.50); RED CELL DISTRIBUTION WIDTH 16.6 % (11.0-15.5); WHITE BLOOD COUNT (AUTO) 11.1 K/uL (4.8-10.8)
[2024-10-10 15:42] LABS: CREATININE 0.1 mg/dL (0.5-1.0); POTASSIUM 3.8 mmol/L (3.5-5.1)
--- NOTE | 2024-10-10 16:02 | PN ---
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 As per mother ,patient has coffee ground residuals from peg tube and has also been having dark watery stool everyday x 3 days.Patient had also dark stool last week daily x 3 days but had stopped and came back again since Monday this week.As per mother patient didnt have fever,chills,no abdominal pain reported. Latest vital signs temperature 98.2, heart rate 118, respiration 22, blood pressure 104/62, saturation 97% on vent FiO2 60%. Labs: WBC 17.5, hemoglobin 10.7, hematocrit 33, platelet count 344. Sodium 150, chloride 115, BUN 22, creatinine 0.2, total CK nine, total protein nine procalcitonin 0.09. Chest x-ray result revealed dominique spected left lower lung opacities. Follow-up chest radiograph is advised in order to ensure resolution. Chest x-ray result revealed no evidence for bowel obstruction. While in the ER patient received Rocephin 1 g IV, Protonix 40 mg IV, LR bolus 1 L. We will admit patient for further medical management. 10/03/24 On bedside examination in the ER the patient was being ventilated via tracheostomy tube and she has PEG tube in place and she ask functional quadriplegia. Spoke to her mom she describes that this is her usual functional status. A WBC count remains elevated. She is currently on 7 days of Augmentin treatment for her left ear infection with drainage. Her fecal occult blood test is positive for blood her abdominal x-ray reveals no evidence of bowel obstruction. Recent chest x-ray revealed suspected left lower lung opacities and follow-up imaging is recommended. And a recent chest CT scan revealed minimal bilateral pulmonary infiltrates, left lower lung subsegmental atelectasis and bronchiectasis. While in the ER the patient received Rocephin1 g IV, Protonix 40 mg and lactated Ringer's 1 L bolus. Given the elevated WBC count, suspected left lung pneumonia and GI bleeding consent she is being admitted for further manage the her blood pressure is124 x 79 with a pulse of 90. Arterial blood oxygen saturation is 92.7, venous blood pCO2 is that is slow and venous blood PO2 is 66.9, venous blood HC03 is 16.2, bedside lactic acid blood gas is 0.85 high her hemoglobin is 9.2 low and hematocrit is 28.7 low and fibrinogen is381 high sodium level is148 high potassium level is 3.3 low her BUN level is 13 and creatinine level is 0.2 low C-reactive protein is elevated with18 and TSH is high which is 4.29 WBC count is elevated with 12.0 high. Her serum iron levels are low at 38 and TIBC is low at 243 and percentage saturation is 15.6 low and her urine protein is high with 20 and RBCs 2-5 high and WBCs 2-5 high. She is being currently admitted for further management of care 10/04/2024 this patient was previously evaluated in the ED yesterday for elevated WBC 13.6 and which has worsened to 18.1 today, worsening anemia hemoglobin level of 7.7, hypernatremia sodium 152, hypokalemia 3.1 and ABG 7.3 pCO2 28, HC03 of 16.3 and base excess of -7.1. GI and Pulmonary consults have been placed, and an EGD and colonoscopy are planned once patient is hemodynamically stable. The Infectious Disease team is involved due to concerns for sepsis, given her elevated ESR and leukocytosis, high fibrinogen blood, positive urine proteins, hematuria, increased WBC in urine. Fluids have been adjusted to correct hypernatremia and hypokalemia, and a stricter ICU monitoring is in place.A pulse of 1 not 8, respiratory rate 22, blood pressure is stable oxygen saturation adequate on vent ilation. COVID-19 influenza group a strep tests are negative. 10/05/24 patient was seen and examined case discussed with RN. Appreciate GI and pulmonology evaluation. Continue broad-spectrum antibiotics. Monitor labs 10/06/24 patient was seen and examined patient is hemodynamically stable continued current care 10/07/24 patient was seen and examined patient is hemodynamically stable continued current care/discussed with mother by the bed side/off levophed 10/08/2024 This patient is a 18-year-old female with past medical history of spinal muscular atrophy, chronic respiratory failure ventilator dependent via tracheostomy, severe GERD with PEG tube placement, severe thoracic scoliosis and functional quadriplegia who was admitted to ICU for sepsis, suspected pneumonia and acute leukocytosis, GI bleeding and electrolyte abnormalities. She has been receiving meropenem IV for Proteus mirabilis and Serratia pneumonia, fluid and electrolyte correction and respiratory support and close monitoring. Gastroente rology update reveals that patient underwent EGD which revealed an active bleeding antral ulcer. Successful hemostasis achieved with a clip. J-tube was noted to be pushing directly on the ulcer contributing to the bleeding. Discussions ongoing regarding removal of current J-tube were possible placement of surgical J-tube. Hemoglobin improving continue BP therapy and GI prophyla xis. Given her Coumadin clinical improvement she is being downgraded to ice from ICU to PCC day WBC count has decreased to 13.4 today. Hemoglobin and hematocrit are at 8.2 and 27.4. And BUN and creatinine are at 2 and 0.2. Chest x-ray finding revealed extensive left lung infiltrates remain unchanged. No worsening consolidation or pneumothorax or effusion. 10/09/2024 The patient has been downgraded from ICU to PCCU. she is off Levophed and hemodynamically stable. No overnight events reported. The patient was examined at bedside and appears clinically stable. Her mother was updated on her condition and agreed with the ongoing plan of care. Coordinating care with Infectious Disease and critical Care teams. She has been receiving meropenem IV, electrolyte correction respiratory support and close monitoring. Diffuse infiltrates in left lung which remains unchanged. No worsening consolidation or pneumothorax or effusion. 10/10/2024 The patient was examined at the bedside, she remains under close monitoring in PCCU and is clinically stable. No new overnight events reported or symptoms reported. WBC count is trending down but remains slightly elevated. Currently on midodrine for blood pressure support, maintaining stable hemodynamics. Following up closely with Infectious Disease and Gastroenterology teams. Mother was updated on the treatment plan and agrees with the current management approach. REVIEW OF SYSTEMS:Unable to perform patient is vented and lethargic PHYSICAL EXAM GENERAL APPEARANCE: The patient is lethargic but arousable.Patient appears comfortable NEUROLOGICAL: Patient is non verbal ,open eyes. HEENT: Face is symmetric. Pupils are equal and reactive. Extraocular movements are intact. NECK: Patient has vent via trache CHEST: Normal chest expansion. +Telemetry. LUNGS: scattered rhonchi on bilateral lower bases per auscultation CARDIOVASCULAR: Regular. S1 and S2 normal. No appreciable rubs, murmurs or gallops. ABDOMEN: + Pegtube-clamped Soft, nontender, and nondistended. There is no rebound, voluntary guarding, or rigidity. : Deferred. No Aleman. EXTREMITIES: + pedal pulses. Good capillary refill. SKIN: No skin breakdown. Vital Signs (last 8hr) Date Time Temp Pulse Resp B/P (MAP) Pulse Ox O2 Delivery O2 Flow Rate FiO2 10/10/24 14:59 104 21 10/10/24 14:47 82 22 10/10/24 13:00 71 22 110/57 100 10/10/24 12:17 93 21 10/10/24 12:00 98.8 85 22 100/48 99 Ventilator 21 10/10/24 11:00 122 22 106/60 100 Ventilator 21 10/10/24 10:00 91 22 118/73 100 Ventilator 21 10/10/24 09:43 104 22 10/10/24 09:41 97 21 10/10/24 09:00 83 22 96/44 100 Ventilator 21 10/10/24 08:00 21 10/10/24 08:00 98.2 75 22 99/51 97 Ventilator 21 10/10/24 08:00 97 Ventilator+ 21 LABS: Laboratory: Test 10/10/24 15:25 10/10/24 12:09 10/09/24 03:45 Range/Units White Blood Count 11.1 H 4.8-10.8 K/uL Red Blood Count 2.88 L 4.00-5.50 MIL/uL Hemoglobin 8.7 L 12.0-16.0 g/dL Hematocrit 28.3 L 36-48 % Mean Corpuscular Volume 98.3 80-100 fL Mean Corpuscular Hemoglobin 30.2 27.0-33.0 pg Mean Corpuscular Hemoglobin Concent 30.7 L 32.0-36.0 g/dL Red Cell Distribution Width 16.6 H 11.0-15.5 % Platelet Count 427 H 130-400 K/uL Mean Platelet Volume 10.0 7.5-10.5 fL Nucleated Red Blood Cells 0.0 0.0-0.19 % Sodium Level 140 136-145 mmol/L Potassium Level 3.8 3.5-5.1 mmol/L Chloride Level 108 101-111 mmol/L Carbon Dioxide Level 24 21-32 mmol/L Blood Urea Nitrogen 4 L 7-18 mg/dL Creatinine 0.1 L 0.5-1.0 mg/dL Glomerular Filtration Rate Calc 203 >90 mL/min Random Glucose 107 H 70-105 mg/dL Total Calcium 8.7 8.5-10.1 mg/dL Whole Blood Glucose 118 H 70-110 MG/DL Immature Granulocyte % (Auto) 0.5 0-1 % Neutrophils (%) (Auto) 53.0 40.0-77.0 % Lymphocytes (%) (Auto) 38.8 21.0-51.0 % Monocytes (%) (Auto) 5.2 3.0-13.0 % Eosinophils (%) (Auto) 2.3 0.0-8.0 % Basophils (%) (Auto) 0.2 0.0-5.0 % Neutrophils # (Auto) 8.8 H 1.8-7.7 K/uL Lymphocytes # (Auto) 6.5 H 1.0-4.8 K/uL Monocytes # (Auto) 0.9 0.1-1.0 K/uL Eosinophils # (Auto) 0.38 0.00-0.70 K/uL Basophils # (Auto) 0.04 0.00-0.20 K/uL Absolute Immature Granulocyte (auto 0.08 0-1 K/uL Total Bilirubin 0.2 0.2-1.0 mg/dL Aspartate Amino Transf (AST/SGOT) 15 10-37 U/L Alanine Aminotransferase (ALT/SGPT) 15 12-78 U/L Alkaline Phosphatase 109 50-136 U/L Total Protein 6.3 6.0-8.3 g/dL Albumin 2.3 L 3.5-5.0 g/dL Current Medications Medications (Trade) Dose Ordered Sig/Valentina Route PRN Reason Start Time Stop Time Status Last Admin Dose Admin Acetylcysteine (MUComyst 20% 4ML) 400mg = 2ml [id number] IH 10/03/24 10:00 2/16/25 13:17 DC 10/06/24 10:17 800 MG Albuterol Sulfate (Proventil 0.083% 2.5mg/3ml) 2.5 mg Q4HPRN PRN IH BRONCHOSPASM 10/04/24 15:00 11/03/24 14:59 Albuterol Sulfate (Ventolin Hfa) 2 INHALATIONS BID IH 10/07/24 09:00 10/07/24 07:09 DC Albuterol Sulfate (Ventolin Hfa) 2 inh BID IH 10/04/24 21:00 10/07/24 07:08 DC Artificial Tears (Artificial Tears) 1 DROP OP TID TID OP 10/05/24 09:00 11/03/24 20:59 10/10/24 14:31 1 DROP Artificial Tears (Artificial Tears) 1 DROP OR AD Q8H OU 10/03/24 08:30 10/05/24 08:27 DC 10/05/24 00:31 1 DROP Artificial Tears (Artificial Tears) 1 drop TID OP 10/04/24 21:00 10/05/24 08:29 DC 10/04/24 18:30 1 DROP Cetirizine HCl (ZYRtec 5 MG TABLET) 5 mg HS PO 10/07/24 21:00 11/06/24 20:59 10/09/24 22:41 5 MG Chlorhexidine Gluconate (Peridex) 15 ml Q8H MM 10/03/24 08:30 10/17/24 08:29 10/10/24 09:16 15 ML Dextrose 1,000 ml @ 50 mls/hr Q20H IV 10/02/24 20:30 10/03/24 20:38 DC 10/03/24 19:06 50 MLS/HR Dextrose (D50w) 50 ml AD PRN IV HYPOGLYCEMIA PROTOCOL 10/04/24 23:30 11/03/24 23:29 Doxycycline Hyclate 250 ml @ 125 mls/hr Q12H IV 10/03/24 08:30 10/05/24 10:04 DC 10/05/24 09:00 125 MLS/HR Furosemide (LASix 20MG VIAL) 20 mg Q12H IV 10/06/24 22:00 10/07/24 09:13 DC 10/06/24 22:35 20 MG Glucagon (Glucagon 1mg Kit) 1 mg AD PRN IM HYPOGLYCEMIA PROTOCOL 10/04/24 23:30 11/03/24 23:29 Home Med (Compound Po Narcotic) UD AD PO 10/04/24 15:30 10/05/24 16:51 DC Home Med (Home Medication) (Ergocalciferol (Vitamin D2) (Ergocalcifer... QWEEK PO 10/11/24 09:00 11/10/24 08:59 Home Med (Home Medication) (Midazolam (Nayzilam) 5 MG) BID PRN NASAL CONSTIPATION 10/04/24 15:00 11/03/24 14:59 Home Med (Home Medication) 2 PUFFS (Advair Hfa 45... BID IH 10/04/24 21:00 11/03/24 20:59 Home Med (Home Medication) CLOBAZAM 20MG DAILY AT 1700... DAILY PO 10/09/24 09:00 11/08/24 08:59 10/10/24 09:26 1 EACH Home Med (Home Medication) CLOBAZAM 20MG DAILY AT 1700... DAILY17 PO 10/03/24 17:00 10/09/24 08:37 DC 10/07/24 17:00 1 EACH Insulin Human Regular (humuLIN R 100 UNIT/ML 3ML) INSULIN SLIDING SCAL... Q6H6 SQ 10/05/24 00:00 11/04/24 00:00 Ipratropium [place] (AtrovENT UD) 0.5 MG [id number] IH 10/03/24 10:00 11/02/24 09:59 10/10/24 14:42 0.5 MG Lansoprazole (Prevacid Solu Tab) 15 mg BID PEG 10/04/24 21:00 10/04/24 11:47 DC Lansoprazole (Prevacid Solu Tab) 30 mg BID PEG 10/04/24 21:00 11/03/24 20:59 10/10/24 09:16 30 MG Lorazepam (AtiVAN) 1 mg AD PRN IVP SEIZURES 10/03/24 21:00 11/02/24 20:59 Magnesium Sulfate 50 ml @ 0 mls/hr PROTOCOL PRN IV Electrolyte abnormality 10/03/24 16:30 11/02/24 16:29 Magnesium Sulfate 50 ml @ 0 mls/hr PROTOCOL PRN IV DEHYDRATION 10/04/24 23:30 10/04/24 23:40 DC Meropenem (Merrem 1gm) 1 gm Q8H IV 10/05/24 14:00 10/15/24 13:59 10/10/24 14:30 1 GM Midodrine (PROAMatine 5 MG TABLET) 5 mg TID PO 10/04/24 11:30 10/06/24 13:21 DC 10/06/24 08:22 5 MG Midodrine (PROAMatine 5 MG TABLET) 10 mg TID PO 10/06/24 14:00 10/08/24 14:52 DC 10/08/24 14:51 10 MG Midodrine (PROAMatine 5 MG TABLET) 15 mg TID PO 10/08/24 21:00 11/07/24 20:59 10/10/24 14:31 15 MG Norepinephrine 250 ml @ 14.288 mls/ hr PROTOCOL PRN IV HYPOTENSION MAP LESS THAN 65 10/03/24 04:00 10/08/24 17:17 DC 10/08/24 03:34 14.288 MLS/HR Ondansetron HCl (zoFRAN 4MG INJ) 4 mg Q6H PRN IV NAUSEA/VOMITING 10/02/24 20:30 11/01/24 20:29 Pantoprazole Sodium (PROTonix 40MG INJ) 40 mg BID IVP 10/03/24 09:00 10/04/24 11:08 DC 10/04/24 08:19 40 MG Pantoprazole Sodium (PROTonix 40MG INJ) 40 mg DAILY IVP 10/03/24 09:00 10/03/24 08:09 DC Pharmacy Profile Note (Pharmacy Communication) Q8H Q8H MISC 10/05/24 14:00 10/05/24 13:51 DC Piperacillin Sod/ Tazobactam Sod (Zosyn 3.375gm+NS 50ml) 3.375 gm Q12H IVPB 10/02/24 20:30 10/05/24 10:04 DC 10/05/24 09:08 3.375 GM Polyethylene Glycol (MIRalax 3350 17 GM POWD.PACK) 17 gm QODAY PO 10/08/24 09:00 11/07/24 08:59 10/10/24 09:17 17 GM Potassium Chloride/Dextrose/ Sod Cl (Dextrose NS 20 Meq KCl 1000ml) 20 meq AD IV 10/05/24 18:30 10/06/24 22:11 DC 10/06/24 12:13 20 MEQ Potassium Chloride 100 ml @ 50 mls/hr AD PRN IV POTASSIUM PROTOCOL 10/03/24 16:30 11/02/24 16:29 10/05/24 03:01 50 MLS/HR Potassium Chloride 100 ml @ 50 mls/hr AD PRN IV POTASSIUM PROTOCOL 10/04/24 23:30 10/04/24 23:40 DC Potassium Cl/ Dextrose/Lact Ringer's (E0pu-80 Meq KCl 1000 ml) 20 meq AD IV 10/03/24 21:00 10/05/24 17:36 DC 10/05/24 00:00 20 MEQ Propranolol HCl (Inderal) 20 mg BID PRN PO PRN FOR ELEVATED HR 10/04/24 15:00 10/07/24 07:10 DC 10/07/24 01:37 20 MG Sodium Bicarbonate (Sodium Bicarbonate) 650 mg BID GT 10/04/24 21:00 10/04/24 21:16 DC 10/04/24 20:16 650 MG DIAGNOSTICS / RADIOLOGY: [ ] PATIENT: KYLE PATEL MR#: [id number] : 2005 SEX: F AGE: 18 LOCATION: 2BH ORDER 2300 STATUS: ADM IN REPORT#: [id number] SERVICE 1007 REASON: Pneumonia ORDERING PHYSICIAN: NEGRA VALENTE MD PROCEDURE: CXR1VW - CHEST 1VW CHEST 1VW REASON: Pneumonia COMPARISON: 10/09/2024 FINDINGS: Severe scoliosis is again noted. Right lung is clear. There is haziness on the left consistent with diffuse infiltrate or effusion, unchanged. Tracheostomy tube remains in place. IMPRESSION: 1. No change. DICTATED BY: ASH HICKMAN MD DATE: 10/10/241041 ELECTRONICALLY SIGNED BY: ASH HICKMAN MD DATE: 10/10/241046 ASSESSMENT: Ventilator associated pneumonia, Left lung pneumonia POA GI bleed POA Normocytic normochromic anemia POA Acute Leukocytosis POA Hypernatremia POA Hypokalemia POA Chronic respiratory failure ventilator dependent POA Functional quadriplegia POA GERD with PEG tube placement. POA Peg tube status POA Recent Left ear infection POA Spinal Muscular dystrophy POA Severe thoracic scoliosis POA PLAN: Continue D5 at 75 mL/hour We will replace electrolytes as needed per protocol We will add prn medication for fever,pain,cough ,nausea and vomiting Hypernatremia correction with D5W IV to 75 mL/hour. Monitor serum sodium every 4 hours. Hypokalemia protocol as per facility. Magnesium supplementation as per protocol of the facility. Adjust PEG tube feeds per dietary recommendation. Monitor for hypotension and adjust fluids as needed. Consider midodrine 5 mg t.i.d. p.r.n. if persistent hypotension. Continue antiseizure medication as prescribed. Seizure precautions in place. Pulmonary consult ongoing for ventilator management. Continue suctioning and chest physiotherapy to prevent mucus plugging. Follow-up chest x-ray to monitor resolution. Oxygen support via ventilator as needed. Following up with a GI consult to evaluate the necessity for J-tube repositioning or surgical J-tube replacement if rebleeding occurs. Continue Protonix 40 mg IV b.i.d. for GI prophylaxis. Her stool occult has been positive for blood. Monitor H and H due to ongoing anemia risk. Transfuse PRBC if hemoglobin less than 7.0. Ordered a cortisol level at 8:00 a.m. for possible adrenal insufficiency. Continue current antibiotic therapy with meropenem1 g IV q.8h. Monitor WBC trend, inflammatory markers CRP procalcitonin. Monitor hemoglobin and hematocrit trends. Iron replacement has been ordered. Blood transfusion if hemoglobin drops below 7. Follow up on GI recommendations for J-tube removed versus surgical J-tube placement for Schedule outpatient GI following post discharge follow-up. Patient has been downgraded to PCCU. Continue close monitoring with step-down care. Speech therapy consult has been placed for aspiration risk. Repeating TSH T3-T4 for further evaluation of her elevated TSH. Electrolytes will be replaced according to the facility protocol. We will follow up urinalysis result, we will cultures and fecal occult blood We will request labs in am We will request H&H p.r.n. bleeding We will seek critical Care consultation Further orders to follow depending on above results Case discussed with attending physician and came up with above treatment and plan of care. ATTESTATION BY PHYSICIAN I have seen and examined the patient. I reviewed the documentation, medical decision making, and treatment plan as noted by the resident above. I agree with the findings and plan of care. Dionte Holcomb MD, RAGHAVA R MD Oct 10, 2024 16:02
--- NOTE | 2024-10-10 16:37 | PN ---
[facility] PROGRESS NOTE Date Patient Seen: Oct 10, 2024 Time of Visit: 11:28 Supervising Physician: DR. JAPSAL DEGROOT Primary Care Physician: Mariaelena Alvarez Outpatient Specialists: Inpatient Consults: BIS, PROBLEM LIST: Bilateral Bacterial pneumonia L>R POA + for Proteus Mirabilis, and serratia Marcescens ventilator associated Septic shock, POA requiring Levophed, resolved Acute on chronic hypoxic respiratory failure, POA resolved back to baseline fio2 21% Ventilator dependent since Tracheostomy size Compensated metabolic acidosis, POA Acute on chronic anemia from blood loss, POA (Melena) s/p EGD 10/04/24 w/ findings of bleed and clipping Leukocytosis, POA Hypernatremia POA Chronic respiratory failure ventilator dependent POA Functional quadriplegia POA Bernardo tube gastrostomy, POA Recent Left ear infection POA Hypokalemia resolved Hx of seizures History of spinal muscular dysplasia Hx of Severe thoracic scoliosis INTERVAL HISTORY: Bruce assessed in room 206. Mental status at baseline. Vent dependent, alert, functional quadriplegic. Mother at the bedside informed her of current findings and answered her questions. She has been hemodynamically stable and afebrile and as per RN no major overnight events. Patient continues with home vent and home settings with FiO2 of 21% saturating 99-100 %. H&H decreased from yesterday which was 8.2 now 7.8/.6 platelet count 365 K. per GI recommendation if patient shows signs of rebleeding she may need a surgical G-tube placement. Gi team was notified of slight drop in HH. Patient continues on antibiotics per ID. Due to patient being high-risk for decompensation and high acuity we will go ahead have pt in ICU status. Chest x-ray with diffuse infiltrates in left lung unchanged. We will continue to follow GI recommendations. For now we will trend H&H and transfuse if hemoglobin drops less than 7. Repeat sputum culture pending. 10/10/24 Patient is a 18 year old who is on her baseline mental status, with upper and lower extremities spasticity, chronic ventilator with acute on chronic respiratory failure continues to be on antibiotic therapy due to ventilator associated Pneumonia , HH has remained stable, not requiring blood transfusion , no further recommendations from GI team at this moment, family at the bedside , all questions has been answeredwe will continue monitoring closely , monitor respiratory status, vital signs and for any signs of bleeding. REVIEW OF SYSTEMS: Unable to perform due to patient's cognitive status. PHYSICAL EXAM: GENERAL: Patient is awake alert aphasic. functional quadriplegia HEENT: Sclera non icteric, moist mucosa NECK: Short no JVD, tracheostomy, site clean no erythema or drainage LUNGS: diminished breath sounds bilaterally. No wheezes HEART: Regular rate and rhythm. Normal S1 and S2, without murmurs ABD: Abdomen soft, nontender. Bowel sounds present EXT: No clubbing cyanosis or edema NEURO: Functional quadriplegia, bed bound Vital Signs (last 8hr) Date Time Temp Pulse Resp B/P (MAP) Pulse Ox O2 Delivery O2 Flow Rate FiO2 10/10/24 14:59 104 21 10/10/24 14:47 82 22 10/10/24 13:00 71 22 110/57 100 10/10/24 12:17 93 21 10/10/24 12:00 98.8 85 22 100/48 99 Ventilator 21 10/10/24 11:00 122 22 106/60 100 Ventilator 21 10/10/24 10:00 91 22 118/73 100 Ventilator 21 10/10/24 09:43 104 22 10/10/24 09:41 97 21 10/10/24 09:00 83 22 96/44 100 Ventilator 21 LABS: Hematology Labs: Test 10/10/24 15:25 10/09/24 03:45 Range/Units White Blood Count 11.1 H 4.8-10.8 K/uL Red Blood Count 2.88 L 4.00-5.50 MIL/uL Hemoglobin 8.7 L 12.0-16.0 g/dL Hematocrit 28.3 L 36-48 % Mean Corpuscular Volume 98.3 80-100 fL Mean Corpuscular Hemoglobin 30.2 27.0-33.0 pg Mean Corpuscular Hemoglobin Concent 30.7 L 32.0-36.0 g/dL Red Cell Distribution Width 16.6 H 11.0-15.5 % Platelet Count 427 H 130-400 K/uL Mean Platelet Volume 10.0 7.5-10.5 fL Nucleated Red Blood Cells 0.0 0.0-0.19 % Immature Granulocyte % (Auto) 0.5 0-1 % Neutrophils (%) (Auto) 53.0 40.0-77.0 % Lymphocytes (%) (Auto) 38.8 21.0-51.0 % Monocytes (%) (Auto) 5.2 3.0-13.0 % Eosinophils (%) (Auto) 2.3 0.0-8.0 % Basophils (%) (Auto) 0.2 0.0-5.0 % Neutrophils # (Auto) 8.8 H 1.8-7.7 K/uL Lymphocytes # (Auto) 6.5 H 1.0-4.8 K/uL Monocytes # (Auto) 0.9 0.1-1.0 K/uL Eosinophils # (Auto) 0.38 0.00-0.70 K/uL Basophils # (Auto) 0.04 0.00-0.20 K/uL Absolute Immature Granulocyte (auto 0.08 0-1 K/uL Chemistry Labs: Test 10/10/24 15:25 10/10/24 12:09 10/09/24 03:45 Range/Units Sodium Level 140 136-145 mmol/L Potassium Level 3.8 3.5-5.1 mmol/L Chloride Level 108 101-111 mmol/L Carbon Dioxide Level 24 21-32 mmol/L Blood Urea Nitrogen 4 L 7-18 mg/dL Creatinine 0.1 L 0.5-1.0 mg/dL Glomerular Filtration Rate Calc 203 >90 mL/min Random Glucose 107 H 70-105 mg/dL Total Calcium 8.7 8.5-10.1 mg/dL Whole Blood Glucose 118 H 70-110 MG/DL Total Bilirubin 0.2 0.2-1.0 mg/dL Aspartate Amino Transf (AST/SGOT) 15 10-37 U/L Alanine Aminotransferase (ALT/SGPT) 15 12-78 U/L Alkaline Phosphatase 109 50-136 U/L Total Protein 6.3 6.0-8.3 g/dL Albumin 2.3 L 3.5-5.0 g/dL DIAGNOSTICS / RADIOLOGY RESULTS: CHEST 1VW REASON: Pneumonia COMPARISON: 10/09/2024 FINDINGS: Severe scoliosis is again noted. Right lung is clear. There is haziness on the left consistent with diffuse infiltrate or effusion, unchanged. Tracheostomy tube remains in place. IMPRESSION: 1. No change. PLAN 10/08/2024: For now, we are going to continue current management for the patient. She is going to continue on ventilator support and we will continue providing pulmonary toileting. We will continue monitor the patient off of the Levophed drip and on midodrine which I am going to increase to 15 mg t.i.d.. She is going to continue on IV Merrem for management of the pneumonia. WBC is improving and we will continue to follow the trend. We will monitor the patient's progress and response to management. We will continue to provide general supportive care, GI and DVT prophylaxis. Further orders per attending MD and hospital course. 10/10/2024 Continue with Tracheostomy care aspiration precautions suctioning as needed continue with antibiotic therapy monitor vital signs monitor for any signs or sites of bleeding. NEURO: Minimize central acting medications as possible. Maintain fall precautions, adequate lighting during the day PULMONARY: Supplemental 02 as needed. Maintain aspiration precautions at all times CARDIOVASCULAR: Follow hemodynamics. Vital signs per facility protocol GI & NUTRITION: Continue with nutritional support. Continue stool softeners and laxatives as needed. KIDNEYS & ELECTROLYTES: Strict monitoring of intake, output and overall fluid balance. Avoid nephrotoxic medications to the extent possible. Medications to be dosed according to renal function. Monitor electrolytes and replace as needed ENDOCRINE: Maintain blood glucose between 100-180 at all times. Hypoglycemia protocol in place INFECTIOUS DISEASE: Trend temperature, WBC and procalcitonin level Follow cultures, deescalate antibiotics as soon as possible. Panculture if new onset fever ONCOLOGY/HEMATOLOGY/COAGULATION: Monitor for s/s of bleeding Monitor hemoglobin, coagulation studies as needed SKIN: Pressure ulcer prevention per facility protocol Specialty mattress ORTHO/REHAB: Continue PT/OT Prophylaxis: Continue GI and DVT prophylaxis Code Status: Full Resuscitation Disposition: TBD Other: Total patient care time exceeds 35 minutes excluding all procedures. ATTESTATION BY PHYSICIAN Documentation assistance provided by a scribe, information recorded by the scribe was done at my direction and has been reviewed and validated by me." JASPAL DEGROOT MD I personally scribed for JASPAL DEGROOT MD ([email or web address]) on 10/10/24 at 16:37. Electronically submitted by Savanna Mendez ([id number]). JASPAL DEGROOT MD Oct 10, 2024 16:37
--- NOTE | 2024-10-10 19:15 | NUR ---
HAND OFF REPORT GIVEN TO CASSIDY STEPHENS
[2024-10-11] VITALS (31 sets, daily range): BP systolic 95–139; BP diastolic 37–81; PULSE 65–142; RESP 21–23; TEMP 97.5–99.3; O2SAT 98–100
--- NOTE | 2024-10-11 03:38 | PN ---
INFECTIOUS DISEASE FOLLOWUP NOTE DATE OF SERVICE: 10/10/2024 SUBJECTIVE: The patient is seen and examined at bedside today. No fever or chills. Awake, nonverbal, bedbound, total care dependent. The patient remained in ICU. The patient is non-verbal. She has significant sinus tachycardia with rate going up to 140. The patient is tolerating PEG feeding. Mother was updated at the bedside today. PHYSICAL EXAMINATION: VITAL SIGNS: Temperature 98.7. EYES: No icterus. Pupils equal and reactive. HENT: No oral thrush seen. Moist oral mucosa. NECK: Supple, no JVD, no thyromegaly. LUNGS: Good air entry. No rales, no rhonchi. CARDIOVASCULAR: S1, S2 regular. No murmur heard. ABDOMEN: Full, soft. Bowel sound is present. CENTRAL NERVOUS SYSTEM: The patient is awake, nonverbal, bedbound, total care dependent. SKIN: No rashes, no itchiness. LYMPHATICS: No peripheral lymphadenopathy. BACK: No deformity, no pressure ulcer. MUSCULOSKELETAL: No joint swelling, erythema or tenderness. ASSESSMENT: A 18-year-old female with multiple problems which include: * Septic shock. * Pneumonia. * Hypoxic respiratory failure, on ventilator support. * Quadriplegia. * Spinal muscular sclerosis. * Polymicrobial infection. PLAN: * Continue meropenem. * Continue critical care support. * Continue pain management. * Monitor electrolytes. * Continue ventilatory support. * Continue DVT prophylaxis. * Continue PEG feeding. * The patient will be followed up closely. TID: [id number] RECEIPT: [id number] [facility]
[2024-10-11 04:34] LABS: BASOPHILS # (AUTO) 0.05 K/uL (0.00-0.20); BASOPHILS % (AUTO) 0.5 % (0.0-5.0); EOSINOPHILS # (AUTO) 0.49 K/uL (0.00-0.70); EOSINOPHILS % (AUTO) 5.1 % (0.0-8.0); HEMATOCRIT 26.1 % (36-48); IMMATURE GRANULOCYTE ABSOLUTE 0.04 K/uL (0-1); LYMPHOCYTES # (AUTO) 4.1 K/uL (1.0-4.8); LYMPHOCYTES % (AUTO) 42.2 % (21.0-51.0); MEAN CORPUSCULAR HEMOGLOBIN 29.6 pg (27.0-33.0); MEAN CORPUSCULAR HGB CONC 30.3 g/dL (32.0-36.0); MEAN CORPUSCULAR VOLUME 97.8 fL (80-100); MONOCYTES # (AUTO) 0.6 K/uL (0.1-1.0); MONOCYTES % (AUTO) 6.3 % (3.0-13.0); NEUTROPHILS # (AUTO) 4.4 K/uL (1.8-7.7); NEUTROPHILS % (AUTO) 45.5 % (40.0-77.0); PLATELET COUNT (AUTO) 353 K/uL (130-400); RED BLOOD CELL COUNT(AUTO) 2.67 MIL/uL (4.00-5.50); RED CELL DISTRIBUTION WIDTH 16.3 % (11.0-15.5); WHITE BLOOD COUNT (AUTO) 9.7 K/uL (4.8-10.8)
[2024-10-11 05:04] LABS: CARBON DIOXIDE 23 mmol/L (21-32); CHLORIDE 109 mmol/L (101-111); GLUCOSE,RANDOM 87 mg/dL (70-105); PHOSPHORUS 3.1 mg/dL (2.5-4.9); POTASSIUM 3.6 mmol/L (3.5-5.1); SODIUM SERUM 143 mmol/L (136-145); UREA NITROGEN, BLOOD 5 mg/dL (7-18)
[2024-10-11 05:24] LABS: CREATININE < 0.2 mg/dL (0.5-1.0); GLOMERULAR FILTR. RATE CALC 172 mL/min (>90)
--- NOTE | 2024-10-11 07:29 | PN ---
GASTROENTEROLOGY PROGRESS NOTE Date of Visit: Oct 11, 2024 Time of Visit: 07:29 Events / Notes: No acute events overnight. Patient had EGD which revealed bleeding antral ulcer s/p clip with hemostasis. J tube was found right on ulcer. Hgb stable. WBC fluctuating. No reports of fever, chills, abdominal pain, N/V, hematemesis, bloating, constipation, diarrhea, melena or hematochezia. Review of Systems: CONSTITUTIONAL: No malaise or change in sensation of wellbeing. ENMT: No rhinorrhea, otorrhea, sinus pain, ear ache. CARDIOVASCULAR: No angina, palpitations, orthopnea or paroxysmal dyspnea. RESPIRATORY: No SOB. GASTROINTESTINAL: No abdominal pain, nausea, vomiting, diarrhea, hematemesis, melena or change in the patient's habitual bowel movements consistency/number. GENITOURINARY: No dysuria, hematuria or change in bladder continence. MUSCULOSKELETAL: No new muscle pain or decrease in muscular strength. No new joint swelling, redness or tenderness. SKIN: No new rash. Physical Exam: GEN: Awake, alert, oriented in person, time and place, and in no acute distress. HEENT: No sinus tenderness. Tympanic membranes were not examined. No rhinorrhea. Oral pharyngeal mucosa is pink, moist and within normal limits. Neck is supple with no cervical lymphadenopathy, thyromegaly or JVD. CHEST: Inspection, palpation and percussion of the chest were unremarkable. Lung auscultation revealed normal breath sounds bilaterally. CARDIAC: PMI is within normal limits. Heart sounds are regular. Normal S1, S2. No gallop or murmur. ABD: Soft, non-tender and not distended. No peritoneal signs on palpation. No organomegaly. Normal bowel sounds. EXT: No cyanosis or clubbing. No edema. SKIN: Intact. No rashes. JOINTS: No evidence of synovitis or acute arthritis. NEURO: Alert and oriented to name, place and person. Cranial nerve examination is unremarkable. No focal motor deficits. Normal speech. Gait is normal. Strength is normal. Vital Signs (last 8hr) Date Time Temp Pulse Resp B/P (MAP) Pulse Ox O2 Delivery O2 Flow Rate FiO2 10/11/24 06:28 114 22 10/11/24 06:00 81 22 95/42 100 Ventilator 21 10/11/24 05:00 71 22 105/43 100 Ventilator 21 10/11/24 04:00 21 10/11/24 04:00 100 Ventilator+ 21 10/11/24 04:00 76 22 128/74 100 Ventilator 21 10/11/24 03:46 65 21 10/11/24 03:00 88 22 117/49 99 Ventilator 21 10/11/24 02:56 68 22 10/11/24 02:00 79 22 136/79 100 Ventilator 21 10/11/24 01:00 73 22 112/46 98 Ventilator 21 10/11/24 00:08 66 21 10/11/24 00:00 21 10/11/24 00:00 97.5 75 22 112/37 100 Ventilator 21 10/11/24 00:00 100 Ventilator+ 21 Laboratory: [ ] Laboratory: Test 10/11/24 06:11 10/11/24 03:54 Range/Units Whole Blood Glucose 84 70-110 MG/DL White Blood Count 9.7 4.8-10.8 K/uL Red Blood Count 2.67 L 4.00-5.50 MIL/uL Hemoglobin 7.9 L 12.0-16.0 g/dL Hematocrit 26.1 L 36-48 % Mean Corpuscular Volume 97.8 80-100 fL Mean Corpuscular Hemoglobin 29.6 27.0-33.0 pg Mean Corpuscular Hemoglobin Concent 30.3 L 32.0-36.0 g/dL Red Cell Distribution Width 16.3 H 11.0-15.5 % Platelet Count 353 130-400 K/uL Mean Platelet Volume 10.1 7.5-10.5 fL Immature Granulocyte % (Auto) 0.4 0-1 % Neutrophils (%) (Auto) 45.5 40.0-77.0 % Lymphocytes (%) (Auto) 42.2 21.0-51.0 % Monocytes (%) (Auto) 6.3 3.0-13.0 % Eosinophils (%) (Auto) 5.1 0.0-8.0 % Basophils (%) (Auto) 0.5 0.0-5.0 % Neutrophils # (Auto) 4.4 1.8-7.7 K/uL Lymphocytes # (Auto) 4.1 1.0-4.8 K/uL Monocytes # (Auto) 0.6 0.1-1.0 K/uL Eosinophils # (Auto) 0.49 0.00-0.70 K/uL Basophils # (Auto) 0.05 0.00-0.20 K/uL Absolute Immature Granulocyte (auto 0.04 0-1 K/uL Nucleated Red Blood Cells 0.0 0.0-0.19 % Sodium Level 143 136-145 mmol/L Potassium Level 3.6 3.5-5.1 mmol/L Chloride Level 109 101-111 mmol/L Carbon Dioxide Level 23 21-32 mmol/L Blood Urea Nitrogen 5 L 7-18 mg/dL Creatinine < 0.2 L 0.5-1.0 mg/dL Glomerular Filtration Rate Calc 172 >90 mL/min Random Glucose 87 70-105 mg/dL Lactic Acid Level 1.4 0.8-2.5 mmol/L Total Calcium 8.8 8.5-10.1 mg/dL Phosphorus Level 3.1 2.5-4.9 mg/dL Magnesium Level 2.40 1.80-2.40 mg/dL Current Medications Medications (Trade) Dose Ordered Sig/Valentina Route PRN Reason Start Time Stop Time Status Last Admin Dose Admin Acetylcysteine (MUComyst 20% 4ML) 400mg = 2ml [id number] IH 10/03/24 10:00 10/06/24 13:17 DC 10/06/24 10:17 800 MG Albuterol Sulfate (Proventil 0.083% 2.5mg/3ml) 2.5 mg Q4HPRN PRN IH BRONCHOSPASM 10/04/24 15:00 11/03/24 14:59 Albuterol Sulfate (Ventolin Hfa) 2 INHALATIONS BID IH 10/07/24 09:00 10/07/24 07:09 DC Albuterol Sulfate (Ventolin Hfa) 2 inh BID IH 10/04/24 21:00 10/07/24 07:08 DC Artificial Tears (Artificial Tears) 1 DROP OP TID TID OP 10/05/24 09:00 11/03/24 20:59 10/10/24 20:30 1 DROP Artificial Tears (Artificial Tears) 1 DROP OR AD Q8H OU 10/03/24 08:30 10/05/24 08:27 DC 10/05/24 00:31 1 DROP Artificial Tears (Artificial Tears) 1 drop TID OP 10/04/24 21:00 10/05/24 08:29 DC 10/04/24 18:30 1 DROP Cetirizine HCl (ZYRtec 5 MG TABLET) 5 mg HS PO 10/07/24 21:00 11/06/24 20:59 10/10/24 20:30 5 MG Chlorhexidine Gluconate (Peridex) 15 ml Q8H MM 10/03/24 08:30 10/17/24 08:29 10/11/24 00:34 15 ML Dextrose 1,000 ml @ 50 mls/hr Q20H IV 10/02/24 20:30 10/03/24 20:38 DC 10/03/24 19:06 50 MLS/HR Dextrose (D50w) 50 ml AD PRN IV HYPOGLYCEMIA PROTOCOL 10/04/24 23:30 11/03/24 23:29 Doxycycline Hyclate 250 ml @ 125 mls/hr Q12H IV 10/03/24 08:30 10/05/24 10:04 DC 10/05/24 09:00 125 MLS/HR Enoxaparin Sodium (Lovenox) 30 mg DAILY SQ 10/11/24 09:00 11/10/24 08:59 Furosemide (LASix 20MG VIAL) 20 mg Q12H IV 10/06/24 22:00 10/07/24 09:13 DC 10/06/24 22:35 20 MG Glucagon (Glucagon 1mg Kit) 1 mg AD PRN IM HYPOGLYCEMIA PROTOCOL 10/04/24 23:30 11/03/24 23:29 Home Med (Compound Po Narcotic) UD AD PO 10/04/24 15:30 10/05/24 16:51 DC Home Med (Home Medication) (Ergocalciferol (Vitamin D2) (Ergocalcifer... QWEEK PO 10/11/24 09:00 11/10/24 08:59 Home Med (Home Medication) (Midazolam (Nayzilam) 5 MG) BID PRN NASAL CONSTIPATION 10/04/24 15:00 11/03/24 14:59 Home Med (Home Medication) 2 PUFFS (Advair Hfa 45... BID IH 10/04/24 21:00 11/03/24 20:59 Home Med (Home Medication) CLOBAZAM 20MG DAILY AT 1700... DAILY PO 10/09/24 09:00 11/08/24 08:59 10/10/24 09:26 1 EACH Home Med (Home Medication) CLOBAZAM 20MG DAILY AT 1700... DAILY17 PO 10/03/24 17:00 10/09/24 08:37 DC 10/07/24 17:00 1 EACH Insulin Human Regular (humuLIN R 100 UNIT/ML 3ML) INSULIN SLIDING SCAL... Q6H6 SQ 10/05/24 00:00 11/04/24 00:00 Ipratropium Yale (AtrovENT UD) 0.5 MG [id number] IH 10/03/24 10:00 11/02/24 09:59 10/11/24 06:26 0.5 MG Lansoprazole (Prevacid Solu Tab) 15 mg BID PEG 10/04/24 21:00 10/04/24 11:47 DC Lansoprazole (Prevacid Solu Tab) 30 mg BID PEG 10/04/24 21:00 11/03/24 20:59 10/10/24 20:30 30 MG Lorazepam (AtiVAN) 1 mg AD PRN IVP SEIZURES 10/03/24 21:00 11/02/24 20:59 Magnesium Sulfate 50 ml @ 0 mls/hr PROTOCOL PRN IV Electrolyte abnormality 10/03/24 16:30 11/02/24 16:29 Magnesium Sulfate 50 ml @ 0 mls/hr PROTOCOL PRN IV DEHYDRATION 10/04/24 23:30 10/04/24 23:40 DC Meropenem (Merrem 1gm) 1 gm Q8H IV 10/05/24 14:00 10/15/24 13:59 10/11/24 06:54 1 GM Midodrine (PROAMatine 5 MG TABLET) 5 mg TID PO 10/04/24 11:30 10/06/24 13:21 DC 10/06/24 08:22 5 MG Midodrine (PROAMatine 5 MG TABLET) 10 mg TID PO 10/06/24 14:00 10/08/24 14:52 DC 10/08/24 14:51 10 MG Midodrine (PROAMatine 5 MG TABLET) 15 mg TID PO 10/08/24 21:00 11/07/24 20:59 Hold 10/10/24 14:31 15 MG Norepinephrine 250 ml @ 14.288 mls/ hr PROTOCOL PRN IV HYPOTENSION MAP LESS THAN 65 10/03/24 04:00 10/08/24 17:17 DC 10/08/24 03:34 14.288 MLS/HR Ondansetron HCl (zoFRAN 4MG INJ) 4 mg Q6H PRN IV NAUSEA/VOMITING 10/02/24 20:30 11/01/24 20:29 Pantoprazole Sodium (PROTonix 40MG INJ) 40 mg BID IVP 10/03/24 09:00 10/04/24 11:08 DC 10/04/24 08:19 40 MG Pantoprazole Sodium (PROTonix 40MG INJ) 40 mg DAILY IVP 10/03/24 09:00 10/03/24 08:09 DC Pharmacy Profile Note (Pharmacy Communication) Q8H Q8H MISC 10/05/24 14:00 10/05/24 13:51 DC Piperacillin Sod/ Tazobactam Sod (Zosyn 3.375gm+NS 50ml) 3.375 gm Q12H IVPB 10/02/24 20:30 10/05/24 10:04 DC 10/05/24 09:08 3.375 GM Polyethylene Glycol (MIRalax 3350 17 GM POWD.PACK) 17 gm QODAY PO 10/08/24 09:00 11/07/24 08:59 10/10/24 09:17 17 GM Potassium Chloride/Dextrose/ Sod Cl (Dextrose NS 20 Meq KCl 1000ml) 20 meq AD IV 10/05/24 18:30 10/06/24 22:11 DC 10/06/24 12:13 20 MEQ Potassium Chloride 100 ml @ 50 mls/hr AD PRN IV POTASSIUM PROTOCOL 10/03/24 16:30 11/02/24 16:29 10/05/24 03:01 50 MLS/HR Potassium Chloride 100 ml @ 50 mls/hr AD PRN IV POTASSIUM PROTOCOL 10/04/24 23:30 10/04/24 23:40 DC Potassium Cl/ Dextrose/Lact Ringer's ([id number] Meq KCl 1000 ml) 20 meq AD IV 10/03/24 21:00 10/05/24 17:36 DC 10/05/24 00:00 20 MEQ Propranolol HCl (Inderal) 20 mg BID PRN PO PRN FOR ELEVATED HR 10/04/24 15:00 10/07/24 07:10 DC 10/07/24 01:37 20 MG Sodium Bicarbonate (Sodium Bicarbonate) 650 mg BID GT 10/04/24 21:00 10/04/24 21:16 DC 10/04/24 20:16 650 MG Diagnostics / Radiology: [COPY/PASTE HERE IF NO REPORTS PLEASE DELETE SECTION] Assessment: Gastric ulcer Acute blood loss anemia Gastrostomy status Respiratory failure Plan: If ulcer/bleeding recurs then patient may require removal of feeding tube or placement of a surgical J tube PPI BID Continue GI prophylaxis Avoid NSAIDs Antireflux measures Monitor H&H and transfuse as needed Call with questions, concerns or change in clinical status Patient to follow-up at clinic post discharge Thank you for this consult CHINEDU AMOR Oct 11, 2024 07:29
[2024-10-11] MEDS: ERGOCALCIFEROL PO SCH (09:00)
[2024-10-11] MEDS: ENOXAPARIN SODIUM 30 MG/0.3 ML SQ SCH (09:08)
--- NOTE | 2024-10-11 09:48 | PN ---
[facility] PROGRESS NOTE Date Patient Seen: Oct 11, 2024 Time of Visit: 09:47 Supervising Physician: Dr. Gomez Primary Care Physician: Mariaelena Alvarez Outpatient Specialists: Inpatient Consults: BIS, PROBLEM LIST: Bilateral Bacterial pneumonia L>R POA + for Proteus Mirabilis, and serratia Ma rcescens ventilator associated Septic shock, POA requiring Levophed, resolved Acute on chronic hypoxic respiratory failure, POA resolved back to baseline fio2 21% Ventilator dependent since Tracheostomy size Compensated metabolic acidosis, POA Acute on chronic anemia from blood loss, POA (Melena) s/p EGD 10/04/24 w/ findings of bleed and clipping Leukocytosis, POA resolved Hypernatremia POA resolved Chronic respiratory failure ventilator dependent POA Functional quadriplegia POA Bernardo tube gastrostomy, POA Recent Left ear infection POA Hypokalemia resolved Hx of seizures History of spinal muscular dysplasia Hx of Severe thoracic scoliosis INTERVAL HISTORY: Bruce assessed in room 206. Mental status at baseline. Vent dependent, alert, functional quadriplegic. Mother at the bedside informed her of current findings and answered her questions. She has been hemodynamically stable and afebrile and as per RN no major overnight events. Patient continues with home vent and home settings with FiO2 of 21% saturating 99-100 %. H&H decreased from yesterday which was 8.2 now 7.8/.6 platelet count 365 K. per GI recommendation if patient shows signs of rebleeding she may need a surgical G-tube placement. Gi team was notified of slight drop in HH. Patient continues on antibiotics per ID. Due to patient being high-risk for decompensation and high acuity we will go ahead have pt in ICU status. Chest x-ray with diffuse infiltrates in left lung unchanged. We will continue to follow GI recommendations. For now we will trend H&H and transfuse if hemoglobin drops less than 7. Repeat sputum culture pending. 10/10/24 Patient is a 18 year old who is on her baseline mental status, with upper and lower extremities spasticity, chronic ventilator with acute on chronic respiratory failure continues to be on antibiotic therapy due to ventilator associated Pneumonia , HH has remained stable, not requiring blood transfusion , no further recommendations from GI team at this moment, family at the bedside , all questions has been answeredwe will continue monitoring closely , monitor respiratory status, vital signs and for any signs of bleeding. 10/11/2024: At the time of my visit, the patient was lying in bed, mental status at baseline continues on clobazam and no reports of seizure events overnight. Patient remains on home vent, SIMV, rate of 22, tidal volume of 250, peep of 5, FiO2 21%. On the monitor, the patient is hemodynamically stable and currently not on any pressor therapy and midodrine was discontinued. The patient continues on feeding through mEq tube and is so far tolerating well. Chemistry panel showed a sodium of 143, potassium of 3.6, chloride is 109, CO2 of 23, BUN five and creatinine of < 0.2, glucose of 87. The patient voids incontinently. Hematology shows a WBC of 9.7, H&H 7.9/26.1 and a platelet count of 253. The patient continues on antibiotic therapy with IV Merrem secondary to sputum positive for proteus mirabilis. No other complaint. REVIEW OF SYSTEMS: Unable to perform due to patient's cognitive status. PHYSICAL EXAM: GENERAL: Patient is awake alert aphasic. functional quadriplegia HEENT: Sclera non icteric, moist mucosa NECK: Short no JVD, tracheostomy, site clean no erythema or drainage LUNGS: Diminished breath sounds bilaterally. No wheezes HEART: Regular rate and rhythm. Normal S1 and S2, without murmurs ABD: Abdomen soft, nontender. Bowel sounds present. Bernardo tube present insertion site benign. EXT: No clubbing cyanosis or edema NEURO: Functional quadriplegia, bed bound Vital Signs (last 8hr) Date Time Temp Pulse Resp B/P (MAP) Pulse Ox O2 Delivery O2 Flow Rate FiO2 10/11/24 06:30 112 21 10/11/24 06:28 114 22 10/11/24 06:00 81 22 95/42 100 Ventilator 21 10/11/24 05:00 71 22 105/43 100 Ventilator 21 10/11/24 04:00 21 10/11/24 04:00 100 Ventilator+ 21 10/11/24 04:00 76 22 128/74 100 Ventilator 21 10/11/24 03:46 65 21 10/11/24 03:00 88 22 117/49 99 Ventilator 21 10/11/24 02:56 68 10/11/24 02:00 79 22 136/79 100 Ventilator 21 LABS: Hematology Labs: Test 10/11/24 03:54 Range/Units White Blood Count 9.7 4.8-10.8 K/uL Red Blood Count 2.67 L 4.00-5.50 MIL/uL Hemoglobin 7.9 L 12.0-16.0 g/dL Hematocrit 26.1 L 36-48 % Mean Corpuscular Volume 97.8 80-100 fL Mean Corpuscular Hemoglobin 29.6 27.0-33.0 pg Mean Corpuscular Hemoglobin Concent 30.3 L 32.0-36.0 g/dL Red Cell Distribution Width 16.3 H 11.0-15.5 % Platelet Count 353 130-400 K/uL Mean Platelet Volume 10.1 7.5-10.5 fL Immature Granulocyte % (Auto) 0.4 0-1 % Neutrophils (%) (Auto) 45.5 40.0-77.0 % Lymphocytes (%) (Auto) 42.2 21.0-51.0 % Monocytes (%) (Auto) 6.3 3.0-13.0 % Eosinophils (%) (Auto) 5.1 0.0-8.0 % Basophils (%) (Auto) 0.5 0.0-5.0 % Neutrophils # (Auto) 4.4 1.8-7.7 K/uL Lymphocytes # (Auto) 4.1 1.0-4.8 K/uL Monocytes # (Auto) 0.6 0.1-1.0 K/uL Eosinophils # (Auto) 0.49 0.00-0.70 K/uL Basophils # (Auto) 0.05 0.00-0.20 K/uL Absolute Immature Granulocyte (auto 0.04 0-1 K/uL Nucleated Red Blood Cells 0.0 0.0-0.19 % Chemistry Labs: Test 10/11/24 06:11 10/11/24 03:54 Range/Units Whole Blood Glucose 84 70-110 MG/DL Sodium Level 143 136-145 mmol/L Potassium Level 3.6 3.5-5.1 mmol/L Chloride Level 109 101-111 mmol/L Carbon Dioxide Level 23 21-32 mmol/L Blood Urea Nitrogen 5 L 7-18 mg/dL Creatinine < 0.2 L 0.5-1.0 mg/dL Glomerular Filtration Rate Calc 172 >90 mL/min Random Glucose 87 70-105 mg/dL Lactic Acid Level 1.4 0.8-2.5 mmol/L Total Calcium 8.8 8.5-10.1 mg/dL Phosphorus Level 3.1 2.5-4.9 mg/dL Magnesium Level 2.40 1.80-2.40 mg/dL DIAGNOSTICS / RADIOLOGY RESULTS: [ ] PLAN 10/11/2024: The patient remains seizure-free and continues on clobazam. She also remains on home vent of which she is dependent. She is hemodynamically stable off pressor therapy and midodrine orally. Patient continues feeding via Bernardo tube and no signs of aspiration. Patient voiding incontinently. Laboratory data showed no significant derangement. From the critical Care standpoint, the patient is stable enough to be transferred out of the ICU and disposition per the primary team. We will currently sign off the case. PLAN NEURO: Minimize central acting medications as possible. Fall Precautions. Well lighted room through the day and minimize interruptions through the night to prevent acute delirium. PULMONARY: Supplemental 02 as needed Titrate Fio2 to keep Spo2 > or = 90% DuoNebs and CPT as needed IS hourly while awake for pulmonary hygiene Out of bed to chair as tolerated VAP Bundle CARDIOVASCULAR: Follow hemodynamics. Titrate vasopressor to keep MAP >65 or systolic blood pressure >95mmHg DRIP: none[ ] LINES: picc GI & NUTRITION: Continue nutritional support Aspirations precautions Prokinetic agents and laxatives as needed KIDNEYS & ELECTROLYTES: Strict monitoring of intake and output Daily weights Avoid nephrotoxic agents Monitor electrolytes and replace as needed Goal urine output of 30mL/hr or 0.5mL/kg/hr Urine output: [ ] Fluid Balance: [ ] ENDOCRINE: Maintain blood glucose between 100-180 at all times. Insulin sliding scale for blood glucose management INFECTIOUS DISEASE: Trend temperature. Herrera-culture if febrile. Micro: [ ] Antibiotics: [ ] meropenem HEMATOLOGY & COAGULATION: Monitor H&H. Keep Hgb > 7 Transfuse 1 unit of PRBC for Hgb < 7 Transfuse 1 pack of platelets of platelets < 20, 000 Watch for any signs and symptoms of bleeding SKIN: Pressure ulcer prevention per facility protocol Rehab: PT/OT Prophylaxis: GI: protonix DVT: scd Code Status: Full Resuscitation Disposition:per primary Other: Total patient care time exceeds 35 minutes excluding all procedures. Case was discussed and seen with my supervising physician. The above plan was formulated and agreed upon. LORAINE DIEZ NP Oct 11, 2024 09:48
[2024-10-11] MEDS ORDERED: LANS15TA5 PEG (16:27)
--- NOTE | 2024-10-11 16:31 | DS ---
Discharge Summary Hospital Course Summary: THE PATIENT WAS ADMITTED ON TO ICU ON OCTOBER 03, 2024 FOR SEPSIS SECONDARY TO PNEUMONIA, GI BLEEDING, WORSENING ANEMIA AND ELECTROLYTE ABNORMALITIES. Sepsis and pneumonia: she was diagnosed with ventilator associated pneumonia based on positive sputum cultures for Proteus mirabilis and Serratia marcescens. initially empiric antibiotic therapy was initiated and a converted to meropenem IV based on susceptibility testing on positive culture results. Team followed up and she was continued on meropenem IV with close WBC monitoring. GI bleeding and anemia: an EGD revealed an active bleeding antral ulcer with successful clipping at home hemostasis it was noted that her J-tube was directly pressing on the ulcer site, raising concerns for recurrent bleeding. If rebleeding occurs, J-tube removal and possible surgical G-tube placement were discussed. Her hemoglobin levels stabilized after iron supplementation and fluid denia gement electrolyte abnormalities: hypernatremia and hypokalemia were corrected according to the facility protocol. BP was unstable initially, requiring Levophed and midodrine, but has been stabilized and she is currently weaned off. Hemodynamic stability: initially she required Levophed and midodrine for blood pressure support. Midodrine was tapered off since BP stabilized without vasopressor support. Pulmonary management: she remained ventilator dependent due to spinal muscle atrophy. CXR consistently showed left lung infiltrates without worsening consolidation. she received bronchial hygiene therapy with albuterol and acetylcysteine nebulization. Clinical progression and discharge plan: WBC normalized to 9.7 . Hemoglobin stabilized at baseline. BP remained stable without midodrine or vasopressor support. Oxygen saturation 100% on ventilator support. Given her stable condition, she safe for discharge to home with home health services. Bag Filler Machine Operator(s): INFECTIOUS DISEASE, PULMONOLOGY, GASTROENTEROLOGY AND CRITICAL CARE Procedure(s): PATIENT: KYLE PATEL MR#: [id number] : 2005 SEX: F AGE: 18 LOCATION: 2BH ORDER 99 STATUS: ADM IN REPORT#: [id number] SERVICE 1007 REASON: Pneumonia ORDERING PHYSICIAN: NEGRA VALENTE MD PROCEDURE: CXR1VW - CHEST 1VW CHEST 1VW REASON: Pneumonia COMPARISON: 10/09/2024 FINDINGS: Severe scoliosis is again noted. Right lung is clear. There is haziness on the left consistent with diffuse infiltrate or effusion, unchanged. Tracheostomy tube remains in place. IMPRESSION: 1. No change. PATIENT: KYLE PATEL MR#: [id number] : 2005 SEX: F AGE: 18 LOCATION: 2BH ORDER 2300 STATUS: ADM IN REPORT#: [id number] SERVICE 09 REASON: pneumonia ORDERING PHYSICIAN: NEGRA VALENTE MD PROCEDURE: CXR1VW - CHEST 1VW Exam Type: CHEST 1VW Clinical Information: pneumonia Comparison: None Findings: Pulmonary pattern is as before. No worrisome interval changes have taken place. Impression: Stable exam.PATIENT: KYLE PATEL MR#: [id number] : 2005 SEX: F AGE: 18 LOCATION: 2BH ORDER 2300 STATUS: ADM IN REPORT#: [id number] SERVICE 09 REASON: pneumonia ORDERING PHYSICIAN: NEGRA VALENTE MD PROCEDURE: CXR1VW - CHEST 1VW CHEST 1VW HISTORY: Pneumonia COMPARISON: 10/03/2024 FINDINGS: A frontal projection of the chest was obtained. Mild bilateral pulmonary infiltrates are seen with left more than right. The heart is borderline enlarged. All the lines and tubes are again seen in place. No evidence of aortic calcification is seen. IMPRESSION: 1. Mild bilateral pulmonary infiltrates with left more than right. PATIENT: KYLE PATEL MR#: [id number] : 2005 SEX: F AGE: 18 LOCATION: [facility] ORDER 1216 STATUS: ADM IN REPORT#: [id number] SERVICE 121 REASON: POST PICC INSERTION ORDERING PHYSICIAN: GATITO MARTIN PROCEDURE: CXR1VW - CHEST 1VW CHEST 1VW HISTORY: Post PICC line insertion COMPARISON: None FINDINGS: A frontal projection of the chest was obtained. Bilateral pulmonary infiltrates are seen. There is scoliosis with wrist deformity. Evaluation for PICC line is limited due to patient's body habitus. Therefore clinical correlation is recommended. Distal tip may be at the level of the superior vena cava. The heart is borderline enlarged. All the lines and tubes are again seen in place. No evidence of aortic calcification is seen. IMPRESSION: 1. Findings as described above. PATIENT: KYLE PATEL MR#: [id number] : 2005 SEX: F AGE: 18 [facility] STATUS: ADM IN REPORT#: [id number] SERVICE 1 REASON: hypoxic resp failure acute on chronic ORDERING PHYSICIAN: GATITO MARTIN PROCEDURE: CHEST WO - CT CHEST W/O CONTRAST CT CHEST W/O CONTRAST HISTORY: Chronic respiratory failure COMPARISON: 02/02/2022 TECHNIQUE: Multiple sequential axial images of the chest were obtained from the thoracic inlet through upper abdomen. Patient was not given contrast through intravenous route. FINDINGS: There is scoliosis. There is left lung subsegmental atelectasis. Tracheostomy tube is seen. The study is limited due to patient's underlying status with deformity. Bilateral pulmonary infiltrates are seen. No pleural effusion or pericardial effusion is seen. There is no evidence of pneumothorax. There are normal size mediastinal and hilar lymph nodes. The heart is not enlarged. Degenerative changes of the thoracolumbar spine are present. There is no evidence of adrenal nodule. IMPRESSION: 1. Minimal bilateral pulmonary infiltrates with left lower lung subsegmental atelectasis and bronchiectasis. CT was performed with one or more following dose reduction techniques: automated exposure control, adjustment of the mA and kv according to patient's size, or use of a iterative reconstruction technique. DICTATED BY: ARMAAN VALENCIA MD DATE: 10/03/24 1008 ELECTRONICALLY SIGNED BY: ARMAAN VALENCIA MD DATE: 10/03/24 1042 PATIENT: KYLE PATEL MR#: [id number] : 2005 SEX: F AGE: 18 LOCATION: ED ORDER 1701 STATUS: REG ER REPORT#: [id number] SERVICE 99 REASON: cough ORDERING PHYSICIAN: RUBIO CLOUD DO PROCEDURE: CXR1VW - CHEST 1VW PORTABLE CHEST RADIOGRAPH INDICATION: cough COMPARISON: 09/10/2022 FINDINGS: Heart size is normal. The pulmonary vascularity and jaya appear normal. Right lung is clear. Suspect left lower lung opacities. No significant pleural effusion noted. No pneumothorax detected. Significant scoliotic deformity of the thoracolumbar spine. IMPRESSION: Suspect left lower lung opacities. Follow-up chest radiograph is advised in order to ensure resolution. PATIENT: KYLE PATEL MR#: [id number] : 2005 SEX: F AGE: 18 LOCATION: [facility] ORDER 00 STATUS: [facility] REPORT#: [id number] SERVICE 99 REASON: cough ORDERING PHYSICIAN: RUBIO CLOUD DO PROCEDURE: ABD 1VW - ABD 1VW ABDOMEN SINGLE VIEW INDICATION: Pain COMPARISON: None FINDINGS: Supine view only No abnormal bowel dilation noted. Gastrojejunostomy or other enteric tube is in place. No abnormal calcifications identified. No gross free air detected. Significant deformity of the skeletal structures. IMPRESSION: No evidence for bowel obstruction. Assessment/Plan: ASSESSMENT: Ventilator associated pneumonia, Left lung pneumonia POA GI bleed POA Normocytic normochromic anemia POA Acute Leukocytosis POA Hypernatremia POA Hypokalemia POA Chronic respiratory failure ventilator dependent POA Functional quadriplegia POA GERD with PEG tube placement. POA Peg tube status POA Recent Left ear infection POA Spinal Muscular dystrophy POA Severe thoracic scoliosis POA Discharge Instructions: ADMISSION DATE : 10/03/2024 DISCHARGE DATE : 10/11/2024 DISPOSITION : Home CONDITION : Stable GLUE SIZE MACHINE OPERATOR(S) : Kevin Platt MD, Anthony R MD Rodriguez, Jairo P MD Primary care physician : Mariaelena Haro Admitting : Loki Faust MD Attending : Dionte Holcomb MD FOLLOW UP APPOINTMENT(s): PRIMARY CARE PHYSICIAN FOLLOW-UP APPOINTMENT WITHIN 3-5 DAYS POST DISCHARGE. APPOINTMENT IN 2 WEEKS TO EVALUATE GASTROENTEROLOGY FOLLOW-UP APPOINTMENT IN 2 WEEKS TO EVALUATE ULCER HEALING AND DISCUSSED THE TUBE REPLACEMENT OR REPOSITIONING IF SYMPTOMS PERSIST. PULMONOLOGY FOLLOW-UP APPOINTMENT IN 1 MONTH TO ASSESS VENTILATOR SETTING AND LUNG FUNCTION. INFECTIOUS DISEASE FOLLOW-UP APPOINTMENT IN 2 WEEKS TO ENSURE PNEUMONIA RESOLUTION AND REVIEWED DISCHARGE ANTIBIOTIC REGIMEN. IMAGING(S) : Reports attached to summary. MICROBIOLOGY : Reports attached to summary. ACTIVITY : [facility] HOME MEDICATION : Continued TEACHING : Reinforced the importance of medication compliance and follow-up appointments. Home Medications: Active Scripts Lansoprazole (Prevacid) 15 Mg Tab.rap.dr, 30 MG PEG BID for 30 Days, #30 - 0 Refills Prov:NEGRA VALENTE MD 10/11/24 Reported Medications Albuterol Sulfate (Ventolin Hfa) 90 Mcg Hfa.aer.ad, 2 PUFF IH BID for 30 Days, #18 GM 0 Refills 10/03/24 Midazolam (Nayzilam) 5 Mg/[place] (0.1 Ml) [place], 5 MG NS AD PRN for OTHER [SEE ORDER COMMENTS], SPRAY 10/03/24 Midazolam (Nayzilam) 5 Mg/[place] (0.1 Ml) [place], 5 MG NS BID PRN for CONSTIPATION, SPRAY 10/03/24 Acetaminophen (Acetaminophen) 160 Mg/5 Ml Liquid, 480 MG GT Q6HPRN PRN for PAIN/FEVER 10/03/24 Propranolol HCl (Propranolol HCl) 20 Mg Tablet, 1 TAB PO BID PRN for OTHER [SEE ORDER COMMENTS] for 30 Days, #60 TAB 0 Refills 10/03/24 Ergocalciferol (Vitamin D2) (Ergocalciferol) 200 Mcg/Ml (8000 Unit/Ml) Drops, 1 ML PO QWEEK for 28 Days, #20 ML 0 Refills 10/03/24 Sodium Chloride For Inhalation (Sodium Chloride) 7 % Vial.neb, 4 ML IH BID, INH 10/03/24 Polyethylene Glycol 3350 (Polyethylene Glycol 3350) 17 Gm Powd.pack, 17 GM PO QODAY 09/08/22 Dextran 70/Hypromellose (Artificial Tears) 1 Each Droperette, 1 EACH OP TID, DROP 09/08/22 Fluticasone/Salmeterol (Advair Hfa 45-21 Mcg Inhaler) 12 Gm Hfa.aer.ad, 2 INH IH BID, INHALER 1/19/23 Cetirizine HCl (Cetirizine HCl) 5 Mg Tablet, 5 MG PO HS, TAB 02/02/22 Albuterol Sulfate (Albuterol Sulfate) 2.5 Mg/0.5 Ml Vial.neb, 2.5 MG IH Q4HPRN PRN for BRONCHOSPASM, INH 02/02/22 Discontinued Reported Medications Amoxicillin/Potassium Clav (Augmentin 500-125 Tablet) 500 Mg-125 Mg Tablet, 1 TAB PO BID for 10 Days, #20 TAB 0 Refills 10/03/24 New Medications: Lansoprazole (Prevacid) 15 Mg Tab.rap.dr 30 MG PEG BID for 30 Days, #30 - 0 Refills Continued Medications: Acetaminophen (Acetaminophen) 160 Mg/5 Ml Liquid 480 MG GT Q6HPRN PRN for PAIN/FEVER Albuterol Sulfate (Albuterol Sulfate) 2.5 Mg/0.5 Ml Vial.neb 2.5 MG IH Q4HPRN PRN for BRONCHOSPASM, INH Albuterol Sulfate (Ventolin Hfa) 90 Mcg Hfa.aer.ad 2 PUFF IH BID for 30 Days, #18 GM 0 Refills Cetirizine HCl (Cetirizine HCl) 5 Mg Tablet 5 MG PO HS, TAB Dextran 70/Hypromellose (Artificial Tears) 1 Each Droperette 1 EACH OP TID, DROP Ergocalciferol (Vitamin D2) (Ergocalciferol) 200 Mcg/Ml (8000 Unit/Ml) Drops 1 ML PO QWEEK for 28 Days, #20 ML 0 Refills Fluticasone/Salmeterol (Advair Hfa 45-21 Mcg Inhaler) 12 Gm Hfa.aer.ad 2 INH IH BID, INHALER Midazolam (Nayzilam) 5 Mg/[place] (0.1 Ml) [place] 5 MG NS BID PRN for CONSTIPATION, SPRAY Midazolam (Nayzilam) 5 Mg/[place] (0.1 Ml) [place] 5 MG NS AD PRN for OTHER [SEE ORDER COMMENTS], SPRAY Polyethylene Glycol 3350 (Polyethylene Glycol 3350) 17 Gm Powd.pack 17 GM PO QODAY Propranolol HCl (Propranolol HCl) 20 Mg Tablet 1 TAB PO BID PRN for OTHER [SEE ORDER COMMENTS] for 30 Days, #60 TAB 0 Refills Sodium Chloride For Inhalation (Sodium Chloride) 7 % Vial.neb 4 ML IH BID, INH Discontinued Medications: Amoxicillin/Potassium Clav (Augmentin 500-125 Tablet) 500 Mg-125 Mg Tablet 1 TAB PO BID for 10 Days, #20 TAB 0 Refills Time spent arranging discharge: 31-60 minutes ATTESTATION BY PHYSICIAN I have seen and examined the patient. I reviewed the documentation, medical decision making, and treatment plan as noted by the resident above. I agree with the findings and plan of care. Dionte Holcomb MD, RAGHAVA R MD Oct 11, 2024 16:30
--- NOTE | 2024-10-11 17:38 | PN ---
INFECTIOUS DISEASE PROGRESS NOTE Date of Service: Oct 11, 2024 SUBJECTIVE: This is a 18-year-old female patient who was seen and examined at bedside in the ICU room 206. Patient is tracheostomy dependent. Continues with Crackles mostly to the right side on auscultation. The WBC trended down to 9.7 and no fever reported this morning. Patient is being discharged to home today. Prescription for Vantin and Bactrim was written. PHYSICAL EXAM EYES: Anicteric. Pupils equal and reactive. HENT: No oral thrush seen, moist Oral mucosa. NECK: Supple, no JVD or thyromegaly. LUNGS: Good air entry. Rales bilaterally. Chronic respiratory failure on ventilator dependent. CARDIOVASCULAR: S1, S2 regular. No murmur heard. ABDOMEN: Soft, non tender, bowel sounds present, no organomegaly. PEG tube. CENTRAL NERVOUS SYSTEM: Tracheostomy status. SKIN: No rashes, no swelling. LYMPHATICS: No peripheral lymphadenopathy. MUSCULOSKELETAL: No joint swelling, erythema or tenderness. EXTREMITIES: No cyanosis or clubbing BACK: No deformity, no pressure ulcer. GENITOURINARY: No dysuria or hematuria. Incontinence. Vital Sign (Last 12 Hours) 10/11/24 10/11/24 10/11/24 10/11/24 06:00 06:28 06:30 08:00 Pulse 81 114 112 Resp 22 22 B/P (MAP) 95/42 Pulse Ox 100 100 O2 Delivery Ventilator Ventilator+ FiO2 10/11/24 10/11/24 10/11/24 10/11/24 10:16 11:27 12:00 14:25 Pulse 75 99 85 Resp 21 Pulse Ox 100 O2 Delivery Ventilator+ FiO2 10/11/24 14:26 Pulse 85 Resp 22 Intake & Output (last 24hrs) 10/10/24 10/10/24 10/11/24 15:00 23:00 07:00 Intake Total 530 ml 631.0 ml 33.0 ml Balance 530 ml 631.0 ml 33.0 ml LABS: Laboratory: Test 10/11/24 16:19 10/11/24 03:54 Range/Units Whole Blood Glucose 100 70-110 MG/DL White Blood Count 9.7 4.8-10.8 K/uL Red Blood Count 2.67 L 4.00-5.50 MIL/uL Hemoglobin 7.9 L 12.0-16.0 g/dL Hematocrit 26.1 L 36-48 % Mean Corpuscular Volume 97.8 80-100 fL Mean Corpuscular Hemoglobin 29.6 27.0-33.0 pg Mean Corpuscular Hemoglobin Concent 30.3 L 32.0-36.0 g/dL Red Cell Distribution Width 16.3 H 11.0-15.5 % Platelet Count 353 130-400 K/uL Mean Platelet Volume 10.1 7.5-10.5 fL Immature Granulocyte % (Auto) 0.4 0-1 % Neutrophils (%) (Auto) 45.5 40.0-77.0 % Lymphocytes (%) (Auto) 42.2 21.0-51.0 % Monocytes (%) (Auto) 6.3 3.0-13.0 % Eosinophils (%) (Auto) 5.1 0.0-8.0 % Basophils (%) (Auto) 0.5 0.0-5.0 % Neutrophils # (Auto) 4.4 1.8-7.7 K/uL Lymphocytes # (Auto) 4.1 1.0-4.8 K/uL Monocytes # (Auto) 0.6 0.1-1.0 K/uL Eosinophils # (Auto) 0.49 0.00-0.70 K/uL Basophils # (Auto) 0.05 0.00-0.20 K/uL Absolute Immature Granulocyte (auto 0.04 0-1 K/uL Nucleated Red Blood Cells 0.0 0.0-0.19 % Sodium Level 143 136-145 mmol/L Potassium Level 3.6 3.5-5.1 mmol/L Chloride Level 109 101-111 mmol/L Carbon Dioxide Level 23 21-32 mmol/L Blood Urea Nitrogen 5 L 7-18 mg/dL Creatinine < 0.2 L 0.5-1.0 mg/dL Glomerular Filtration Rate Calc 172 >90 mL/min Random Glucose 87 70-105 mg/dL Lactic Acid Level 1.4 0.8-2.5 mmol/L Total Calcium 8.8 8.5-10.1 mg/dL Phosphorus Level 3.1 2.5-4.9 mg/dL Magnesium Level 2.40 1.80-2.40 mg/dL ASSESSMENT: Acute on chronic respiratory failure, tracheostomy dependent. Bacterial Pneumonia. Septic shock, resolved. Leukocytosis. Spinal muscular Atrophy. Oropharyngeal dysphagia, Peg tube status. PLAN: Patient is being discharged to home today. Prescription for Vantin and Bactrim x7 days was written. This case was reviewed and discussed with my supervising physician and the above assessment and plan was formulated and agreed upon. ATTESTATION BY PHYSICIAN I have seen and examined the patient. I reviewed the documentation, medical decision making, and treatment plan as noted by the mid-level provider above. I agree with the findings and plan of care. FREDDIE HARRELL MD, MIRTA L HRIS ADMINISTRATOR Oct 11, 2024 17:38
--- NOTE | 2024-10-11 18:05 | NUR ---
CM NOTE/EMS CM verified home address with mother at bedside. CM faxed prior auth request to [facility] and faxed PCS to [facility]. Addendum: 10/11/24 at 1806 by MARLYN QUINTERO CM Amended: Links added.
--- NOTE | 2024-10-11 19:08 | NUR ---
DISCHARGED TO HOME. PICC LINE DISCONTINUED. PICKED BY EMS AT PRESENT. DISCHARGE INSTRUCTIONS REVIEWED WITH MOTHER. ANTIOBIOTIC PRESCRIPTION FAXED TO [facility] ON [address], GIVEN TO MOTHER AND COPY IN CHART.
== END 2024-10-11 19:10 | disposition home or self-care (01) | DRG 720 ==
LOC: EDH 15:42 → EDHIP 15:43 → 2BH 10-03 16:32
PROVIDERS: ADMIT Internal Medicine; ATTEND Internal Medicine
PROC: 5A1955Z Respiratory Ventilation, Greater than 96 Consecutive Hours (ICD-10-PCS; 2024-10-02)
PROC: 02HV33Z Insertion of Infusion Device into Superior Vena Cava, Percutaneous Approach (ICD-10-PCS; 2024-10-03)
PROC: 0DB78ZX Excision of Stomach, Pylorus, Via Natural or Artificial Opening Endoscopic, Diagnostic (ICD-10-PCS; principal; 2024-10-04)
PROC: 0DB68ZX Excision of Stomach, Via Natural or Artificial Opening Endoscopic, Diagnostic (ICD-10-PCS; 2024-10-04)
PROC: 0W3P8ZZ Control Bleeding in Gastrointestinal Tract, Via Natural or Artificial Opening Endoscopic (ICD-10-PCS; 2024-10-04)
DX: A41.9 Sepsis, unspecified organism (principal); J96.21 Acute and chronic respiratory failure with hypoxia; R65.21 Severe sepsis with septic shock; G12.9 Spinal muscular atrophy, unspecified; J95.851 Ventilator associated pneumonia; J15.69 Pneumonia due to other Gram-negative bacteria; K25.4 Chronic or unspecified gastric ulcer with hemorrhage; K20.91 Esophagitis, unspecified with bleeding; R53.2 Functional quadriplegia; E87.20 Acidosis, unspecified; D62 Acute posthemorrhagic anemia; E87.1 Hypo-osmolality and hyponatremia; H92.12 Otorrhea, left ear; E87.0 Hyperosmolality and hypernatremia; G71.00 Muscular dystrophy, unspecified; H66.92 Otitis media, unspecified, left ear; E87.6 Hypokalemia; E87.5 Hyperkalemia; Z16.24 Resistance to multiple antibiotics; K29.71 Gastritis, unspecified, with bleeding; M41.9 Scoliosis, unspecified; Z99.11 Dependence on respirator [ventilator] status; Z93.0 Tracheostomy status; Z74.01 Bed confinement status; K21.9 Gastro-esophageal reflux disease without esophagitis; Z79.899 Other long term (current) drug therapy; Z93.1 Gastrostomy status; Z68.22 Body mass index [BMI] 22.0-22.9, adult
CPT/HCPCS: 36415; 36600; 43239; 43255; 71045; 71250; 74018; 80048; 80053; 80076; 81001; 82270; 82435; 82533; 82550; 82803; 82947; 82948; 83540; 83550; 83605; 83690; 83735; 84100; 84132; 84145; 84295; 84436; 84439; 84443; 84480; 84481; 84484; 85014; 85018; 85025; 85027; 85384; 85610; 85651; 85730; 86140; 86850; 86900; 86901; 87040; 87071; 87086; 87186; 87205; 87426; 87507; 87641; 87804; 87880; 94640; 94664; 94667; 94668; 96365; 96366; 96375; 99285; G0378; J0696; J1650; J1756; J1940; J2185; J2470; J2543; J3480; J3490; J7120; A4600; A4649

== ENCOUNTER 2025-01-02 07:30 | Day surgery (SDC) | payer MEDICAID ==
[2025-01-02] VITALS (10 sets, daily range): BP systolic 84–117; BP diastolic 58–70; PULSE 53–82; RESP 15–18; TEMP 97.2–98.1
[2025-01-02] MEDS: 0.9%NACL 1000ML 1,000 ML IV ONE (06:28)
[~2025-01-02 07:30] MED LIST changes: +ACET160L45 GT; +ALBU18HF7 IH; -ATEN5POW3 MC; -AUD IH; -CARB15DR OP; +CLOB20TA4 PO; +ERGO800010 PO; -ESOM20CA51 PEG; +ESOM20SU PO; +FAMO40TA7 PO; -IPRNEB IH; +LANS15TA5 PEG; +MIDA5SPR NS; +PROP20TA7 PO; +SODI4VIA33 IH; +SUCR1TAB28 PO; -[UNRECOGNIZED DRUG - CODE] IH; -[UNRECOGNIZED DRUG - CODE] OD
[2025-01-02] MEDS ORDERED: proPOFol 10 MG/ML 20ML VIAL IV ONE (08:15)
== END 2025-01-02 10:05 | disposition home or self-care (01) ==
LOC: ENDO 07:30 → DAH 07:30 → ENDO 10:05
PROVIDERS: ATTEND Internal Medicine Gastroenterology
DX: R13.10 Dysphagia, unspecified (principal); K29.50 Unspecified chronic gastritis without bleeding; K25.0 Acute gastric ulcer with hemorrhage; K21.01 Gastro-esophageal reflux disease with esophagitis, with bleeding; K59.00 Constipation, unspecified; K92.1 Melena; G12.9 Spinal muscular atrophy, unspecified; D50.9 Iron deficiency anemia, unspecified; J96.90 Respiratory failure, unspecified, unspecified whether with hypoxia or hypercapnia; G82.50 Quadriplegia, unspecified; J18.9 Pneumonia, unspecified organism; Z87.898 Personal history of other specified conditions; Z86.16 Personal history of COVID-19; Z93.0 Tracheostomy status; Z79.899 Other long term (current) drug therapy; Z93.1 Gastrostomy status
CPT/HCPCS: 43239; 84703; 36415; J7030; J2704; A4215 ×2; A4223; A4222; A4221; A4663; A4606; J3490